=== PATIENT | female | born 1995 | race Caucasian/White ===

== ENCOUNTER 2020-06-08 14:15 | Outpatient (REF) | payer OTHER, SELFPAY ==
[2020-06-08 14:39] LABS: MANUAL DIFF FLAG NO
[2020-06-08 14:41] LABS: Basophils Percent Auto 0.6 % (0-2); Eosinophils Absolute Auto 0.1 X10*3/uL (0.0-0.4); Eosinophils Percent Auto 0.8 % (0-4); Hematocrit 41.7 % (37-47); Hemoglobin 12.7 g/dl (12.0-16.0); Imm Gran Abs Auto 0.01 X10*3/uL (0.00-0.03); Imm Gran Pct Auto 0.1 % (0.0-0.4); Lymphocytes Absolute Auto 1.8 X10*3/uL (1.2-4.9); Lymphocytes Percent Auto 24.4 % (20-40); Mean Corpuscular HGB Conc 30.5 g/dl (31.0-35.0); Mean Corpuscular Hemoglobin 23.8 pg (27.0-33.0); Mean Corpuscular Volume 78.2 fL (80-98); Mean Platelet Volume 10.1 fL (9.4-12.3); Monocytes Absolute Auto 0.5 X10*3/uL (0.1-1.2); Monocytes Percent Auto 6.2 % (2-11); Neutrophils Absolute Auto 4.9 X10*3/uL (2.0-8.3); Neutrophils Percent Auto 67.9 % (45-73); Platelet Count 414 X10*3/uL (160-400); Red Blood Count 5.33 X10*6/uL (4.20-5.50); Red Cell Distribution Width 13.7 % (11.0-16.0); White Blood Count 7.2 X10*3/uL (4.8-10.8)
[2020-06-08 15:03] LABS: Alanine Aminotransferase 18 U/L (0-31); Albumin Level 4.4 g/dL (3.5-5.0); Alkaline Phosphatase 89 U/L (39-117); Aspartate Amino Transferase 17 U/L (5-31); Bilirubin Direct 0.2 mg/dL (0.0-0.5); Bilirubin Total 0.4 mg/dL (0.0-1.0); Total Protein 7.1 g/dL (6.5-8.0)
[2020-06-08 15:25] LABS: Vitamin D 25-OH Total 6.1 ng/mL (>30)
== END 2020-06-08 14:16 | disposition home or self-care (01) ==
LOC: HO.LAB 14:15
PROVIDERS: PCP Internal Medicine; Visit Provider Psychiatry & Neurology Neurology
DX: G35 Multiple sclerosis (principal)
CPT/HCPCS: 36415; 80076; 82306; 85025

== ENCOUNTER 2020-12-02 14:54 | Outpatient (REF) | payer MEDICAID, SELFPAY ==
[2020-12-02 17:14] LABS: Hematocrit 41.8 % (37-47); Hemoglobin 12.5 g/dl (12.0-16.0); Mean Corpuscular HGB Conc 29.9 g/dl (31.0-35.0); Mean Corpuscular Hemoglobin 22.7 pg (27.0-33.0); Mean Platelet Volume 10.7 fL (9.4-12.3); Platelet Count 396 X10*3/uL (160-400); Red Cell Distribution Width 15.2 % (11.0-16.0)
[2020-12-02 17:20] LABS: C Reactive Protein 0.61 mg/dL (< or = 0.50)
[2020-12-05 22:26] LABS: Transglutaminase Ab IgG 1 U/mL; Transglutaminase IgA 1 U/mL
== END 2020-12-02 14:55 | disposition home or self-care (01) ==
LOC: HO.LAB 14:54
PROVIDERS: PCP Internal Medicine; Visit Provider Nurse Practitioner Family
DX: R10.11 Right upper quadrant pain (principal); K58.9 Irritable bowel syndrome, unspecified; R14.0 Abdominal distension (gaseous); K59.04 Chronic idiopathic constipation; K92.1 Melena
CPT/HCPCS: 36415; 83516; 85027; 86140; 99202

== ENCOUNTER 2020-12-21 10:01 | Outpatient (REF) | payer MEDICAID, SELFPAY ==
--- NOTE | ~2020-12-21 | XR_ITS ---
EXAMINATION: XR LUMBOSACRAL SPINE CLINICAL INFORMATION: Low back pain COMPARISON: Fluoroscopic spot views lumbar puncture 01/31/2018 TECHNIQUE: Three views of the lumbosacral spine. FINDINGS: There is normal lumbar segmentation with 5 nonrib-bearing lumbar vertebrae of normal height and normal lumbar lordosis. There is no lumbar vertebral compression, spondylolisthesis, disc narrowing. Incidental small superior endplate Schmorl's node present at L1. The SI joints and visualized sacrum are unremarkable. XR/XR lumbar spine 2-3V IMPRESSION: Unremarkable examination.
== END 2020-12-21 10:02 | disposition home or self-care (01) ==
LOC: HO.XRAY 10:01
PROVIDERS: PCP Internal Medicine; Visit Provider Internal Medicine
DX: M54.5 Low back pain (principal)
CPT/HCPCS: 72100

== ENCOUNTER → 2021-02-10 15:03 | Outpatient (BNVA) | payer MEDICAID, SELFPAY | PROVIDERS: PCP Internal Medicine; Visit Provider Nurse Practitioner Family ==

== ENCOUNTER 2021-03-12 10:24 | Emergency (ER) | payer MEDICAID, SELFPAY ==
[2021-03-12 10:28] VITALS: BP 132/78; PULSE 87; RESP 17; TEMP 36.4; O2SAT 97
[2021-03-12 11:19] VITALS: BP 132/78; PULSE 88; RESP 18; TEMP 36.4; O2SAT 97; BMI 38.0
[2021-03-12 12:22] LABS: Appearance Urine CLOUDY; Color Urine ORANGE; Leukocyte Esterase Urine 2+ (NEG); Nitrite Urine POS (NEG); UACC Culture Trigger YES; Urine Blood 2+ (NEG)
[2021-03-12 12:24] LABS: UPreg QC Valid YES; Urine Pregnancy NEGATIVE (NEGATIVE)
[2021-03-12 12:40] LABS: Bacteria Urine 2+ /LPF; RBC Urine 50-75 /HPF (0); Squamous Epithelial Cell Urine 2+ /LPF
--- NOTE | 2021-03-12 12:51 | ED.FEMALEGU ---
HPI - Female Genitourinary General Chief complaint: Urogenital-Female Stated complaint: BLOOD IN URINE QUEST UTI Time Seen by Provider: 03/12/21 12:03 Source: patient Mode of arrival: ambulatory Limitations: no limitations History of Present Illness HPI Narrative: 25-year-old female here with complaints of dysuria and hematuria describes pink urine for 3 days. History of recurrent UTIs and feels similar. No abdominal pain, back pain, fevers, chills, nausea, vomiting. Patient denies any vaginal discharge. She has had chlamydia before but does not feel like she is concerned about this today. Offered testing and patient accepted. Does not want to be treated for STDs. Related Data Home Medications Medication Instructions Recorded Confirmed albuterol sulfate 90 mcg/actuation 2 puff INHALATION Q6H PRN 12/02/20 aerosol inhaler (ProAir HFA) baclofen 10 mg tablet 10 mg PO DAILY 12/02/20 dimethyl fumarate 120 mg 120 mg PO BID 12/02/20 capsule,delayed release (Tecfidera) ibuprofen 800 mg tablet 800 mg PO Q8H 12/02/20 Previous Rx's Medication Instructions Recorded docusate sodium 100 mg capsule 100 mg PO DAILY #30 cap 02/10/21 methylcellulose (laxative) 500 mg 500 mg PO DAILY #30 tab 02/10/21 tablet (Citrucel) sennosides 8.6 mg tablet (Natural 8.6 mg PO BEDTIME #30 tab 02/10/21 Senna Laxative) nitrofurantoin 100 mg PO Q12H 5 Days #10 cap 03/12/21 monohydrate/macrocrystals 100 mg capsule (Macrobid) phenazopyridine 200 mg tablet 200 mg PO TID PRN #10 tab 03/12/21 (Pyridium) Allergies Allergy/AdvReac Type Severity Reaction Status Date / Time morphine [MORPHINE] Allergy Severe HYPOVENTILATION, Verified 02/10/21 15:05 excellerated heart rate and sob cromolyn [From INTAL] Allergy Intermediate HYPERACTIVI Verified 02/10/21 15:05 TY amoxicillin [AMOXICILLIN] Allergy Unknown HIVES, Verified 02/10/21 15:05 hives and welts Review of Systems Review of Systems: Yes all other systems are reviewed and are negative Constitutional: Constitutional: Reports no additional constitutional complaints, Denies body ache(s), Denies chills, Denies fever(s), Denies headache(s) and Denies weakness Eyes: Eyes: Reports no additional eye complaints and Denies change in vision ENT: Reports system reviewed and no additional complaints, except as documented, Denies dizziness, Denies headache(s), Denies nasal congestion, Denies nasal discharge and Denies neck pain Cardiovascular: Cardiovascular: Reports no additional cardiovascular complaints, Denies chest pain, Denies leg edema and Denies dyspnea Respiratory: Respiratory: Reports no additional respiratory complaints, Denies cough and Denies dyspnea Gastrointestinal: Gastrointestinal: Reports no additional gastrointestinal complaints, Denies abdominal pain, Denies diarrhea, Denies nausea and Denies vomiting Genitourinary: Genitourinary: Reports no additional female genitourinary complaints, Reports hematuria, Reports dysuria and Denies urinary incontinence Musculoskeletal: Musculoskeletal: Reports no additional musculoskeletal complaints, Denies back pain, Denies arthralgias, Denies joint swelling, Denies neck pain, Denies numbness and Denies tingling Integumentary/Breasts: Skin/Breast: Reports system reviewed and no additional complaints, except as docu and Denies rash Neurologic: Reports system reviewed and no additional complaints, except as documented, Denies Abnormal speech present, Denies dizziness, Denies headache(s), Denies numbness, Denies tingling and Denies weakness PMFSH Past Medical History Attestation statement: The following information was validated with the patient. Source: old records reviewed and nursing notes reviewed Social History Social History Alcohol intake: never Patient Tobacco Use Status: Never used Tobacco Use of substances other than those prescribed or required for medical reasons: No Advance Directives: Yes Advance Directives Information Provided: Yes Advance Directives on File: No Physical Exam Vital Signs: Vital Signs: Last Vital Signs Temp 97.6 F 03/12/21 11:19 Pulse 88 03/12/21 11:19 Resp 18 03/12/21 11:19 BP 132/78 03/12/21 11:19 Pulse Ox 97 03/12/21 11:19 Body Mass Index 38.0 Const: General: cooperative, healthy appearing, comfortable and no acute distress Orientation/consciousness: patient oriented x3 Limitations: no limitations HENMT: Head: Yes normal to inspection Ears: hearing grossly normal bilaterally General nose exam: Normal external nose present Face and sinus: Yes normal facial exam Mouth: Normal oral and palatal mucosa present Throat: Yes posterior oropharynx normal Eyes: General: appearance normal, both eyes and all related structures Pupils: Equal, round and reactive pupils present Neck: Neck: Yes normal visual inspection Chest: Chest palpation & inspection: normal inspection of the chest Resp: Effort & Inspection: normal respiratory effort Auscultation: clear to auscultation bilaterally Cardio: Rate: regular rate Rhythm: regular rhythm Peripheral pulses: Peripheral pulses 2+ throughout GI: Inspection: Yes normal to inspection Palpation (GI): Soft to palpation and nontender Auscultation: normal bowel sounds : General: Yes no CVA tenderness Back/Spine/Pelvis: Back: no CVA tenderness Thoracic/Lumbar Spine: thoracic and lumbar spine normal to inspection Skin: General skin exam: no rashes or lesions noted Neuro: General: patient oriented x3, no focal motor deficits and normal sensation to monofilament Cranial nerves: Yes Equal, round and reactive pupils present Cognition (Neuro): normal cognition Speech: No Abnormal speech present Gait exam (Neuro): Normal gait present Motor exam (neuro): 5/5 motor strength present throughout Extrem: General: Yes normal to inspection, Yes no pedal edema and Yes no calf tenderness Course Course Course Narrative: [age] year female here with UTI symptoms. UA is consistent with UTI. No evidence of pyelonephritis with no flank pain, vomiting. Patient is nontoxic appearing. Will treat with course of antibiotics. History of of STI. Not concern for exposure at this time however accepted testing. Did decline treatment. Where she will need to return if she is positive. Reviewed worrisome signs and symptoms of when to return to the emergency department. Comfortable discharge home. MDM - Female Genitourinary Medical Records Attestation: I reviewed the patient's medical records. Lab Data Attestation: I reviewed the patient's lab results. Labs: Lab Results 03/12/21 03/12/21 Range/Units 12:14 12:15 Urine Color ORANGE Urine Appearance CLOUDY Urine pH 5.0 (5.0-8.0) Ur Specific [place] 1.020 (1.005-1.025) Urine Protein SEE NOTE (NEG-TRACE) MG/DL Urine Glucose (UA) SEE NOTE (NEG) MG/DL Urine Ketones SEE NOTE (NEG) MG/DL Urine Blood 2+ H (NEG) Urine Nitrite POS H (NEG) Ur Leukocyte Esterase 2+ H (NEG) Urine RBC 50-75 H (0) /HPF Urine WBC 10-14 H (0-4) /HPF Ur Squamous Epith Cells 2+ /LPF Urine Bacteria 2+ /LPF Urine Test NEGATIVE (NEGATIVE) Discharge Plan Discharge Clinical Impression: Urinary tract infection Patient Disposition: Home, Self-Care Instructions: Urinary Tract Infection in Women (ED) Additional Instructions: Increase fluids, rest Motrin or Tylenol if able as needed for pain or fever We did test you for STD. We will call you if these are positive Prescriptions: New nitrofurantoin monohyd/m-cryst [Macrobid] 100 mg capsule 100 mg PO Q12H 5 Days Qty: 10 RF: 0 phenazopyridine [Pyridium] 200 mg tablet 200 mg PO TID PRN (Reason: pain) Qty: 10 RF: 0 No Action dimethyl fumarate [Tecfidera] 120 mg capsule,delayed release(DR/EC) 120 mg PO BID RF: 0 baclofen 10 mg tablet 10 mg PO DAILY RF: 0 ibuprofen 800 mg tablet 800 mg PO Q8H RF: 0 albuterol sulfate [ProAir HFA] 90 mcg/actuation HFA aerosol inhaler 2 puff inhalation Q6H PRNRF: 0 docusate sodium 100 mg capsule 100 mg PO DAILY Qty: 30 RF: 3 Citrucel 500 mg tablet 500 mg PO DAILY Qty: 30 RF: 3 sennosides [Natural Senna Laxative] 8.6 mg tablet 8.6 mg PO BEDTIME Qty: 30 RF: 3 Referrals: Hilda Joyce MD [Primary Care Provider] - 2 days Interventions: ED Discharge Assessment Last Done: 03/12/21 13:06 Discharge Date/Time: 03/12/21 13:06
[2021-03-13 09:41] LABS: CT PCR NOT DETECTED (Not Detect.); NG PCR NOT DETECTED (Not Detect.)
== END 2021-03-12 13:06 | disposition home or self-care (01) ==
PROVIDERS: Nurse Practitioner Family; Physician Assistant Medical; Emergency Provider Emergency Medicine; PCP Internal Medicine
DX: N39.0 Urinary tract infection, site not specified (principal)
CPT/HCPCS: 81001; 81025; 87086; 87088; 87186; 87491; 87591; 99283; 99284

== ENCOUNTER 2021-05-17 12:52 | Outpatient (REF) | payer MEDICAID, SELFPAY ==
[2021-05-17 14:44] LABS: Alanine Aminotransferase 15 U/L (0-31); Albumin Level 3.9 g/dL (3.5-5.0); Alkaline Phosphatase 63 U/L (39-117); Aspartate Amino Transferase 15 U/L (5-31); Bilirubin Direct < 0.2 mg/dL (0.0-0.5); Bilirubin Total 0.2 mg/dL (0.0-1.0); Total Protein 6.8 g/dL (6.5-8.0)
== END 2021-05-17 12:53 | disposition home or self-care (01) ==
LOC: HO.LAB 12:52
PROVIDERS: Visit Provider Psychiatry & Neurology Neurology
DX: G35 Multiple sclerosis (principal)
CPT/HCPCS: 36415; 80076

== ENCOUNTER 2021-05-31 14:42 | Outpatient (REF) | payer MEDICAID, SELFPAY ==
[2021-05-31 16:48] LABS: Folate 11.6 ng/mL (> or = 4.0); Vitamin B12 184 pg/mL (200-900)
[2021-06-05 14:11] LABS: Vitamin D 25-OH, D2 <4 ng/mL; Vitamin D 25-OH, D3 5 ng/mL; Vitamin D 25-OH, Total 5 ng/mL (30-100)
== END 2021-05-31 14:43 | disposition home or self-care (01) ==
LOC: HO.LAB 14:42
PROVIDERS: PCP Internal Medicine; Referring Provider Internal Medicine; Visit Provider Nurse Practitioner Family
DX: R19.7 Diarrhea, unspecified (principal); E55.9 Vitamin D deficiency, unspecified
CPT/HCPCS: 36415; 82306; 82607; 82746; 84443; 99212

== ENCOUNTER → 2021-08-28 13:29 | Outpatient (BNVA) | payer MEDICAID, SELFPAY | PROVIDERS: PCP Internal Medicine; Referring Provider Internal Medicine; Visit Provider Nurse Practitioner Family | DX: K59.01 Slow transit constipation (principal); K21.9 Gastro-esophageal reflux disease without esophagitis; K58.2 Mixed irritable bowel syndrome; R14.0 Abdominal distension (gaseous) | CPT/HCPCS: 83013; 99212 ==

== ENCOUNTER 2021-08-28 18:03 | Outpatient (REF) | payer MEDICAID, SELFPAY ==
[2021-08-29 14:39] LABS: H Pylori Breath Test Negative (Negative)
== END 2021-08-28 18:04 | disposition home or self-care (01) ==
LOC: HO.LNP 18:03
PROVIDERS: Visit Provider Nurse Practitioner Family
DX: R10.9 Unspecified abdominal pain (principal); K58.9 Irritable bowel syndrome, unspecified; K21.9 Gastro-esophageal reflux disease without esophagitis; K59.01 Slow transit constipation; R14.0 Abdominal distension (gaseous); Z11.0 Encounter for screening for intestinal infectious diseases; Z88.6 Allergy status to analgesic agent; Z88.1 Allergy status to other antibiotic agents; Z88.0 Allergy status to penicillin; Z88.8 Allergy status to other drugs, medicaments and biological substances
CPT/HCPCS: 83013

== ENCOUNTER 2021-10-04 12:01 | Outpatient (REF) | payer MEDICAID, SELFPAY ==
[2021-10-04 12:13] LABS: MANUAL DIFF FLAG NO
[2021-10-04 13:16] LABS: Basophils Absolute Auto 0.1 X10*3/uL (0.0-0.2); Basophils Percent Auto 0.8 % (0-2); Eosinophils Absolute Auto 0.2 X10*3/uL (0.0-0.4); Eosinophils Percent Auto 2.6 % (0-4); Hematocrit 40.3 % (37.0-47.0); Hemoglobin 12.2 g/dl (12.0-16.0); Imm Gran Abs Auto 0.02 X10*3/uL (0.00-0.03); Imm Gran Pct Auto 0.3 % (0.0-0.4); Lymphocytes Absolute Auto 1.6 X10*3/uL (1.2-4.9); Lymphocytes Percent Auto 25.2 % (20-40); Mean Corpuscular HGB Conc 30.3 g/dl (31.0-35.0); Mean Corpuscular Hemoglobin 22.9 pg (27.0-33.0); Mean Corpuscular Volume 75.6 fL (80.0-98.0); Mean Platelet Volume 10.8 fL (9.4-12.3); Monocytes Absolute Auto 0.5 X10*3/uL (0.1-1.2); Neutrophils Absolute Auto 4.1 x10*3/uL (2.0-8.3); Neutrophils Percent Auto 63.1 % (45-73); Platelet Count 466 X10*3/uL (160-400); Red Blood Count 5.33 X10*6/uL (4.20-5.50); Red Cell Distribution Width 14.5 % (11.0-16.0); White Blood Count 6.5 X10*3/uL (4.8-10.8)
== END 2021-10-04 12:02 | disposition home or self-care (01) ==
LOC: HO.LAB 12:01
PROVIDERS: PCP Internal Medicine; Visit Provider Psychiatry & Neurology Neurology
DX: G35 Multiple sclerosis (principal)
CPT/HCPCS: 36415; 85025

== ENCOUNTER → 2022-03-14 11:33 | Outpatient (BNVA) | payer MEDICAID, SELFPAY | PROVIDERS: PCP Internal Medicine; Visit Provider Nurse Practitioner Family | DX: K59.01 Slow transit constipation (principal); K58.1 Irritable bowel syndrome with constipation; R14.0 Abdominal distension (gaseous); K21.9 Gastro-esophageal reflux disease without esophagitis; R79.89 Other specified abnormal findings of blood chemistry; E66.01 Morbid (severe) obesity due to excess calories; Z68.41 Body mass index [BMI] 40.0-44.9, adult | CPT/HCPCS: 99212 ==

== ENCOUNTER 2022-10-03 11:48 | Outpatient (REF) | payer MEDICAID, SELFPAY ==
[2022-10-03 12:05] LABS: MANUAL DIFF FLAG NO
[2022-10-03 13:28] LABS: Basophils Percent Auto 0.7 % (0-2); Eosinophils Absolute Auto 0.1 X10*3/uL (0.0-0.4); Eosinophils Percent Auto 1.9 % (0-4); Hematocrit 42.8 % (37.0-47.0); Imm Gran Abs Auto 0.02 X10*3/uL (0.00-0.03); Imm Gran Pct Auto 0.3 % (0.0-0.4); Lymphocytes Absolute Auto 1.8 X10*3/uL (1.2-4.9); Lymphocytes Percent Auto 30.7 % (20-40); Mean Corpuscular HGB Conc 30.4 g/dl (31.0-35.0); Mean Corpuscular Hemoglobin 23.3 pg (27.0-33.0); Mean Corpuscular Volume 76.7 fL (80.0-98.0); Mean Platelet Volume 10.6 fL (9.4-12.3); Monocytes Absolute Auto 0.4 X10*3/uL (0.1-1.2); Monocytes Percent Auto 5.9 % (2-11); Neutrophils Absolute Auto 3.6 x10*3/uL (2.0-8.3); Neutrophils Percent Auto 60.5 % (45-73); Platelet Count 398 X10*3/uL (160-400); Red Blood Count 5.58 X10*6/uL (4.20-5.50); Red Cell Distribution Width 14.5 % (11.0-16.0); White Blood Count 5.9 X10*3/uL (4.8-10.8)
[2022-10-03 14:04] LABS: Alanine Aminotransferase 19 U/L (0-31); Alkaline Phosphatase 84 U/L (39-117); Aspartate Amino Transferase 25 U/L (5-31); Bilirubin Direct 0.1 mg/dL (0.0-0.5); Bilirubin Total 0.5 mg/dL (0.0-1.0); Total Protein 6.9 g/dL (6.5-8.0)
== END 2022-10-03 11:49 | disposition home or self-care (01) ==
LOC: HO.LAB 11:48
PROVIDERS: PCP Internal Medicine; Visit Provider Psychiatry & Neurology Neurology
DX: G35 Multiple sclerosis (principal)
CPT/HCPCS: 36415; 80076; 85025

== ENCOUNTER 2023-04-03 11:03 | Outpatient (REF) | payer OTHER, SELFPAY ==
[2023-04-03 12:07] LABS: Hematocrit 43.2 % (37.0-47.0); Hemoglobin 13.1 g/dl (12.0-16.0); Mean Corpuscular HGB Conc 30.3 g/dl (31.0-35.0); Mean Corpuscular Hemoglobin 23.6 pg (27.0-33.0); Mean Corpuscular Volume 77.8 fL (80.0-98.0); Mean Platelet Volume 10.6 fL (9.4-12.3); Platelet Count 396 X10*3/uL (160-400); Red Blood Count 5.55 X10*6/uL (4.20-5.50); Red Cell Distribution Width 14.8 % (11.0-16.0); White Blood Count 5.1 X10*3/uL (4.8-10.8)
[2023-04-03 12:32] LABS: Alanine Aminotransferase 13 U/L (0-31); Alkaline Phosphatase 76 U/L (39-117); Aspartate Amino Transferase 19 U/L (5-31); Bilirubin Direct 0.1 mg/dL (0.0-0.5); Bilirubin Total 0.3 mg/dL (0.0-1.0); Total Protein 7.2 g/dL (6.5-8.0)
== END 2023-04-03 11:04 | disposition home or self-care (01) ==
LOC: HO.LAB 11:03
PROVIDERS: PCP Internal Medicine; Visit Provider Psychiatry & Neurology Neurology
DX: Z13.89 Encounter for screening for other disorder (principal)
CPT/HCPCS: 36415; 80076; 85027

== ENCOUNTER 2023-06-07 17:40 | Outpatient (REF) | payer OTHER, SELFPAY | END 2023-06-07 17:41 | disposition home or self-care (01) | LOC: HO.HHCLNP 17:40 | PROVIDERS: Visit Provider Emergency Medicine | DX: N60.01 Solitary cyst of right breast (principal) | CPT/HCPCS: 87070; 87205 ==

== ENCOUNTER 2023-07-11 14:59 | Outpatient (AMB) | payer OTHER, SELFPAY ==
--- NOTE | 2023-07-11 15:09 | A.OFFVIS_ITS ---
Intake Vital Signs 3 07/11/23 15:11 Height 5 ft 6 in Weight 209 lb 14.081 oz BMI 33.9 BP 140/72 H Blood Pressure Location Lt brachial Position Sitting Pulse 75 Intake Visit Reasons: Cyst~ RT nipple Intake Note: Patient is seen in office for evaluation and treatment of a cyst of the right nipple. Pt c/o: pierced her nipple aprox 8 months ago, was infected on and off since, every couple months the area will re-open and will drain then scab and repeat, has not had antibiotics, right axilla gets swollen, wound was open 3 days ago currently has a scab, when open discharge is white/yellow and bleeding Broom Stitcher Required: No Accompanied by: Self / Same As Patient Allergies morphine [MORPHINE] Allergy (Severe, Verified 07/11/23 15:11) HYPOVENTILATION, excellerated heart rate and sob cromolyn [From INTAL] Allergy (Intermediate, Verified 07/11/23 15:11) HYPERACTIVITY amoxicillin [AMOXICILLIN] Allergy (Unknown, Verified 07/11/23 15:11) HIVES, hives and welts HPI HPI Comments 2 History of Present Illness0 Details 27-year-old female patient presenting wi th complaints of recurring nipple infection. She reports having the bilateral nipples pierced approximately 8 months ago. She subsequently developed an infection only in the right side with recurring scabbing followed by healing followed by increased pain, swelling and discharge. She has had multiple episodes of infection but currently reports the wound is scabbed over and without any discharge. She denies any symptoms on the left side. She is requesting excision of the persistent cyst of the right nipple. She denies any current fever or chills. [facility] Surgical History Hx of tonsillectomy Family History Mother Anemia Sister Heart murmur Father Diabetes HTN (hypertension) Maternal Grandmother Diabetes Social History Alcohol intake: never Patient Tobacco Use Status: Never used Tobacco Review of Systems Const All systems reviewed & are unremarkable except as noted in HPI and below Denies chills, Denies fever(s), Denies headache(s), Denies poor appetite and Denies weakness ENT Denies headache(s) Card Denies chest pain, Denies irregular heart rhythm, Denies palpitations and Denies dyspnea Resp Denies cough, Denies excessive phlegm production and Denies dyspnea GI Denies abdominal pain, Denies bloating, Denies change in bowel habits, Denies constipation, Denies heartburn, Denies diarrhea, Denies nausea and Denies vomiting Denies urinary frequency Musc Denies back pain, Denies muscle weakness and Denies numbness Skin/Breast Denies changing lesions and Denies unusual bruising Neuro Denies headache(s), Denies numbness, Denies paresthesias and Denies weakness Psych Denies anxiety and Denies depression Endo Denies palpitations Kike/Lymph Denies lymphadenopathy Physical Exam Const General: cooperative and no acute distress Nutritional Appearance: well nourished Orientation/consciousness: patient oriented x3 Limitations: no limitations HEENT Head: Yes normocephalic and Yes atraumatic Ears: hearing grossly normal bilaterally Chest Other: Right breast with a healed nipple piercing. There is a callus located along the medial surface with an underlying palpable cyst below the central portion of the nipple. No abscess is noted at this time. Chest/axillae images: 2 1. Site of callus right nipple, 5 mm diameter Resp Effort & Inspection: normal respiratory effort, no audible wheezes, no cough and no respiratory distress Cardio Jugular venous distension: no JVD GI Inspection: Yes normal to inspection Skin Other: Warm, dry, no rash Neuro General: patient oriented x3 Extrem General: Yes no clubbing, cyanosis or edema Assessment & Plan Assessment & Plan (1) Breast cyst: Code(s): N60.09 - Solitary cyst of unspecified breast Qualifiers: Laterality: right Qualified Code(s): N60.01 - Solitary cyst of right breast Plan 27-year-old female status post nipple piercing now with a persistent draining cyst of the right nipple piercing with a palpable cystic lesion below the nipple. The infection is currently quiescent although she has had multiple recurrences of infection. I recommended excision of the piercing tract and the underlying cyst as a short-stay surgery. After discussion of the procedure, risks, and alternatives, she consents to an excision of the right breast cyst. This will be scheduled as a short-stay surgery. Coding Level of Care Code New Pt Level 4 (20579) Diagnoses Cyst of right breast N60.01 Laterality: right
[2023-07-11 15:11] VITALS: BP 140/72; PULSE 75; BMI 33.9
== END 2023-07-11 15:21 | disposition home or self-care (01) ==
PROVIDERS: PCP Internal Medicine; Visit Provider Surgery
DX: N60.01 Solitary cyst of right breast (principal)
CPT/HCPCS: 99204

== ENCOUNTER → 2023-07-11 14:59 | Outpatient (BNVA) | payer OTHER, SELFPAY | PROVIDERS: PCP Internal Medicine; Visit Provider Surgery | DX: N60.01 Solitary cyst of right breast (principal) | CPT/HCPCS: 99202 ==

== ENCOUNTER 2023-07-31 07:17 | Day surgery (SDC) | payer OTHER, SELFPAY ==
[2023-07-29 08:32] VITALS: BMI 33.7
--- NOTE | 2023-07-29 13:38 | P.CONAN_ITS ---
Documented by User: Radha Zhang NP 07/29/23 13:38 HPI - Anesthesia Eval Consult details Narrative: 28yo F for Right Excision Nipple Cyst PMFSH Active Problems Active Problems: All Active Problems (Updated 07/11/23 @ 15:35 by Mervin Nunez MD) Breast cyst (Acute) Past Medical History Medical History (Updated 07/31/23 @ 08:26 by Oly Reid RN) Multiple sclerosis IBS (irritable bowel syndrome) GERD (gastroesophageal reflux disease) Family History Family History Mother Anemia Sister Heart murmur Father Diabetes HTN (hypertension) Maternal Grandmother Diabetes Surgical History Surgical History Hx of tonsillectomy Social History Social History Alcohol intake: never Patient Tobacco Use Status: Never used Tobacco Use of substances other than those prescribed or required for medical reasons: Yes Substance Use Type Other:: gummies Are you DNR?: No Advance Directives: No Advance Directives Information Provided: Yes Meds Allergies Allergy/AdvReac Type Severity Reaction Status Date / Time morphine [MORPHINE] Allergy Severe HYPOVENTILATION, Verified 07/11/23 15:11 excellerated heart rate and sob cromolyn [From INTAL] Allergy Intermediate HYPERACTIVI Verified 07/11/23 15:11 TY amoxicillin [AMOXICILLIN] Allergy Unknown HIVES, Verified 07/11/23 15:11 hives and welts Home Medications Medication Instructions Recorded Confirmed Last Taken Type albuterol sulfate 90 mcg/actuation 2 puff inhalation Q6H PRN 12/02/20 Unknown History aerosol inhaler (ProAir HFA) baclofen 10 mg tablet 10 mg PO DAILY 12/02/20 Unknown History dimethyl fumarate 120 mg 120 mg PO BID 12/02/20 Unknown History capsule,delayed release (Tecfidera) ibuprofen 800 mg tablet 800 mg PO Q8H 12/02/20 Unknown History norgestimate 0.25 mg-ethinyl 1 tab PO DAILY 05/31/21 Unknown History estradiol 35 mcg tablet (Sprintec (28)) Exam Height,Weight and Vital Signs: Height 5 ft 6 in Weight 94.801 kg Assessment and Plan Assessment Anesthesia Assessment: Chart Reviewed Documented by User: Leatha Simon MD 07/31/23 08:28 [facility] Past Medical History Medical History (Updated 07/31/23 @ 08:26 by Oly Reid RN) Multiple sclerosis IBS (irritable bowel syndrome) GERD (gastroesophageal reflux disease) Family History Family History Mother Anemia Sister Heart murmur Father Diabetes HTN (hypertension) Maternal Grandmother Diabetes Family history of problems with anesthesia: No Surgical History Surgical History Hx of tonsillectomy History of Problems with Anesthesia: No Social History Social History Alcohol intake: never Patient Tobacco Use Status: Never used Tobacco Use of substances other than those prescribed or required for medical reasons: Yes Substance Use Type Other:: gummies Are you DNR?: No Advance Directives: No Advance Directives Information Provided: Yes Meds Allergies Allergy/AdvReac Type Severity Reaction Status Date / Time morphine [MORPHINE] Allergy Severe HYPOVENTILATION, Verified 07/11/23 15:11 excellerated heart rate and sob cromolyn [From INTAL] Allergy Intermediate HYPERACTIVI Verified 07/11/23 15:11 TY amoxicillin [AMOXICILLIN] Allergy Unknown HIVES, Verified 07/11/23 15:11 hives and welts Home Medications Medication Instructions Recorded Confirmed Last Taken Type albuterol sulfate 90 mcg/actuation 2 puff inhalation Q6H PRN 12/02/20 Unknown H istory aerosol inhaler (ProAir HFA) baclofen 10 mg tablet 10 mg PO DAILY 12/02/20 Unknown History dimethyl fumarate 120 mg 120 mg PO BID 12/02/20 Unknown History capsule,delayed release (Tecfidera) ibuprofen 800 mg tablet 800 mg PO Q8H 08/06/21 Unknown History norgestimate 0.25 mg-ethinyl 1 tab PO DAILY 05/31/21 Unknown History estradiol 35 mcg tablet (Sprintec (28)) Exam Airway Mallampati Class: II TM Dist: >3cm Neck ROM: Full Heart: rrr Lungs: cta Assessment and Plan Assessment Anesthesia Assessment: Anesthesia Plan Discussed Final Anesthetic Review Family History of Problems with Anesthesia: No History of Problems with Anesthesia: No NPO: Yes ASA Class: II Final Preanesthetic Review: No Changes in Pt Med Stat, Meds/Allgs Chart Reviewed and Consent Obtained/Reviewed Patient Risk: Low Procedure Risk: Low Anesthetic Plan Anesthetic Plan: GA Disposition: Standard PACU
[2023-07-31 07:38] VITALS: BMI 36.0
[2023-07-31 07:49] VITALS: BMI 36.0
[2023-07-31 07:51] VITALS: BP 110/71; PULSE 76; RESP 18; TEMP 36.4; O2SAT 99
[2023-07-31 07:51] LABS: UPreg QC Valid YES; Urine Pregnancy NEGATIVE (NEGATIVE)
[2023-07-31] MEDS: vancomycin HCL 1,500 MG in 0.9 % Sodium Chloride 500 ML 333.33 MG IV (08:16)
[2023-07-31] MEDS: Lactated Ringers 1,000 ML 100 ML IVCONT (08:17)
--- NOTE | 2023-07-31 08:32 | MHC.SHP ---
Pre-Procedural Eval Section A - 24 Hr Update-Section A only Date of Service: 07/31/23 The patient is an INPATIENT: No Changes since office visit: Yes Patient answered all questions; No Cold of Flu in the past 2 weeks, No New Medical Problems and No Changes in Medication The patient has been examined within 24 hours of the surgical procedure. The History & Physical has been completed within 30 days and I have reviewed it.: Yes Section B - Complete if H&P > 30 days Chief Complaint: Solitary cyst of right breast Allergies: Allergies Allergy/AdvReac Type Severity Reaction Status Date / Time morphine [MORPHINE] Allergy Severe HYPOVENTILATION, Verified 07/11/23 15:11 excellerated heart rate and sob cromolyn [From INTAL] Allergy Intermediate HYPERACTIVI Verified 07/11/23 15:11 TY amoxicillin [AMOXICILLIN] Allergy Unknown HIVES, Verified 07/11/23 15:11 hives and welts Plan Diagnosis/Plan: Unchanged I have reviewed the history and physical and performed a pertinent physical examination on my patient. No changes have occurred unless specified. Time Spent With Patient Time: Total time managing care of this patient today ____ minutes.
--- NOTE | 2023-07-31 08:35 | W.PM.OPN ---
Operative Note Operative Note Date of Service: 07/31/23 Narrative: Preoperative diagnosis: Right breast cyst and abscess following nipple piercing Postoperative diagnosis: Same Procedure: Right breast lumpectomy Surgeon: Mervin Nunez MD Geosciences Faculty Member: Shalini Alcaraz PA-C, ESTRELLA Sanders Anesthesia: General LMA Indications for procedure: 28-year-old female patient status post bilateral nipple piercing with persistent draining infection involving the right nipple piercing. Patient has a palpable cystic lesion below the nipple which intermittently becomes infected. Operative findings: Small purulent collection in the medial right nipple Specimen: Right nipple cyst Estimated blood loss: Less than 2 mL Complications: None Procedure details: Patient was brought to the OR and placed in a supine position. After administering general anesthesia the patient's right breast was prepped with ChloraPrep and draped in a sterile fashion. A surgical time-out was called the consent confirmed. Patient received preoperative antibiotics and Venodyne boots were in place. Local anesthesia was infiltrated around the nipple. A 1. Lacrimal probe was then inserted into the medial opening of the nipple piercing. This was then cannulated into the lateral opening. A small purulence collection was drained during this cannulation. An elliptical incision oriented transversely was then created around the medial piercing. This was carried out through subcutaneous tissue. Sharp dissection was then used to follow the track below the nipple from medial to lateral. A counter incision was made in elliptical fashion on the outer opening of the piercing. This was again carried through into the subcutaneous tissue to connect the medial and lateral incision. The specimen was then removed and sent to pathology for further examination. Hemostasis was assured using electrocautery and light pressure. Wounds were then irrigated with saline solution and suctioned dry. Nipple tissue was then reapproximated using interrupted 4-0 Polysorb sutures in the subcuticular fashion. This was then covered with surgical glue. Wounds were then dressed with 4 x 4 gauze and Tegaderm. The patient tolerated the procedure well. Sponge, instrument, and needle counts reported as correct. The patient was transferred to PACU in stable condition.
[2023-07-31 09:58] VITALS: BP 106/53; PULSE 83; RESP 18; TEMP 36.9; O2SAT 97
[2023-07-31 10:03] VITALS: BP 114/61; PULSE 87; RESP 18; O2SAT 97
[2023-07-31 10:08] VITALS: BP 110/63; PULSE 67; RESP 18; O2SAT 97
[2023-07-31 10:13] VITALS: BP 103/62; PULSE 60; RESP 18; O2SAT 98
[2023-07-31 10:28] VITALS: BP 106/58; PULSE 63; RESP 18; TEMP 36.8; O2SAT 98
== END 2023-07-31 11:13 | disposition home or self-care (01) ==
PROVIDERS: Nurse Practitioner; PCP Internal Medicine; Visit Provider Surgery
PROC: (CPT 19120; principal; 2023-07-31 09:00)
DX: N60.01 Solitary cyst of right breast (principal); N61.1 Abscess of the breast and nipple
CPT/HCPCS: 19120; 81025; 88304; 88305; J1885; J2405; J2704; J3010; J3371

== ENCOUNTER → 2023-07-31 07:17 | Outpatient (BNV) | payer OTHER, SELFPAY | PROVIDERS: PCP Internal Medicine; Visit Provider Surgery | DX: N60.01 Solitary cyst of right breast (principal) | CPT/HCPCS: 19120 ==

== ENCOUNTER 2023-08-27 14:56 | Outpatient (AMB) | payer OTHER, SELFPAY ==
--- NOTE | 2023-08-27 14:57 | MHC.OFFVIS ---
Vital Signs 08/27/23 15:03 Height 5 ft 6 in Weight 115 lb 8 oz BMI 18.6 BP 120/79 Blood Pressure Location Lt brachial Position Sitting Pulse 137 H Intake Visit Reasons: S/P excision Right nipple cyst Intake Note: Patient is seen in office for post op assessment post excision of right nipple cyst. Pt c/o: denies any concerns healing as expected Last Waxer Required: No Accompanied by: Self / Same As Patient Allergies morphine [MORPHINE] Allergy (Severe, Verified 08/27/23 15:02) HYPOVENTILATION, excellerated heart rate and sob cromolyn [From INTAL] Allergy (Intermediate, Verified 08/27/23 15:02) HYPERACTIVITY amoxicillin [AMOXICILLIN] Allergy (Unknown, Verified 08/27/23 15:02) HIVES, hives and welts Medication List - Last Reconciled 08/27/23 by Mervin Nunez MD albuterol sulfate 90 mcg/actuation (ProAir HFA) 2 puffs inhalation Q6H PRN baclofen 10 mg PO DAILY cholecalciferol (vitamin D3) 50 mcg PO DAILY cyanocobalamin (vitamin B-12) 500 mcg PO DAILY dimethyl fumarate (Tecfidera) 120 mg PO BID docusate sodium 100 mg PO DAILY famotidine (Pepcid) 20 mg PO BEDTIME ibuprofen 800 mg PO Q8H methylcellulose (laxative) (Citrucel) 500 mg PO DAILY norgestimate-ethinyl estradiol 0.25-35 mg-mcg (Sprintec (28)) 1 tab PO DAILY oxycodone 5 mg PO Q6H PRN pantoprazole 40 mg PO DAILY sennosides (Natural Senna Laxative) 8.6 mg PO BEDTIME HPI Comments Details: 28-year-old female patient status post excision of right nipple cyst from a previous nipple piercing performed on 07/31/2023. She tolerated the procedure well and reports that the wounds healed up very nicely. She denies any ongoing breast symptoms, pain or discharge. [facility] Medical History (Updated 07/31/23 @ 08:26 by Oly Reid RN) Multiple sclerosis IBS (irritable bowel syndrome) GERD (gastroesophageal reflux disease) Surgical History Hx of tonsillectomy Family History Mother Anemia Sister Heart murmur Father Diabetes HTN (hypertension) Maternal Grandmother Diabetes Social History Alcohol intake: never Patient Tobacco Use Status: Never used Tobacco Physical Exam Const General: no acute distress Nutritional Appearance: well nourished Chest Other: Exam deferred Resp Effort & Inspection: normal respiratory effort Skin Other: Warm dry, no rash Assessment & Plan Assessment & Plan (1) Breast cyst: Code(s): N60.09 - Solitary cyst of unspecified breast Category: Medical Qualifiers: Laterality: right Qualified Code(s): N60.01 - Solitary cyst of right breast Plan Patient returns 3 weeks following excision of a nipple piercing tract with an underlying cyst. She tolerated the procedure well the wounds healed nicely. She denies any ongoing symptoms. She should follow up as needed. Coding Level of Care Code Global (33943) Diagnoses Cyst of right breast N60.01 Laterality: right
[2023-08-27 15:03] VITALS: BP 120/79; PULSE 137; BMI 18.6
== END 2023-08-27 15:04 | disposition home or self-care (01) ==
PROVIDERS: PCP Internal Medicine; Visit Provider Surgery
DX: N60.01 Solitary cyst of right breast (principal)
CPT/HCPCS: 99024

== ENCOUNTER → 2023-08-27 14:56 | Outpatient (BNVA) | payer OTHER, SELFPAY | PROVIDERS: PCP Internal Medicine; Visit Provider Surgery | DX: N60.01 Solitary cyst of right breast (principal) | CPT/HCPCS: 99212 ==

== ENCOUNTER 2023-12-27 16:39 | Outpatient (REF) | payer OTHER, SELFPAY ==
[2024-01-01 12:34] LABS: HPV mRNA E6/E7 Not Detected (Not Detected)
== END 2023-12-27 16:40 | disposition home or self-care (01) ==
LOC: HO.HHCLNP 16:39
PROVIDERS: Visit Provider Internal Medicine
DX: Z12.4 Encounter for screening for malignant neoplasm of cervix (principal); Z11.51 Encounter for screening for human papillomavirus (HPV)
CPT/HCPCS: 36415; 87624; 88175

== ENCOUNTER 2024-12-13 08:22 | Inpatient (IN) | payer OTHER, SELFPAY ==
[2024-12-13] VITALS (14 sets, daily range): BP systolic 97–124; BP diastolic 56–82; PULSE 99–137; RESP 14–32; TEMP 36.2–37; O2SAT 90–100
--- NOTE | 2024-12-13 | ECG_ITS ---
Test Reason : sob Blood Pressure : */* mmHG Vent. Rate : 132 BPM Atrial Rate : 132 BPM P-R Int : 128 ms QRS Dur : 76 ms QT Int : 290 ms P-R-T Axes : 35 52 9 degrees QTcB Int : 429 ms Sinus tachycardia Cannot rule out Anterior infarct , age undetermined Abnormal ECG No previous ECGs available Referred By: Generic ED Physician Electronically Signed By: Ángel Walker
--- NOTE | ~2024-12-13 | CT_ITS ---
CLINICAL HISTORY: SOB, concern for PE CT angiography chest with contrast. 3D Postprocessing. Comparison: None provided Findings: Heart is normal in size. There is no pericardial effusion. The thoracic aorta is normal caliber. Evaluation of the segmental and subsegmental pulmonary arteries is limited due to contrast bolus timing. No large main pulmonary embolus is identified. The thyroid gland appears normal. Numerous enlarged bilateral axillary lymph nodes present measuring up to 2.8 x 1.7 cm in the left axilla (axial image 59 of series 10). Mildly enlarged subcarinal lymph node measures 1.1 cm in short axis. There are small bilateral pleural effusions with adjacent consolidation. Mild ground-glass opacities are also seen in bilateral lower lobes. The bones are intact. Please refer to CT abdomen and pelvis of same day for abdominal findings. IMPRESSION: 1. Evaluation of the segmental and subsegmental pulmonary arteries is limited due to contrast bolus timing. No large main pulmonary embolus is identified. 2. Small bilateral pleural effusions with adjacent consolidation and ground-glass opacities in bilateral lower lobes suggestive of pneumonia. 3. Numerous enlarged bilateral axillary lymph nodes measuring up to 2.8 x 1.7 cm in the left axilla. This document has been electronically signed by: Andre Winston on 12/13/2024 12:29:03
--- NOTE | ~2024-12-13 | CT_ITS ---
CLINICAL HISTORY: elevated LFTs, nausea, abd pain CT abdomen and pelvis with contrast Comparison: None provided Findings: Unremarkable gallbladder and solid organs. No urolithiasis. Mild edema is seen adjacent to the 2nd and 3rd portions of the duodenum. Mild retroperitoneal edema is also seen. There is no evidence of bowel obstruction. The appendix appears normal. Mild pelvic ascites is seen. Trace ascites is also seen in the right paracolic gutter. There is no pneumoperitoneum. Mildly enlarged bilateral external iliac, bilateral internal iliac, and right inguinal lymph nodes are present. For example, an enlarged right inguinal lymph node measures 1.8 x 1.6 cm (axial image 96 of series 16). The urinary bladder is partially distended. Subcutaneous edema is seen in the abdominopelvic wall. No acute osseous abnormality is identified. IMPRESSION: 1. Mild edema adjacent to the 2nd and 3rd portions of the duodenum, which may be secondary to duodenitis. Recommend correlation with lipase levels to exclude the possibility of groove pancreatitis. 2. Mild retroperitoneal edema and ascites. 3. Mildly enlarged bilateral external iliac, bilateral internal iliac, and right inguinal lymph nodes. This document has been electronically signed by: Andre Winston on 12/13/2024 12:37:12
[2024-12-13] MEDS: levalbuterol HCL 2.5 MG, Ipratropium Bromide 0.5 MG INHALE ×4 (08:54→19:12)
--- NOTE | 2024-12-13 08:57 | ED_ITS ---
HPI - General Adult General Chief complaint: Dyspnea Stated complaint: diff breathing Time Seen by Provider: 12/13/24 08:57 Source: patient and other (patient's boyfriend) Mode of arrival: ambulatory Limitations: no limitations History of Present Illness ED Provider: Dilma Chirinos PA-C HPI narrative: 29-year-old assigned female at with a past medical history of asthma and multiple sclerosis presenting with worsening cough and shortness of breath that started 3 weeks ago. She says she sometimes coughs up some saliva and mucus but denies any blood in her sputum. She complains of chest tightness and pressure saying it gets worse with her coughing fits. She has a rescue inhaler that did not help. She reports she has been taking 1000 mg of Tylenol cold and sinus twice daily for 4 days but stopped taking it last week. She does endorse some dizziness, fatigue, and nausea especially after coughing fits but denies lightheadedness, fever, chills, palpitations, abdominal pain, vomiting, and diarrhea. Onset (ago): week(s) (3) Location: chest Radiation: non-radiation Treatments prior to arrival: other (Tylenol) Related Data Home Medications ?Medication ?Instructions ?Recorded ?Confirmed albuterol sulfate 90 mcg/actuation 2 puff inhalation Q 6H PRN 12/02/20 08/27/23 aerosol inhaler (ProAir HFA) baclofen 10 mg tablet 10 mg PO DAILY 12/02/2007/30 dimethyl fumarate 120 mg 120 mg PO BID 12/02/2008/26 capsule,delayed release (Tecfidera) ibuprofen 800 mg tablet 800 mg PO Q8H 12/02/2008/26 norgestimate 0.25 mg-ethinyl 1 tab PO DAILY 05/31/21 0 08/27/23 estradiol 0.035 mg tablet (Sprintec (28)) Previous Rx's ?Medication ?Instructions ?Recorded docusate sodium 100 mg capsule 100 mg PO DAILY #30 cap s 02/10/21 methylcellulose (laxative) 500 mg 500 mg PO DAILY #90 tabs 05/31/21 tablet (Citrucel) sennosides 8.6 mg tablet (Natural 8.6 mg PO BEDTIME co nstipation #30 08/28/21 Senna Laxative) tabs cholecalciferol (vitamin D3) 50 50 mcg PO DAILY #90 ca ps 03/14/22 mcg (2,000 unit) capsule cyanocobalamin (vitamin B-12) 500 500 mcg PO DAILY #90 tabs 03/14/22 mcg tablet famotidine 20 mg tablet (Pepcid) 20 mg PO BEDTIME #90 tabs 03/14/22 pantoprazole 40 mg tablet,delayed 40 mg PO DAILY #90 t abs 03/14/22 release oxycodone 5 mg tablet 5 mg PO Q6H PRN pain (scale score 07/31/23 7-10) #15 tabs Allergies Allergy/AdvReac Type Severity Reaction Status Date / Time morphine (MORPHINE) Allergy Severe HYPOVENTILATION, Verified 12/13/24 08:27 excellerated heart rate and sob cromolyn (From INTAL) Allergy Intermediate HYPERACTIVI Verified 12/13/24 08:27 TY amoxicillin (AMOXICILLIN) Allergy Unknown HIVES, Verified 12/13/24 08:27 hives and welts Review of Systems 2 Constitutional: Constitutional: Reports as per HPI, Denies chills, Reports fatigue, Denies fever(s) and Denies night sweats Eyes: Eyes: Reports no additional eye complaints and Denies eye pain ENT: Reports dizziness Cardiovascular: Cardiovascular: Reports as per HPI, Reports chest pain (pressure), Denies lightheadedness, Denies Loss of Consciousness and Reports dyspnea Respiratory: Respiratory: Reports as per HPI, Reports cough and Reports dyspnea Gastrointestinal: Gastrointestinal: Reports no additional gastrointestinal complaints, Denies abdominal pain, Denies melena, Denies hematochezia and Reports constipation (resolved 2 days ago) Genitourinary: Genitourinary: Denies hematuria, Denies urinary frequency, Denies dysuria, Denies urinary incontinence, Denies urinary hesitancy and Denies urinary urgency Musculoskeletal: Musculoskeletal: Reports no additional musculoskeletal complaints, Denies numbness and Denies tingling Neurologic: Reports dizziness, Denies numbness and Denies tingling Psychiatric: Psychiatric: Reports no additional psychiatric complaints Endocrine: Endocrine: Reports no additional endocrine complaints and Reports fatigue Hematologic/Lymphatic: Hematologic/Lymphatic: Reports no additional hematologic/lymphatic complaints Allergic/Immunologic: Allergic/Immunologic: Reports no additional allergic/immunologic complaints PMFSH Past Medical History Attestation statement: The following information was validated with the patient. (patient's boyfriend validated all information) Source: old records reviewed, nursing notes reviewed and other (patient's boyfriend provided additional history and confirmed the history provided by the patient) Medical History Multiple sclerosis IBS (irritable bowel syndrome) GERD (gastroesophageal reflux disease) Surgical History Hx of tonsillectomy Family History Family History Mother Anemia Sister Heart murmur Father Diabetes HTN (hypertension) Maternal Grandmother Diabetes Social History Social History Alcohol intake: never Patient Tobacco Use Status: Never used Tobacco Smoked in Last 30 Days: No Use of substances other than those prescribed or required for medical reasons: No Advance Directives: No Advance Directives Information Provided: No Patient : No Physical Exam ED Vital Signs: Vital Signs - 24 hr 12/13/24 08:23 12/13/24 08:56 12/13/24 08:56 Temperature 98.6 F Pulse Rate 136 H 137 H 131 H Respiratory Rate 24 H 26 H 14 Blood Pressure 124/69 118/82 Pulse Oximetry 100 99 Oxygen Delivery Method Room Air Room Air 12/13/24 09:31 12/13/24 12:11 12/13/24 12:38 Temperature 98.5 F Pulse Rate 136 H 125 H 119 H Respiratory Rate 32 H 24 H 24 H Blood Pressure 103/60 112/73 Pulse Oximetry 99 90 L Oxygen Delivery Method Room Air Room Air BMI result Body Mass Index 30.0 Const General: cooperative, no acute distress, alert and awake Nutritional Appearance: well nourished Orientation/consciousness: patient oriented x3 HENMT Head: Yes normal to inspection and Yes atraumatic Ears: hearing grossly normal bilaterally and external ears normal General nose exam: Normal external nose present, no nasal discharge noted and no epistaxis Face and sinus: Yes normal facial exam, No abrasion and No laceration Mouth: Normal oral and palatal mucosa present, no drooling and no muffled voice Eyes General: appearance normal, both eyes and all related structures Periorbital: periorbital findings normal Eyelids: Yes eyelids normal Conjunctivae: conjunctivae normal Pupils: Equal, round and reactive pupils present EOM: EOMs intact bilaterally Neck Neck: Yes normal visual inspection and Yes full ROM Resp Effort & Inspection: Actively coughing (Coughing between sentences) Quality: actively coughing and labored Auscultation: diminished lung sounds (secondary to hypoventilation due to pain) diffuse Cardio Rate: tachycardic Rhythm: regular rhythm Neuro General: patient oriented x3, moves all extremities and CN's II-XI intact bilaterally Cranial nerves: Yes Equal, round and reactive pupils present Cognition (Neuro): normal cognition Extrem General: Yes normal to inspection, Yes full ROM and Yes capillary refill normal Psych Appearance: grossly normal Mental Status: mental status grossly normal Affect: normal affect Attitude: cooperative Thought process: Normal thought process present Thought content: Normal thought content present Insight: Good insight present (Psych) Medications Administered Generic Name Dose Route Start Last Admin Trade Name Freq PRN Reason Stop Dose Admin Enoxaparin Sodium 40 mg 12/13/24 13:00 12/13/24 14:57 Enoxaparin Sodium 40 Mg/0.4 Ml Syringe SUBCUT 40 mg Q24H LINDA Administration Lactated Ringer's 1,000 mls @ 100 mls/hr 12/13/24 13:00 12/13/24 13:58 Lr IVCONT 100 mls/hr .Q10H LINDA Administration Azithromycin 500 mg/ Sodium 250 mls @ 125 mls/hr 12/13/24 14:00 12/13/24 14:57 Chloride IV 12/13/24 15:59 125 mls/hr ONCE ONE Administration Discontinued Medications Generic Name Dose Route Start Last Admin Trade Name Freq PRN Reason Stop Dose Admin Ceftriaxone Sodium 1 gm 12/13/24 10:04 12/13/24 11:32 Ceftriaxone Sodium 1 Gm Vial IVPUSH 12/13/24 10:05 1 gm ONCE ONE Administration Levalbuterol HCl 2.5 mg/ 0 mg 12/13/24 08:44 12/13/24 08:54 Ipratropium Mccamey 0.5 mg INHALE 12/13/24 08:45 1 dose ONCE ONE Administration Levalbuterol HCl 2.5 mg/ 0 mg 12/13/24 12:34 12/13/24 12:37 Ipratropium Mccamey 0.5 mg INHALE 12/13/24 12:35 1 dose ONCE ONE Administration Magnesium Sulfate 2 gm in 50 mls @ 25 mls/hr 12/13/24 09:14 12/13/24 09:30 Magnesium Sulfate/H2o IV 12/13/24 11:13 25 mls/hr ONCE ONE Administration Sodium Chloride 1,000 mls @ 999 mls/hr 12/13/24 10:15 12/13/24 13:00 Ns IV 12/13/24 11:15 Infused .Q1H1M LINDA Infusion Iohexol 100 ml 12/13/24 10:33 12/13/24 10:33 Iohexol 350 Mg/Ml 100 Ml Infus..Btl IV 12/13/24 10:34 85 ml ONCE ONE Administration Methylprednisolone Sodium Succinate 60 mg 12/13/24 09:14 12/13/24 09:30 Methylprednisolone Sod Succ 125 Mg/2 Ml Vial IVPUSH 12/13/24 09:15 60 mg ONCE ONE Administration Medical Decision Making Medical Decision Making MDM Narrative: Patient is a 29 year old assigned female at with a history of asthma and MS presenting to the emergency department today with a cough and shortness of breath. Patient's physical exam was as noted in the physical exam portion of this note. Patient was tachycardic with diminished lung sounds throughout and mild labored breathing. Patient's blood work showed elevated LFTs of AST 309 + ALT 171, initial lactic of 2.3, and a WBC count of 15.6. Patient's EKG showed sinus tachycardia. Patient's CT PE study showed no PE but did show small bilateral pleural effusions with adjacent consolidation and ground-glass opacities in bilateral lower lobes suggesting pneumonia. Given patient's elevated LFTs, CT abd/pelvis was obtained which showed mild edema to the 2nd and 3rd portions of the duodenum which the radiologist speculates could be secondary to duodenitis however, the patient's lipase is unremarkable. Also showed mild retroperitoneal edema and ascites and mildly enlarged bilateral external iliac + bilateral internal iliac + right inguinal lymph nodes. I was suspicious that the patient was septic at 1004 but NOT in septic shock. Patient was given IV ceftriaxone and 1 liter of IV fluids. Patient got multiple doses of levalbuterol while in the department. Patient received IV solu-medrol and magnesium which she stated helped her breathing some. Given the patient's bilateral pneumonia + continued tachycardia, concern for sepsis, and continued feeling of shortness of breath - I spoke with the hospitalist team who agreed to admission. I explained my physical exam findings as well as all test results to the patient and the patient's boyfriend. I answered all questions asked by the patient and the patient's boyfriend. Patient and the patient's boyfriend verbalized agreement and understanding with this treatment plan and admission. Differential Diagnosis Differential Diagnoses: The differential diagnosis associated with the presentation includes Pneumonia Asthma exacerbation Sepsis Elevated LFTs Lymphandenopathy Lymphoma Admission/Observation Consideration of admission/observation: Escalation of care including admission/observation considered Patient admitted as noted in the MDM Rationale portion of this note. Consult Healthcare Provider Management of the patient was discussed with: Hospitalist (Agreed to admission as noted in the MDM Rationale portion of this note. ) Lab Data [facility] Lab Attestation statement: I reviewed the patient's lab results. My interpretation of these results are in the MDM Rationale portion of this note. 12/13/24 09:06 12/13/24 09:06 Labs: Lab Results 12/13/24 12/13/24 12/13/24 Range/Units 09:06 09:28 09:31 WBC 15.6 H (4.8-10.8) X10*3/uL RBC 5.72 H (4.20-5.50) X10*6/uL Hgb 13.9 (12.0-16.0) g/dl Hct 42.0 (37.0-47.0) % MCV 73.4 L (80.0-98.0) fL MCH 24.3 L (27.0-33.0) pg MCHC 33.1 (31.0-35.0) g/dl RDW 18.1 H (11.0-16.0) % Plt Count 587 H D (160-400) X10*3/uL MPV 10.7 (9.4-12.3) fL Immature Gran % (Auto) Cancelled Neut % (Auto) Cancelled Lymph % (Auto) Cancelled [place] % (Auto) Cancelled Eos % (Auto) Cancelled Baso % (Auto) Cancelled Lymph # (Auto) Cancelled [place] # (Auto) Cancelled Eos # (Auto) Cancelled Baso # (Auto) Cancelled Abs Immat Gran (auto) Cancelled Absolute Neuts (auto) Cancelled Absolute Nucleated RBC 0.000 (0.0-0.012) X10*3/uL Nucleated RBC % (auto) 0.0 (0.0-0.2) /100WBC Neutrophils % (Manual) 70 (45-73) % Band Neutrophils % 2 L (3-5) % Lymphocytes % (Manual) 19 L (20-40) % Atypical Lymphs % (Man) 1 (0-6) % Monocytes % (Manual) 8 (2-11) % Abs Neuts (Manual) 11.2 H (2.0-8.3) X10*3/uL Lymphocytes # (Manual) 3.0 (1.2-4.9) X10*3/uL Atyp Lymphs # (Manual) 0.2 x10*3/uL Monocytes # (Manual) 1.2 (0.1-1.2) X10*3/uL Toxic Vacuolation PRESENT Platelet Estimate INCREASED (NORMAL) Large Platelets PRESENT Plt Morphology Comment NOTED RBC Morphology NOTED Microcytosis 1+ (5-14) /OIF Target Cells 1+ (5-14) /OIF Acanthocytes (Spur) 1+ (0-2) /OIF PT 14.5 H (10.9-12.4) SEC INR 1.3 H (0.9-1.1) VBG pH 7.42 (7.32-7.43) VBG pCO2 36 mmHg VBG pO2 33 mmHg VBG HCO3 23 (22-26) mmol/L VBG O2 Saturation 48.0 % VBG Base Excess -0.2 mmol/L Sodium 135 (135-145) mmol/L Potassium 4.4 (3.3-5.1) mmol/L Chloride 106 (96-108) mmol/L Carbon Dioxide 21 L (22-29) mmol/L Anion Gap 12 (12-20) BUN 10 (9-16) mg/dL Creatinine 0.60 (0.5-1.4) mg/dL Estim Creat Clear Calc 149.9 Estimated GFR > 60 Random Glucose 87 (60-115) mg/dL Lactic Acid (0.5-2.0) mmol/L Calcium 7.8 L (8.4-10.2) mg/dL Magnesium 1.8 (1.6-2.6) mg/dL Total Bilirubin 0.7 (0.0-1.0) mg/dL AST 309 H (5-31) U/L ALT 171 H (0-31) U/L Alkaline Phosphatase 76 (39-117) U/L B-Natriuretic Peptide 18 (<100) pg/mL Total Protein 7.3 (6.5-8.0) g/dL Albumin 2.8 L (3.5-5.0) g/dL Lipase 7 L (8-78) U/L Beta HCG, Quant < 2 mIU/mL Acetaminophen (<30) mcg/mL Influenza Type A (PCR) NEGATIVE (Negative) Influenza Type B (PCR) NEGATIVE (Negative) RSV RNA Qual (PCR) NEGATIVE (Negative) SARS-CoV-2 RNA (RT-PCR) NEGATIVE (Negative) 12/13/24 Range/Units 10:52 WBC (4.8-10.8) X10*3/uL RBC (4.20-5.50) X10*6/uL Hgb (12.0-16.0) g/dl Hct (37.0-47.0) % MCV (80.0-98.0) fL MCH (27.0-33.0) pg MCHC (31.0-35.0) g/dl RDW (11.0-16.0) % Plt Count (160-400) X10*3/uL MPV (9.4-12.3) fL Immature Gran % (Auto) Neut % (Auto) Lymph % (Auto) [place] % (Auto) Eos % (Auto) Baso % (Auto) Lymph # (Auto) [place] # (Auto) Eos # (Auto) Baso # (Auto) Abs Immat Gran (auto) Absolute Neuts (auto) Absolute Nucleated RBC (0.0-0.012) X10*3/uL Nucleated RBC % (auto) (0.0-0.2) /100WBC Neutrophils % (Manual) (45-73) % Band Neutrophils % (3-5) % Lymphocytes % (Manual) (20-40) % Atypical Lymphs % (Man) (0-6) % Monocytes % (Manual) (2-11) % Abs Neuts (Manual) (2.0-8.3) X10*3/uL Lymphocytes # (Manual) (1.2-4.9) X10*3/uL Atyp Lymphs # (Manual) x10*3/uL Monocytes # (Manual) (0.1-1.2) X10*3/uL Toxic Vacuolation Platelet Estimate (NORMAL) Large Platelets Plt Morphology Comment RBC Morphology Microcytosis /OIF Target Cells /OIF Acanthocytes (Spur) /OIF PT (10.9-12.4) SEC INR (0.9-1.1) VBG pH (7.32-7.43) VBG pCO2 mmHg VBG pO2 mmHg VBG HCO3 (22-26) mmol/L VBG O2 Saturation % VBG Base Excess mmol/L Sodium (135-145) mmol/L Potassium (3.3-5.1) mmol/L Chloride (96-108) mmol/L Carbon Dioxide (22-29) mmol/L Anion Gap (12-20) BUN (9-16) mg/dL Creatinine (0.5-1.4) mg/dL Estim Creat Clear Calc Estimated GFR Random Glucose (60-115) mg/dL Lactic Acid 2.3 H* (0.5-2.0) mmol/L Calcium (8.4-10.2) mg/dL Magnesium (1.6-2.6) mg/dL Total Bilirubin (0.0-1.0) mg/dL AST (5-31) U/L ALT (0-31) U/L Alkaline Phosphatase (39-117) U/L B-Natriuretic Peptide (<100) pg/mL Total Protein (6.5-8.0) g/dL Albumin (3.5-5.0) g/dL Lipase (8-78) U/L Beta HCG, Quant mIU/mL Acetaminophen < 3 (<30) mcg/mL Influenza Type A (PCR) (Negative) Influenza Type B (PCR) (Negative) RSV RNA Qual (PCR) (Negative) SARS-CoV-2 RNA (RT-PCR) (Negative) Independent Interpretation I performed an independent interpretation of an: EKG and CT Scan Interpretation: My interpretation is in agreement with the radiologist's impression of these imaging studies. L Report Number: [id number]: Total DLP = 0.00 mGy-cm CLINICAL HISTORY: elevated LFTs, nausea, abd pain CT abdomen and pelvis with contrast Comparison: None provided Findings: Unremarkable gallbladder and solid organs. No urolithiasis. Mild edema is seen adjacent to the 2nd and 3rd portions of the duodenum. Mild retroperitoneal edema is also seen. There is no evidence of bowel obstruction. The appendix appears normal. Mild pelvic ascites is seen. Trace ascites is also seen in the right paracolic gutter. There is no pneumoperitoneum. Mildly enlarged bilateral external iliac, bilateral internal iliac, and right inguinal lymph nodes are present. For example, an enlarged right inguinal lymph node measures 1.8 x 1.6 cm (axial image 96 of series 16). The urinary bladder is partially distended. Subcutaneous edema is seen in the abdominopelvic wall. No acute osseous abnormality is identified. IMPRESSION: 1. Mild edema adjacent to the 2nd and 3rd portions of the duodenum, which may be secondary to duodenitis. Recommend correlation with lipase levels to exclude the possibility of groove pancreatitis. 2. Mild retroperitoneal edema and ascites. 3. Mildly enlarged bilateral external iliac, bilateral internal iliac, and right inguinal lymph nodes. This document has been electronically signed by: Andre Winston on 12/13/2024 12:37:12 Dictated By: Andre Winston MD Signed By: Electronically signed by Andre Winston MD 12/13/24 1238 Report Number: [id number]: Total DLP = 780.00 mGy-cm CLINICAL HISTORY: SOB, concern for PE CT angiography chest with contrast. 3D Postprocessing. Comparison: None provided Findings: Heart is normal in size. There is no pericardial effusion. The thoracic aorta is normal caliber. Evaluation of the segmental and subsegmental pulmonary arteries is limited due to contrast bolus timing. No large main pulmonary embolus is identified. The thyroid gland appears normal. Numerous enlarged bilateral axillary lymph nodes present measuring up to 2.8 x 1.7 cm in the left axilla (axial image 59 of series 10). Mildly enlarged subcarinal lymph node measures 1.1 cm in short axis. There are small bilateral pleural effusions with adjacent consolidation. Mild ground-glass opacities are also seen in bilateral lower lobes. The bones are intact. Please refer to CT abdomen and pelvis of same day for abdominal findings. IMPRESSION: 1. Evaluation of the segmental and subsegmental pulmonary arteries is limited due to contrast bolus timing. No large main pulmonary embolus is identified. 2. Small bilateral pleural effusions with adjacent consolidation and ground- glass opacities in bilateral lower lobes suggestive of pneumonia. 3. Numerous enlarged bilateral axillary lymph nodes measuring up to 2.8 x 1.7 cm in the left axilla. This document has been electronically signed by: Andre Winston on 12/13/2024 12:29:03 Dictated By: Andre Winston MD Signed By: Electronically signed by Andre Winston MD 12/13/24 1230 I independently interpreted this EKG and am in agreement with the below findings: Vent. Rate: 132 BPM Atrial Rate: 132 BPM P-R Int: 128 ms QRS Dur: 76 ms QT Int: 290 ms P-R-T Axes: 35 52 9 degrees QTcB Int: 429 ms Sinus tachycardia Electronically Signed By: Ángel Walker Dictated By: Ángel Walker MD Signed By: Electronically signed by Ángel Walker MD 12/13/24 1321 Radiology Impression Discussion of test interpretation with radiology: I have reviewed the radiologist's reading. Independent Historian Clinical information obtained from an independent historian. History obtained from or confirmed by: Other (patient's boyfriend provided additional history and confirmed the history provided by the patient.) Critical Care Time Critical Care Time Critical Care Time: Yes Total Critical Care Time: 58 Attestation: I spent 58 minutes of Critical Care Time with this patient. This does not include time spent on separately reported billable procedures. Discharge Plan Discharge Clinical Impression: Pneumonia, Sepsis Patient Disposition: Admitted As Inpatient
[2024-12-13 09:14] LABS: Hematocrit 42.0 % (37.0-47.0); Hemoglobin 13.9 g/dl (12.0-16.0); Mean Corpuscular HGB Conc 33.1 g/dl (31.0-35.0); Mean Corpuscular Hemoglobin 24.3 pg (27.0-33.0); Mean Corpuscular Volume 73.4 fL (80.0-98.0); NRBC Abs Auto 0.000 X10*3/uL (0.0-0.012); NRBC Pct Auto 0.0 /100WBC (0.0-0.2); Red Blood Count 5.72 X10*6/uL (4.20-5.50)
--- OUTSIDE RECORDS SUMMARY | 2024-12-13 09:19 | XMS_ITS | Clinical Summary ---
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 Shake gently. Before first use, prime pump. After use, clean tip and replace cap. 16 g 12 3 Active levonorgestrel-et hinyl estradiol (Aviane) 0.1-20 MG-MCG tabletIndications :BCP ( control pills) initiation Take 1 tablet by mouth Once per day. 28 tablet 12 4 12/27/19 25 Active ibuprofen 800 MG tablet TAKE ONE TABLET BY MOUTH THREE TIMES A DAY WITH FOOD 30 tablet 5 Active Active Problems Problem Noted Date Diagnosed Date Encounter for screening for cervical cancer 11/29 Assessment & Plan (12/27/2023 11:31 AM EDT): Pelvic exam and PAP done, patient will be contacted with results BCP ( control pills) initiation 12/27/2023 Assessment & Plan (12/27/2023 11:30 AM EDT): Patient senior counsel about side effect of control pills Encounters Date Type Department Care Team Description 11/13/2024 Refill [facility] [address] [place] [address] Hilda Joyce MD 11/10/2024 Telephone [facility] [address] [place] [address] Hilda Joyce MD OCT RECALL from Last 3 Months Social History Tobacco Use Types Packs/Day Years Used Date Smoking Tobacco: Never Smokeless Tobacco: Never Tobacco Cessation:Counseling Given: Not Answered Comments No Sex and Gender Information Value Date Recorded Sex Assigned at Female 02/26/2022 10:34 AM EDT Legal Sex Female 10:34 AM EDT Gender Identity Female 02/26/2022 10:34 AM EDT Sexual Orientation Straight 02/26/2022 10 :34 AM EDT Last Filed Vital Signs Vital Sign Reading Time Taken Comments Blood Pressure 115/74 12/27/2023 10:23 AM EDT Pulse 73 12/27/2023 10:23 AM EDT Temperature 36.6 C (97.9 F) 06/07/2023 3:20 PM EST Respiratory Rate 12 12/27/2023 10:2 3 AM EDT Oxygen Saturation 98% 12/27/2023 10: 23 AM EDT Inhaled Oxygen Concentration - - Weight 90.6 kg (199 lb 12.8 oz) 024 10:23 AM EDT Height 167.6 cm (5' 6 ) 12/27/2023 10:2 3 AM EDT Body Mass Index 32.25 12/27/2023 10:23 AM EDT Plan of Treatment Health Maintenance Due Date Last Done Comments Depression Screening 1994 HIV Screening 1994 SDOH Screening 1994 Disability Screening 1994 Alcohol/Substance Use Screening 2006 Family Planning (PISQ) 2009 HPV Vaccines (1 - 3-dose series) 2009 Hepatitis C Screening 2012 DTaP/Tdap/Td Vaccines (1 - Tdap) 2013 Hepatitis B Vaccines (1 of 3 - 19+ 3-dose series) 2013 COVID-19 Vaccine (4 - 2023-2 5 season) 2023 04/04/2021, 10/11/2020, 09/20/2020 Tobacco Screening 12/26/2024 12/27/2023 Influenza Vaccine (#1) 2024 , 02/06/2019, 02/12/2018 Cervical Cancer Screening 12/26/2026 Pap Smear 12/26/2026 12/27/2023, 12/20/2020 HPV/Cotest 12/26/2028 12/27/2023, 04/04/2018 Zoster Vaccines (1 of 2) 2044 RSV Patients and Patients Aged 60 years or older (1 - 1-dose 75+ series) 2069 HIB Vaccines Aged Out No longer eligi ble based on patient's age to complete this topic Hepatitis A Vaccines Aged Out No long er eligible based on patient's age to complete this topic IPV Vaccines Aged Out No longer eligi ble based on patient's age to complete this topic Meningococcal B Vaccine Aged Out No l onger eligible based on patient's age to complete this topic Meningococcal Vaccine Aged Out No maldonado kari eligible based on patient's age to complete this topic Pneumococcal Vaccine: Pediatrics (0 to 5 Years) and At-Risk Patients (6 to 49) Years Aged Out No longer eligible b ased on patient's age to complete this topic RSV under 20 months Aged Out No longe r eligible based on patient's age to complete this topic Rotavirus Vaccines Aged Out No longer eligible based on patient's age to complete this topic Procedures Procedure Name Priority Date/Time Associated Diagnosis Comments THINPREP IMAGING PAP AND HPV MRNA E6/E7 Routine 12/27/2023 12:00 AM EDT from Last 3 Months or Most Recently Relevant to Health Maintenance Results * ThinPrep Imaging Pap and HPV mRNA E6/E7 (12/27/2023 12:00 AM EDT) HPV nRNA E6/E7 Not Detected Not Detected [facility] Comment:Methodology: Transcr iption-Mediated AmplificationThis assay detects E6/E7 viral messenger RNA (mRNA) from 14high-risk HPV types (16,18,31,33,35,39,45,51,52,56,58,59,66,68).Cervical sources are required for HPV testing.If a vaginal source from a patient who has had atotal hysterectomy with removal of cervix wassubmitted, please contact the testing laboratoryfor alternative testing options.For additional information, please refer [email or web address] Mix/faq/[email or web address](This link if provided for information/educational purposes only.)THIS TEST WAS PERFORMED AT:[employer] [address] [id number] MCKEON MD SOURCE: SEE NOTE [facility] Comment:None given Report Status: [facility] Clinical Information: SEE NOTE [facility] Comment:None given LMP: SEE NOTE [facility] Comment:NONE GIVEN Prev. PAP: SEE NOTE [facility] Comment:NONE GIVEN Prev. BX: SEE NOTE [facility] Comment:NONE GIVEN Statement Of Adequacy: SEE NOTE [facility] Comment:Satisfactory for tonja luation.Endocervical/transformation zone componentpresent. General Categorization: [facility] Interpretation/Result: SEE NOTE [facility] Comment:Cytology Results: Ne gative for intraepitheliallesion or malignancy. Cytology Comment SEE NOTE [facility] Comment:This Pap test has be en evaluated with computerassisted technology. Route Sales Delivery Driver: SEE NOTE [facility] Comment:DELVIS, CT(ASCP)CT scre ening location: [address] [address] Review Route Sales Delivery Driver: [facility] Pathologist [facility] PAP Infection [facility] See Note SEE NOTE [facility] Comment:EXPLANATORY NOTE:The Pap is a screening test for cervical cancer. It isnot a diagnostic test and is subject to false negativeand false positive results. It is most reliable when asatisfactory sample, regularly obtained, is submittedwith relevant clinical findings and history, and whenthe Pap result is evaluated along with historic andcurrent clinical information. 12/27/2023 12/27/2023 Narrative [facility] - 01/02/2024 3:01 PM EDT SEE SCANNED RESULTS IN EMR Hilda Lock MD LAB PATHOLOGY ORDERAB LES Final Result [facility] [address] [place] [address] [phone] from Last 3 Months or Most Recently Relevant to Health Maintenance Insurance [facility] Care Teams Raw Stock Machine Loader Relationship Specialty Start Date End Date Hilda Joyce MD [address] [place] [id number] PCP - General Family Medicine 02/12/18
[2024-12-13 09:21] LABS: WBC ABN SCTR FOR CBC 1
[2024-12-13 09:22] LABS: Platelet Count 587 X10*3/uL (160-400)
[2024-12-13 09:29] LABS: Alanine Aminotransferase 171 U/L (0-31); Albumin Level 2.8 g/dL (3.5-5.0); Alkaline Phosphatase 76 U/L (39-117); Anion Gap 12 (12-20); Aspartate Amino Transferase 309 U/L (5-31); Blood Urea Nitrogen 10 mg/dL (9-16); Calcium 7.8 mg/dL (8.4-10.2); Carbon Dioxide 21 mmol/L (22-29); Chloride 106 mmol/L (96-108); Creatinine Clr Calc Pharmacy 149.9; Estimated Glomerular Filt Rate > 60; Magnesium 1.8 mg/dL (1.6-2.6); Potassium 4.4 mmol/L (3.3-5.1); Sodium 135 mmol/L (135-145); Total Protein 7.3 g/dL (6.5-8.0)
[2024-12-13] MEDS: Magnesium Sulfate/H2O 2 GM/50 ML PIGGYBACK IV (09:30)
--- NOTE | 2024-12-13 09:32 | PC.NURSE ---
labs obtained/sent to lab by [facility]. pt medicated per provider order. pending CT to be completed at this time. pt remains on RA. sob/wob noted. pt remains in upright position to promote patent airway. plan of care ongoing. call estrada placed within reach.
[2024-12-13 09:35] LABS: Venous Blood Gas Refer to POC result
[2024-12-13 09:35] LABS: VBG HCO3 23 mmol/L (22-26); VBG O2 % Saturation 48.0 %
[2024-12-13 09:41] LABS: Atypical Lymphs Percent Manual 1 % (0-6); Band Neutrophils Percent 2 % (3-5); Lymphocytes Percent Manual 19 % (20-40); Monocytes Percent Manual 8 % (2-11); Neutrophils Percent Manual 70 % (45-73)
[2024-12-13 09:44] LABS: Microcytosis 1+ (5-14) /OIF; RBC Morphology NOTED
[2024-12-13 09:46] LABS: Acanthocytes 1+ (0-2) /OIF; Large Platelet PRESENT; Target Cells 1+ (5-14) /OIF; Toxic Vacuolation PRESENT
[2024-12-13 09:48] LABS: Atypical Lymph Absolute Manual 0.2 x10*3/uL; Lymphocytes Absolute Manual 3.0 X10*3/uL (1.2-4.9); Monocytes Absolute Manual 1.2 X10*3/uL (0.1-1.2); Neutrophils Absolute Manual 11.2 X10*3/uL (2.0-8.3); Resp Syncy Virus RNA Qual PCR NEGATIVE (Negative); SARS COV2 PCR INHOUSE NEGATIVE (Negative); White Blood Count 15.6 X10*3/uL (4.8-10.8)
[2024-12-13 09:58] LABS: INTERNATIONAL NORM RATIO 1.3 (0.9-1.1); Prothrombin Time 14.5 SEC (10.9-12.4)
[2024-12-13] MEDS: iohexoL 350 MG/ML 100 ML INFUS..BTL IV (10:33)
[2024-12-13 11:19] LABS: Acetaminophen LAB < 3 mcg/mL (<30)
--- NOTE | 2024-12-13 11:45 | PC.NURSE ---
Assumed care of pt, informed by extension service specialist in charge pt lactate 2.3, sepsis worksheet started.
[2024-12-13 12:48] LABS: B Type Natriuretic Peptide 18 pg/mL (<100)
[2024-12-13 12:56] LABS: Reflex Lactate? Lactic Acid Added
[2024-12-13 12:59] LABS: Lipase 7 U/L (8-78)
--- NOTE | 2024-12-13 13:19 | PM.IMHP ---
History of Present Illness Date of Service: 12/13/24 Chief Complaint: Shortness of breath 29/F with moderate persistent asthma, GERD, IBS, B12 deficiency who presents to the ED with nearly 2 weeks of shortness of breath that she attributes to asthma, associated with cough without sputum production, no fever, she has been using rescue inhalers rather frequently but seems to have gotten worse. No sick exposure, no. She has no history of prior hospitalization. Work up with CTA of chest show Evaluation of the segmental and subsegmental pulmonary arteries is limited due to contrast bolus timing. No large main pulmonary embolus is identified. 2. Small bilateral pleural effusions with adjacent consolidation and ground-glass opacities in bilateral lower lobes suggestive of pneumonia. 3. Numerous enlarged bilateral axillary lymph nodes measuring up to 2.8 x 1.7 cm in the left axilla. ED treatment: bronchodilators with xopenex, iv steroid and Ceftriaxone, IV magnesium Review of Systems Review of Systems: shortness of breath, dry cough, no chest pain Yes all other systems are reviewed and are negative [facility] Medical History (Updated 12/13/24 @ 13:21 by Barry Reed MD) Multiple sclerosis IBS (irritable bowel syndrome) GERD (gastroesophageal reflux disease) Family History Mother Anemia Sister Heart murmur Father Diabetes HTN (hypertension) Maternal Grandmother Diabetes Surgical History Hx of tonsillectomy Social History Alcohol intake: never Patient Tobacco Use Status: Never used Tobacco Smoked in Last 30 Days: No Use of substances other than those prescribed or required for medical reasons: No Advance Directives: No Advance Directives Information Provided: No Patient : No Meds Allergies Allergy/AdvReac Type Severity Reaction Status Date / Time morphine (MORPHINE) Allergy Severe HYPOVENTILATION, Verified 12/13/24 08:27 excellerated heart rate and sob cromolyn (From INTAL) Allergy Intermediate HYPERACTIVI Verified 12/13/24 08:27 TY amoxicillin (AMOXICILLIN) Allergy Unknown HIVES, Verified 12/13/24 08:27 hives and welts Active Medications: Current Medications Acetaminophen (Acetaminophen 325 Mg Tablet) 650 mg PO Q6H PRN PRN Reason: Pain, Mild 1-3,fever,headache Al Hydroxide/Mg Hydroxide (Magnesium Hydrox/Alum Hydrox 30 Ml Oral.Susp) 30 ml PO Q4H PRN PRN Reason: Heartburn Calcium Carbonate (Calcium Carbonate 750 Mg Tab.Chew) 750 mg PO Q4H PRN PRN Reason: Heartburn Enoxaparin Sodium (Enoxaparin Sodium 40 Mg/0.4 Ml Syringe) 40 mg SUBCUT Q24H [facility] Lactated Ringer's (Lr) 1,000 mls @ 100 mls/hr IVCONT .Q10H [facility] Magnesium Hydroxide (Milk Of Magnesia 30 Ml Oral.Susp) 30 ml PO DAILY PRN PRN Reason: Constipation Melatonin (Melatonin 3 Mg Tablet) 6 mg PO BEDTIME PRN PRN Reason: Insomnia Ondansetron HCl (Ondansetron Hcl 4 Mg/2 Ml Vial) 4 mg IVPUSH Q8H PRN PRN Reason: Nausea and Vomiting Sodium Chloride (0.9 % Sodium Chloride Flush 3 Ml Syringe) 3 ml IVFLUSH QSHIFT [facility] Home Medications ?Medication ?Instructions ?Recorded ?Confirmed ?Last Taken ?Type albuterol sulfate 90 mcg/actuation 2 puff inhalation Q6H PRN 12/02/20 08/27/23 Unknown History aerosol inhaler (ProAir HFA) baclofen 10 mg tablet 10 mg PO DAILY 12/02/20 08/27/23 Unknown History dimethyl fumarate 120 mg 120 mg PO BID 12/02/20 08/27/23 Unknown History capsule,delayed release (Tecfidera) ibuprofen 800 mg tablet 800 mg PO Q8H 12/02/20 08/27/23 Unknown History norgestimate 0.25 mg-ethinyl 1 tab PO DAILY 05/31/21 08/27/23 Unknown History estradiol 0.035 mg tablet (Sprintec (28)) Physical Exam Vital Signs and Narrative: Vital Signs: Last Vital Signs Temp 98.5 F 12/13/24 12:11 Pulse 119 H 12/13/24 12:38 Resp 24 H 12/13/24 12:38 BP 112/73 12/13/24 12:11 Pulse Ox 90 L 12/13/24 12:11 O2 Del Method Room Air 12/13/24 12:11 BMI result Body Mass Index 30.0 Const: Other: Constitutional: Alert, in no distress, Mental Status: Oriented to person, place and time. Eyes: Pupils are equal, round and reactive to light. Ear, Nose and Throat: Oropharynx clear, mucous membranes moist. Ears and nose without eformities. Trachea midline. Respiratory: Diminished/air entry louise,. No wheezing, rales or rhonchi. No accessory muscle use Cardiovascular: S1 S2 regular. No murmurs, rubs or gallops. tachycardia Gastrointestinal: Abdomen soft, non-tender, non-distended. Normal bowel sounds.? Neurologic: Cranial nerves II-XII grossly intact. No focal neurological deficits. Moves all extremities spontaneously.? Skin: No rashes or lesions.? Musculoskeletal: No cyanosis or clubbing. Psychiatric: Normal mood and affect? Results Labs 12/13/24 09:06 12/13/24 09:06 Labs: Laboratory Results - last 24 hr 12/13/24 12/13/24 12/13/24 09:06 09:28 09:31 MCV 73.4 L MCH 24.3 L MCHC 33.1 RDW 18.1 H Plt Count 587 H D MPV 10.7 Immature Gran % (Auto) Cancelled Neut % (Auto) Cancelled Lymph % (Auto) Cancelled Grand % (Auto) Cancelled Eos % (Auto) Cancelled Baso % (Auto) Cancelled Lymph # (Auto) Cancelled Grand # (Auto) Cancelled Eos # (Auto) Cancelled Baso # (Auto) Cancelled Abs Immat Gran (auto) Cancelled Absolute Neuts (auto) Cancelled Absolute Nucleated RBC 0.000 Nucleated RBC % (auto) 0.0 Neutrophils % (Manual) 70 Band Neutrophils % 2 L Lymphocytes % (Manual) 19 L Atypical Lymphs % (Man) 1 Monocytes % (Manual) 8 Abs Neuts (Manual) 11.2 H Lymphocytes # (Manual) 3.0 Atyp Lymphs # (Manual) 0.2 Monocytes # (Manual) 1.2 Toxic Vacuolation PRESENT Platelet Estimate INCREASED Large Platelets PRESENT Plt Morphology Comment NOTED RBC Morphology NOTED Microcytosis 1+ (5-14) Target Cells 1+ (5-14) Acanthocytes (Spur) 1+ (0-2) PT 14.5 H INR 1.3 H VBG pH 7.42 VBG pCO2 36 VBG pO2 33 VBG HCO3 23 VBG O2 Saturation 48.0 VBG Base Excess -0.2 Anion Gap 12 Estim Creat Clear Calc 149.9 Estimated GFR > 60 Random Glucose 87 Lactic Acid Calcium 7.8 L Magnesium 1.8 Total Bilirubin 0.7 AST 309 H ALT 171 H Alkaline Phosphatase 76 B-Natriuretic Peptide 18 Total Protein 7.3 Albumin 2.8 L Lipase 7 L Beta HCG, Quant < 2 Acetaminophen Influenza Type A (PCR) NEGATIVE Influenza Type B (PCR) NEGATIVE RSV RNA Qual (PCR) NEGATIVE SARS-CoV-2 RNA (RT-PCR) NEGATIVE 12/13/24 10:52 MCV MCH MCHC RDW Plt Count MPV Immature Gran % (Auto) Neut % (Auto) Lymph % (Auto) Grand % (Auto) Eos % (Auto) Baso % (Auto) Lymph # (Auto) Grand # (Auto) Eos # (Auto) Baso # (Auto) Abs Immat Gran (auto) Absolute Neuts (auto) Absolute Nucleated RBC Nucleated RBC % (auto) Neutrophils % (Manual) Band Neutrophils % Lymphocytes % (Manual) Atypical Lymphs % (Man) Monocytes % (Manual) Abs Neuts (Manual) Lymphocytes # (Manual) Atyp Lymphs # (Manual) Monocytes # (Manual) Toxic Vacuolation Platelet Estimate Large Platelets Plt Morphology Comment RBC Morphology Microcytosis Target Cells Acanthocytes (Spur) PT INR VBG pH VBG pCO2 VBG pO2 VBG HCO3 VBG O2 Saturation VBG Base Excess Anion Gap Estim Creat Clear Calc Estimated GFR Random Glucose Lactic Acid 2.3 H* Calcium Magnesium Total Bilirubin AST ALT Alkaline Phosphatase B-Natriuretic Peptide Total Protein Albumin Lipase Beta HCG, Quant Acetaminophen < 3 Influenza Type A (PCR) Influenza Type B (PCR) RSV RNA Qual (PCR) SARS-CoV-2 RNA (RT-PCR) Assessment and Plan (1) Pneumonia: Status: Acute (2) Moderate persistent asthma with exacerbation: Status: Acute Plan 29 year old female with moderate persistent asthma here with 2 weeeks of progressive sob that has not responded rescue inhalers and now appear to have pneumonia causing exacerbation of asthma and complicated by tachcyardia. Bilateral pneumonia/pneumonitis Moderate persistent asthma with acute exacerbation due to above -Treat Pneumonia with Ceftriaxone and Azithromycin -IV corticosteroid, Bronchodilators (Zopenex) for asthma exacerbatio -Pulmonology consult if not improving. Tachcyardia, likely multifactor cause: astham exacerbation, albuterol use at home. -IV fluid and use Xopenex rather than albuterol Acute lactic acidosis, not due to sepsis, rather due to albuterol GERD PPI DVT prophylaxis: Lovenox Full code Quality Stroke Does the patient have a stroke diagnosis?: No VTE Prior VTE?: No VTE Risk Level:: Medical - moderate - high VTE Device Contraindication: Treatment Not Indicated VTE Drug Contraindication: N/A - Med Ordered
[2024-12-13 13:46] LABS: ~Lactic Acid-LAB USE ONLY 3.2 mmol/L (0.5-2.0)
[2024-12-13] MEDS: Lactated Ringers 1,000 ML 100 ML IVCONT ×2 (13:58→23:41)
--- NOTE | 2024-12-13 14:42 | PC.NURSE ---
Report received from Lo RN; pt's RR 28, HR 130 94% RA; LS dim, coarse throughout; pt reports tightness with deep inspiration, but improved with Xopenex neb; pt afebrile at this time; repeat lactic acid 3.2; Dr Reed contacted regarding vs and labs; states no further orders necessary at this time; pt has LR infusing per orders; family at bedside
--- NOTE | 2024-12-13 14:47 | PC.NURSE ---
Pt placed on 2 liters NC at this time for work of breathing; pt reports feeling less SOB
[2024-12-13 15:22] LABS: Reflex Lactate? 2 Y
--- NOTE | 2024-12-13 16:10 | PHA.MEDREC ---
Pharmacy Consult ? Medication Reconciliation Pharmacy has completed the medication reconciliation.Med rec complete, spoke to patient and compared with pharmacy claim history
--- NOTE | 2024-12-13 18:12 | PC.NURSE ---
Pt slihtly SOB after ambulating to/from BR; recovered quickly at rest with 2 ltr NC O2 on; RR decreased from 30 to 20 and pt able to speak full sentences; pt tolerating PO intake; no complaints at this time
--- NOTE | 2024-12-13 21:50 | PC.NURSE ---
solu medrol 60mg IVP given now. appearing as discontinued in JUN, confirmed with hospitalist Raghavendra Aquino
[2024-12-14 03:42] VITALS: PULSE 91; RESP 18; TEMP 36.6; O2SAT 98
[2024-12-14 07:47] VITALS: BP 138/68; PULSE 89; RESP 14; TEMP 36.7; O2SAT 97
[2024-12-14 07:56] LABS: Alanine Aminotransferase 139 U/L (0-31); Albumin Level 2.5 g/dL (3.5-5.0); Alkaline Phosphatase 65 U/L (39-117); Anion Gap 13 (12-20); Aspartate Amino Transferase 217 U/L (5-31); Blood Urea Nitrogen 11 mg/dL (9-16); Calcium 7.7 mg/dL (8.4-10.2); Carbon Dioxide 20 mmol/L (22-29); Chloride 110 mmol/L (96-108); Creatinine Clr Calc Pharmacy 173.1; Estimated Glomerular Filt Rate > 60; Potassium 4.6 mmol/L (3.3-5.1); Sodium 138 mmol/L (135-145); Total Protein 6.5 g/dL (6.5-8.0)
[2024-12-14] MEDS: levalbuterol HCL 2.5 MG, Ipratropium Bromide 0.5 MG INHALE (08:00)
[2024-12-14 08:02] VITALS: PULSE 99; RESP 18; O2SAT 99
[2024-12-14] MEDS: Lactated Ringers 1,000 ML 100 ML IVCONT (10:17)
--- NOTE | 2024-12-14 12:05 | MHC.CM.PN ---
Addendum entered by Michelle Deng 12/14/24 12:07: Patient is discharged today. Original Note: DX PNA Asthma She lives by herself. She is independent with all functional mobility. DP home self care. Patient has arranged for transportation home.
--- NOTE | 2024-12-14 13:35 | P.DS_ITS ---
DS: Providers Provider Date of Service: 12/14/24 Date of admission: 12/13/24 12:56 Date of discharge: 12/14/24 Primary care physician: Hilda Lock MD DS: Diagnosis Discharge Diagnosis (1) Pneumonia: Status: Acute (2) Moderate persistent asthma with exacerbation: Status: Acute DS: Summary Hospital Course Hospital Course: from H&P: 29/F with moderate persistent asthma, GERD, IBS, B12 deficiency who presents to the ED with nearly 2 weeks of shortness of breath that she attributes to asthma, associated with cough without sputum production, no fever, she has been using rescue inhalers rather frequently but seems to have gotten worse. No sick exposure, no. She has no history of prior hospitalization. Work up with CTA of chest show Evaluation of the segmental and subsegmental pulmonary arteries is limited due to contrast bolus timing. No large main pulmonary embolus is identified. 2. Small bilateral pleural effusions with adjacent consolidation and ground-glass opacities in bilateral lower lobes suggestive of pneumonia. 3. Numerous enlarged bilateral axillary lymph nodes measuring up to 2.8 x 1.7 cm in the left axilla. ED treatment: bronchodilators with xopenex, iv steroid and Ceftriaxone, IV magnesium Bilateral pneumonia Moderate persistent asthma with acute exacerbation due to above was treated with ceftriaxone and azithromycin inpt with good response IV solumedrol in pt discharged on prednisone and PO abx for 3 days to complete the course. Tachcyardia, likely multifactor cause: astham exacerbation, albuterol use at home. -IV fluid and use Xopenex rather than albuterol resolved ta the time of discharge Acute lactic acidosis, not due to sepsis, rather due to albuterol, resolved at the time of discharge Time Attestation Discharge Coordination Time (in mins): 37 mins Quality: Safe Use of Opioids Does Pt have an Active Cancer Diagnosis on the Problem List?: No Quality: Stroke Does the patient have a stroke diagnosis?: No Physical Exam Vital Signs: Vital Signs: Last Vital Signs Temp 98.0 F 12/14/24 07:47 Pulse 99 12/14/24 08:02 Resp 18 12/14/24 08:02 BP 138/68 12/14/24 07:47 Pulse Ox 97 12/14/24 07:47 O2 Del Method Room Air 12/14/24 07:47 O2 Flow Rate 2 12/13/24 18:00 BMI result Body Mass Index 30.0 DS: Data Data Completed and Pending Labs on day of discharge: Laboratory Results - last 24 hr 12/13/24 12/14/24 12/14/24 13:20 06:24 06:25 Hold Purple Top SEE NOTE Sodium 138 Potassium 4.6 Chloride 110 H Carbon Dioxide 20 L Anion Gap 13 BUN 11 Creatinine 0.52 Estim Creat Clear Calc 173.1 Estimated GFR > 60 Random Glucose 111 Lactic Acid F/U @ 2Hr 3.2 H* Calcium 7.7 L Total Bilirubin 0.3 AST 217 H ALT 139 H Alkaline Phosphatase 65 Total Protein 6.5 Albumin 2.5 L Preliminary micro results at discharge 12/13/24 10:53 Blood Culture - Preliminary Blood - Venous No growth after 24 hours. 12/13/24 10:52 Blood Culture - Preliminary Blood - Venous No growth after 24 hours. Discharge Plan Discharge Anticipated Discharge Date/Time: 12/14/24 13:18 Patient Disposition: Home, Self-Care Discharge Diagnosis: PNA, asthma exacerbation Referrals: Hilda Joyce MD [Primary Care Provider, Internal Medicine] - 1 Week Discharge Medications: New prednisone 20 mg tablet 40 mg PO DAILY Qty: 6 0RF Rx Instructions: take 40 mg for 3 more days and then stop. cefuroxime axetil 500 mg tablet 500 mg PO BID 3 Days Qty: 6 0RF Rx Instructions: take 1 tab twice a day for 3 more days azithromycin 250 mg tablet 250 mg PO DAILY 3 Days Qty: 3 0RF Continued albuterol sulfate 90 mcg/actuation Hfa Aerosol Inhaler 2 puff INHALATION Q4H PRN (Reason: Respiratory Distress) docusate sodium 100 mg capsule 100 mg PO DAILY PRN (Reason: Constipation) ibuprofen 800 mg tablet 800 mg PO TID PRN (Reason: Pain (Scale Score 4-6)) Discharge Orders: Discharge Order (Routine); Ordered 12/14/24 Ordered By: Maritza Desai Activity on Discharge: As tolerated Stand Alone Forms: Patient Portal Discharge page Print Language: [place] Care Plan Goals: see below Health Concerns: asthma Plan of Treatment: admitted with asthma exacerbation and PNA, Treated with Abx and steroids with good response. discharged on Abx and prednisone to complete the course. Assessment: At the time of discharge, pt is on RA, ambulating without any difficulty and nowheezinf on exam. discharged on home Inh, Abx and prednisone. Patient Instructions: Asthma (GEN), Pneumonia (DC)
== END 2024-12-14 13:56 | disposition home or self-care (01) | DRG 139 ==
LOC: HO.ED 12:50 → HO.EDOVER 13:09 → HO.S3 22:20
PROVIDERS: Physician Assistant Medical; Admitting Provider Internal Medicine; Emergency Provider Emergency Medicine; PCP Internal Medicine; Visit Provider Hospitalist
DX: J18.9 Pneumonia, unspecified organism (principal); E87.21 Acute metabolic acidosis; J45.41 Moderate persistent asthma with (acute) exacerbation; R00.0 Tachycardia, unspecified; G35 Multiple sclerosis; J91.8 Pleural effusion in other conditions classified elsewhere; Z20.822 Contact with and (suspected) exposure to COVID-19; Z79.899 Other long term (current) drug therapy
CPT/HCPCS: 36415; 71275; 74177; 80053; 80143; 82803; 83605; 83690; 83735; 83880; 84702; 85007; 85027; 85610; 87040; 87637; 93005; 94640; 99285; J0456; J0696; J1650; J2919; J3475; J7120; Q9967

== ENCOUNTER → 2024-12-13 08:45 | Outpatient (BNV) | payer OTHER, SELFPAY | PROVIDERS: Admitting Provider Internal Medicine; Emergency Provider Emergency Medicine; PCP Internal Medicine; Visit Provider Internal Medicine Cardiovascular Disease | DX: R00.0 Tachycardia, unspecified (principal) | CPT/HCPCS: 93010 ==

== ENCOUNTER → 2024-12-13 09:01 | Outpatient (BNV) | payer OTHER, SELFPAY | PROVIDERS: PCP Internal Medicine; Visit Provider Radiology Vascular & Interventional Radiology | DX: R74.01 Elevation of levels of liver transaminase levels (principal); R11.0 Nausea; R10.9 Unspecified abdominal pain; J90 Pleural effusion, not elsewhere classified; R59.0 Localized enlarged lymph nodes; R91.8 Other nonspecific abnormal finding of lung field | CPT/HCPCS: 71275; 74177 ==

== ENCOUNTER → 2024-12-13 12:56 | Outpatient (BNV) | payer OTHER, SELFPAY | PROVIDERS: Admitting Provider Internal Medicine; Emergency Provider Emergency Medicine; PCP Internal Medicine; Visit Provider Hospitalist | DX: J18.9 Pneumonia, unspecified organism (principal); J45.41 Moderate persistent asthma with (acute) exacerbation | CPT/HCPCS: 99239 ==

== ENCOUNTER 2024-12-23 12:28 | Inpatient (IN) | payer OTHER, SELFPAY ==
--- NOTE | ~2024-12-23 | US_ITS ---
EXAMINATION: US ABDOMEN LIMITED HISTORY: liver enzyme elevation; adenopathy TECHNIQUE: Real-time grayscale ultrasound imaging of the liver was performed and images were reviewed. COMPARISON: There are no prior studies available for comparison. FINDINGS: Liver: The right lobe of the liver measures 16.1 cm in size. The left lobe of the liver measures 9.7 cm in size. The liver demonstrates increased echotexture, consistent with steatosis. No focal mass or intrahepatic biliary ductal dilatation is identified. There is normal hepatopedal flow in the portal vein. Gallbladder and biliary tree: There are shadowing calculi in the gallbladder. There is no wall thickening or pericholecystic fluid. There is no sonographic Urrutia sign. The common bile duct is normal in caliber measuring 3 mm. The spleen measures 7.1 cm in length. Incidental note is made of a small right pleural effusion. US/US abdomen limited IMPRESSION: 1. Hepatomegaly and hepatic steatosis. 2. Cholelithiasis. Electronically signed by: Lalo Dasilva MD 12/25/2024 12:37 PM EDT
--- NOTE | ~2024-12-23 | XR_ITS ---
EXAMINATION: XR CHEST 2 VIEWS HISTORY: preop, pleural effusions COMPARISON: Comparison is made with the prior examination dated 12/23/2024. FINDINGS: PA and lateral views of the chest are submitted. There are small bilateral pleural effusions. Patchy airspace opacities of both lung bases may represent atelectasis or pneumonia. There is no pneumothorax or pulmonary vascular congestion. The heart is normal in size. The bones are intact. XR/XR chest 2V IMPRESSION: Small bilateral pleural effusions without change. Patchy airspace opacities of both lung bases may represent atelectasis or pneumonia. Electronically signed by: Lalo Dasilva MD 12/25/2024 07:36 AM EDT
--- NOTE | ~2024-12-23 | CT_ITS ---
CLINICAL HISTORY: Tachycardia; Pleurisy, Abnormal CXR CT angiography chest with contrast. 3D Postprocessing. Comparison: CT/SR - CT ANGIO CHEST PE PROTOCOL - 12/13/24 10:21 EDT Findings: The heart is normal size. RV/LV ratio is normal. Unremarkable thoracic aorta and great vessels. No aneurysm. No pulmonary artery filling defects. The visualized thyroid and mediastinum are unremarkable. Stable-appearing bilateral axillary lymphadenopathy. Bilateral pleural effusions, right larger than left, however slight decrease in the size of the left pleural effusion. Stable appearance of bibasilar compressive atelectasis versus pneumonia. The upper abdomen is unremarkable. The bones are intact. IMPRESSION: No pulmonary embolus. Stable right pleural effusion and slightly decreased left pleural effusion Stable bibasilar compressive atelectasis versus pneumonia Stable-appearing bilateral axillary lymphadenopathy This document has been electronically signed by: Tolu Magallon MD on 12/23/2024 22:00:10
--- NOTE | ~2024-12-23 | XR_ITS ---
EXAMINATION: XR CHEST CLINICAL INFORMATION: cough COMPARISON: Correlated to CT chest dated December 13, 2024. TECHNIQUE: 2 views of the chest were obtained. FINDINGS: Opacities in both lower hemithoraces is, right greater than left. Mild prominence of the interstitial markings in the perihilar region. Cardiomediastinal silhouette size is normal. No pneumothorax. S-shaped curvature of the thoracic spine. Mild multilevel thoracic spondylosis. XR/XR chest 2V IMPRESSION: Mild interstitial edema and bilateral moderate volume pleural effusions. Superimposed pneumonitis versus autoimmune disorders such as lupus among other etiologies. Electronically signed by: Devyn Quiroz MD 12/23/2024 02:28 PM EDT
[2024-12-23 13:13] VITALS: BP 123/71; PULSE 113; RESP 20; TEMP 36.9; O2SAT 95; BMI 29.4
--- NOTE | 2024-12-23 13:14 | ED_ITS ---
HPI - General Adult General Chief complaint: Dyspnea Stated complaint: Diff Breathing Etc Time Seen by Provider: 12/23/24 20:15 Source: patient Mode of arrival: ambulatory Limitations: no limitations History of Present Illness ED Provider: Peter FLETCHER HPI narrative: The patient is a 29-year-old female presenting to the ED for evaluation of worsening shortness of breath, with associated dizziness, tachycardia, and persistent cough productive of frothy sputum. The patient was seen here on 12/13 for shortness of breath, diagnosed with pneumonia and admitted for 1 day. Patient was discharged home on 12/14 with oral antibiotics which she completed. The patient reports despite completing treatment she has been experiencing persistent symptoms as described above. Patient reports today she had dizziness with blurred vision while taking a shower with the associated racing heart sensation and shortness of breath. Patient contacted her PCP who referred to the ED for re-evaluation. The patient denies associated fever/chills, vomiting, diarrhea, abdominal pain, back pain, with dysuria, hematuria, urinary symptoms, headache, focal neurological deficit, or recent sick contacts or trauma. Related Data Home Medications ?Medication ?Instructions ?Recorded ?Confirmed ibuprofen 800 mg tablet 800 mg PO TID PRN Pain (Scal e 12/02/20 12/13/24 Score 4-6) albuterol sulfate 90 mcg/actuation 2 puff inhalation Q 4H PRN 12/13/24 12/13/24 aerosol inhaler Respiratory Distress docusate sodium 100 mg capsule 100 mg PO DAILY PRN Con stipation 12/13/24 12/13/24 Previous Rx's ?Medication ?Instructions ?Recorded azithromycin 250 mg tablet 250 mg PO DAILY 3 days #3 t abs 12/14/24 cefuroxime axetil 500 mg tablet 500 mg PO BID 3 days # 6 tabs 12/14/24 prednisone 20 mg tablet 40 mg (2 x 20 mg) PO DAILY # 6 tabs 12/14/24 Allergies Allergy/AdvReac Type Severity Reaction Status Date / Time morphine (MORPHINE) Allergy Severe HYPOVENTILATION, Verified 12/23/24 13:14 excellerated heart rate and sob cromolyn (From INTAL) Allergy Intermediate HYPERACTIVI Verified 12/23/24 13:14 TY amoxicillin (AMOXICILLIN) Allergy Unknown HIVES, Verified 12/23/24 13:14 hives and welts Review of Systems 2 Review of Systems: Yes all other systems are reviewed and are negative [facility] Past Medical History Medical History Multiple sclerosis IBS (irritable bowel syndrome) GERD (gastroesophageal reflux disease) Surgical History Hx of tonsillectomy Family History Family History Mother Anemia Sister Heart murmur Father Diabetes HTN (hypertension) Maternal Grandmother Diabetes Social History Social History Household Members: None Housing: Apartment Do you presently have visiting nurse or other home services: No Alcohol intake: never Patient Tobacco Use Status: Never used Tobacco Advance Directives: No Advance Directives Information Provided: Yes Do you have a plan to hurt others: No Plan service: No Physical Exam ED Vital Signs: Vital Signs - 24 hr 12/23/24 13:13 12/23/24 17:03 12/23/24 20:06 Temperature 98.4 F 98.1 F 98.4 F Pulse Rate 113 H 106 H 106 H Respiratory Rate 20 18 12 Blood Pressure 123/71 126/71 130/69 Pulse Oximetry 95 99 100 Oxygen Delivery Method Room Air Room Air Room Air BMI result Body Mass Index 29.4 CONSTITUTIONAL: The patient appears non-toxic, well nourished and in no acute distress. Vital signs as documented. HEAD: Atraumatic, normocephalic. EYES: EOMs grossly intact, pupils equal, conjunctiva clear, no exudate. ENT: Nares patent, no discharge. Airway patent, no audible stridor, visible mucosa is pink and moist without noted lesions. NECK: Trachea is midline, no obvious masses or gross abnormalities. CHEST: Symmetric movement, normal appearance. LUNGS: LS present, with bibasilar crackles, Non-labored work of breathing while at rest in the exam stretcher. CARDIAC: Rapid but otherwise Regular Rhythm, S1/S2 appreciated, no murmurs, rubs or gallops. ABDOMEN: Abdomen soft and non-tender x4 quadrants, no palpable masses or organomegaly. : Deferred. EXTREMITIES: Normal tone, moves all extremities spontaneously without reported pain. No obvious acute injury or deformity noted. NEURO: Alert and oriented x3, CN II-XII appear grossly intact. Cerebellar Functioning grossly intact. No obvious sensory or motor deficits. Speech clear and appropriate. PSYCH: normal affect, appropriate eye contact, fluid speech, with appropriate response to questioning. No reported suicidality or homicidality. SKIN: Warm, dry, color appropriate, normal turgor. No rashes noted. Course Course Course Narrative: This is an RME: Additional HPI, ROS, PE not included below will be deferred to primary provider. RME assessment and note performed by: Lynn Kang PA-C This is a [id number] who presents to the ER with concerns for facial swelling, dizziness, and productive cough. Reports that she was seen here on 12/13 and was diagnosed with pneumonia. Reporting shortness of breath and pounding heart rate. Pt was admitted on 12/13 for pneumonia. Crackles lower lobes bilaterally. Completed courses of abx. Plan: repeat labs, EKG, cxr, further er eval needed Medications Administered Discontinued Medications Generic Name Dose Route Start Last Admin Trade Name Freq PRN Reason Stop Dose Admin Iohexol 65 ml 12/23/24 21:30 12/23/24 21:30 Iohexol 350 Mg/Ml 100 Ml Infus..Btl IV 12/23/24 21:31 65 ml ONCE ONE Administration Medical Decision Making Medical Decision Making MDM Narrative: 8:49 PM 12/23/2024 (Consuelo FLETCHER): The patient is a 29-year-old female presenting to the ED for evaluation of persistent shortness of breath, cough productive of [place] sputum, tachycardia sensation, and an episode this morning of dizziness with blurred vision prompting PCP contacted referred the patient to the ED for evaluation. Patient was seen here on 12/13 for shortness of breath with tachycardia, per chart review of the patient's CTA at that time was positive for small bilateral pleural effusions with adjacent consolidation and ground-glass opacities of the bilateral lower lobes suggestive of pneumonia, the imaging was negative for PE however note does advised the CTA was suboptimal/limited due to bolus timing. Also of note the patient's CTA showed numerous bilateral enlarged axillary lymph nodes, CT of the abdomen and pelvis showed mild retroperitoneal edema and ascites, as well as mildly enlarged bilateral external iliac, bilateral internal iliac, and right inguinal lymph nodes. The patient was admitted and treated with IV antibiotics, discharged on 12/14 with oral antibiotics which she completed. The patient in the ED today is noted to be tachycardic, with bibasilar crackles, no hypoxia, hypotension, or fever. The patient's laboratory evaluation shows no leukocytosis or anemia, there is however evidence of thrombocytosis of unknown etiology with platelet count 813,000 compared to 587,000 on 12/13. The remainder of the patient's laboratory evaluation is reassuring, no electrolyte insufficiency, or KRISHAN. The patient's LFTs are abnormal with AST 290 ALT 146, similar to previous visit. Troponin is negative. EKG is tachycardic but otherwise nonischemic. The patient's chest x-ray shows mild interstitial edema and bilateral moderate volume pleural effusions, superimposed pneumonitis versus autoimmune disorder such as lupus are possible. Due to the patient's persistent symptoms despite completion of antibiotics, suboptimal CTA timing on initial visit, persistent tachycardia, pleurisy, and abnormal chest x-ray and lung sounds, we will obtain repeat CTA to re-evaluate symptoms. The pathology behind the patient's thrombocytosis and diffuse lymphadenopathy is not entirely clear, we will reassess lymphadenopathy with repeat imaging and consider readmission for Hematology consultation. 10:17 PM 12/23/2024 (Consuelo FLETCHER): Patient's CTA shows no pulmonary embolism, shows stable right pleural effusion with slightly decreased left pleural effusion, with a redemonstration of bibasilar compressive atelectasis versus pneumonia. The patient's lymphadenopathy is stable appearing, no obvious changes. Upon further discussion with the patient the patient also advises she has experienced a significant weight loss over the past 3-4 months, was previously 230 lb and is currently weighing approximately 180-185 lb. Patient denies intentional weight loss, denies night sweats. Given the patient's persistent lymphadenopathy, persistent tachycardia, unexplained unintentional weight loss, and persistence of symptoms, in the setting of thrombocytosis of unknown etiology, we will plan to admit for monitoring and Hematology consultation. Admission/Observation Consideration of admission/observation: Escalation of care including admission/observation considered Lab Data MDM Lab Attestation statement: I reviewed the patient's lab results. 12/23/24 13:26 12/23/24 13:26 Labs: Lab Results 12/23/24 Range/Units 13:26 WBC 9.2 (4.8-10.8) X10*3/uL RBC 5.14 (4.20-5.50) X10*6/uL Hgb 12.7 (12.0-16.0) g/dl Hct 38.6 (37.0-47.0) % MCV 75.1 L (80.0-98.0) fL MCH 24.7 L (27.0-33.0) pg MCHC 32.9 (31.0-35.0) g/dl RDW 18.6 H (11.0-16.0) % Plt Count 813 H D (160-400) X10*3/uL MPV 10.5 (9.4-12.3) fL Immature Gran % (Auto) 0.9 H (0.0-0.4) % Neut % (Auto) 68.5 (45-73) % Lymph % (Auto) 21.1 (20-40) % [place] % (Auto) 7.1 (2-11) % Eos % (Auto) 1.5 (0-4) % Baso % (Auto) 0.9 (0-2) % Lymph # (Auto) 1.9 (1.2-4.9) X10*3/uL [place] # (Auto) 0.7 (0.1-1.2) X10*3/uL Eos # (Auto) 0.1 (0.0-0.4) X10*3/uL Baso # (Auto) 0.1 (0.0-0.2) X10*3/uL Abs Immat Gran (auto) 0.08 H (0.00-0.03) X10*3/uL Absolute Neuts (auto) 6.3 (2.0-8.3) x10*3/uL Absolute Nucleated RBC 0.000 (0.0-0.012) X10*3/uL Nucleated RBC % (auto) 0.0 (0.0-0.2) /100WBC Sodium 137 (135-145) mmol/L Potassium 3.7 (3.3-5.1) mmol/L Chloride 111 H (96-108) mmol/L Carbon Dioxide 20 L (22-29) mmol/L Anion Gap 10 L (12-20) BUN 7 L (9-16) mg/dL Creatinine 0.47 L (0.5-1.4) mg/dL Estim Creat Clear Calc 189.6 Estimated GFR > 60 Random Glucose 93 (60-115) mg/dL Calcium 8.0 L (8.4-10.2) mg/dL Magnesium 1.8 (1.6-2.6) mg/dL Total Bilirubin 0.4 (0.0-1.0) mg/dL Direct Bilirubin 0.1 (0.0-0.5) mg/dL AST 298 H (5-31) U/L ALT 146 H (0-31) U/L Alkaline Phosphatase 65 (39-117) U/L Troponin I High Sens 13.1 (<3.5-17.0) ng/L Total Protein 6.6 (6.5-8.0) g/dL Albumin 2.7 L (3.5-5.0) g/dL Beta HCG, Quant < 2 mIU/mL Independent Interpretation I performed an independent interpretation of an: EKG (EKG shows sinus tachycardia with a rate of 116, no evidence of acute ischemia, no ST elevation, no ectopy. QTC 478, compared to previous on 12/13/2024 there are no acute morphology changes.) Radiology Impression Discussion of test interpretation with radiology: I have reviewed the radiologist's reading. Radiologist Impression: XR CHEST CLINICAL INFORMATION: cough COMPARISON: Correlated to CT chest dated December 13, 2024. TECHNIQUE: 2 views of the chest were obtained. FINDINGS: Opacities in both lower hemithoraces is, right greater than left. Mild prominence of the interstitial markings in the perihilar region. Cardiomediastinal silhouette size is normal. No pneumothorax. S-shaped curvature of the thoracic spine. Mild multilevel thoracic spondylosis. XR/XR chest 2V IMPRESSION: Mild interstitial edema and bilateral moderate volume pleural effusions. Superimposed pneumonitis versus autoimmune disorders such as lupus among other etiologies. Electronically signed by: Devyn Quiroz MD 12/23/2024 02:[address] angiography chest with contrast. 3D Postprocessing. Comparison: CT/SR - CT ANGIO CHEST PE PROTOCOL - 12/13/24 10:21 EDT Findings: The heart is normal size. RV/LV ratio is normal. Unremarkable thoracic aorta and great vessels. No aneurysm. No pulmonary artery filling defects. The visualized thyroid and mediastinum are unremarkable. Stable-appearing bilateral axillary lymphadenopathy. Bilateral pleural effusions, right larger than left, however slight decrease in the size of the left pleural effusion. Stable appearance of bibasilar compressive atelectasis versus pneumonia. The upper abdomen is unremarkable. The bones are intact. IMPRESSION: No pulmonary embolus. Stable right pleural effusion and slightly decreased left pleural effusion Stable bibasilar compressive atelectasis versus pneumonia Stable-appearing bilateral axillary lymphadenopathy This document has been electronically signed by: Tolu Magallon MD on 12/23/2024 22:00:10 Discharge Plan Discharge Clinical Impression: Thrombocytosis, Tachycardia, Lymphadenopathy, Recent unintentional weight loss over several months, Pleural effusion Patient Disposition: Admitted As Inpatient Print Language: Burkinan
--- NOTE | 2024-12-23 13:17 | ECG_ITS ---
Test Reason : dyspnea/tachy Blood Pressure : */* mmHG Vent. Rate : 116 BPM Atrial Rate : 116 BPM P-R Int : 124 ms QRS Dur : 74 ms QT Int : 344 ms P-R-T Axes : 24 36 25 degrees QTcB Int : 478 ms Sinus tachycardia Low voltage QRS Borderline ECG When compared with ECG of 13-Dec-2024 08:45, No significant change was found Referred By: Lynn Kang Electronically Signed By: NING SHAHID
[2024-12-23 13:32] LABS: Hematocrit 38.6 % (37.0-47.0); Hemoglobin 12.7 g/dl (12.0-16.0); Imm Gran Abs Auto 0.08 X10*3/uL (0.00-0.03); Imm Gran Pct Auto 0.9 % (0.0-0.4); Lymphocytes Absolute Auto 1.9 X10*3/uL (1.2-4.9); MANUAL DIFF FLAG NO; Mean Corpuscular HGB Conc 32.9 g/dl (31.0-35.0); Mean Corpuscular Hemoglobin 24.7 pg (27.0-33.0); Mean Corpuscular Volume 75.1 fL (80.0-98.0); NRBC Abs Auto 0.000 X10*3/uL (0.0-0.012); NRBC Pct Auto 0.0 /100WBC (0.0-0.2); Platelet Count 813 X10*3/uL (160-400); Red Blood Count 5.14 X10*6/uL (4.20-5.50); White Blood Count 9.2 X10*3/uL (4.8-10.8)
[2024-12-23 13:56] LABS: Troponin-I High Sensitivity 13.1 ng/L (<3.5-17.0)
[2024-12-23 14:07] LABS: Alanine Aminotransferase 146 U/L (0-31); Albumin Level 2.7 g/dL (3.5-5.0); Alkaline Phosphatase 65 U/L (39-117); Anion Gap 10 (12-20); Aspartate Amino Transferase 298 U/L (5-31); Blood Urea Nitrogen 7 mg/dL (9-16); Calcium 8.0 mg/dL (8.4-10.2); Carbon Dioxide 20 mmol/L (22-29); Chloride 111 mmol/L (96-108); Creatinine Clr Calc Pharmacy 189.6; Estimated Glomerular Filt Rate > 60; Magnesium 1.8 mg/dL (1.6-2.6); Potassium 3.7 mmol/L (3.3-5.1); Sodium 137 mmol/L (135-145); Total Protein 6.6 g/dL (6.5-8.0)
[2024-12-23 17:03] VITALS: BP 126/71; PULSE 106; RESP 18; TEMP 36.7; O2SAT 99
[2024-12-23 20:06] VITALS: BP 130/69; PULSE 106; RESP 12; TEMP 36.9; O2SAT 100
[2024-12-23] MEDS: iohexoL 350 MG/ML 100 ML INFUS..BTL 65 ML IV (21:30)
[2024-12-23 22:43] VITALS: BP 135/78; PULSE 104; RESP 16; TEMP 37; O2SAT 98
--- NOTE | 2024-12-23 22:46 | P.HPHOSP_ITS ---
History of Present Illness Date of Service: 12/23/24 Chief Complaint: Shortness of breath 29-year-old female with a past medical history of asthma presented to the hospital with a chief complaint of shortness of breath. Patient mentioned that she has been having shortness of breath for about couple of weeks. Presented to the ER on 12/13 with shortness of breath and was given oral antibiotics. Despite being on antibiotics patient has been having increased shortness of breath. Reports occasional dizziness. Denies any chest pain or palpitations. Denies any fevers and chills. Denies any GI or symptoms. Denies any sick contacts. Denies any leg pain. Review of all other systems is negative except mentioned above ER course: Per ER team, patient initially presented to the hospital on 12/13 with shortness of breath; noted to be tachycardic; CT chest was done which showed no evidence of PE but noted to have lymphadenopathy and small pleural effusions. Repeat CT scans today showed no evidence of PE but noted to have stable pleural effusions as well as lymphadenopathy. On labs noted to elevated platelet count from 500-800 today. And patient noted to be tachycardic. No significant wheezing noted. [facility] Medical History Multiple sclerosis IBS (irritable bowel syndrome) GERD (gastroesophageal reflux disease) Family History Mother Anemia Sister Heart murmur Father Diabetes HTN (hypertension) Maternal Grandmother Diabetes Surgical History Hx of tonsillectomy Social History Household Members: None Housing: Apartment Do you presently have visiting nurse or other home services: No Alcohol intake: never Patient Tobacco Use Status: Never used Tobacco Advance Directives: No Advance Directives Information Provided: Yes Do you have a plan to hurt others: No Plan Nutrition Risks: No Nutritional Risk service: No Meds Allergies Allergy/AdvReac Type Severity Reaction Status Date / Time morphine (MORPHINE) Allergy Severe HYPOVENTILATION, Verified 12/23/24 13:14 excellerated heart rate and sob cromolyn (From INTAL) Allergy Intermediate HYPERACTIVI Verified 12/23/24 13:14 TY amoxicillin (AMOXICILLIN) Allergy Unknown HIVES, Verified 12/23/24 13:14 hives and welts Home Medications ?Medication ?Instructions ?Recorded ?Confirmed ?Last Taken ?Type ibuprofen 800 mg tablet 800 mg PO TID PRN Pain (Scal e 12/02/20 12/13/24 Unknown History Score 4-6) albuterol sulfate 90 mcg/actuation 2 puff inhalation Q 4H PRN 12/13/24 12/13/24 Unknown History aerosol inhaler Respiratory Distress docusate sodium 100 mg capsule 100 mg PO DAILY PRN Con stipation 12/13/24 12/13/24 Unknown History Physical Exam 2 Vital Signs and Narrative: Vital Signs: Last Vital Signs Temp 98.6 F 12/23/24 22:43 Pulse 104 H 12/23/24 22:43 Resp 16 12/23/24 22:43 BP 135/78 12/23/24 22:43 Pulse Ox 98 12/23/24 22:43 O2 Del Method Room Air 12/23/24 22:43 BMI result Body Mass Index 29.4 Results Labs 12/23/24 13:26 12/23/24 13:26 Labs: Laboratory Results - last 24 hr 12/23/24 13:26 MCV 75.1 L MCH 24.7 L MCHC 32.9 RDW 18.6 H Plt Count 813 H D MPV 10.5 Immature Gran % (Auto) 0.9 H Neut % (Auto) 68.5 Lymph % (Auto) 21.1 [place] % (Auto) 7.1 Eos % (Auto) 1.5 Baso % (Auto) 0.9 Lymph # (Auto) 1.9 [place] # (Auto) 0.7 Eos # (Auto) 0.1 Baso # (Auto) 0.1 Abs Immat Gran (auto) 0.08 H Absolute Neuts (auto) 6.3 Absolute Nucleated RBC 0.000 Nucleated RBC % (auto) 0.0 Anion Gap 10 L Estim Creat Clear Calc 189.6 Estimated GFR > 60 Random Glucose 93 Calcium 8.0 L Magnesium 1.8 Total Bilirubin 0.4 Direct Bilirubin 0.1 AST 298 H ALT 146 H Alkaline Phosphatase 65 Total Protein 6.6 Albumin 2.7 L Beta HCG, Quant < 2 Imaging Radiologist's Impressions: Impressions Chest X-Ray 12/23/24 13:22 IMPRESSION: Mild interstitial edema and bilateral moderate volume pleural effusions. Superimposed pneumonitis versus autoimmune disorders such as lupus among other etiologies. Electronically signed by: Devyn Quiroz MD 12/23/2024 02:28 PM EDT Assessment and Plan (1) Lymphadenopathy: Status: Acute Plan 29-year-old female with a past medical history of asthma presented to the hospital with a chief complaint of shortness of breath. Shortness of breadth: Patient noted to be short of breath and tachycardic. CT chest showed no evidence of PE but noted to have small pleural effusions. Also noted to have lymphadenopathy. Noted to have findings concerning for compressive atelectasis versus pneumonia No significant wheezing on exam Supportive care Echocardiogram Supplemental oxygen p.r.n. Trending pulse oximetry when ready for discharge DuoNebs p.r.n. Will keep the patient on azithromycin , ceftriaxone Will obtain urine Legionella, strep pneumo, mycoplasma Lymphadenopathy: Thrombocytosis: Will consult Hematology for further recommendations Patient's platelets are elevated from 400 to 800s today. Will start the patient on aspirin 81 mg Transaminitis: Will obtain right upper quadrant ultrasound and acute hepatitis panel DVT prophylaxis: Lovenox Code status: Full code Quality Stroke Does the patient have a stroke diagnosis?: No VTE Prior VTE?: No VTE Risk Level:: Medical - moderate - high VTE Device Contraindication: Treatment Not Indicated VTE Drug Contraindication: N/A - Med Ordered
--- NOTE | 2024-12-23 23:07 | MHC.EDTECH ---
pt transferred to hospital bed independently. call estrada within reach
[2024-12-23 23:39] VITALS: BP 129/81; PULSE 103; RESP 18; TEMP 36.8; O2SAT 98
[2024-12-23] MEDS: 0.9 % Sodium Chloride Flush 3 ML SYRINGE IVFLUSH (23:43)
--- NOTE | 2024-12-24 05:00 | PC.NURSE ---
pts mom called for an update; RN asked pt if it was OK to update mom; pt stated she will call mom herself.
[2024-12-24 05:40] LABS: MANUAL DIFF FLAG NO
[2024-12-24 05:50] LABS: Hematocrit 36.5 % (37.0-47.0); Hemoglobin 12.2 g/dl (12.0-16.0); Imm Gran Abs Auto 0.06 X10*3/uL (0.00-0.03); Imm Gran Pct Auto 0.7 % (0.0-0.4); Lymphocytes Absolute Auto 2.6 X10*3/uL (1.2-4.9); Mean Corpuscular HGB Conc 33.4 g/dl (31.0-35.0); Mean Corpuscular Hemoglobin 24.8 pg (27.0-33.0); Mean Corpuscular Volume 74.2 fL (80.0-98.0); NRBC Abs Auto 0.000 X10*3/uL (0.0-0.012); NRBC Pct Auto 0.0 /100WBC (0.0-0.2); Platelet Count 815 X10*3/uL (160-400); Red Blood Count 4.92 X10*6/uL (4.20-5.50); White Blood Count 8.1 X10*3/uL (4.8-10.8)
[2024-12-24 06:10] LABS: Alanine Aminotransferase 128 U/L (0-31); Albumin Level 2.6 g/dL (3.5-5.0); Alkaline Phosphatase 63 U/L (39-117); Anion Gap 10 (12-20); Aspartate Amino Transferase 257 U/L (5-31); Blood Urea Nitrogen 7 mg/dL (9-16); Calcium 8.0 mg/dL (8.4-10.2); Carbon Dioxide 21 mmol/L (22-29); Chloride 112 mmol/L (96-108); Creatinine Clr Calc Pharmacy 185.7; Estimated Glomerular Filt Rate > 60; Potassium 3.4 mmol/L (3.3-5.1); Sodium 140 mmol/L (135-145); Total Protein 6.3 g/dL (6.5-8.0)
--- NOTE | 2024-12-24 07:00 | CA_ITS ---
Transthoracic Echocardiogram Patient (Last, First, Middle): Barry Buitrago, Gender: Female Date of : 1995 Age: 29 Procedure Date: 12/24/2024 Procedure Type: Transthoracic Echocardiogram Location: ER Height: 167.64 cm Weight: 82.56 kg BSA: 1.92 m2 Heart Rate: 104 bpm BP: 116 / 71 mmHg [facility]: [facility] Referring MD: Miky Puga MD Symptoms: pl effusions Study Quality: Adequate ECG Rhythm: Tachycardia Conclusions: - The left ventricular systolic function is normal. The visually estimated ejection fraction is between 65-70%. - No obvious valvular pathology seen on this study. Findings Left Ventricle Normal left ventricular cavity size. There is normal left ventricular wall thickness. The left ventricular systolic function is normal. The visually estimated ejection fraction is between 65-70%. There is no evidence of regional wall motion abnormalities. Diastolic function is normal for age. Right Ventricle Mildly increased right ventricular cavity size. There is normal right ventricular systolic function. Atria Both atria are normal in size. Aortic Valve There is a normal trileaflet aortic valve. There is no aortic valve stenosis. There is no aortic valve regurgitation. Mitral Valve The mitral valve appears normal. There is no mitral valve regurgitation. There is no mitral valve stenosis. Pulmonic Valve The pulmonic valve is likely normal. Tricuspid Valve There is no tricuspid valve regurgitation. Tricuspid regurgitation envelope is inadequate for calculation of right ventricular systolic pressure. Great Vessels The asc aorta and aortic arch are normal in size. Venous The inferior vena cava is normal in size and collapses greater than 50% with inspiration. Pericardium/Pleural There is a trivial pericardial effusion. Prior Study Comparison No prior study available for comparison. Recommendations, Care & Conclusions No obvious valvular pathology seen on this study. Measurements 2D Linear Measurements IVSd: 0.88 0.6-0.9/0.6-1.0 cm LVIDd: 4.54 3.9-5.3/4.2-5.9 cm LVIDd Index: 2.36 2.4-3.2/2.2-3.1 cm/m2 LVIDs: 2.76 2.0-3.6 cm LVPWd: 0.69 0.7-1.1 cm LA Diam: 3.00 2.7-3.8/3.0-4.0 cm LAIDs Index: 1.56 1.5-2.3 cm/m2 LV Mass: 139.44 67-162/88-224 g LV Mass Index: 72.62 43-95/49-115 g/m2 LVOT Diam: 2.00 3.0+(-)1.3 cm 2D Systolic Function EF 4C: 65.00 >55% EF 2C: 78.60 >55% EF BiP: 73.10 >55% Mitral Valve MV Pk E: 0.99 MV PK A: 0.88 MV Decel Time: 190.00 E/A: 1.10 E'Lateral: 13.60 E'Medial: 8.16 E/E' Med: 12.10 E/E' Lat: 7.20 PHT: 56.00 MVA PHT: 3.93 Decel Irion: 5.18 Aortic Valve AoV Pk Darci: 1.72 AoV Mn Darci: 1.25 AoV VTI: 0.32 AoV Pk Grad: 12.00 Aov Mn Grad: 7.00 RANJANA Cont.VTI: 2.63 LVOT LVOT Pk Darci: 1.54 LVOT Mn Darci: 1.03 LVOT VTI: 0.27 LVOT Pk Grad: 9.00 LVOT Mn Grad: 5.00 LVOT Diam: 2.00 LVOT Area: 3.14 Diastolic Function MV Pk E: 0.99 MV Pk A: 0.88 E/A: 1.10 E'Medial: 8.16 E/E' Med: 12.10 E' Laterial: 13.60 E/E' Lat: 7.20 Right Ventricle TAPSE (mm): 29.50 TVS' Darci: 15.40 Tricuspid Valve RA Press: 3.00 Great Vessels Aorta Sinus of Valsalva: 3.30 2.0-3.5 cm Ao Asc: 2.80 2.1-3.4 cm Ao Arch: 2.30 Pulmonary Veins Pulm Vein S/D 1.00 Pulmonary Valve PV Pk Darci: 1.07 Peak PV Grad: 5.00 Updated in Other Vendor System with Status of Final Blaine Maharaj MD electronically signed on 12/25/2024 8:37:30 AM with status of Final
[2024-12-24 08:05] VITALS: BP 116/71; PULSE 103; RESP 14; TEMP 36.7; O2SAT 98
[2024-12-24 08:05] LABS: B Type Natriuretic Peptide 17 pg/mL (<100)
[2024-12-24] MEDS: 0.9 % Sodium Chloride Flush 3 ML SYRINGE IVFLUSH ×3 (08:06→21:55)
[2024-12-24] MEDS: Aspirin Enteric Coated 81 MG TABLET.DR PO (08:06)
[2024-12-24 08:17] LABS: Procalcitonin 0.03 ng/mL
[2024-12-24 08:41] LABS: HBS Num1 0.52 mIU/mL (0-7.99); HBc Num1 0.06 S/CO (0.00-0.79); HBsAGNum1 0.46 S/CO (0.00-0.99); HIV Num 1 0.06 S/CO (0.00-0.99); Hepatitis B Surface Antigen Negative (Negative); ~HepC Num1 0.08 S/CO (0.00-0.79); ~Hepatitis B Surface Antibody NONREACTIVE (Nonreactive); ~Hepatitis C Antibody Nonreactive (Nonreactive)
--- NOTE | 2024-12-24 09:09 | PHA.MEDREC ---
Pharmacy Consult ? Medication Reconciliation Pharmacy has completed the medication reconciliation.Patient finished antibiotics last week
--- NOTE | 2024-12-24 09:57 | P.CONGS_ITS ---
History of Present Illness Consult details Consult date: 12/24/24 Reason for consult: other (Axillary Lymphadenopathy found on CT) Narrative: 29 year old female with a history of asthma, MS, IBS, GERD presenting to the ED, accompanied by mother and partner, with persistent shortness of breath for the past few weeks. Was initially treated for suspected pneumonia on 12/13 after presenting with similar symptoms. Evenetually d/c with oral Abx. She is reporting that the symptoms have been persistent even though she completed the full course of antibiotics. Additionally, she had and episode of racing heart, dizziness, vision changes that made her see her PCP who recommended she be seen in the ED. In the ED She had chest CTA that was negative for PE, stable pleural effusions but showed multiple enlarged lymph nodes bilaterally. CT of the abdomen on 12/13 also showed mild retroperitoneal edema and ascites and mildly enlarged bilateral external iliac + bilateral internal iliac + right inguinal lymph nodes. She denies having pain in the axillary region, but states that she may now be noticing some pain after finding out about the enlarged lymph nodes. she is denying night sweats, fevers, chills. There is an unintentional weight loss over the past 3-4 months, about 50 pounds. She endorses history of asthma, denies any additional history of lung disease. Mother denies family history of lung disease. She does state there is multiple family history of cancer including leukemia, remote history of lymphoma in mother's 3rd cousin. [facility] Past Medical History Medical History Multiple sclerosis IBS (irritable bowel syndrome) GERD (gastroesophageal reflux disease) Family History Family History Mother Anemia Sister Heart murmur Father Diabetes HTN (hypertension) Maternal Grandmother Diabetes Surgical History Surgical History Hx of tonsillectomy Social History Social History Household Members: None Housing: Apartment Do you presently have visiting nurse or other home services: No Alcohol intake: never Patient Tobacco Use Status: Never used Tobacco Advance Directives: No Advance Directives Information Provided: Yes Do you have a plan to hurt others: No Plan Nutrition Risks: No Nutritional Risk service: No Meds Allergies Allergy/AdvReac Type Severity Reaction Status Date / Time morphine (MORPHINE) Allergy Severe HYPOVENTILATION, Verified 12/23/24 13:14 excellerated heart rate and sob cromolyn (From INTAL) Allergy Intermediate HYPERACTIVI Verified 12/23/24 13:14 TY amoxicillin (AMOXICILLIN) Allergy Unknown HIVES, Verified 12/23/24 13:14 hives and welts Active Medications: Current Medications Acetaminophen (Acetaminophen 325 Mg Tablet) 650 mg PO Q6H PRN PRN Reason: Pain, Mild 1-3,fever,headache Albuterol/Ipratropium (Albuterol/Iprat 2.5/0.5mg 3 Ml Ampul.Neb) 3 ml INHALE Q4H PRN PRN Reason: Shortness of Breath/Wheezing Azithromycin (Azithromycin 500 Mg Tablet) 500 mg PO Q24H [facility] Last Admin: 12/24/24 01:33 Dose: 500 mg Benzonatate (Benzonatate 100 Mg Capsule) 100 mg PO TID PRN PRN Reason: Cough Calcium Carbonate (Calcium Carbonate 750 Mg Tab.Chew) 750 mg PO Q4H PRN PRN Reason: Heartburn Ceftriaxone Sodium (Ceftriaxone Sodium 1 Gm Vial) 1 gm IVPUSH Q24H [facility] Last Admin: 12/24/24 01:34 Dose: 1 gm Enoxaparin Sodium (Enoxaparin Sodium 40 Mg/0.4 Ml Syringe) 40 mg SUBCUT Q24H [facility] On Hold: 12/24/24 09:53 Last Admin: 12/23/24 23:43 Dose: 40 mg Magnesium Hydroxide (Milk Of Magnesia 30 Ml Oral.Susp) 30 ml PO DAILY PRN PRN Reason: Constipation Melatonin (Melatonin 3 Mg Tablet) 6 mg PO BEDTIME PRN PRN Reason: Insomnia Polyethylene Glycol (Polyethylene Glycol 3350 17 Gm Powd.Pack) 17 gm PO DAILY PRN PRN Reason: Constipation Sodium Chloride (0.9 % Sodium Chloride Flush 3 Ml Syringe) 3 ml IVFLUSH QSHIFT [facility] Last Admin: 12/24/24 08:06 Dose: 3 ml Home Medications ?Medication ?Instructions ?Recorded ?Confirmed ?Last Taken ?Type albuterol sulfate 90 mcg/actuation 2 puff inhalation Q 4H PRN 12/13/24 12/24/24 Unknown History aerosol inhaler Respiratory Distress ibuprofen 800 mg tablet 800 mg PO TID 12/24/2412/24 Unknown History Physical Exam 2 Vital Signs: Vital Signs: Last Vital Signs Temp 98.1 F 12/24/24 08:05 Pulse 103 H 12/24/24 08:05 Resp 14 12/24/24 08:05 BP 116/71 12/24/24 08:05 Pulse Ox 98 12/24/24 08:05 O2 Del Method Room Air 12/24/24 08:05 BMI result Body Mass Index 29.4 Const: General: comfortable and no acute distress O rientation/consciousness: patient oriented x3 Chest: Breast/axilla inspection: normal inspection of the axillae B reast/axilla palpation: axillary lymphadenopathy (palpable in left, unable to appreciate in the right) Resp: Effort & Inspection: abnormal respiratory effort (increased work of breathing), able to speak in complete sentences and no audible wheezes Neuro: General: patient oriented x3 Results Labs 12/24/24 05:20 12/24/24 05:20 Labs: Abnormal lab results 12/23/24 12/24/24 Range/Units 13:26 05:20 Hct 36.5 L (37.0-47.0) % MCV 75.1 L 74.2 L (80.0-98.0) fL MCH 24.7 L 24.8 L (27.0-33.0) pg RDW 18.6 H 18.0 H (11.0-16.0) % Plt Count 813 H D 815 H (160-400) X10*3/uL Immature Gran % (Auto) 0.9 H 0.7 H (0.0-0.4) % Eos % (Auto) 4.9 H (0-4) % Abs Immat Gran (auto) 0.08 H 0.06 H (0.00-0.03) X10*3/uL Chloride 111 H 112 H (96-108) mmol/L Carbon Dioxide 20 L 21 L (22-29) mmol/L Anion Gap 10 L 10 L (12-20) BUN 7 L 7 L (9-16) mg/dL Creatinine 0.47 L 0.48 L (0.5-1.4) mg/dL Calcium 8.0 L 8.0 L (8.4-10.2) mg/dL AST 298 H 257 H (5-31) U/L ALT 146 H 128 H (0-31) U/L Lactate Dehydrogenase 851 H (122-220) U/L C-Reactive Protein 0.88 H (< or = 0.50) mg/dL Total Protein 6.3 L (6.5-8.0) g/dL Albumin 2.7 L 2.6 L (3.5-5.0) g/dL Short CBC 12/23/24 12/24/24 Range/Units 13:26 05:20 WBC 9.2 8.1 (4.8-10.8) X10*3/uL Hgb 12.7 12.2 (12.0-16.0) g/dl Hct 38.6 36.5 L (37.0-47.0) % Plt Count 813 H D 815 H (160-400) X10*3/uL BMP 12/23/24 12/24/24 13:26 05:20 Sodium 137 140 Potassium 3.7 3.4 Chloride 111 H 112 H Carbon Dioxide 20 L 21 L BUN 7 L 7 L Creatinine 0.47 L 0.48 L Calcium 8.0 L 8.0 L Liver Function 12/23/24 12/24/24 Range/Units 13:26 05:20 Total Bilirubin 0.4 0.3 (0.0-1.0) mg/dL Direct Bilirubin 0.1 (0.0-0.5) mg/dL AST 298 H 257 H (5-31) U/L ALT 146 H 128 H (0-31) U/L Alkaline Phosphatase 65 63 (39-117) U/L Albumin 2.7 L 2.6 L (3.5-5.0) g/dL All other labs normal. Assessment and Plan (1) Lymphadenopathy: Status: Acute Plan 29 year old female with a history of asthma, MS, IBS, GERD presenting to the ED with persistent shortness of breath with some mild phlegm production for about the last month. Initially presented to the ED on 12/13 and was treated for suspected pneumonia. She presented back to the ED after her PCP recommended she be reevaluated for continued SOB after she had an episode of dizziness, blurred vision, racing heart after a shower. She had chest CTA, negative for PE, significant for stable mild pleural effusions, multiple axillary enlarged lymph nodes. Upon reviewing her CT abdomen from 12/13 there was also lymphadenopathy of the bilateral external iliac, bilateral internal iliac, right inguinal lymph nodes. Labs on presentation to ED showing now leukocytosis, but significant thrombocytosis, 815. She states the axillary area may be painful but has only noticed this since she was told that they were enlarge. To note, there has been about 50 pounds of unintentional weight loss in the past 3-4 months. She denies fevers, night sweats. There is a remote history of lymphoma in her mothers third cousin. On exam I was able to appreciate lympadenopathy in the left axilla, but was unable to palpate in the right. We discussed our plan with the patient, we will proceed with excisional biopsy of left axillary lymph node. patient agreeable to this plan. Will add her onto schedule for tomorrow. She understands risks including but not limited to, bleeding, infection, injury to surrounding anatomy. NPO midnight exisional biopsy of left axiallry lymph node tomorrow Procedures Date of Service Date of Service: 12/24/24
--- NOTE | 2024-12-24 11:25 | MHC.CM.PN ---
PT REPORTS SHE LIVES ALONE AND IS INDEPENDENT WITH CARE SHE HAS NO DME AND NO SERVICES COPY OF HCP REQUESTED, SHE REPORTS HER MOTHER AND SISTER ARE HER AGENTS PCP: PHILL DAVIS DCP: HOME VIA SELF TRANSPORT
[2024-12-24 12:00] VITALS: BP 127/67; PULSE 105; RESP 17; TEMP 36.4; O2SAT 95
[2024-12-24 13:06] VITALS: BMI 29.6
--- NOTE | 2024-12-24 13:24 | P.PNIM_ITS ---
Subjective Subjective Date of Service: 12/24/24 Interval History: short of breath 50 lb weight loss over last 3 mo no night sweats Review of Systems Review of Systems: Yes all other systems are reviewed and are negative Physical Exam 2 Vital Signs: Vital Signs: Last Vital Signs Temp 97.6 F 12/24/24 12:00 Pulse 105 H 12/24/24 12:00 Resp 17 12/24/24 12:00 BP 127/67 12/24/24 12:00 Pulse Ox 95 12/24/24 12:00 O2 Del Method Room Air 12/24/24 12:00 BMI result Body Mass Index 29.4 Gen: in no acute distress HEENT: sclera anicteric, moist mucus membranes Neck: supple Lungs: diminished at bases bilaterally Heart: regular rate and rhythm, no murmurs Abd: soft, non-tender, non-distended Ext: no edema, L axillary adenopathy Skin: warm/well-perfused Neuro: alert and oriented x3, no focal findings Psych: appropriate affect Objective Data Active Medications Acetaminophen (Acetaminophen 325 Mg Tablet) 650 mg PO Q6H PRN PRN Reason: Pain, Mild 1-3,fever,headache Albuterol/Ipratropium (Albuterol/Iprat 2.5/0.5mg 3 Ml Ampul.Neb) 3 ml INHALE Q4H PRN PRN Reason: Shortness of Breath/Wheezing Azithromycin (Azithromycin 500 Mg Tablet) 500 mg PO Q24H [facility] Last Admin: 12/24/24 01:33 Dose: 500 mg Documented By: SRAVANI Benzonatate (Benzonatate 100 Mg Capsule) 100 mg PO TID PRN PRN Reason: Cough Calcium Carbonate (Calcium Carbonate 750 Mg Tab.Chew) 750 mg PO Q4H PRN PRN Reason: Heartburn Ceftriaxone Sodium (Ceftriaxone Sodium 1 Gm Vial) 1 gm IVPUSH Q24H [facility] Last Admin: 12/24/24 01:34 Dose: 1 gm Documented By: SRAVANI Enoxaparin Sodium (Enoxaparin Sodium 40 Mg/0.4 Ml Syringe) 40 mg SUBCUT Q24H [facility] On Hold: 12/24/24 09:53 Last Admin: 12/23/24 23:43 Dose: 40 mg Documented By: SRAVANI Magnesium Hydroxide (Milk Of Magnesia 30 Ml Oral.Susp) 30 ml PO DAILY PRN PRN Reason: Constipation Melatonin (Melatonin 3 Mg Tablet) 6 mg PO BEDTIME PRN PRN Reason: Insomnia Polyethylene Glycol (Polyethylene Glycol 3350 17 Gm Powd.Pack) 17 gm PO DAILY PRN PRN Reason: Constipation Sodium Chloride (0.9 % Sodium Chloride Flush 3 Ml Syringe) 3 ml IVFLUSH QSHIFT [facility] Last Admin: 12/24/24 08:06 Dose: 3 ml Documented By: ALLI Labs 12/24/24 05:20 12/24/24 05:20 Labs: Laboratory Results - last 24 hr 12/23/24 12/24/24 12/24/24 13:26 05:20 07:59 MCV 75.1 L 74.2 L MCH 24.7 L 24.8 L MCHC 32.9 33.4 RDW 18.6 H 18.0 H Plt Count 813 H D 815 H MPV 10.5 10.7 Immature Gran % (Auto) 0.9 H 0.7 H Neut % (Auto) 68.5 51.4 Lymph % (Auto) 21.1 32.2 [place] % (Auto) 7.1 10.1 Eos % (Auto) 1.5 4.9 H Baso % (Auto) 0.9 0.7 Lymph # (Auto) 1.9 2.6 [place] # (Auto) 0.7 0.8 Eos # (Auto) 0.1 0.4 Baso # (Auto) 0.1 0.1 Abs Immat Gran (auto) 0.08 H 0.06 H Absolute Neuts (auto) 6.3 4.2 Absolute Nucleated RBC 0.000 0.000 Nucleated RBC % (auto) 0.0 0.0 Hold Purple Top Anion Gap 10 L 10 L Estim Creat Clear Calc 189.6 185.7 Estimated GFR > 60 > 60 Random Glucose 93 86 Calcium 8.0 L 8.0 L Magnesium 1.8 Total Bilirubin 0.4 0.3 Direct Bilirubin 0.1 AST 298 H 257 H ALT 146 H 128 H Alkaline Phosphatase 65 63 Lactate Dehydrogenase 851 H C-Reactive Protein 0.88 H B-Natriuretic Peptide 17 Total Protein 6.6 6.3 L Albumin 2.7 L 2.6 L Procalcitonin 0.03 Beta HCG, Quant < 2 Hep Bs Antigen Negative Hep Bs Antibody NONREACTIVE Hep B Core Total Ab Nonreactive Hepatitis C Ab (EIA) Nonreactive HIV 1&2 Ab/P24 Ag 4thGn Nonreactive 12/24/24 12/24/24 10:55 10:55 MCV MCH MCHC RDW Plt Count MPV Immature Gran % (Auto) Neut % (Auto) Lymph % (Auto) [place] % (Auto) Eos % (Auto) Baso % (Auto) Lymph # (Auto) [place] # (Auto) Eos # (Auto) Baso # (Auto) Abs Immat Gran (auto) Absolute Neuts (auto) Absolute Nucleated RBC Nucleated RBC % (auto) Hold Purple Top SEE NOTE Cancelled Anion Gap Estim Creat Clear Calc Estimated GFR Random Glucose Calcium Magnesium Total Bilirubin Direct Bilirubin AST ALT Alkaline Phosphatase Lactate Dehydrogenase C-Reactive Protein B-Natriuretic Peptide Total Protein Albumin Procalcitonin Beta HCG, Quant Hep Bs Antigen Hep Bs Antibody Hep B Core Total Ab Hepatitis C Ab (EIA) HIV 1&2 Ab/P24 Ag 4thGn Assessment and Plan (1) Pleural effusion: Status: Acute (2) Lymphadenopathy: Status: Acute Plan d2, 29yo F with asthma admitted here 12/13-12/14 for ground-glass pneumonia with small bilateral pleural effusions and asthma exacerbation, discharged on cefuroxime, azithromycin, and prednisone re-admitted for dyspnea, tachycardia, and persistent small pleural effusions noted on CT chest and abdomen/pelvis to have ascites, iliac/inguinal, and axillary lymph nodes biltaeral pleural effusions - suspect related to neoplastic process but will continue ceftriaxone and azithromycin 12/23-, TTE also pending lymphadenopathy thrombocytosis - LDH elevated, will consult Gen Surg for excisional biopsy of axillary node, consult Heme/Onc as well transaminasemia - RUQ US pending but suspect due to neoplastic process asthma without acute exacerbation - prn nebs VTE ppx - enoxaparin dispo - eventual home In my clinical judgment, the patient requires continued inpatient hospitalization for the following reasons: workup of pleural effusions and adenopathy Total time managing care of this patient today: 45 minutes. Quality Stroke Does the patient have a stroke diagnosis?: No VTE Prior VTE?: No VTE Risk Level:: Medical - moderate - high VTE Device Contraindication: Treatment Not Indicated VTE Drug Contraindication: N/A - Med Ordered
--- NOTE | 2024-12-24 15:31 | PM.HEMONCCN ---
Subjective - Subjective Chief complaint: Cough and shortness of breath Patient: new to practice Consult date: 12/24/24 Primary Care Provider: Hilda Lock MD Wirer Utilized?: No - Bulgarian Speaking HPI - Consult Narrative Reason for consult: Lymphadenopathy Narrative: Barry Pruitt is a 29 year old female with past medical history significant or multiple sclerosis and asthma who is currently admitted for probable pneumonia. Patient presented to the ER on 12/13/2024 with shortness of breath and cough. She was treated with azithromycin and cephalexin. However yesterday she presented with puffiness of her eyes, persistent cough and shortness of breath. Evaluation in the ED with CTA chest showed no evidence of PE but noted to have lymphadenopathy and small pleural effusions. Her platelet counts are elevated. Patient was noted to be tachycardic. Patient states that she was diagnosed with multiple sclerosis in 2018 and has been on dimethyl fumarate since then. Family history significant for leukemia in maternal aunt and maternal great grandfather. A distant cousin had lymphoma. Patient has had unintentional weight loss in the last 4 months. No history of smoking. Review of Systems - Constitutional Reports as per HPI, Reports malaise, Reports night sweats - Cardiovascular Reports no additional cardiovascular complaints - Respiratory Reports cough, Reports dyspnea - Gastrointestinal Reports no additional gastrointestinal complaints [facility] Medical History: Medical History (Last Reviewed 12/13/24 @ 14:31 by JUSTINE Briscoe) GERD (gastroesophageal reflux disease) IBS (irritable bowel syndrome) Multiple sclerosis Family History: Family History (Last Reviewed 12/13/24 @ 14:31 by JUSTINE Briscoe) Mother Anemia Sister Heart murmur Father Diabetes HTN (hypertension) Maternal Grandmother Diabetes Surgical History: Surgical History (Last Reviewed 12/13/24 @ 14:31 by JUSTINE Briscoe) Hx of tonsillectomy Social History: Social History (Last Reviewed 12/13/24 @ 14:31 by JUSTINE Briscoe) Living Situation History: Household Members: None Housing: Apartment Do you presently have visiting nurse or other home services: No Alcohol History Details: 1. How often do you have a drink containing alcohol?: a. Never 3. How often do you have six or more drinks on one occasion?: a. Never AUDIT-C Alcohol total score: 0 Currently Displaying Signs/Symptoms of Alcohol Withdrawal: No Tobacco History: Patient Tobacco Use Status: Never used Tobacco Substance Use History: Currently Displaying Signs/Symptoms of Drug Intoxication Withdrawal: No Domestic Abuse History: Have you been hit, kicked, punched, or otherwise hurt by someone within the past year? If so, by whom?: No Do you feel safe in your current relationship?: Yes Is there a partner from a previous relationship who is making you feel unsafe now?: No Are you made to feel afraid or neglected: No Advance Directives: Advance Directives: No Advance Directives Information Provided: Yes Homicidal Assessment: Do you have a plan to hurt others: No Plan Nutrition Assessment: Recently lost weight without trying: Yes How much weight loss: 34pounds or more Eating poorly because of decreased appetite: Yes Nutrition screen score: 7 Nutrition Risks: No Nutritional Risk Patient : No : No Poor oral hygiene: No Occupation Assessmet: service: No Home Medications and Allergies Current Medications: Current Medications Acetaminophen (Acetaminophen 325 Mg Tablet) 650 mg PO Q6H PRN PRN Reason: Pain, Mild 1-3,fever,headache Albuterol/Ipratropium (Albuterol/Iprat 2.5/0.5mg 3 Ml Ampul.Neb) 3 ml INHALE Q4H PRN PRN Reason: Shortness of Breath/Wheezing Azithromycin (Azithromycin 500 Mg Tablet) 500 mg PO Q24H [facility] Last Admin: 12/24/24 01:33 Dose: 500 mg Benzonatate (Benzonatate 100 Mg Capsule) 100 mg PO TID PRN PRN Reason: Cough Calcium Carbonate (Calcium Carbonate 750 Mg Tab.Chew) 750 mg PO Q4H PRN PRN Reason: Heartburn Ceftriaxone Sodium (Ceftriaxone Sodium 1 Gm Vial) 1 gm IVPUSH Q24H [facility] Last Admin: 12/24/24 01:34 Dose: 1 gm Enoxaparin Sodium (Enoxaparin Sodium 40 Mg/0.4 Ml Syringe) 40 mg SUBCUT Q24H [facility] On Hold: 12/24/24 09:53 Last Admin: 12/23/24 23:43 Dose: 40 mg Magnesium Hydroxide (Milk Of Magnesia 30 Ml Oral.Susp) 30 ml PO DAILY PRN PRN Reason: Constipation Melatonin (Melatonin 3 Mg Tablet) 6 mg PO BEDTIME PRN PRN Reason: Insomnia Polyethylene Glycol (Polyethylene Glycol 3350 17 Gm Powd.Pack) 17 gm PO DAILY PRN PRN Reason: Constipation Sodium Chloride (0.9 % Sodium Chloride Flush 3 Ml Syringe) 3 ml IVFLUSH QSHIFT [facility] Last Admin: 12/24/24 08:06 Dose: 3 ml Home Medications ?Medication ?Instructions ?Recorded ?Confirmed ?Type albuterol sulfate 90 mcg/actuation 2 puff inhalation Q4H PRN 12/13/24 12/24/24 History aerosol inhaler Respiratory Distress ibuprofen 800 mg tablet 800 mg PO TID 12/24/24 12/24/24 History Allergies Allergy/AdvReac Type Severity Reaction Status Date / Time morphine (MORPHINE) Allergy Severe HYPOVENTILATION, Verified 12/23/24 13:14 excellerated heart rate and sob cromolyn (From INTAL) Allergy Intermediate HYPERACTIVI Verified 12/23/24 13:14 TY amoxicillin (AMOXICILLIN) Allergy Unknown HIVES, Verified 12/23/24 13:14 hives and welts Physical Exam Vital signs: Vital Signs Temp 97.6 F 12/24/24 12:00 Pulse 105 H 12/24/24 12:00 Resp 17 12/24/24 12:00 BP 127/67 12/24/24 12:00 Pulse Ox 95 12/24/24 12:00 O2 Del Method Room Air 12/24/24 12:00 Intake & Output 12/23/24 12/24/24 12/24/24 18:59 06:59 18:59 Intake Total 420 / 420 Balance 420 / 420 Intake: Intake, Oral Amount 420 / 420 Other: Lunch % Eaten 100% Eating (Feeding) Ability Independent Number of Unmeasured Voids 1 Number of Bowel Movements 0 Urine Bathroom Last Bowel Movement 12/24/24 Weight 82.7 kg 83.2 kg Weight 83.2 kg - Constitutional Present: chronically ill appearing Comments: Appears pale, has a dry cough. - Routine HEENT Exam Head: Present: normal inspection Eye: Present: EOMI, PERRL - Routine Neck Exam Present: supple, lymphadenopathy - Routine Respiratory Exam Present: CTAB. Absent: accessory muscle use, stridor, wheezes - Routine Cardiovascular Exam Cardiovascular: Present: S1, S2, tachycardia - Routine Abdominal Exam Present: soft - Routine Extremities Exam Present: pulses intact. Absent: pedal edema - Routine Skin Exam Present: intact - Routine Neurological Exam Present: alert, oriented X3 Hem/Onc Consult Result - Labs CBC & Chem 7: 12/24/24 05:20 12/24/24 05:20 Labs: Short CBC 12/24/24 Range/Units 05:20 WBC 8.1 (4.8-10.8) X10*3/uL Hgb 12.2 (12.0-16.0) g/dl Hct 36.5 L (37.0-47.0) % Plt Count 815 H (160-400) X10*3/uL BMP 12/24/24 05:20 Sodium 140 Potassium 3.4 Chloride 112 H Carbon Dioxide 21 L BUN 7 L Creatinine 0.48 L Calcium 8.0 L Liver Function 12/24/24 Range/Units 05:20 Total Bilirubin 0.3 (0.0-1.0) mg/dL AST 257 H (5-31) U/L ALT 128 H (0-31) U/L Alkaline Phosphatase 63 (39-117) U/L Albumin 2.6 L (3.5-5.0) g/dL Assessment and Plan Patient Active problem list reviewed?: Yes (1) Lymphadenopathy Status: Acute Assessment and plan: 1. This is a 29-year-old woman with past medical history significant for asthma, multiple sclerosis on dimethyl fumarate who is presenting with tachycardia, cough and shortness of breath. CT angiogram was negative for pulmonary embolism, consolidation and ground-glass opacities in bilateral lower lobes suggestive of pneumonia. There was also lymphadenopathy in the axilla and chest. CT abdomen/pelvis with contrast performed 12/13/2024 was read as mild edema to the 2nd and 3rd portions of the duodenum, mild retroperitoneal edema and ascites. Mildly enlarged bilateral external iliac, internal iliac and right inguinal lymph nodes. Chest CT shows stable right pleural effusion, stable bibasilar compressive atelectasis versus pneumonia. Bilateral axillary lymphadenopathy more on the left measuring 2.8 x 1.7 cm. She received a course of oral antibiotics with azithromycin and cephalexin as outpatient. Currently she is on ceftriaxone. She is afebrile but tachycardic and has a dry cough. Her inflammatory markers are elevated including high platelet count. She has microcytosis without anemia or iron-deficiency, she probably has thalassemia trait. Lymphadenopathy could be reactive, she is having excisional biopsy of left axillary lymph node being performed by Dr. Nunez tomorrow. I recommend evaluation for atypical infection since she has been on immuno modulatory agent, dimethyl fumarate for several years. Recommend ID evaluation. I thank you for the consultation. We will follow with you. - Time Spent With Patient Time Spent with Patient (in minutes): 30 Additional Coding: - Additional E/M codes Complex E/M visit Add On: CPT G2211
[2024-12-24 16:00] VITALS: BP 119/66; PULSE 106; RESP 17; TEMP 36.3; O2SAT 97
[2024-12-24 16:24] LABS: Iron 46 mcg/dL (30-160); Percent Iron Saturation 27 % (15-50); Total Iron Binding Capacity 173 mcg/dL (228-428); Unsaturated Iron Binding 127 ug/dL
[2024-12-24 16:26] LABS: Ferritin 173 ng/mL (10-122)
[2024-12-24 19:44] VITALS: BP 125/76; PULSE 110; RESP 20; TEMP 37.2; O2SAT 93
[2024-12-25] VITALS (10 sets, daily range): BP systolic 93–120; BP diastolic 52–78; PULSE 95–106; RESP 16–22; TEMP 36.1–37.2; O2SAT 96–100
[2024-12-25 07:31] LABS: Alanine Aminotransferase 129 U/L (0-31); Albumin Level 2.6 g/dL (3.5-5.0); Alkaline Phosphatase 57 U/L (39-117); Anion Gap 10 (12-20); Aspartate Amino Transferase 230 U/L (5-31); Blood Urea Nitrogen 4 mg/dL (9-16); Calcium 7.9 mg/dL (8.4-10.2); Carbon Dioxide 22 mmol/L (22-29); Chloride 112 mmol/L (96-108); Creatinine Clr Calc Pharmacy 182.4; Estimated Glomerular Filt Rate > 60; Potassium 3.4 mmol/L (3.3-5.1); Sodium 141 mmol/L (135-145); Total Protein 6.3 g/dL (6.5-8.0)
--- NOTE | 2024-12-25 09:01 | HO.ANESPROP2 ---
HPI - Anesthesia Eval Consult details Narrative: 29 yr old female for left axillary lymph node biopsy PMFSH Active Problems Active Problems: All Active Problems (Updated 12/24/24 @ 15:31 by Colleen Resendez MD) Pleural effusion (Acute) Recent unintentional weight loss over several months (Acute) Lymphadenopathy (Acute) Tachycardia (Acute) Thrombocytosis (Acute) Pneumonia (Acute) Breast cyst (Acute) Past Medical History Medical History Multiple sclerosis IBS (irritable bowel syndrome) GERD (gastroesophageal reflux disease) Family History Family History Mother Anemia Sister Heart murmur Father Diabetes HTN (hypertension) Maternal Grandmother Diabetes Family history of problems with anesthesia: No Surgical History Surgical History Hx of tonsillectomy History of Problems with Anesthesia: No Social History Social History Household Members: None Housing: Apartment Do you presently have visiting nurse or other home services: No Alcohol intake: never Patient Tobacco Use Status: Never used Tobacco Currently Displaying Signs/Symptoms of Drug Intoxication Withdrawal: No Have you been hit, kicked, punched, or otherwise hurt by someone within the past year? If so, by whom?: No Do you feel safe in your current relationship?: Yes Is there a partner from a previous relationship who is making you feel unsafe now?: No Are you made to feel afraid or neglected: No Advance Directives: No Advance Directives Information Provided: Yes Do you have a plan to hurt others: No Plan Recently lost weight without trying: Yes How much weight loss: 34pounds or more Eating poorly because of decreased appetite: Yes Nutrition screen score: 7 Nutrition Risks: No Nutritional Risk Patient : No : No Poor oral hygiene: No service: No Meds Allergies Allergy/AdvReac Type Severity Reaction Status Date / Time morphine (MORPHINE) Allergy Severe HYPOVENTILATION, Verified 12/23/24 13:14 excellerated heart rate and sob cromolyn (From INTAL) Allergy Intermediate HYPERACTIVI Verified 12/23/24 13:14 TY amoxicillin (AMOXICILLIN) Allergy Unknown HIVES, Verified 12/23/24 13:14 hives and welts Active Medications: Current Medications Acetaminophen (Acetaminophen 325 Mg Tablet) 650 mg PO Q6H PRN PRN Reason: Pain, Mild 1-3,fever,headache Albuterol/Ipratropium (Albuterol/Iprat 2.5/0.5mg 3 Ml Ampul.Neb) 3 ml INHALE Q4H PRN PRN Reason: Shortness of Breath/Wheezing Benzonatate (Benzonatate 100 Mg Capsule) 100 mg PO TID PRN PRN Reason: Cough Calcium Carbonate (Calcium Carbonate 750 Mg Tab.Chew) 750 mg PO Q4H PRN PRN Reason: Heartburn Enoxaparin Sodium (Enoxaparin Sodium 40 Mg/0.4 Ml Syringe) 40 mg SUBCUT Q24H [facility] On Hold: 12/24/24 09:53 Last Admin: 12/23/24 23:43 Dose: 40 mg Levofloxacin (Levaquin) 750 mg in 150 mls @ 100 mls/hr IV Q24H [facility] Magnesium Hydroxide (Milk Of Magnesia 30 Ml Oral.Susp) 30 ml PO DAILY PRN PRN Reason: Constipation Melatonin (Melatonin 3 Mg Tablet) 6 mg PO BEDTIME PRN PRN Reason: Insomnia Polyethylene Glycol (Polyethylene Glycol 3350 17 Gm Powd.Pack) 17 gm PO DAILY PRN PRN Reason: Constipation Sodium Chloride (0.9 % Sodium Chloride Flush 3 Ml Syringe) 3 ml IVFLUSH QSHIFT [facility] Last Admin: 12/24/24 21:55 Dose: 3 ml Home Medications ?Medication ?Instructions ?Recorded ?Confirmed ?Last Taken ?Type albuterol sulfate 90 mcg/actuation 2 puff inhalation Q4H PRN 12/13/24 12/24/24 Unknown History aerosol inhaler Respiratory Distress ibuprofen 800 mg tablet 800 mg PO TID 12/24/24 12/24/24 Unknown History Exam Height,Weight and Vital Signs: Height 5 ft 6 in Weight 83.2 kg Last Vital Signs Temp 98.1 F 12/25/24 07:43 Pulse 101 H 12/25/24 07:43 Resp 20 12/25/24 07:43 BP 110/63 12/25/24 07:43 Pulse Ox 96 12/25/24 07:43 O2 Del Method Room Air 12/25/24 07:43 Pertinent Lab Results Pertinent Lab Results: Laboratory Tests 12/23/24 12/24/24 12/24/24 13:26 05:20 07:59 WBC 9.2 8.1 RBC 5.14 4.92 Hgb 12.7 12.2 Hct 38.6 36.5 L MCV 75.1 L 74.2 L MCH 24.7 L 24.8 L MCHC 32.9 33.4 RDW 18.6 H 18.0 H Plt Count 813 H D 815 H MPV 10.5 10.7 Immature Gran % (Auto) 0.9 H 0.7 H Neut % (Auto) 68.5 51.4 Lymph % (Auto) 21.1 32.2 Zavala % (Auto) 7.1 10.1 Eos % (Auto) 1.5 4.9 H Baso % (Auto) 0.9 0.7 Lymph # (Auto) 1.9 2.6 Zavala # (Auto) 0.7 0.8 Eos # (Auto) 0.1 0.4 Baso # (Auto) 0.1 0.1 Abs Immat Gran (auto) 0.08 H 0.06 H Absolute Neuts (auto) 6.3 4.2 Absolute Nucleated RBC 0.000 0.000 Nucleated RBC % (auto) 0.0 0.0 Smear Path Review Cancelled Hold Purple Top Sodium 137 140 Potassium 3.7 3.4 Chloride 111 H 112 H Carbon Dioxide 20 L 21 L Anion Gap 10 L 10 L BUN 7 L 7 L Creatinine 0.47 L 0.48 L Estim Creat Clear Calc 189.6 185.7 Estimated GFR > 60 > 60 Random Glucose 93 86 Calcium 8.0 L 8.0 L Magnesium 1.8 Iron 46 TIBC 173 L % Saturation 27 Unsat Iron Binding 127 Ferritin 173 H Total Bilirubin 0.4 0.3 Direct Bilirubin 0.1 AST 298 H 257 H ALT 146 H 128 H Alkaline Phosphatase 65 63 Lactate Dehydrogenase 851 H Troponin I High Sens 13.1 C-Reactive Protein 0.88 H B-Natriuretic Peptide 17 Total Protein 6.6 6.3 L Albumin 2.7 L 2.6 L Procalcitonin 0.03 Beta HCG, Quant < 2 Hep Bs Antigen Negative Hep Bs Antibody NONREACTIVE Hep B Core Total Ab Nonreactive Hepatitis C Ab (EIA) Nonreactive HIV 1&2 Ab/P24 Ag 4thGn Nonreactive 12/24/24 12/24/24 12/25/24 10:55 10:55 06:48 WBC RBC Hgb Hct MCV MCH MCHC RDW Plt Count MPV Immature Gran % (Auto) Neut % (Auto) Lymph % (Auto) Zavala % (Auto) Eos % (Auto) Baso % (Auto) Lymph # (Auto) Zavala # (Auto) Eos # (Auto) Baso # (Auto) Abs Immat Gran (auto) Absolute Neuts (auto) Absolute Nucleated RBC Nucleated RBC % (auto) Smear Path Review Hold Purple Top SEE NOTE Cancelled Sodium 141 Potassium 3.4 Chloride 112 H Carbon Dioxide 22 Anion Gap 10 L BUN 4 L Creatinine 0.49 L Estim Creat Clear Calc 182.4 Estimated GFR > 60 Random Glucose 80 Calcium 7.9 L Magnesium Iron TIBC % Saturation Unsat Iron Binding Ferritin Total Bilirubin 0.3 Direct Bilirubin AST 230 H ALT 129 H Alkaline Phosphatase 57 Lactate Dehydrogenase Troponin I High Sens C-Reactive Protein B-Natriuretic Peptide Total Protein 6.3 L Albumin 2.6 L Procalcitonin Beta HCG, Quant Hep Bs Antigen Hep Bs Antibody Hep B Core Total Ab Hepatitis C Ab (EIA) HIV 1&2 Ab/P24 Ag 4thGn Narrative Narrative: Echo 12/24/24 Conclusions: - The left ventricular systolic function is normal. The visually estimated ejection fraction is between 65-70%. - No obvious valvular pathology seen on this study. Chest CTA 12/23/24 IMPRESSION: No pulmonary embolus. Stable right pleural effusion and slightly decreased left pleural effusion Stable bibasilar compressive atelectasis versus pneumonia Stable-appearing bilateral axillary lymphadenopathy Chest xray 12/25/24 IMPRESSION: Small bilateral pleural effusions without change. Patchy airspace opacities of both lung bases may represent atelectasis or pneumonia. Airway Mallampati Class: IV TM Dist: >3cm Neck ROM: Full Loose/Missing/Broken Teeth: No Heart: regular rhythm, tachycardic Lungs: decreased at bases b/l Assessment and Plan Final Anesthetic Review Family History of Problems with Anesthesia: No History of Problems with Anesthesia: No
[2024-12-25] MEDS: 0.9 % Sodium Chloride Flush 3 ML SYRINGE IVFLUSH ×2 (09:27→15:42)
--- NOTE | 2024-12-25 09:42 | PM.PNGS ---
Subjective Subjective Date of Service: 12/25/24 <Reed Parry PA-C - Last Filed: 12/25/24 09:45> 12/25/24 <Mervin Nunez MD - Last Filed: 12/25/24 11:20> Interval history: No acute changes overnight. Denies fevers or chills, night sweats. She notes some improvement in her shortness of breath <Reed Parry PA-C - Last Filed: 12/25/24 09:45> Physical Exam Vital Signs: Vital Signs: Last Vital Signs Temp 98.1 F 12/25/24 07:43 Pulse 101 H 12/25/24 07:43 Resp 20 12/25/24 07:43 BP 110/63 12/25/24 07:43 Pulse Ox 96 12/25/24 07:43 O2 Del Method Room Air 12/25/24 07:43 BMI result Body Mass Index 29.6 <Reed Parry PA-C - Last Filed: 12/25/24 09:45> Const: General: comfortable and no acute distress <Reed Parry PA-C - Last Filed: 12/25/24 09:45> Orientation/consciousness: patient oriented x3 <Reed Parry PA-C - Last Filed: 12/25/24 09:45> Resp: Other: Improvement in shortness of breath, no increased work of breathing <Reed Parry PA-C - Last Filed: 12/25/24 09:45> Effort & Inspection: normal respiratory effort and able to speak in complete sentences <Reed Parry PA-C - Last Filed: 12/25/24 09:45> Neuro: General: patient oriented x3 <SINTIA Maciel Last Filed: 12/25/24 09:45> Objective Data Active Medications Acetaminophen (Acetaminophen 325 Mg Tablet) 650 mg PO Q6H PRN PRN Reason: Pain, Mild 1-3,fever,headache Albuterol/Ipratropium (Albuterol/Iprat 2.5/0.5mg 3 Ml Ampul.Neb) 3 ml INHALE Q4H PRN PRN Reason: Shortness of Breath/Wheezing Benzonatate (Benzonatate 100 Mg Capsule) 100 mg PO TID PRN PRN Reason: Cough Calcium Carbonate (Calcium Carbonate 750 Mg Tab.Chew) 750 mg PO Q4H PRN PRN Reason: Heartburn Enoxaparin Sodium (Enoxaparin Sodium 40 Mg/0.4 Ml Syringe) 40 mg SUBCUT Q24H [facility] On Hold: 12/24/24 09:53 Last Admin: 12/23/24 23:43 Dose: 40 mg Documented By: SRAVANI Levofloxacin (Levaquin) 750 mg in 150 mls @ 100 mls/hr IV Q24H [facility] Last Admin: 12/25/24 09:28 Dose: 100 mls/hr Documented By: NABILA Magnesium Hydroxide (Milk Of Magnesia 30 Ml Oral.Susp) 30 ml PO DAILY PRN PRN Reason: Constipation Melatonin (Melatonin 3 Mg Tablet) 6 mg PO BEDTIME PRN PRN Reason: Insomnia Polyethylene Glycol (Polyethylene Glycol 3350 17 Gm Powd.Pack) 17 gm PO DAILY PRN PRN Reason: Constipation Sodium Chloride (0.9 % Sodium Chloride Flush 3 Ml Syringe) 3 ml IVFLUSH QSHIFT [facility] Last Admin: 12/25/24 09:27 Dose: 3 ml Documented By: NABILA <Reed Parry PA-C - Last Filed: 12/25/24 09:45> Labs CBC & Chem 7: 12/24/24 05:20 12/25/24 06:48 <Reed Parry PA-C - Last Filed: 12/25/24 09:45> Labs: Laboratory Results - last 24 hr 12/24/24 12/24/24 12/24/24 05:20 10:55 10:55 Smear Path Review Cancelled SEE NOTE Hold Purple Top SEE NOTE Cancelled Anion Gap Estim Creat Clear Calc Estimated GFR Random Glucose Calcium Iron 46 TIBC 173 L % Saturation 27 Unsat Iron Binding 127 Ferritin 173 H Total Bilirubin AST ALT Alkaline Phosphatase Total Protein Albumin 12/25/24 06:48 Smear Path Review Hold Purple Top Anion Gap 10 L Estim Creat Clear Calc 182.4 Estimated GFR > 60 Random Glucose 80 Calcium 7.9 L Iron TIBC % Saturation Unsat Iron Binding Ferritin Total Bilirubin 0.3 AST 230 H ALT 129 H Alkaline Phosphatase 57 Total Protein 6.3 L Albumin 2.6 L <Reed Parry PA-C - Last Filed: 12/25/24 09:45> Procedures Date of Service Date of Service: 12/25/24 <Reed Parry PA-C - Last Filed: 12/25/24 09:45> 12/25/24 <Mervin Nunez MD - Last Filed: 12/25/24 11:20> Progress Note: A&P Assessment and plan (1) Lymphadenopathy: Status: Acute <Reed Parry PA-C - Last Filed: 12/25/24 09:45> (2) Tachycardia: Status: Acute <Reed Parry PA-C - Last Filed: 12/25/24 09:45> Assessment and Plan: 29-year-old female indurated for management of shortness of breath, lymphadenopathy. She does remain tachycardic this morning. She has had some improvement in her work of breathing. Appears less short of breath today. We are to proceed with left axillary lymph node excision this afternoon. Patient understanding and agreeable to this procedure in the associated risks including but not limited to bleeding, infection, injury to surrounding anatomy. She has been NPO since midnight <Reed Parry PA-C - Last Filed: 12/25/24 09:45> 29-year-old female indurated for management of shortness of breath, lymphadenopathy. She does remain tachycardic this morning. She has had some improvement in her work of breathing. Appears less short of breath today. We are to proceed with left axillary lymph node excision this afternoon. Patient understanding and agreeable to this procedure in the associated risks including but not limited to bleeding, infection, injury to surrounding anatomy. She has been NPO since midnight Agree with the above assessment and plan. I reviewed the procedure, risks, and alternatives in detail with the patient regarding the left axillary lymph node biopsy. She consents to the procedure. <Mervin Nunez MD - Last Filed: 12/25/24 11:20> Time Spent With Patient Time: Total time managing care of this patient today ____ minutes. <Reed Parry PA-C - Last Filed: 12/25/24 09:45> Quality Stroke Does the patient have a stroke diagnosis?: No <SINTIA Maciel Last Filed: 12/25/24 09:45> VTE Prior VTE?: No <SINTIA Maciel Last Filed: 12/25/24 09:45> VTE Risk Level:: Medical - moderate - high <Reed Parry PA-C - Last Filed: 12/25/24 09:45> VTE Device Contraindication: Treatment Not Indicated <Reed Parry PA-C - Last Filed: 12/25/24 09:45> VTE Drug Contraindication: N/A - Med Ordered <Reed Parry PA-C - Last Filed: 12/25/24 09:45>
--- NOTE | 2024-12-25 12:42 | PC.NURSE ---
IV antibotic ran longer due to pump issues, IV finished infusing with no issues
[2024-12-25 13:33] LABS: MRSA Nasal PCR NEGATIVE (Negative); SA Nasal PCR NEGATIVE (Negative)
[2024-12-25] MEDS: Lactated Ringers 1,000 ML 100 ML IVCONT (13:35)
--- NOTE | 2024-12-25 14:00 | PM.HEMONCPN ---
Medical Summary - Medical Summary Date of Service: 12/25/24 Chief complaint: Cough Primary Care Provider: Hilda Lock MD Cosmetic Surgeon Utilized?: No - Emirati Speaking Interval History Interval history: Barry Pruitt is a 29 year old female with past medical history significant or multiple sclerosis and asthma who is currently admitted for probable pneumonia. Patient presented to the ER on 12/13/2024 with shortness of breath and cough. She was treated with azithromycin and cephalexin. However yesterday she presented with puffiness of her eyes, persistent cough and shortness of breath. Evaluation in the ED with CTA chest showed no evidence of PE but noted to have lymphadenopathy and small pleural effusions. Her platelet counts are elevated. Patient was noted to be tachycardic. Patient states that she was diagnosed with multiple sclerosis in 2018 and has been on dimethyl fumarate since then. Family history significant for leukemia in maternal aunt and maternal great grandfather. A distant cousin had lymphoma. Patient has had unintentional weight loss in the last 4 months. No history of smoking. She is feeling better today. She is going for left axillary lymph node biopsy. Review of Systems - Constitutional Reports as per [facility] Medical History: Medical History (Last Reviewed 12/13/24 @ 14:31 by JUSTINE Briscoe) GERD (gastroesophageal reflux disease) IBS (irritable bowel syndrome) Multiple sclerosis Family History: Family History (Last Reviewed 12/13/24 @ 14:31 by JUSTINE Briscoe) Mother Anemia Sister Heart murmur Father Diabetes HTN (hypertension) Maternal Grandmother Diabetes Surgical History: Surgical History (Last Reviewed 12/13/24 @ 14:31 by JUSTINE Briscoe) Hx of tonsillectomy Social History: Social History (Last Reviewed 12/13/24 @ 14:31 by JUSTINE Briscoe) Living Situation History: Household Members: None Housing: Apartment Do you presently have visiting nurse or other home services: No Alcohol History Details: 1. How often do you have a drink containing alcohol?: a. Never 3. How often do you have six or more drinks on one occasion?: a. Never AUDIT-C Alcohol total score: 0 Currently Displaying Signs/Symptoms of Alcohol Withdrawal: No Tobacco History: Patient Tobacco Use Status: Never used Tobacco Substance Use History: Use of substances other than those prescribed or required for medical reasons: No Currently Displaying Signs/Symptoms of Drug Intoxication Withdrawal: No Domestic Abuse History: Have you been hit, kicked, punched, or otherwise hurt by someone within the past year? If so, by whom?: No Do you feel safe in your current relationship?: Yes Is there a partner from a previous relationship who is making you feel unsafe now?: No Are you made to feel afraid or neglected: No Advance Directives: Advance Directives: No Advance Directives Information Provided: Yes Homicidal Assessment: Do you have a plan to hurt others: No Plan Nutrition Assessment: Recently lost weight without trying: Yes How much weight loss: 34pounds or more Eating poorly because of decreased appetite: Yes Nutrition screen score: 7 Nutrition Risks: No Nutritional Risk Patient : No : No Poor oral hygiene: No Occupation Assessmet: service: No Home Medications and Allergies Current Medications: Current Medications Acetaminophen (Acetaminophen 325 Mg Tablet) 650 mg PO Q6H PRN PRN Reason: Pain, Mild 1-3,fever,headache Albuterol/Ipratropium (Albuterol/Iprat 2.5/0.5mg 3 Ml Ampul.Neb) 3 ml INHALE Q4H PRN PRN Reason: Shortness of Breath/Wheezing Benzonatate (Benzonatate 100 Mg Capsule) 100 mg PO TID PRN PRN Reason: Cough Calcium Carbonate (Calcium Carbonate 750 Mg Tab.Chew) 750 mg PO Q4H PRN PRN Reason: Heartburn Enoxaparin Sodium (Enoxaparin Sodium 40 Mg/0.4 Ml Syringe) 40 mg SUBCUT Q24H [facility] On Hold: 12/24/24 09:53 Last Admin: 12/23/24 23:43 Dose: 40 mg Levofloxacin (Levaquin) 750 mg in 150 mls @ 100 mls/hr IV Q24H [facility] Last Infusion: 12/25/24 12:42 Dose: Infused Lactated Ringer's (Lr) 1,000 mls @ 100 mls/hr IVCONT .Q10H [facility] Last Admin: 12/25/24 13:35 Dose: 100 mls/hr Magnesium Hydroxide (Milk Of Magnesia 30 Ml Oral.Susp) 30 ml PO DAILY PRN PRN Reason: Constipation Melatonin (Melatonin 3 Mg Tablet) 6 mg PO BEDTIME PRN PRN Reason: Insomnia Polyethylene Glycol (Polyethylene Glycol 3350 17 Gm Powd.Pack) 17 gm PO DAILY PRN PRN Reason: Constipation Sodium Chloride (0.9 % Sodium Chloride Flush 3 Ml Syringe) 3 ml IVFLUSH QSHIFT [facility] Last Admin: 12/25/24 09:27 Dose: 3 ml Home Medications ?Medication ?Instructions ?Recorded ?Confirmed ?Type albuterol sulfate 90 mcg/actuation 2 puff inhalation Q4H PRN 12/13/24 12/24/24 History aerosol inhaler Respiratory Distress ibuprofen 800 mg tablet 800 mg PO TID 12/24/24 12/24/24 History Allergies Allergy/AdvReac Type Severity Reaction Status Date / Time morphine (MORPHINE) Allergy Severe HYPOVENTILATION, Verified 12/23/24 13:14 excellerated heart rate and sob cromolyn (From INTAL) Allergy Intermediate HYPERACTIVI Verified 12/23/24 13:14 TY amoxicillin (AMOXICILLIN) Allergy Unknown HIVES, Verified 12/23/24 13:14 hives and welts Exam Vital signs: Vital Signs Temp 99 F 12/25/24 13:33 Pulse 102 H 12/25/24 13:33 Resp 16 12/25/24 13:33 BP 114/78 12/25/24 13:33 Pulse Ox 98 12/25/24 13:33 O2 Del Method Room Air 12/25/24 13:33 Intake & Output 12/24/24 12/25/24 12/25/24 18:59 06:59 18:59 Intake Total 420 / 920 500 / 920 150 / 150 Balance 420 / 920 500 / 920 150 / 150 Intake: Intake, Oral Amount 420 / 920 500 / 920 Intake, IV Amount 150 / 150 levoFLOXacin/D5W 750 mg In 150 150 / 150 ml @ 100 mls/hr IV Q24H [facility] Rx# :[id number] Other: Lunch % Eaten 100% Eating (Feeding) Ability Independent Number of Unmeasured Voids 1 2 Number of Bowel Movements 0 Urine Bathroom Last Bowel Movement 12/24/24 12/24/24 12/24/24 Weight 83.2 kg Weight 83.2 kg BMI result Body Mass Index 29.6 - Constitutional Present: chronically ill appearing - Routine HEENT Exam Head: Present: normal inspection - Routine Respiratory Exam Present: CTAB. Absent: accessory muscle use, stridor, wheezes - Routine Cardiovascular Exam Cardiovascular: Present: S1, S2, tachycardia - Routine Abdominal Exam Present: soft - Routine Extremities Exam Present: pulses intact. Absent: pedal edema - Routine Skin Exam Present: intact - Routine Neurological Exam Present: alert, oriented X3 Data - Labs CBC & Chem 7: 12/24/24 05:20 12/25/24 06:48 Labs: Laboratory Last Values WBC 8.1 X10*3/uL (4.8-10.8) 12/24/24 05:20 RBC 4.92 X10*6/uL (4.20-5.50) 12/24/24 05:20 Hgb 12.2 g/dl (12.0-16.0) 12/24/24 05:20 Hct 36.5 % (37.0-47.0) L 12/24/24 05:20 MCV 74.2 fL (80.0-98.0) L 12/24/24 05:20 MCH 24.8 pg (27.0-33.0) L 12/24/24 05:20 MCHC 33.4 g/dl (31.0-35.0) 12/24/24 05:20 RDW 18.0 % (11.0-16.0) H 12/24/24 05:20 Plt Count 815 X10*3/uL (160-400) H 12/24/24 05:20 MPV 10.7 fL (9.4-12.3) 12/24/24 05:20 Immature Gran % (Auto) 0.7 % (0.0-0.4) H 12/24/24 05:20 Neut % (Auto) 51.4 % (45-73) 12/24/24 05:20 Lymph % (Auto) 32.2 % (20-40) 12/24/24 05:20 [place] % (Auto) 10.1 % (2-11) 12/24/24 05:20 Eos % (Auto) 4.9 % (0-4) H 12/24/24 05:20 Baso % (Auto) 0.7 % (0-2) 12/24/24 05:20 Lymph # (Auto) 2.6 X10*3/uL (1.2-4.9) 12/24/24 05:20 [place] # (Auto) 0.8 X10*3/uL (0.1-1.2) 12/24/24 05:20 Eos # (Auto) 0.4 X10*3/uL (0.0-0.4) 12/24/24 05:20 Baso # (Auto) 0.1 X10*3/uL (0.0-0.2) 12/24/24 05:20 Abs Immat Gran (auto) 0.06 X10*3/uL (0.00-0.03) H 12/24/24 05:20 Absolute Neuts (auto) 4.2 x10*3/uL (2.0-8.3) 12/24/24 05:20 Absolute Nucleated RBC 0.000 X10*3/uL (0.0-0.012) 12/24/24 05:20 Nucleated RBC % (auto) 0.0 /100WBC (0.0-0.2) 12/24/24 05:20 Smear Path Review SEE NOTE 12/24/24 10:55 Hold Purple Top Cancelled 12/24/24 10:55 Hold Purple Top SEE NOTE 12/24/24 10:55 Sodium 141 mmol/L (135-145) 12/25/24 06:48 Potassium 3.4 mmol/L (3.3-5.1) 12/25/24 06:48 Chloride 112 mmol/L (96-108) H 12/25/24 06:48 Carbon Dioxide 22 mmol/L (22-29) 12/25/24 06:48 Anion Gap 10 (12-20) L 12/25/24 06:48 BUN 4 mg/dL (9-16) L 12/25/24 06:48 Creatinine 0.49 mg/dL (0.5-1.4) L 12/25/24 06:48 Estim Creat Clear Calc 182.4 12/25/24 06:48 Estimated GFR > 60 12/25/24 06:48 Random Glucose 80 mg/dL (60-115) 12/25/24 06:48 Calcium 7.9 mg/dL (8.4-10.2) L 12/25/24 06:48 Magnesium 1.8 mg/dL (1.6-2.6) 12/23/24 13:26 Iron 46 mcg/dL (30-160) 12/24/24 05:20 TIBC 173 mcg/dL (228-428) L 12/24/24 05:20 % Saturation 27 % (15-50) 12/24/24 05:20 Unsat Iron Binding 127 ug/dL 12/24/24 05:20 Ferritin 173 ng/mL (10-122) H 12/24/24 05:20 Total Bilirubin 0.3 mg/dL (0.0-1.0) 12/25/24 06:48 Direct Bilirubin 0.1 mg/dL (0.0-0.5) 12/23/24 13:26 AST 230 U/L (5-31) H 12/25/24 06:48 ALT 129 U/L (0-31) H 12/25/24 06:48 Alkaline Phosphatase 57 U/L (39-117) 12/25/24 06:48 Lactate Dehydrogenase 851 U/L (122-220) H 12/24/24 05:20 Troponin I High Sens 13.1 ng/L (<3.5-17.0) 12/23/24 13:26 C-Reactive Protein 0.88 mg/dL (< or = 0.50) H 12/24/24 05:20 B-Natriuretic Peptide 17 pg/mL (<100) 12/24/24 05:20 Total Protein 6.3 g/dL (6.5-8.0) L 12/25/24 06:48 Albumin 2.6 g/dL (3.5-5.0) L 12/25/24 06:48 Procalcitonin 0.03 ng/mL 12/24/24 05:20 Beta HCG, Quant < 2 mIU/mL 12/23/24 13:26 Nasal Screen MRSA (PCR) NEGATIVE (Negative) 12/25/24 10:40 Nasal S. aureus Screen NEGATIVE (Negative) 12/25/24 10:40 Nasal MRSA/S.aureus Interp SEE NOTE 12/25/24 10:40 Hep Bs Antigen Negative (Negative) 12/24/24 07:59 Hep Bs Antibody NONREACTIVE (Nonreactive) 12/24/24 07:59 Hep B Core Total Ab Nonreactive (Nonreactive) 12/24/24 07:59 Hepatitis C Ab (EIA) Nonreactive (Nonreactive) 12/24/24 07:59 HIV 1&2 Ab/P24 Ag 4thGn Nonreactive (Nonreactive) 12/24/24 07:59 - Imaging Radiologist's impression: ITS Impressions Chest X-Ray 12/23/24 13:22 IMPRESSION: Mild interstitial edema and bilateral moderate volume pleural effusions. Superimposed pneumonitis versus autoimmune disorders such as lupus among other etiologies. Electronically signed by: Devyn Quiroz MD 12/23/2024 02:28 PM EDT RP Chest X-Ray 12/25/24 07:25 IMPRESSION: Small bilateral pleural effusions without change. Patchy airspace opacities of both lung bases may represent atelectasis or pneumonia. Electronically signed by: Lalo Dasilva MD 12/25/2024 07:36 AM EDT RP Abdomen Ultrasound 12/25/24 11:56 IMPRESSION: 1. Hepatomegaly and hepatic steatosis. 2. Cholelithiasis. Electronically signed by: Lalo Dasilva MD 12/25/2024 12:37 PM EDT RP Assessment and Plan Patient Active problem list reviewed?: Yes (1) Lymphadenopathy Status: Acute Assessment and plan: 1. This is a 29-year-old woman with past medical history significant for asthma, multiple sclerosis on dimethyl fumarate who is presenting with tachycardia, cough and shortness of breath. CT angiogram was negative for pulmonary embolism, consolidation and ground-glass opacities in bilateral lower lobes suggestive of pneumonia. There was also lymphadenopathy in the axilla and chest. CT abdomen/pelvis with contrast performed 12/13/2024 was read as mild edema to the 2nd and 3rd portions of the duodenum, mild retroperitoneal edema and ascites. Mildly enlarged bilateral external iliac, internal iliac and right inguinal lymph nodes. Chest CT shows stable right pleural effusion, stable bibasilar compressive atelectasis versus pneumonia. Bilateral axillary lymphadenopathy more on the left measuring 2.8 x 1.7 cm. She received a course of oral antibiotics with azithromycin and cephalexin as outpatient. Currently she is on ceftriaxone. She is afebrile but tachycardic and has a dry cough. Her inflammatory markers are elevated including high platelet count. She has microcytosis without anemia or iron-deficiency, she probably has thalassemia trait. Lymphadenopathy could be reactive, she is having excisional biopsy of left axillary lymph node being performed by Dr. Nunez tomorrow. Pulmonary atypical infection is a consideration since she has been on immuno modulatory agent, dimethyl fumarate for several years. She is feeling better with IV antibiotics. She is scheduled to undergo left axillary excision biopsy. I will be happy to see her upon discharge. - Time Spent With Patient Time Spent with Patient (in minutes): 10
--- NOTE | 2024-12-25 14:28 | PM.DS ---
DS: Providers Provider Date of Service: 12/25/24 Date of admission: 12/23/24 22:42 Date of discharge: 12/25/24 Primary care physician: Hilda Lock MD Consults: 12/23/24 22:38 Consult to Hematology / Oncology Routine Consulting Provider: [facility] Reason for consultation: thrombocytosis;lymphadenopathy 12/24/24 07:35 Consult to General Surgery Routine Consulting Provider: [facility] Reason for consultation: generalized adenopathy; L axila largest- biopsy? 12/25/24 08:03 Consult to Infectious Diseases Routine Consulting Provider: [facility] Reason for consultation: MS on dimethylfumarate; /atypical infection? pleural effusions DS: Diagnosis Discharge Diagnosis (1) Tachycardia: Status: Acute (2) Recent unintentional weight loss over several months: Status: Acute (3) Thrombocytosis: Status: Acute (4) Pleural effusion: Status: Acute (5) Pneumonia: Status: Acute DS: Summary Hospital Course Hospital Course: from H+P by Christie Puga 12/23/24: 29-year-old female with a past medical history of asthma presented to the hospital with a chief complaint of shortness of breath. Patient mentioned that she has been having shortness of breath for about couple of weeks. Presented to the ER on 12/13 with shortness of breath and was given oral antibiotics. Despite being on antibiotics patient has been having increased shortness of breath. Reports occasional dizziness. Denies any chest pain or palpitations. Denies any fevers and chills. Denies any GI or symptoms. Denies any sick contacts. Denies any leg pain. Review of all other systems is negative except mentioned above ER course: Per ER team, patient initially presented to the hospital on 12/13 with shortness of breath; noted to be tachycardic; CT chest was done which showed no evidence of PE but noted to have lymphadenopathy and small pleural effusions. Repeat CT scans today showed no evidence of PE but noted to have stable pleural effusions as well as lymphadenopathy. On labs noted to elevated platelet count from 500-800 today. And patient noted to be tachycardic. No significant wheezing noted. 29yo F with asthma admitted here 12/13-12/14 for ground-glass pneumonia with small bilateral pleural effusions and asthma exacerbation, discharged on cefuroxime, azithromycin, and prednisone; re-admitted for dyspnea, tachycardia, and persistent small pleural effusions; noted on CT chest and and prior abdomen/pelvis to have ascites, iliac/inguinal, and axillary lymph nodes. Admitted to the hospitalist service with Infectous Disease, General Surgery, and Hematology-Oncology consultations. Initially treated with ceftriaxone and azithromycin, then changed to levofloxacin to cover atypical organisms, as she has a history of immunosuppression with dimethylfumarate for multiple sclerosis, though not for over a year. Noted to have thrombocytosis and elevated LDH concerning for lymphoma but could also be due to infection. Excisional biopsy of left axillary lymph node done 12/25/24. The patient was discharged on 9 days of levofloxacin and will follow up with Hematology-Oncology for biopsy results. Time Attestation Discharge Coordination Time (in mins): 35 Quality: Safe Use of Opioids Does Pt have an Active Cancer Diagnosis on the Problem List?: No Quality: Stroke Does the patient have a stroke diagnosis?: No Physical Exam Vital Signs: Vital Signs: Last Vital Signs Temp 99 F 12/25/24 13:33 Pulse 102 H 12/25/24 13:33 Resp 16 12/25/24 13:33 BP 114/78 12/25/24 13:33 Pulse Ox 98 12/25/24 13:33 O2 Del Method Room Air 12/25/24 13:33 BMI result Body Mass Index 29.6 Gen: in no acute distress HEENT: sclera anicteric, moist mucus membranes Neck: supple Lungs: clear to auscultation bilaterally Heart: regular rate and rhythm, no murmurs Abd: soft, non-tender, non-distended Ext: no edema Skin: warm/well-perfused Neuro: alert and oriented x3, no focal findings Psych: appropriate affect DS: Data Data Completed and Pending Completed studies during hospitalization [Text1]: ITS Impressions CTA chest 12/23/24 No pulmonary embolus. Stable right pleural effusion and slightly decreased left pleural effusion Stable bibasilar compressive atelectasis versus pneumonia Stable-appearing bilateral axillary lymphadenopathy Chest X-Ray 12/23/24 13:22 IMPRESSION: Mild interstitial edema and bilateral moderate volume pleural effusions. Superimposed pneumonitis versus autoimmune disorders such as lupus among other etiologies. Electronically signed by: Devyn Quiroz MD 12/23/2024 02:28 PM EDT Chest X-Ray 12/25/24 07:25 IMPRESSION: Small bilateral pleural effusions without change. Patchy airspace opacities of both lung bases may represent atelectasis or pneumonia. Electronically signed by: Lalo Dasilva MD 12/25/2024 07:36 AM EDT RP Abdomen Ultrasound 12/25/24 11:56 IMPRESSION: 1. Hepatomegaly and hepatic steatosis. 2. Cholelithiasis. Electronically signed by: Lalo Dasilva MD 12/25/2024 12:37 PM EDT RP Laboratory Tests 12/23/24 12/24/24 12/24/24 13:26 05:20 07:59 WBC 9.2 8.1 RBC 5.14 4.92 Hgb 12.7 12.2 Hct 38.6 36.5 L MCV 75.1 L 74.2 L MCH 24.7 L 24.8 L MCHC 32.9 33.4 RDW 18.6 H 18.0 H Plt Count 813 H D 815 H MPV 10.5 10.7 Immature Gran % (Auto) 0.9 H 0.7 H Neut % (Auto) 68.5 51.4 Lymph % (Auto) 21.1 32.2 [place] % (Auto) 7.1 10.1 Eos % (Auto) 1.5 4.9 H Baso % (Auto) 0.9 0.7 Lymph # (Auto) 1.9 2.6 [place] # (Auto) 0.7 0.8 Eos # (Auto) 0.1 0.4 Baso # (Auto) 0.1 0.1 Abs Immat Gran (auto) 0.08 H 0.06 H Absolute Neuts (auto) 6.3 4.2 Absolute Nucleated RBC 0.000 0.000 Nucleated RBC % (auto) 0.0 0.0 Smear Path Review Cancelled Hold Purple Top Sodium 137 140 Potassium 3.7 3.4 Chloride 111 H 112 H Carbon Dioxide 20 L 21 L Anion Gap 10 L 10 L BUN 7 L 7 L Creatinine 0.47 L 0.48 L Estim Creat Clear Calc 189.6 185.7 Estimated GFR > 60 > 60 Random Glucose 93 86 Calcium 8.0 L 8.0 L Magnesium 1.8 Iron 46 TIBC 173 L % Saturation 27 Unsat Iron Binding 127 Ferritin 173 H Total Bilirubin 0.4 0.3 Direct Bilirubin 0.1 AST 298 H 257 H ALT 146 H 128 H Alkaline Phosphatase 65 63 Lactate Dehydrogenase 851 H Troponin I High Sens 13.1 C-Reactive Protein 0.88 H B-Natriuretic Peptide 17 Total Protein 6.6 6.3 L Albumin 2.7 L 2.6 L Procalcitonin 0.03 Beta HCG, Quant < 2 Nasal Screen MRSA (PCR) Nasal S. aureus Screen Nasal MRSA/S.aureus Interp Hep Bs Antigen Negative Hep Bs Antibody NONREACTIVE Hep B Core Total Ab Nonreactive Hepatitis C Ab (EIA) Nonreactive HIV 1&2 Ab/P24 Ag 4thGn Nonreactive 12/24/24 12/24/24 12/25/24 10:55 10:55 06:48 WBC RBC Hgb Hct MCV MCH MCHC RDW Plt Count MPV Immature Gran % (Auto) Neut % (Auto) Lymph % (Auto) [place] % (Auto) Eos % (Auto) Baso % (Auto) Lymph # (Auto) [place] # (Auto) Eos # (Auto) Baso # (Auto) Abs Immat Gran (auto) Absolute Neuts (auto) Absolute Nucleated RBC Nucleated RBC % (auto) Smear Path Review SEE NOTE Hold Purple Top SEE NOTE Cancelled Sodium 141 Potassium 3.4 Chloride 112 H Carbon Dioxide 22 Anion Gap 10 L BUN 4 L Creatinine 0.49 L Estim Creat Clear Calc 182.4 Estimated GFR > 60 Random Glucose 80 Calcium 7.9 L Magnesium Iron TIBC % Saturation Unsat Iron Binding Ferritin Total Bilirubin 0.3 Direct Bilirubin AST 230 H ALT 129 H Alkaline Phosphatase 57 Lactate Dehydrogenase Troponin I High Sens C-Reactive Protein B-Natriuretic Peptide Total Protein 6.3 L Albumin 2.6 L Procalcitonin Beta HCG, Quant Nasal Screen MRSA (PCR) Nasal S. aureus Screen Nasal MRSA/S.aureus Interp Hep Bs Antigen Hep Bs Antibody Hep B Core Total Ab Hepatitis C Ab (EIA) HIV 1&2 Ab/P24 Ag 4thGn 12/25/24 10:40 WBC RBC Hgb Hct MCV MCH MCHC RDW Plt Count MPV Immature Gran % (Auto) Neut % (Auto) Lymph % (Auto) [place] % (Auto) Eos % (Auto) Baso % (Auto) Lymph # (Auto) [place] # (Auto) Eos # (Auto) Baso # (Auto) Abs Immat Gran (auto) Absolute Neuts (auto) Absolute Nucleated RBC Nucleated RBC % (auto) Smear Path Review Hold Purple Top Sodium Potassium Chloride Carbon Dioxide Anion Gap BUN Creatinine Estim Creat Clear Calc Estimated GFR Random Glucose Calcium Magnesium Iron TIBC % Saturation Unsat Iron Binding Ferritin Total Bilirubin Direct Bilirubin AST ALT Alkaline Phosphatase Lactate Dehydrogenase Troponin I High Sens C-Reactive Protein B-Natriuretic Peptide Total Protein Albumin Procalcitonin Beta HCG, Quant Nasal Screen MRSA (PCR) NEGATIVE Nasal S. aureus Screen NEGATIVE Nasal MRSA/S.aureus Interp SEE NOTE Hep Bs Antigen Hep Bs Antibody Hep B Core Total Ab Hepatitis C Ab (EIA) HIV 1&2 Ab/P24 Ag 4thGn Discharge Plan Discharge Anticipated Discharge Date/Time: 12/25/24 14:24 Patient Disposition: Home, Self-Care Discharge Diagnosis: pleural effusion lymphadenopathy Referrals: Hilda Joyce MD [Primary Care Provider, Internal Medicine] - 1 Week Colleen Resendez MD [Physician, Hematology & Oncology] - 2 Weeks Discharge Medications: New levofloxacin 750 mg tablet 750 mg PO DAILY Qty: 9 0RF Continued albuterol sulfate 90 mcg/actuation Hfa Aerosol Inhaler 2 puff INHALATION Q4H PRN (Reason: Respiratory Distress) ibuprofen 800 mg tablet 800 mg PO TID Discharge Orders: Discharge Order (Routine); Ordered 12/25/24 Ordered By: Nehemiah Robles Diet: Advance to usual diet Activity on Discharge: As tolerated Stand Alone Forms: Patient Portal Discharge page, Work/School Release Print Language: Russian Care Plan Goals: diagnosis of cause of adenopathy and pleural effusion Health Concerns: pleural effusion lymphadenopathy Plan of Treatment: take levofloxacin 750 mg once daily x 9 days follow up [address] Dr Colleen Resendez from [facility] [place] within 1-2 weeks for biopsy results Please follow up with your primary care doctor within 1 week. Return to the hospital if you experience recurrent or worsening symptoms. Assessment: See Discharge Summary.
--- NOTE | 2024-12-25 14:51 | P.OP_ITS ---
Operative Note Operative Note Date of Service: 12/25/24 Narrative: Preoperative diagnosis: Lymphadenopathy Postoperative diagnosis: Same Procedure: Left axillary lymph node biopsy Surgeon: Mervin Nunez MD Microbiological Lab Technician: Reed Parry PA-C, ESTRELLA Self Anesthesia: Mac plus local Indications for procedure: 29-year-old female patient presenting to the emergency department with complaints of shortness of breath noted workup to multiple enlarged lymph nodes on both sides of the diaphragm presenting today for left axillary lymph node biopsy Operative findings: Multiple enlarged lymph nodes left axilla Specimen: Left axillary lymph node Estimated blood loss: 5 mL Complications: None Procedure details: Patient was brought to the OR and placed in a supine position. After administering sedation the patient's left axilla was prepped with ChloraPrep and draped in a sterile fashion. A surgical time-out was called the consent confirmed. Local anesthesia consisting of 1% lidocaine with epinephrine and 0.5% Sensorcaine was infiltrated in the left axilla over the palpable node. Curvilinear incision was then made with a scalpel and carried out through subcutaneous tissue and through clavipectoral fascia. Palpable lymph node was identified and grasped with an Allis clamp. Electrocautery was then used to dissect the lymph node from the surrounding axillary tissue. The node was excised and sent to pathology for further examination. Wounds were checked for hemostasis. Wounds were then irrigated with saline solution and suctioned dry. Clavipectoral fascia was then reapproximated using interrupted 3-0 Polysorb sutures. Dermis was reapproximated using interrupted 3-0 Polysorb sutures. Skin was then closed using a running subcuticular 4-0 Polysorb suture. Steri-Strips, 4 x 4 gauze and Tegaderm were then applied. Patient tolerated the procedure well. Sponge, instrument, and needle counts reported as correct. The patient was transferred to PACU in stable condition.
--- NOTE | 2024-12-25 15:09 | P.CNID_ITS ---
History of Present Illness Data of Consult Service Date: 12/25/24 Requesting physician: Nehemiah Robles Primary Care Provider: Hilda Lock MD HPI Reason for consult: shortness of breath and cough She has shortness of breath last week. She has lymphadenopathy and pleural effusions Review of Systems 2 Review of Systems: Yes all other systems are reviewed and are negative PMFSH Past Medical History Medical History Multiple sclerosis IBS (irritable bowel syndrome) GERD (gastroesophageal reflux disease) Family History Family History Mother Anemia Sister Heart murmur Father Diabetes HTN (hypertension) Maternal Grandmother Diabetes Family history: reviewed and not pertinent Surgical History Surgical History Hx of tonsillectomy Social History Social History Household Members: None Housing: Apartment Do you presently have visiting nurse or other home services: No Alcohol intake: never Comment: patient independent Patient Tobacco Use Status: Never used Tobacco Use of substances other than those prescribed or required for medical reasons: No Currently Displaying Signs/Symptoms of Drug Intoxication Withdrawal: No Have you been hit, kicked, punched, or otherwise hurt by someone within the past year? If so, by whom?: No Do you feel safe in your current relationship?: Yes Is there a partner from a previous relationship who is making you feel unsafe now?: No Are you made to feel afraid or neglected: No Advance Directives: No Advance Directives Information Provided: Yes Do you have a plan to hurt others: No Plan Recently lost weight without trying: Yes How much weight loss: 34pounds or more Eating poorly because of decreased appetite: Yes Nutrition screen score: 7 Nutrition Risks: No Nutritional Risk Patient : No : No Poor oral hygiene: No service: No Meds Allergies Allergy/AdvReac Type Severity Reaction Status Date / Time morphine (MORPHINE) Allergy Severe HYPOVENTILATION, Verified 12/23/24 13:14 excellerated heart rate and sob cromolyn (From INTAL) Allergy Intermediate HYPERACTIVI Verified 12/23/24 13:14 TY amoxicillin (AMOXICILLIN) Allergy Unknown HIVES, Verified 12/23/24 13:14 hives and welts Active Medications: Current Medications Acetaminophen (Acetaminophen 325 Mg Tablet) 650 mg PO Q6H PRN PRN Reason: Pain, Mild 1-3,fever,headache Albuterol/Ipratropium (Albuterol/Iprat 2.5/0.5mg 3 Ml Ampul.Neb) 3 ml INHALE Q4H PRN PRN Reason: Shortness of Breath/Wheezing Benzonatate (Benzonatate 100 Mg Capsule) 100 mg PO TID PRN PRN Reason: Cough Calcium Carbonate (Calcium Carbonate 750 Mg Tab.Chew) 750 mg PO Q4H PRN PRN Reason: Heartburn Enoxaparin Sodium (Enoxaparin Sodium 40 Mg/0.4 Ml Syringe) 40 mg SUBCUT Q24H [facility] On Hold: 12/24/24 09:53 Last Admin: 12/23/24 23:43 Dose: 40 mg Levofloxacin (Levaquin) 750 mg in 150 mls @ 100 mls/hr IV Q24H [facility] Last Infusion: 12/25/24 12:42 Dose: Infused Lactated Ringer's (Lr) 1,000 mls @ 100 mls/hr IVCONT .Q10H [facility] Last Admin: 12/25/24 13:35 Dose: 100 mls/hr Magnesium Hydroxide (Milk Of Magnesia 30 Ml Oral.Susp) 30 ml PO DAILY PRN PRN Reason: Constipation Melatonin (Melatonin 3 Mg Tablet) 6 mg PO BEDTIME PRN PRN Reason: Insomnia Polyethylene Glycol (Polyethylene Glycol 3350 17 Gm Powd.Pack) 17 gm PO DAILY PRN PRN Reason: Constipation Sodium Chloride (0.9 % Sodium Chloride Flush 3 Ml Syringe) 3 ml IVFLUSH QSHIFT [facility] Last Admin: 12/25/24 09:27 Dose: 3 ml Home Medications ?Medication ?Instructions ?Recorded ?Confirmed ?Last Taken ?Type albuterol sulfate 90 mcg/actuation 2 puff inhalation Q 4H PRN 12/13/24 12/24/24 Unknown History aerosol inhaler Respiratory Distress ibuprofen 800 mg tablet 800 mg PO TID 12/24/2412/24 Unknown History Physical Exam 2 Vital Signs: Vital Signs: Last Vital Signs Temp 99 F 12/25/24 13:33 Pulse 102 H 12/25/24 13:33 Resp 16 12/25/24 13:33 BP 114/78 12/25/24 13:33 Pulse Ox 98 12/25/24 13:33 O2 Del Method Room Air 12/25/24 13:33 BMI result Body Mass Index 29.6 Const: General: cooperative HEENT: Head: Yes normal to inspection Face and sinus: Yes normal facial exam Mouth: Normal oral and palatal mucosa present Teeth and gingiva: d entition normal Eyes: General: appearance normal, both eyes and all related structures P upils: Equal, round and reactive pupils present Resp: Effort & Inspection: normal respiratory effort Cardio: Rate: regular rate Rhythm: regular rhythm GI: Palpation (GI): Soft to palpation and nontender : General: Yes no CVA tenderness Back/Spine/Pelvis: Back: no CVA tenderness Skin: General skin exam: no rashes or lesions noted Neuro: General: moves all extremities Cranial nerves: Yes Equal, round and reactive pupils present Extrem: General: Yes normal to inspection Psych: Appearance: grossly normal Results Labs 12/24/24 05:20 12/25/24 06:48 Labs: BMP 12/25/24 06:48 Sodium 141 Potassium 3.4 Chloride 112 H Carbon Dioxide 22 BUN 4 L Creatinine 0.49 L Calcium 7.9 L Liver Function 12/25/24 Range/Units 06:48 Total Bilirubin 0.3 (0.0-1.0) mg/dL AST 230 H (5-31) U/L ALT 129 H (0-31) U/L Alkaline Phosphatase 57 (39-117) U/L Albumin 2.6 L (3.5-5.0) g/dL Assessment and Plan (1) Tachycardia: Status: Acute (2) Pneumonia: Qualifiers: Laterality: bilateral Lung location: unspecified part of lung P neumonia type: due to unspecified organism Qualified Code(s): J18.9 - Pneumonia, unspecified organism Status: Acute Plan Possible sarcoid or lymphoma. Less likely atypical lung infection Levaquin for 10 days Follow up biopsy evaluate above. HIV test done
--- NOTE | 2024-12-25 15:44 | PC.NURSE ---
Patient arrived from her procedure wound dressing dry and intact.
[2024-12-27 23:53] LABS: Strep Pneumo Ag urine Not Detected (Not Detected)
[2024-12-29 18:34] LABS: Mycoplasma Pneumoniae - IgG 1.66 (<=0.90); Mycoplasma Pneumoniae - IgM 87 U/mL (<770)
== END 2024-12-25 17:33 | disposition home or self-care (01) | DRG 952 ==
LOC: HO.ED 22:39 → HO.EDOVER 22:52 → HO.IMC 12-24 11:22
PROVIDERS: Internal Medicine; Physician Assistant Medical; Surgery; Admitting Provider Hospitalist; Emergency Provider Student in an Organized Health Care Education/Training Program; PCP Internal Medicine; Visit Provider Family Medicine
PROC: 07B60ZX Excision of Left Axillary Lymphatic, Open Approach, Diagnostic (ICD-10-PCS; CPT 38525; principal; 2024-12-25 14:30)
DX: J18.9 Pneumonia, unspecified organism (principal); J91.8 Pleural effusion in other conditions classified elsewhere; J45.901 Unspecified asthma with (acute) exacerbation; D56.3 Thalassemia minor; R59.1 Generalized enlarged lymph nodes; G35 Multiple sclerosis; Z79.82 Long term (current) use of aspirin; Z79.899 Other long term (current) drug therapy
CPT/HCPCS: 38525; 36415; 71046; 71275; 76705; 80048; 80053; 80076; 82728; 83540; 83615; 83735; 83880; 84145; 84484; 84702; 85025; 86140; 86704; 86706; 86738; 86803; 87340; 87389; 87449; 87640; 87641; 87899; 88305; 88342; 93005; 93306; 99222; 99285; J0696; J1650; J1956; J2003; J2004; J2704; J2795; J3010; J7120; Q9957; Q9967

== ENCOUNTER → 2024-12-23 13:17 | Outpatient (BNV) | payer OTHER, SELFPAY | PROVIDERS: Emergency Provider Student in an Organized Health Care Education/Training Program; PCP Internal Medicine; Visit Provider Internal Medicine | DX: R00.0 Tachycardia, unspecified (principal) | CPT/HCPCS: 93010 ==

== ENCOUNTER → 2024-12-23 13:18 | Outpatient (BNV) | payer OTHER, SELFPAY | PROVIDERS: PCP Internal Medicine; Visit Provider Radiology Diagnostic Radiology | DX: J90 Pleural effusion, not elsewhere classified (principal) | CPT/HCPCS: 71046; 71275 ==

== ENCOUNTER 2024-12-23 22:42 | Outpatient (BNV) | payer OTHER, SELFPAY | END 2024-12-25 07:00 | PROVIDERS: Admitting Provider Hospitalist; Emergency Provider Student in an Organized Health Care Education/Training Program; PCP Internal Medicine; Visit Provider Radiology Diagnostic Radiology | DX: R16.0 Hepatomegaly, not elsewhere classified (principal); J90 Pleural effusion, not elsewhere classified | CPT/HCPCS: 71046; 76705 ==

== ENCOUNTER 2024-12-23 22:42 | Outpatient (BNV) | payer OTHER, SELFPAY | END 2024-12-24 07:00 | PROVIDERS: Admitting Provider Hospitalist; Emergency Provider Student in an Organized Health Care Education/Training Program; PCP Internal Medicine; Visit Provider Internal Medicine | DX: J90 Pleural effusion, not elsewhere classified (principal) | CPT/HCPCS: 93306 ==

== ENCOUNTER → 2024-12-23 22:42 | Outpatient (BNV) | payer OTHER, SELFPAY | PROVIDERS: Admitting Provider Hospitalist; Emergency Provider Student in an Organized Health Care Education/Training Program; PCP Internal Medicine; Visit Provider Family Medicine | DX: J90 Pleural effusion, not elsewhere classified (principal); R59.1 Generalized enlarged lymph nodes | CPT/HCPCS: 99223; 99232; 99239 ==

== ENCOUNTER → 2024-12-23 22:42 | Outpatient (BNV) | payer OTHER, SELFPAY | PROVIDERS: Admitting Provider Hospitalist; Emergency Provider Student in an Organized Health Care Education/Training Program; PCP Internal Medicine; Visit Provider Internal Medicine | DX: R59.1 Generalized enlarged lymph nodes (principal); Z87.09 Personal history of other diseases of the respiratory system | CPT/HCPCS: 99222 ==

== ENCOUNTER → 2024-12-23 22:42 | Outpatient (BNV) | payer OTHER, SELFPAY | PROVIDERS: Admitting Provider Hospitalist; Emergency Provider Student in an Organized Health Care Education/Training Program; PCP Internal Medicine | DX: R59.1 Generalized enlarged lymph nodes (principal); R00.0 Tachycardia, unspecified | CPT/HCPCS: 38525 ==

== ENCOUNTER → 2024-12-23 22:42 | Outpatient (BNV) | payer OTHER, SELFPAY | PROVIDERS: Admitting Provider Hospitalist; Emergency Provider Student in an Organized Health Care Education/Training Program; PCP Internal Medicine; Visit Provider Internal Medicine | DX: J18.9 Pneumonia, unspecified organism (principal); R00.0 Tachycardia, unspecified | CPT/HCPCS: 99222 ==

== ENCOUNTER 2024-12-29 04:33 | Inpatient (IN) | payer OTHER, SELFPAY ==
[2024-12-29] VITALS (12 sets, daily range): BP systolic 78–124; BP diastolic 49–80; PULSE 128–140; RESP 18–56; TEMP 37.2–39.2; O2SAT 94–100; BMI 29.0; BMI 29.5
--- NOTE | ~2024-12-29 | US_ITS ---
History: Left pleural fluid. Procedure performed: 1. Ultrasound guided thoracentesis Physician: Amee Manjarrez MD Anesthesia: Local anesthesia with 9 mL lidocaine Specimen: 400 mL yellow fluid Drain: 5 [place] Yueh catheter Estimated blood loss: Minimal Complications: None Procedure in detail: Informed and written consent was obtained and placed in the patient's chart. Ultrasound was performed bilaterally showing small effusions, but slightly greater on the left than the right. An appropriate site for access was marked on the skin. This area was prepped and draped. Under ultrasound, 1% lidocaine was injected subcutaneously and extended to the left pleural surface. A small incision was made in the skin with a #11 blade. Through the incision and under ultrasound guidance with permanent recordings and direct visualization of needle entry into the pleural cavity, the left pleural cavity was accessed with a 5 [place] Yueh catheter. This was connected to suction yielding 400 mL of yellow fluid, which was sent to the laboratory for analysis. The catheter was removed and a sterile dressing was applied. The patient tolerated the procedure well. Summary: Successful ultrasound-guided left-sided thoracentesis as described above. Electronically signed by: Venkat Manjarrez MD 12/31/2024 02:25 PM EDT
--- NOTE | ~2024-12-29 | XR_ITS ---
CLINICAL HISTORY: dyspnea 2 view chest x-ray Comparison: CR/SR - XR CHEST 2V - 12/25/24 07:26 EDT Findings: Lungs are underexpanded with faint bibasilar densities. Cardiac and mediastinal contours are normal. Zguhv-vp-ymrgrgvl right effusion. No acute fracture. IMPRESSION: Bibasilar densities with aqsky-fv-lusedfxo right effusion, similar to prior. This document has been electronically signed by: Linwood Kebede MD on 12/29/2024 06:28:52
--- NOTE | ~2024-12-29 | CT_ITS ---
EXAMINATION: CT ANGIOGRAM CHEST CLINICAL INFORMATION: Shortness of breath. Effusion. COMPARISON: December 23, 2024. TECHNIQUE: Multiple axial images were obtained through the chest after the administration of 65 mL of Omnipaque 350 intravenous contrast. Extensive vascular post-processing including two-dimensional and three-dimensional reformatted images were created and reviewed on an independent workstation. SmartPrep technique. This CT examination was performed using dose optimization techniques as appropriate, variously including the following: *Automated exposure control *Adjustment of mA and/or kV according to patient size (this includes techniques or standardized protocols for targeted exams where dose is matched to indication/reason for exam; i.e. extremities or head) *Use of iterative reconstruction technique DLP: 134 mGy centimeter. FINDINGS: There is normal enhancement pattern of the main pulmonary artery or its main branches and its main subsegmental pulmonary branches without intraluminal filling defects. The main pulmonary artery diameter is 33 m. No thoracic aortic dissection or aneurysm. The ascending thoracic aorta diameter is 24 mm. There is a moderate volume pericardial effusion. Bilateral pleural effusions, moderate to large volume. Pulmonary patchy groundglass involving mostly the lower lung lobes. No pneumothorax. No gross bronchiectasis. No honeycombing. The respiratory airways patent. No hemopericardium. No pneumomediastinum. There is a right upper pulmonary vein draining directly into the left atrium. No acute fracture or listhesis in the axial skeleton. No acute rib fracture. CT/CT angio chest PE protocol IMPRESSION: Bilateral pleural effusions, moderate to large volume and moderate volume pericardial effusion. Cardiac tamponade cannot be excluded. No main pulmonary artery emboli. Prominent main pulmonary artery. Pulmonary hypertension should be considered in the correct clinical settings. Right top pulmonary vein. Fleischner guidelines were followed. Electronically signed by: Devyn Quiroz MD 12/30/2024 11:41 AM EDT
--- NOTE | ~2024-12-29 | CT_ITS ---
CLINICAL HISTORY: Pericardial effusion with tamponade PROCEDURES: 1. Limited preprocedure CT of the chest. Permanent images saved in PACS. 2. CT-guided drainage of pericardial effusion 3. Limited post procedure CT of the chest. Permanent images saved in PACS. CLINICIANS: Miguel Anderson NP Preprocedural imaging reviewed with Ulices Gaston M.D. MEDICATIONS: -Lidocaine 1% 5 mL SQ -Antibiotics: None -For additional details, please see nursing flowsheet. COMPLICATIONS: None ESTIMATED BLOOD LOSS: < 5 ml CONTRAST: None SPECIMENS: Sent. MODERATE SEDATION TIME: 0 min. PROCEDURE NOTE: The procedure, risks, benefits, and alternatives were carefully explained to the patient's proxy and written informed consent was obtained. The patient was placed supine on the CT table. A timeout was performed. A limited CT of the chest was performed to localize the fluid collection and choose appropriate needle entry and trajectory. The patient was prepped and draped in usual sterile fashion. The skin and subcutaneous tissues on the upper chest were anesthetized with lidocaine. Under CT guidance, a 4 F Yueh was advanced to the fluid collection. Yellow fluid was immediately aspirated. A 0.035 J wire was inserted through the the Yueh catheter and coiled in the fluid collection. The Yueh catheter was then removed over the wire. Over the wire, an 6 fr all-purpose drainage catheter was advanced and coiled into the fluid collection under CT guidance. The wire was then removed. A total of 50 ml of yellow fluid was removed and 20 ml were sent for culture. The catheter was secured to the skin with a 3-0 Nylon suture. The catheter was maintained to JENNIFER bulb drainage. A limited postprocedure CT was then obtained. The patient was stable after the procedure and was transferred to the intensive care unit. CT/CT Drain Pericardiocentesis Impression: CT guided placement of pericardial drainage catheter. This procedure was performed by Miguel Anderson NP and supervised by Ulices Gaston MD. Electronically signed by: Ulices Gaston MD 01/05/2025 04:52 PM EDT
--- NOTE | ~2024-12-29 | US_ITS ---
EXAMINATION: US TRIPLEX LOWER EXTREMITY, BILATERAL CLINICAL INFORMATION: Short of breath, tachycardia COMPARISON: None available. TECHNIQUE: Color-flow triplex imaging with spectral analysis and compression Doppler were performed on the bilateral lower extremities. FINDINGS: Respiratory variation, normal compression and augmented flow are noted throughout the bilateral lower extremities. The visualized common femoral vein, superficial femoral vein, profunda femoral vein, popliteal vein and midcalf peroneal and posterior tibial venous segments show no evidence of deep venous thrombosis bilaterally. There is no Smith's cyst. US/US venous duplex LE BI IMPRESSION: No evidence of deep venous thrombosis involving the bilateral lower extremities. Electronically signed by: Jose Bermeo MD 12/29/2024 11:35 AM EDT
--- NOTE | 2024-12-29 04:43 | ECG_ITS ---
Test Reason : sob Blood Pressure : */* mmHG Vent. Rate : 125 BPM Atrial Rate : 125 BPM P-R Int : 124 ms QRS Dur : 74 ms QT Int : 314 ms P-R-T Axes : 37 36 18 degrees QTcB Int : 453 ms Sinus tachycardia Otherwise normal ECG When compared with ECG of 23-Dec-2024 13:22, T wave inversion no longer evident in Anterior leads Referred By: Generic ED Physician Electronically Signed By: Ángel Walker
--- OUTSIDE RECORDS SUMMARY | 2024-12-29 05:03 | XMS_ITS | Clinical Summary ---
Author Organization [employer] Address [address] [facility] [address] [place] [address] Care Team Providers Care Centralized Traffic Control Operator Name Role Phone Hilda Joyce MD Primary Care Provide r Allergies Active Allergy Reactions Criticality Noted Date Comments Amoxicillin Hives 02/12/2018 Morphine Anaphylaxis High 02/12/2018 Medications fluticasone (Flonase Allergy Relief) 50 MCG/ACT nasal sprayIndication s:Acute non-recurrent sinusitis, unspecified location Administer 1 spray into each nostril in the morning. Shake gently. Before first use, prime pump. After use, clean tip and replace cap. 16 g 12 05/07/19 23 Active levonorgestrel- ethinyl estradiol (Aviane) 0.1-20 MG-MCG tabletIndicatio ns:BCP ( control pills) initiation Take 1 tablet by mouth Once per day. 28 tablet 12 12/27/19 24 Active ibuprofen 800 MG tablet TAKE ONE TABLET BY MOUTH THREE TIMES A DAY WITH FOOD 30 tablet 11/14/19 25 Active albuterol (Ventolin HFA) 108 (90 Base) MCG/ACT inhalerIndicati ons:Mild persistent asthma without complication INHALE 2 PUFFS BY MOUTH EVERY 4 TO 6 HOURS NEEDED 18 g 3 12/22/19 25 Active albuterol (Ventolin HFA) 108 (90 Base) MCG/ACT inhalerIndicati ons:Mild persistent asthma without complication Inhale 2 puffs by mouth every 4 to 6 hours as needed 18 g 3 05/03/19 23 025 Discontinued(R eorder (will not trigger notification to Pharmacy)) Active Problems Problem Noted Date Diagnosed Date Encounter for screening for cervical cancer 11/29 Assessment & Plan (12/27/2023 11:31 AM EDT): Pelvic exam and PAP done, patient will be contacted with results BCP ( control pills) initiation 12/27/2023 Assessment & Plan (12/27/2023 11:30 AM EDT): Patient direct selling counselor about side effect of control pills Encounters Date Type Department Care Team Description 12/23/2024 Orders Only GENERIC EXTERNAL DATA DEPARTMENT Provider, Generic External Data 12/23/2024 Telephone [facility] MEDICINE [address] [place], [place] [phone] Hilda Joyce MD ER Follow-up 12/21/2024 Refill [facility] MED & PEDS [address] [place], [place] [phone] Hilda Joyce MD Mild persistent asthma without complication 12/15/2024 Patient Outreach [facility] [address] [place] [phone] Hilda Joyce MD Transition Of Care (Tcm) (HDF unscheduled LVM ) 12/13/2024 Orders Only [facility] External Provider, [facility] 11/13/2024 Refill [facility] [address] [place] [address] Hilda Joyce MD 11/10/2024 Telephone [facility] [address] [place], [place] [phone] Hilda Joyce MD OCT RECALL from Last [...] 12/27/2023 10:23 AM EDT Plan of Treatment Upcoming Encounters Date Type Department Care Team (Late st Contact Info) Description 01/11/2025 2:45 PM EDT Office Visit [facility] [address] [place], [place] [phone] Hilda Myers MD [address] [place], [place] [phone] Health Maintenance Due Date Last Done Comments Depression Screening 1994 HIV Screening 1994 SDOH Screening 1994 Disability Screening 1994 Alcohol/Substance Use Screening 2006 Family Planning (PISQ) 2009 HPV Vaccines (1 - 3-dose series) 2009 Hepatitis C Screening 2012 DTaP/Tdap/Td Vaccines (1 - Tdap) 2013 Hepatitis B Vaccines (1 of 3 - 19+ 3-dose series) 2013 Pneumococcal Vaccine: Pediatrics (0 to 5 Years) and At-Risk Patients (6 to 49) Years (1 of 2 - PCV) 2013 Tobacco Screening 12/26/2024 12/27/2023 Influenza Vaccine (#1) 2024 , 02/05/2020, 02/06/2019, Additional history exists Cervical Cancer Screening 12/26/2026 Pap Smear 12/26/2026 12/27/2023, 12/20/2020 HPV/Cotest 12/26/2028 12/27/2023, 04/04/2018 Zoster Vaccines (1 of 2) 2044 RSV Patients and Patients Aged 60 years or older (1 - 1-dose 75+ series) 2069 COVID-19 Vaccine Completed 02/18/2024, 10/2020, 10/11/2020, Additional history exists HIB Vaccines Aged Out No longer eligi [...] Procedure Name Priority Date/Time Associated Diagnosis Comments US ABDOMEN LIMITED Routine 12/25/2024 11 :56 AM EDT XR CHEST 2 VIEWS Routine 12/25/2024 7:25 AM EDT CTA CHEST PE PROTOCAL Routine 12/23/2024 10:00 PM EDT HCG, TOTAL, QN Routine 12/23/2024 1:26 PM EDT MAGNESIUM Routine 12/23/2024 1:26 PM EDT BASIC METABOLIC PANEL Routine 12/23/2024 1:26 PM EDT HEPATIC FUNCTION PANEL Routine 1:26 PM EDT HIGH SENSITIVITY TROPONIN I Routine 12/23/2024 1:26 PM EDT CBC WITH AUTO DIFFERENTIAL Routine 12/23/2024 1:26 PM EDT XR CHEST 2 VIEWS Routine 12/23/2024 1:[address] ABDOMEN PELVIS W CONTRAST Routine 12/13/2024 12:37 PM EDT CTA CHEST PE PROTOCAL Routine 12/13/2024 12:29 PM EDT LACTIC ACID Routine 12/13/2024 10:52 AM EDT ACETAMINOPHEN LEVEL Routine 12/13/2024 1 0:52 AM EDT VENOUS BLOOD GAS Routine 12/13/2024 9:31 AM EDT PROTHROMBIN TIME-INR Routine 12/13/2024 9:28 AM EDT HCG, TOTAL, QN Routine 12/13/2024 9:28 AM EDT LIPASE Routine 12/13/2024 9:06 AM EDT B TYPE NATRIURETIC PEPTIDE (BNP) Routine 12/13/2024 9:06 AM EDT MAGNESIUM Routine 12/13/2024 9:06 AM EDT COMPREHENSIVE METABOLIC PANEL Routine 12/13/2024 9:06 AM EDT COMPLETE BLOOD COUNT MAN DIF Routine 12/13/2024 9:06 AM EDT CBC WITH AUTO DIFFERENTIAL Routine 12/13/2024 9:06 AM EDT SARS COV2/INFLUENZA A/B AND RSV RNA QL NAAT Routine 12/13/2024 9:06 AM EDT THINPREP IMAGING PAP AND HPV MRNA E6/E7 Routine 12/27/2023 12:00 AM EDT from Last 3 Months or Most Recently Relevant to Health Maintenance Results * US Abdomen Limited (12/25/2024 11:56 AM EDT) Anatomical Region Laterality Modality Abdomen Ultrasound 12/25/2024 11:5 6 AM EDT Narrative 12/25/2024 12:40 PM EDT [address] [address] Ultrasound Report Signed Patient: Barry Buitrago MR#: [id number] : 1995 Acct:[id number] Age/Sex: 29 / F ADM Date: 12/23/24 Loc: [facility] [address]: Nehemiah Robles MD Ordering Physician: Nehemiah Robles MD Date of Service: 12/25/24 Procedure(s): US abdomen limited Accession Number(s): [id number] cc: Hilda Joyce MD; Nehemiah Robles MD EXAMINATION: US ABDOMEN LIMITED HISTORY: liver enzyme elevation; adenopathy TECHNIQUE: Real-time grayscale ultrasound imaging of the liver was performed and images were reviewed. COMPARISON: There are no prior studies available for comparison. FINDINGS: Liver: The right lobe of the liver measures 16.1 cm in size. The left lobe of the liver measures 9.7 cm in size. The liver demonstrates increased echotexture, consistent with steatosis. No focal mass or intrahepatic biliary ductal dilatation is identified. There is normal hepatopedal flow in the portal vein. Gallbladder and biliary tree: There are shadowing calculi in the gallbladder. There is no wall thickening or pericholecystic fluid. There is no sonographic Urrutia sign. The common bile duct is normal in caliber measuring 3 mm. The spleen measures 7.1 cm in length. Incidental note is made of a small right pleural effusion. US/US abdomen limited IMPRESSION: 1. Hepatomegaly and hepatic steatosis. 2. Cholelithiasis. Electronically signed by: Lalo Dasilva MD 12/25/2024 12:37 PM EDT Dictated By: Lalo Dasilva MD Signed By: <Electronically signed by Lalo Dasilva MD in OV> 12/25/24 1237 DD/ 1156 TD/TT: 12/25/24 1202 Overedger: Procedure Note Donotuseinterpreter, Image - 12/25/2024 [facility] [address] [place] [address] Ultrasound Report Signed Patient: Barry BuitragoMR#: [id number] : 1995Acct:[id number] Age/Sex: 29 / FADM Date: 12/23/24 Loc: [facility] 479-[address]: Nehemiah Robles MD Ordering Physician: Nehemiah Robles MD Date of Service: 12/25/24 Procedure(s): US abdomen limited Accession Number(s): [id number] cc: Hilda Joyce MD; Nehemiah Robles MD EXAMINATION: US ABDOMEN LIMITED HISTORY: liver enzyme elevation; adenopathy TECHNIQUE: Real-time grayscale ultrasound imaging of the liver was performed and images were reviewed. COMPARISON: There are no prior studies available for comparison. FINDINGS: Liver: The right lobe of the liver measures 16.1 cm in size. The left lobe of the liver measures 9.7 cm in size. The liver demonstrates increased echotexture, consistent with steatosis. No focal mass or intrahepatic biliary ductal dilatation is identified. There is normal hepatopedal flow in the portal vein. Gallbladder and biliary tree: There are shadowing calculi in the gallbladder. There is no wall thickening or pericholecystic fluid. There is no sonographic Urrutia sign. The common bile duct is normal in caliber measuring 3 mm. The spleen measures 7.1 cm in length. Incidental note is made of a small right pleural effusion. US/US abdomen limited IMPRESSION: 1. Hepatomegaly and hepatic steatosis. 2. Cholelithiasis. Electronically signed by: Lalo Dasilva MD 12/25/2024 12:37 PM EDT Dictated By: Lalo Dasilva MD Signed By: <Electronically signed by Lalo Dasilva MD in OV> 12/25/24 1237 DD/ 1156 TD/TT: 12/25/24 1202 Overedger: [facility] External Provider IMG US PROCEDURES Edited Result - Final * XR Chest 2 Views (12/25/2024 7:25 AM EDT) Only the most recent of2 resultswithin the time period is included. Anatomical Region Laterality Modality Chest Radiographic Mattie ging 12/25/2024 7:25 AM EDT Narrative 12/25/2024 7:39 AM EDT [address] [address] XRay Report Signed Patient: Barry Buitrago MR#: [id number] : 1995 Acct:[id number] Age/Sex: 29 / F ADM Date: 12/23/24 Loc: [facility] [id number] Attending Dr: Nehemiah Robles MD Ordering Physician: Radha Zhang NP Date of Service: 12/25/24 Procedure(s): XR chest 2V Accession Number(s): [id number] cc: Hilda Joyce MD; Radha Zhang NP EXAMINATION: XR CHEST 2 VIEWS HISTORY: preop, pleural effusions COMPARISON: Comparison is made with the prior examination dated 12/23/2024. FINDINGS: PA and lateral views of the chest are submitted. There are small bilateral pleural effusions. Patchy airspace opacities of both lung bases may represent atelectasis or pneumonia. There is no pneumothorax or pulmonary vascular congestion. The heart is normal in size. The bones are intact. XR/XR chest 2V IMPRESSION: Small bilateral pleural effusions without change. Patchy airspace opacities of both lung bases may represent atelectasis or pneumonia. Electronically signed by: Lalo Dasilva MD 12/25/2024 07:36 AM EDT Dictated By: Lalo Dasilva MD Signed By: <Electronically signed by Lalo Dasilva MD in OV> 12/25/24 0736 DD/ TD/TT: 12/25/24 0730 Overedger: Procedure Note Donotuseinterpreter, Image - 12/25/[address] [address] XRay Report Signed Patient: Barry BuitragoMR#: [id number] : 1995Acct:[id number] Age/Sex: 29 / FADM Date: 12/23/24 Loc: [facility] 479-[address]: Nehemiah Robles MD Ordering Physician: Radha Zhang NP Date of Service: 12/25/24 Procedure(s): XR chest 2V Accession Number(s): [id number] cc: Hilda Joyce MD; Radha Zhang NP EXAMINATION: XR CHEST 2 VIEWS HISTORY: preop, pleural effusions COMPARISON: Comparison is made with the prior examination dated 12/23/2024. FINDINGS: PA and lateral views of the chest are submitted. There are small bilateral pleural effusions. Patchy airspace opacities of both lung bases may represent atelectasis or pneumonia. There is no pneumothorax or pulmonary vascular congestion. The heart is normal in size. The bones are intact. XR/XR chest 2V IMPRESSION: Small bilateral pleural effusions without change. Patchy airspace opacities of both lung bases may represent atelectasis or pneumonia. Electronically signed by: Lalo Dasilva MD 12/25/2024 07:36 AM EDT Dictated By: Lalo Dasilva MD Signed By: <Electronically signed by Lalo Dasilva MD in OV> 12/25/24 0736 DD/ 4 TD/TT: 12/25/24729 Overedger: [facility] External Provider IM XR PROCEDURES Edited Result - Final * CTA Chest PE Protocal (12/23/2024 10:00 PM EDT) Only the most recent of2 resultswithin the time period is included. Anatomical Region Laterality Modality Body, Chest Computed Tomogra phy 12/23/2024 10:0 0 PM EDT Narrative 12/23/2024 10:02 PM EDT [place] [address] [address] Scan Report Signed Patient: Barry Buitrago MR#: [id number] : 1995 Acct:[id number] Age/Sex: 29 / F ADM Date: 12/23/24 Loc: HO.ED Attending Dr: Ordering Physician: Peter Mccarty PA-C Date of Service: 12/23/24 Procedure(s): CT angio chest PE protocol Accession Number(s): [id number] cc: Hilda Joyce MD; Peter Mccarty PA-C Report Number: [id number]: Total DLP = 235.00 mGy-cm CLINICAL HISTORY: Tachycardia; Pleurisy, Abnormal CXR CT angiography chest with contrast. 3D Postprocessing. Comparison: CT/SR - CT ANGIO CHEST PE PROTOCOL - 12/13/24 10:21 EDT Findings: The heart is normal size. RV/LV ratio is normal. Unremarkable thoracic aorta and great vessels. No aneurysm. No pulmonary artery filling defects. The visualized thyroid and mediastinum are unremarkable. Stable-appearing bilateral axillary lymphadenopathy. Bilateral pleural effusions, right larger than left, however slight decrease in the size of the left pleural effusion. Stable appearance of bibasilar compressive atelectasis versus pneumonia. The upper abdomen is unremarkable. The bones are intact. IMPRESSION: No pulmonary embolus. Stable right pleural effusion and slightly decreased left pleural effusion Stable bibasilar compressive atelectasis versus pneumonia Stable-appearing bilateral axillary lymphadenopathy This document has been electronically signed by: Tolu Magallon MD on 12/23/2024 22:00:10 Dictated By: Tolu Magallon MD Signed By: <Electronically signed by Tolu Magallon MD in OV> 12/23/242199 DD/ 99 TD/TT: 12/23/242199 Overedger: Procedure Note Donotuseinterpreter, Image - 12/23/[address] [address] [address] Scan Report Signed Patient: Barry Buitrago#: [id number] : 1995Acct:[id number] Age/Sex: 29 / FADM Date: 12/23/24 Loc: .ED Attending Dr: Ordering Physician: Peter Mccarty PA-C Date of Service: 12/23/24 Procedure(s): CT angio chest PE protocol Accession Number(s): [id number] cc: Hilda Joyce MD; Peter Mccarty PA-C Report Number: [id number]: Total DLP = 235.00 mGy-cm CLINICAL HISTORY: Tachycardia; Pleurisy, Abnormal CXR CT angiography chest with contrast. 3D Postprocessing. Comparison: CT/SR - CT ANGIO CHEST PE PROTOCOL - 12/13/24 10:21 EDT Findings: The heart is normal size. RV/LV ratio is normal. Unremarkable thoracic aorta and great vessels. No aneurysm. No pulmonary artery filling defects. The visualized thyroid and mediastinum are unremarkable. Stable-appearing bilateral axillary lymphadenopathy. Bilateral pleural effusions, right larger than left, however slight decrease in the size of the left pleural effusion. Stable appearance of bibasilar compressive atelectasis versus pneumonia. The upper abdomen is unremarkable. The bones are intact. IMPRESSION: No pulmonary embolus. Stable right pleural effusion and slightly decreased left pleural effusion Stable bibasilar compressive atelectasis versus pneumonia Stable-appearing bilateral axillary lymphadenopathy This document has been electronically signed by: Tolu Magallon MD on 12/23/2024 22:00:10 Dictated By: Tolu Magallon MD Signed By: <Electronically signed by Tolu Magallon MD in OV> 12/23/242199 DD/ 99 TD/TT: 12/23/242199 Overedger: [facility] External Provider IMG CT PROCEDURES Edited Result - Final * High Sensitivity Troponin I (12/23/2024 1:26 PM EDT) TROPONIN I HIGH SENSITIVITY 13.1 <3.5 - 17.0 ng/L [facility] Comment:The Gonzalez high sens itivity Troponin-I results should beused in conjunction with other diagnostic information suchas ECG, clinical observations and information, and patientsymptoms to aid in the diagnosis of AK. 12/23/2024 1:26 PM EDT 12/23/2024 1:30 PM EDT Generic External Data Provider LAB BLOOD ORDERAB LES Final Result [facility] [address] [place] [phone] * (ABNORMAL) CBC auto differential (12/23/2024 1:26 PM EDT) White Blood Count 9.2 4.8 - 10.8 X10*3/uL [facility] Red Blood Count 5.14 4.20 - 5.50 X10*6/uL [facility] Hemoglobin 12.7 12.0 - 16.0 g/dl [facility] Hematocrit 38.6 37.0 - 47.0 % [facility] Mean Corpuscular Volume 75.1(L) 80.0 - 98.0 fL [facility] Mean Corpuscular Hemoglobin 24.7(L) 27.0 - 33.0 pg [facility] Mean Corpuscular HGB Conc 32.9 31.0 - 35.0 g/dl [facility] Red Cell Distribution Width 18.6(H) 11.0 - 16.0 % [facility] Platelet Count 813(H) 160 - 400 X10*3/uL [facility] Mean Platelet Volume 10.5 9.4 - 12.3 fL [facility] Neutrophils Percent Auto 68.5 45 - 73 % [facility] Imm Gran Pct Auto 0.9(H) 0.0 - 0.4 % [facility] Lymphocytes Percent Auto 21.1 20 - 40 % [facility] Monocytes Percent Auto 7.1 2 - 11 % [facility] Eosinophils Percent Auto 1.5 0 - 4 % [facility] Basophils Percent Auto 0.9 0 - 2 % [facility] NRBC Pct Auto 0.0 0.0 - 0.2 /100WBC [facility] Neutrophils Absolute Auto 6.3 2.0 - 8.3 x10*3/uL [facility] Imm Gran Abs Auto 0.08(H) 0.00 - 0.03 X10*3/uL [facility] Lymphocytes Absolute Auto 1.9 1.2 - 4.9 X10*3/uL [facility] Monocytes Absolute Auto 0.7 0.1 - 1.2 X10*3/uL [facility] Eosinophils Absolute Auto 0.1 0.0 - 0.4 X10*3/uL [facility] Basophils Absolute Auto 0.1 0.0 - 0.2 X10*3/uL [facility] NRBC Abs Auto 0.000 0.0 - 0.012 X10*3/uL [facility] 12/23/2024 1:26 PM EDT 12/23/2024 1:30 PM EDT Generic External Data Provider LAB BLOOD ORDERAB LES Final Result Performing Organization Address [facility] Co de Phone Number [facility] [address] [place] [phone] * hCG, Total, Quantitative (12/23/2024 1:26 PM EDT) Only the most recent of2 resultswithin the time period is included. HCG Quantitative <2 mIU/mL [facility] Comment:Weeks post LMP Appro ximate hCG(Last Menstrual Period) Range (mIU/ml)3 - 4 weeks 9 - 1304 - 5 weeks 75 - 2,6005 - 6 weeks 850 - 20,8006 - 7 weeks 4000 - 100,2007 - 12 weeks 11,500 - 289,83533 - 16 weeks 18,300 - 137,92865 - 29 weeks (2nd trimester) 1,400 - 53,38661 - 41 weeks (3rd trimester) 940 - 60,000The Gonzalez B- hCG assay is used for the early detection ofpregnancy; it cannot be used to diagnose any conditionunrelated to . If a B-hCG level is not supportedby the clinical evidence, results should be confirmed by analternative method (qualitative urine hCG, for example). 12/23/2024 1:26 PM EDT 12/23/2024 1:30 PM EDT Generic External Data Provider LAB BLOOD ORDERAB LES Final Result Performing Organization Address [facility]/ZIP Co de Phone Number [facility] [address] [place] [address] [phone] * Magnesium (12/23/2024 1:26 PM EDT) Only the most recent of2 resultswithin the time period is included. Pathologist [facility] Magnesium 1.8 1.6 - 2.6 mg/dL [facility] 12/23/2024 1:26 PM EDT 12/23/2024 1:30 PM EDT Generic External Data Provider LAB BLOOD ORDERAB LES Final Result Performing Organization Address City/[facility]/ZIP Co de Phone Number [facility] [address] [place] [phone] * (ABNORMAL) Hepatic Function Panel (12/23/2024 1:26 PM EDT) [facility] Bilirubin, Total 0.4 0.0 - 1.0 mg/dL [facility] Bilirubin, Direct 0.1 0.0 - 0.5 mg/dL [facility] Aspartate Amino Transferase 298(H) 5 - 31 U/L [facility] Alanine Aminotransferase 146(H) 0 - 31 U/L [facility] Total Protein 6.6 6.5 - 8.0 g/dL [facility] Albumin Level 2.7(L) 3.5 - 5.0 g/dL [facility] Alkaline Phosphatase 65 39 - 117 U/L [facility] 12/23/2024 1:26 PM EDT 12/23/2024 1:30 PM EDT Generic External Data Provider LAB BLOOD ORDERAB LES Final Result Performing Organization Address [facility]/ZIP Co de Phone Number [facility] [address] [place] [phone] * (ABNORMAL) Basic Metabolic Panel (12/23/2024 1:26 PM EDT) [facility] Sodium 137 135 - 145 mmol/L [facility] Potassium 3.7 3.3 - 5.1 mmol/L [facility] Chloride 111(H) 96 - 108 mmol/L [facility] Carbon Dioxide 20(L) 22 - 29 mmol/L [facility] Anion Gap 10(L) 12 - 20 [facility] Urea Nitrogen (BUN) 7(L) 9 - 16 mg/dL [facility] Creatinine, Serum 0.47(L) 0.5 - 1.4 mg/dL [facility] Creatinine Clr Calc Pharmacy 189.6 [facility] Comment:Provided height and weight: 167.64 cm,82.7 kg.eGFR (calculated from the MDRD study equation) and eCrCl(calculated from the Cockcroft-Gault equation) are based ondifferent parameters and may not yield comparable results.If eCrCl result is absurd, please check patient'sheight/weight. Estimated Glomerular Filt Rate >60 [facility] Comment:Chronic Kidney Disea se: Estimated GFR < 60 mL/min/1.55c6Cyejqh Kidney Disease: Estimated GFR < 15 mL/min/1.73m2 Glucose 93 60 - 115 mg/dL [facility] Calcium 8.0(L) 8.4 - 10.2 mg/dL [facility] 12/23/2024 1:26 PM EDT 12/23/2024 1:30 PM EDT us Generic External Data Provider LAB BLOOD ORDERAB LES Final Result [facility] [address] [place] [phone] * CT Abdomen Pelvis w/ Contrast (12/13/2024 12:37 PM EDT) Anatomical Region Laterality Modality Body, Pelvis, Abdomen Computed T omography 12/13/2024 12:3 7 PM EDT Narrative 12/13/2024 12:39 PM EDT [address] [address] [address] Scan Report Signed Patient: Barry Buitrago MR#: [id number] : 1995 Acct:[id number] Age/Sex: 29 / F ADM Date: 12/13/24 Loc: HO.ED Attending Dr: Ordering Physician: Dilma Chirinos Date of Service: 12/13/24 Procedure(s): CT abdomen pelvis w IV con Accession Number(s): [id number] cc: Hilda Joyce MD; Dilma Chirinos Report Number: [id number]: Total DLP = 0.00 mGy-cm CLINICAL HISTORY: elevated LFTs, nausea, abd pain CT abdomen and pelvis with contrast Comparison: None provided Findings: Unremarkable gallbladder and solid organs. No urolithiasis. Mild edema is seen adjacent to the 2nd and 3rd portions of the duodenum. Mild retroperitoneal edema is also seen. There is no evidence of bowel obstruction. The appendix appears normal. Mild pelvic ascites is seen. Trace ascites is also seen in the right paracolic gutter. There is no pneumoperitoneum. Mildly enlarged bilateral external iliac, bilateral internal iliac, and right inguinal lymph nodes are present. For example, an enlarged right inguinal lymph node measures 1.8 x 1.6 cm (axial image 96 of series 16). The urinary bladder is partially distended. Subcutaneous edema is seen in the abdominopelvic wall. No acute osseous abnormality is identified. IMPRESSION: 1. Mild edema adjacent to the 2nd and 3rd portions of the duodenum, which may be secondary to duodenitis. Recommend correlation with lipase levels to exclude the possibility of groove pancreatitis. 2. Mild retroperitoneal edema and ascites. 3. Mildly enlarged bilateral external iliac, bilateral internal iliac, and right inguinal lymph nodes. This document has been electronically signed by: Andre Winston on 12/13/2024 12:37:12 Dictated By: Andre Winston MD Signed By: <Electronically signed by Andre Winston MD in OV> 12/13/24 1238 DD/ 1237 TD/TT: 12/13/24 1237 Overedger: Procedure Note Donotuseinterpreter, Image - 12/13/[address] [place] [address] [address] Scan Report Signed Patient: Barry Buitrago#: [id number] : 1995Acct:[id number] Age/Sex: 29 / FADM Date: 12/13/24 Loc: HO.ED Attending Dr: Ordering Physician: Dilma Chirinos Date of Service: 12/13/24 Procedure(s): CT abdomen pelvis w IV con Accession Number(s): [id number] cc: Hilda Joyce MD; Dilma Chirinos Report Number: [id number]: Total DLP = 0.00 mGy-cm CLINICAL HISTORY: elevated LFTs, nausea, abd pain CT abdomen and pelvis with contrast Comparison: None provided Findings: Unremarkable gallbladder and solid organs. No urolithiasis. Mild edema is seen adjacent to the 2nd and 3rd portions of the duodenum. Mild retroperitoneal edema is also seen. There is no evidence of bowel obstruction. The appendix appears normal. Mild pelvic ascites is seen. Trace ascites is also seen in the right paracolic gutter. There is no pneumoperitoneum. Mildly enlarged bilateral external iliac, bilateral internal iliac, and right inguinal lymph nodes are present. For example, an enlarged right inguinal lymph node measures 1.8 x 1.6 cm (axial image 96 of series 16). The urinary bladder is partially distended. Subcutaneous edema is seen in the abdominopelvic wall. No acute osseous abnormality is identified. IMPRESSION: 1. Mild edema adjacent to the 2nd and 3rd portions of the duodenum, which may be secondary to duodenitis. Recommend correlation with lipase levels to exclude the possibility of groove pancreatitis. 2. Mild retroperitoneal edema and ascites. 3. Mildly enlarged bilateral external iliac, bilateral internal iliac, and right inguinal lymph nodes. This document has been electronically signed by: Ander Winston on 12/13/2024 12:37:12 Dictated By: Andre Winston MD Signed By: <Electronically signed by Andre Winston MD in OV> 12/13/24 1238 DD/ 1237 TD/TT: 12/13/24 1237 Overedger: [facility] External Provider IMG CT PROCEDURES Edited Result - Final * (ABNORMAL) Lactic Acid (12/13/2024 10:52 AM EDT) Lactic Acid 2.3(HH) 0.5 - 2.0 mmol/L [facility] Comment:Critical value for L ACTIC: Results called to and read michell: CLEMENTE Person calling: MARIETTA Date: 12/13/24 Time: 1127 12/13/2024 10:5 2 AM EDT 12/13/2024 10:56 AM EDT Generic External Data Provider LAB BLOOD ORDERAB LES Final Result Performing Organization Address [facility] Co de Phone Number [facility] [address] [place] [phone] * Acetaminophen level (12/13/2024 10:52 AM EDT) Pathologist [facility] Acetaminophen LAB <3 <30 mcg/mL [facility] 12/13/2024 10:5 2 AM EDT 12/13/2024 10:56 AM EDT Generic External Data Provider LAB BLOOD ORDERAB LES Final Result Performing Organization Address [facility] de Phone Number [facility] [address] [place] [address] [phone] * VENOUS BLOOD GAS (12/13/2024 9:31 AM EDT) VBG pH 7.42 7.32 - 7.43 [facility] Comment:METER #: [id number] additional_comment: Cb dallasalt VBG PCO2 36 mmHg [facility] Comment:METER #: [id number] additional_comment: Cb rogalt VBG PO2 33 mmHg [facility] Comment:METER #: [id number] additional_comment: Cb dallasalt VBG Base Excess -0.2 mmol/L [facility] Comment:METER #: [id number] additional_comment: Cb dallasalt VBG HCO3 23 22 - 26 mmol/L [facility] Comment:METER #: [id number] additional_comment: Cb dallasalt O2 Sat, Jeison 48.0 % [facility] Comment:METER #: [id number] additional_comment: Cb rogalt 12/13/2024 9:31 AM EDT 12/13/2024 9:35 AM EDT Generic External Data Provider LAB BLOOD ORDERAB LES Final Result Performing Organization Address [facility] Co de Phone Number [facility] [address] [place] [phone] * (ABNORMAL) Prothrombin Time-INR (12/13/2024 9:28 AM EDT) Prothrombin Time 14.5(H) 10.9 - 12.4 SEC [facility] INTERNATIONAL NORM RATIO 1.3(H) 0.9 - 1.1 [facility] Comment:INTERNATIONAL NORMAL IZED RATIO (INR) REFERENCE RANGES Reference RangeFor patients not on anticoagulant therapy: 0.9 - 1.1INR ranges for oral anticoagulanttherapy:For prevention and treatment of venous thrombosis and pulmonary embolism: 2.0 - 3.0For acute myocardial infarction with aspirin therapy: 2.0 - 3.0For acute myocardial infarction without aspirin therapy: 3.0 - 4.0For patients with mechanical prosthetic heart valves: 2.5 - 3.5 12/13/2024 9:28 AM EDT 12/13/2024 9:30 AM EDT Generic External Data Provider LAB BLOOD ORDERAB LES Final Result Performing Organization Address City/[facility] Co de Phone Number [facility] [address] [place] [phone] * (ABNORMAL) Complete Blood Count Manual Diff (12/13/2024 9:06 AM EDT) White Blood Count 15.6(H) 4.8 - 10.8 X10*3/uL [facility] Red Blood Count 5.72(H) 4.20 - 5.50 X10*6/uL [facility] Hemoglobin 13.9 12.0 - 16.0 g/dl [facility] Hematocrit 42.0 37.0 - 47.0 % [facility] Mean Corpuscular Volume 73.4(L) 80.0 - 98.0 fL [facility] Mean Corpuscular Hemoglobin 24.3(L) 27.0 - 33.0 pg [facility] Mean Corpuscular HGB Conc 33.1 31.0 - 35.0 g/dl [facility] Red Cell Distribution Width 18.1(H) 11.0 - 16.0 % [facility] Platelet Count 587(H) 160 - 400 X10*3/uL [facility] Comment:Test was verified by repeat analysis. Mean Platelet Volume 10.7 9.4 - 12.3 fL [facility] NRBC Pct Auto 0.0 0.0 - 0.2 /100WBC [facility] NRBC Abs Auto 0.000 0.0 - 0.012 X10*3/uL [facility] Neutrophils % Manual 70 45 - 73 % [facility] Band Neutrophils Percent 2(L) 3 - 5 % [facility] Lymphocytes Percent Manual 19(L) 20 - 40 % [facility] Atypical Lymphs Percent Manual 1 0 - 6 % [facility] Monocytes Percent Manual 8 2 - 11 % [facility] NEUTROPHILS ABSOLUTE MANUAL 11.2(H) 2.0 - 8.3 X10*3/uL [facility] LYMPHOCYTES ABSOLUTE MANUAL 3.0 1.2 - 4.9 X10*3/uL [facility] Atypical Lymph Absolute Manual 0.2 x10*3/uL [facility] MONOCYTES ABSOLUTE MANUAL 1.2 0.1 - 1.2 X10*3/uL [facility] Platelet Estimate INCREASED NORMAL [facility] Large Platelet [facility] Platelet Morphology Comment NOTED [facility] RBC Morphology NOTED [facility] Microcytosis 1+ (5-14) /OIF [facility] Target Cells 1+ (5-14) /OIF [facility] Toxic Vacuolation PRESENT [facility] Acanthocytes 1+ (0-2) /OIF [facility] 12/13/2024 9:06 AM EDT 12/13/2024 9:10 AM EDT Generic External Data Provider LAB BLOOD ORDERAB LES Final Result Performing Organization Address [facility]/ZIP Co de Phone Number [facility] [address] [place] [phone] * SARS-CoV-2 RNA, Influenza A/B, and RSV RNA, Ql NAAT (12/13/2024 9:06 AM EDT) Influenza A PCR NEGATIVE Negative [facility] Influenza B PCR NEGATIVE Negative [facility] Resp Syncy Virus RNA Qual PCR NEGATIVE Negative [facility] SARS COV2 PCR NEGATIVE Negative [facility] Comment:All test results mus t be correlated with clinical findings.Negative results do not preclude SARS-CoV2, influenza Avirus, influenza B virus and/or RSV infectionand should not be used as the sole basis for treatment orother patient management decisions. Negative results must becombined with clinical observations, patient history, andepidemiological information.This test has not been evaluated for monitoring treatment ofinfection.This test has been authorized by the FDA under an EmergencyUse Authorization (EUA) for use by authorized laboratories.Testing performed on the DeRev GeneXpert utilizingreal-time RT-PCR.All SARS CoV2 and positive influenza A/B results arereported to [facility]. 12/13/2024 9:06 AM EDT 12/13/2024 9:10 AM EDT us Generic External Data Provider LAB MICROBIOLOGY - GENERAL ORDERABLES Final Result Performing Organization Address [facility]/ZIP Co de Phone Number [facility] [address] [place] [phone] * B Type Natriuretic Peptide (BNP) (12/13/2024 9:06 AM EDT) B Type Natriuretic Peptide 18 <100 pg/mL [facility] 12/13/2024 9:06 AM EDT 12/13/2024 12:23 PM EDT us Generic External Data Provider LAB BLOOD ORDERAB LES Final Result Performing Organization Address [facility]/ZIP Co de Phone Number [facility] [address] [place] [phone] * (ABNORMAL) Lipase (12/13/2024 9:06 AM EDT) Lipase 7(L) 8 - 78 U/L [facility] 12/13/2024 9:06 AM EDT 12/13/2024 9:10 AM EDT Generic External Data Provider LAB BLOOD ORDERAB LES Final Result Performing Organization Address [facility] de Phone Number [facility] [address] [place] [phone] * (ABNORMAL) Comprehensive Metabolic Panel (12/13/2024 9:06 AM EDT) Sodium 135 135 - 145 mmol/L [facility] Potassium 4.4 3.3 - 5.1 mmol/L [facility] Comment:Slight Hemolysis.Int erpret result with caution. Chloride 106 96 - 108 mmol/L [facility] Carbon Dioxide 21(L) 22 - 29 mmol/L [facility] Anion Gap 12 12 - 20 [facility] Urea Nitrogen (BUN) 10 9 - 16 mg/dL [facility] Creatinine, Serum 0.60 0.5 - 1.4 mg/dL [facility] Creatinine Clr Calc Pharmacy 149.9 [facility] Comment:Provided height and weight: 167.64 cm,84.3 kg.eGFR (calculated from the MDRD study equation) and eCrCl(calculated from the Cockcroft-Gault equation) are based ondifferent parameters and may not yield comparable results.If eCrCl result is absurd, please check patient'sheight/weight. Estimated Glomerular Filt Rate >60 [facility] Comment:Chronic Kidney Disea se: Estimated GFR < 60 mL/min/1.06t4Clguji Kidney Disease: Estimated GFR < 15 mL/min/1.73m2 Glucose 87 60 - 115 mg/dL [facility] Calcium 7.8(L) 8.4 - 10.2 mg/dL [facility] Bilirubin, Total 0.7 0.0 - 1.0 mg/dL [facility] Aspartate Amino Transferase 309(H) 5 - 31 U/L [facility] Comment:Slight Hemolysis.Int erpret result with caution. Alanine Aminotransferase 171(H) 0 - 31 U/L [facility] Total Protein 7.3 6.5 - 8.0 g/dL [facility] Albumin Level 2.8(L) 3.5 - 5.0 g/dL [facility] Alkaline Phosphatase 76 39 - 117 U/L [facility] 12/13/2024 9:06 AM EDT 12/13/2024 9:10 AM EDT us Generic External Data Provider LAB BLOOD ORDERAB LES Final Result [facility] [address] [place] [phone] * ThinPrep Imaging Pap and HPV mRNA E6/E7 (12/27/2023 12:00 AM EDT) HPV nRNA E6/E7 Not Detected Not Detected [facility] Comment:Methodology: Transcr iption-Mediated AmplificationThis assay detects E6/E7 viral messenger RNA (mRNA) from 14high-risk HPV types (16,18,31,33,35,39,45,51,52,56,58,59,66,68).Cervical sources are required for HPV testing.If a vaginal source from a patient who has had atotal hysterectomy with removal of cervix wassubmitted, please contact the testing laboratoryfor alternative testing options.For additional information, please refer [email or web address]/OPJ222b7(This link if provided for information/educational purposes only.)THIS TEST WAS PERFORMED AT:[facility] [address] [phone] MCKEON MD SOURCE: SEE NOTE [facility] Comment:None given Report Status: [facility] Clinical Information: SEE NOTE [facility] Comment:None given LMP: SEE NOTE [facility] Comment:NONE GIVEN Prev. PAP: SEE NOTE [facility] Comment:NONE GIVEN Prev. BX: SEE NOTE [facility] Comment:NONE GIVEN Statement Of Adequacy: SEE NOTE [facility] Comment:Satisfactory for tonja luation.Endocervical/transformation zone componentpresent. General Categorization: [facility] Interpretation/Result: SEE NOTE [facility] Comment:Cytology Results: Ne gative for intraepitheliallesion or malignancy. Cytology Comment SEE NOTE [facility] Comment:This Pap test has be en evaluated with computerassisted technology. [employer]: SEE NOTE [facility] Comment:DELVIS, CT(ASCP)CT scre ening location: [address] [address] Review [employer]: [facility] Pathologist [facility] PAP Infection [facility] See Note SEE NOTE [facility] Comment:EXPLANATORY NOTE:The Pap is a screening test for cervical cancer. It isnot a diagnostic test and is subject to false negativeand false positive results. It is most reliable when asatisfactory sample, regularly obtained, is submittedwith relevant clinical findings and history, and whenthe Pap result is evaluated along with historic andcurrent clinical information. 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
[2024-12-29 05:24] LABS: Venous Blood Gas Refer to POC result
[2024-12-29 05:28] LABS: Hematocrit 36.8 % (37.0-47.0); Hemoglobin 12.6 g/dl (12.0-16.0); Mean Corpuscular HGB Conc 34.2 g/dl (31.0-35.0); Mean Corpuscular Hemoglobin 24.8 pg (27.0-33.0); Mean Corpuscular Volume 72.4 fL (80.0-98.0); NRBC Abs Auto 0.000 X10*3/uL (0.0-0.012); NRBC Pct Auto 0.0 /100WBC (0.0-0.2); Platelet Count 734 X10*3/uL (160-400); Red Blood Count 5.08 X10*6/uL (4.20-5.50); WBC ABN SCTR FOR CBC 1; White Blood Count 14.9 X10*3/uL (4.8-10.8)
[2024-12-29 05:30] LABS: VBG HCO3 21 mmol/L (22-26); VBG O2 % Saturation 75.0 %
[2024-12-29 05:45] LABS: Band Neutrophils Percent 1 % (3-5); Lymphocytes Absolute Manual 3.1 X10*3/uL (1.2-4.9); Lymphocytes Percent Manual 21 % (20-40); Monocytes Absolute Manual 0.6 X10*3/uL (0.1-1.2); Monocytes Percent Manual 4 % (2-11); Neutrophils Absolute Manual 11.2 X10*3/uL (2.0-8.3); Neutrophils Percent Manual 74 % (45-73); Troponin-I High Sensitivity 25.9 ng/L (<3.5-17.0)
[2024-12-29 05:46] LABS: Alanine Aminotransferase 130 U/L (0-31); Albumin Level 2.7 g/dL (3.5-5.0); Alkaline Phosphatase 80 U/L (39-117); Anion Gap 13 (12-20); Aspartate Amino Transferase 256 U/L (5-31); Blood Urea Nitrogen 9 mg/dL (9-16); Calcium 7.9 mg/dL (8.4-10.2); Carbon Dioxide 18 mmol/L (22-29); Chloride 109 mmol/L (96-108); Creatinine Clr Calc Pharmacy 167.2; Estimated Glomerular Filt Rate > 60; Lipase 8 U/L (8-78); Magnesium 1.6 mg/dL (1.6-2.6); Potassium 4.1 mmol/L (3.3-5.1); RBC Morphology NOTED; Sodium 136 mmol/L (135-145); Total Protein 6.8 g/dL (6.5-8.0)
[2024-12-29 05:47] LABS: Acanthocytes 1+ (0-2) /OIF; Burr Cells 1+ (0-2) /OIF; Large Platelet PRESENT; Microcytosis 1+ (5-14) /OIF; Spherocytes 1+ (0-2) /OIF; Target Cells 1+ (5-14) /OIF; Toxic Vacuolation PRESENT
[2024-12-29 06:32] LABS: COVID-19 Test Negative (Negative); IDNOW Serial# 55D5AD1C; IDNOW Serial# 58CA691E; Influenza B2 Negative (Negative)
--- NOTE | 2024-12-29 07:02 | ED_ITS ---
HPI - SOB/Dyspnea General Chief Complaint: Dyspnea Stated Complaint: Asthma Time Seen by Provider: 12/29/24 04:48 Source: patient Mode of arrival: ambulatory Limitations: no limitations History of Present Illness ED Provider: Dr. Corrie Shrestha HPI Narrative: 29-year-old female with a history of multiple sclerosis presenting with continued shortness of breath, chest discomfort, heart racing ongoing for the last several days. She was recently discharged from this hospital on the 25 of December with pneumonia. She was started on Levaquin and has been taking her antibiotics as prescribed. Reports no change in her symptoms, she still has a dry cough which is unchanged as well as chest pain and shortness of breath. Has not measured a temperature at home but feels warm. Admits to some nausea but no vomiting. Describes a poor appetite. She had an extensive workup for lymphadenopathy and even had a lymph node biopsy. She has not received the results yet. Related Data Home Medications ?Medication ?Instructions ?Recorded ?Confirmed albuterol sulfate 90 mcg/actuation 2 puff inhalation Q 4H PRN 12/13/24 12/24/24 aerosol inhaler Respiratory Distress ibuprofen 800 mg tablet 800 mg PO TID 12/24/2412/24 Previous Rx's ?Medication ?Instructions ?Recorded levofloxacin 750 mg tablet 750 mg PO DAILY #9 tabs Allergies Allergy/AdvReac Type Severity Reaction Status Date / Time morphine (MORPHINE) Allergy Severe HYPOVENTILATION, Verified 12/29/24 04:42 excellerated heart rate and sob cromolyn (From INTAL) Allergy Intermediate HYPERACTIVI Verified 12/29/24 04:42 TY amoxicillin (AMOXICILLIN) Allergy Unknown HIVES, Verified 12/29/24 04:42 hives and welts Review of Systems 2 Review of Systems: as per HPI, full review of systems performed and negative but for the above mentioned pertinent positives and negatives. [facility] Past Medical History Medical History Multiple sclerosis IBS (irritable bowel syndrome) GERD (gastroesophageal reflux disease) Surgical History Hx of tonsillectomy Family History Family History Mother Anemia Sister Heart murmur Father Diabetes HTN (hypertension) Maternal Grandmother Diabetes Social History Social History Household Members: None Housing: Apartment Do you presently have visiting nurse or other home services: No Alcohol intake: never Comment: patient independent Patient Tobacco Use Status: Never used Tobacco Smoked in Last 30 Days: No Use of substances other than those prescribed or required for medical reasons: No Advance Directives: No Advance Directives Information Provided: Yes service: No Physical Exam 2 Exam: Exam: GENERAL: Ill-appearing, moderate respiratory distress. SKIN: Normal skin color for ethnicity, warm, dry, no rashes noted. HEENT:? Normocephalic, atraumatic, no stridor, EOMI. NECK: Soft, supple, full ROM, midline structures nontender, no step-offs, no deformities, no lymphadenopathy. CHEST: Heart regular tachycardia, symmetric chest rise and fall, no murmur. PULMONARY: Tachypnea, poor air movement bilaterally, moderate respiratory distress, occasional bronchospastic cough, no wheezes. ABDOMINAL: Soft, nontender, quiet bowel sounds in all quadrants. : Deferred. MUSCULOSKELETAL: Normal tone, full range of motion, no deformities, no peripheral edema. NEURO: Alert and oriented to person, CN II through XII intact, no focal neurologic deficits.? PSYCHIATRIC: Anxious affect, appropriate demeanor. Vital Signs: Vital Signs: Last Vital Signs Temp 99.5 F 12/29/24 05:53 Pulse 130 H 12/29/24 06:30 Resp 25 H 12/29/24 06:30 BP 111/66 12/29/24 06:30 Pulse Ox 96 12/29/24 06:30 O2 Del Method Room Air 12/29/24 06:30 BMI result Body Mass Index 29.0 Medications Administered Discontinued Medications Generic Name Dose Route Start Last Admin Trade Name Freq PRN Reason Stop Dose Admin Lorazepam 1 mg 12/29/24 04:54 12/29/24 05:16 Lorazepam 1 Mg Tablet PO 12/29/24 04:55 1 mg ONCE ONE Administration Medical Decision Making Medical Decision Making [facility] Narrative: Patient presents today with chief complaint of shortness of breath. Differential diagnosis includes, but is not limited to, upper respiratory infection, pneumonia, COPD exacerbation, asthma exacerbation, CHF, pneumothorax, pleural effusion, pulmonary embolism, ACS. Broad-based work-up will be initiated to evaluate for etiology of patient's symptoms. Patient had a recent admission for similar symptoms and was diagnosed with a pneumonia. She was originally started on Keflex and doxycycline but was transitioned to Levaquin 4 days ago. Admits that her symptoms really have not changed in the last 4 days. She continues to have dyspnea and heart racing. Feels warm but has not measured a temperature at home. Cough is dry. She had a negative CTA for PE during her last admission. Very low suspicion for pulmonary embolism at this time. She is rather tachycardic, on the edge of a fever with a temperature of 99.5?. Potential for pericarditis versus a new viral process versus failure of outpatient treatment. She was seen by infectious disease during her admission and it was thought that her symptoms were more likely related to sarcoidosis versus lymphoma. She does have a tight bronchospastic cough so I am going to give her a breathing treatment to see if that helps with her cough it is however, given her persistent symptoms, apparent failure of outpatient treatment, I will admit her to the hospitalist for further care and evaluation. Differential Diagnosis Differential Diagnoses: The differential diagnosis associated with the presentation includes (As above) Admission/Observation Consideration of admission/observation: Escalation of care including admission/observation considered Consult Healthcare Provider Management of the patient was discussed with: Hospitalist Lab Data MDM Lab Attestation statement: I reviewed the patient's lab results. 12/29/24 05:22 12/29/24 05:22 Labs: Lab Results 12/29/24 12/29/24 12/29/24 Range/Units 05:22 05:25 05:52 WBC 14.9 H (4.8-10.8) X10*3/uL RBC 5.08 (4.20-5.50) X10*6/uL Hgb 12.6 (12.0-16.0) g/dl Hct 36.8 L (37.0-47.0) % MCV 72.4 L (80.0-98.0) fL MCH 24.8 L (27.0-33.0) pg MCHC 34.2 (31.0-35.0) g/dl RDW 17.4 H (11.0-16.0) % Plt Count 734 H (160-400) X10*3/uL MPV 10.5 (9.4-12.3) fL Immature Gran % (Auto) Cancelled Neut % (Auto) Cancelled Lymph % (Auto) Cancelled [place] % (Auto) Cancelled Eos % (Auto) Cancelled Baso % (Auto) Cancelled Lymph # (Auto) Cancelled [place] # (Auto) Cancelled Eos # (Auto) Cancelled Baso # (Auto) Cancelled Abs Immat Gran (auto) Cancelled Absolute Neuts (auto) Cancelled Absolute Nucleated RBC 0.000 (0.0-0.012) X10*3/uL Nucleated RBC % (auto) 0.0 (0.0-0.2) /100WBC Neutrophils % (Manual) 74 H (45-73) % Band Neutrophils % 1 L (3-5) % Lymphocytes % (Manual) 21 (20-40) % Monocytes % (Manual) 4 (2-11) % Abs Neuts (Manual) 11.2 H (2.0-8.3) X10*3/uL Lymphocytes # (Manual) 3.1 (1.2-4.9) X10*3/uL Monocytes # (Manual) 0.6 (0.1-1.2) X10*3/uL Toxic Vacuolation PRESENT Platelet Estimate INCREASED (NORMAL) Large Platelets PRESENT Plt Morphology Comment NOTED RBC Morphology NOTED Microcytosis 1+ (5-14) /OIF Spherocytes 1+ (0-2) /OIF Target Cells 1+ (5-14) /OIF Alston Cells 1+ (0-2) /OIF Acanthocytes (Spur) 1+ (0-2) /OIF VBG pH 7.54 H (7.32-7.43) VBG pCO2 24 mmHg VBG pO2 43 mmHg VBG HCO3 21 L (22-26) mmol/L VBG O2 Saturation 75.0 % VBG Base Excess 0.9 mmol/L Sodium 136 (135-145) mmol/L Potassium 4.1 D (3.3-5.1) mmol/L Chloride 109 H (96-108) mmol/L Carbon Dioxide 18 L (22-29) mmol/L Anion Gap 13 (12-20) BUN 9 (9-16) mg/dL Creatinine 0.53 (0.5-1.4) mg/dL Estim Creat Clear Calc 167.2 Estimated GFR > 60 Random Glucose 90 (60-115) mg/dL Calcium 7.9 L (8.4-10.2) mg/dL Magnesium 1.6 (1.6-2.6) mg/dL Total Bilirubin 0.8 (0.0-1.0) mg/dL AST 256 H (5-31) U/L ALT 130 H (0-31) U/L Alkaline Phosphatase 80 (39-117) U/L Troponin I High Sens 25.9 H D (<3.5-17.0) ng/L C-Reactive Protein 5.02 H (< or = 0.50) mg/dL Total Protein 6.8 (6.5-8.0) g/dL Albumin 2.7 L (3.5-5.0) g/dL Lipase 8 (8-78) U/L TSH 2.39 (0.32-4.0) uIU/mL COVID-19 (JACOB) Negative (Negative) COVID-19 Clin Com See Note Influenza Type A (WINSTON) Negative (Negative) Influenza Type B (WINSTON) Negative (Negative) Influenza A & B Note See Note Independent Interpretation I performed an independent interpretation of an: EKG Interpretation: My independent interpretation of the ECG reveals normal sinus tachycardia with rate of 125, normal axis, normal intervals, no ST elevations or depressions to suggest ischemic changes, relatively unchanged from previous on 12/23/2024. Radiology Impression Discussion of test interpretation with radiology: I have reviewed the radiologist's reading. Radiologist Impression: 2 view chest x-ray Comparison: CR/SR - XR CHEST 2V - 12/25/24 07:26 EDT Findings: Lungs are underexpanded with faint bibasilar densities. Cardiac and mediastinal contours are normal. [id number] right effusion. No acute fracture. IMPRESSION: Bibasilar densities with [id number] right effusion, similar to prior Chronic Conditions Patient?s care impacted by: Other (Multiple sclerosis) Critical Care Time Critical Care Time Critical Care Time: Yes Total Critical Care Time: 36 Attestation: CRITICAL CARE TIME: 36 minutes of critical care time was spent in direct patient care at the bedside or in the immediate area with this patient. Critical care was necessary to treat or prevent imminent or life-threatening deterioration of the following conditions tachycardia, tachypnea, acute respiratory failure due to pneumonia, sepsis. This patient is high risk for decompensation and/or . This time was spent assessing and managing the patient, interpreting labs and imaging, coordinating care with other medical providers, gathering history from either the patient, their representatives, EMS or chart review, and discussing management with admitting team. Discharge Plan Discharge Clinical Impression: Pneumonia, Tachycardia, Hypomagnesemia Patient Disposition: Admitted As Inpatient Print Language: Bolivian
[2024-12-29] MEDS: levalbuterol HCL 2.5 MG, Ipratropium Bromide 0.5 MG INHALE (07:35)
[2024-12-29] MEDS: Magnesium Sulfate/H2O 2 GM/50 ML PIGGYBACK IV (07:36)
--- NOTE | 2024-12-29 07:44 | P.HPHOSP_ITS ---
History of Present Illness Date of Service: 12/29/24 Chief Complaint: sob 29F PMH mild intermittent asthma, multiple sclerosis recently on dimethylfumarate, presented with sob and chest pain. Patient has been [place] [facility] [place]13[place] to 12/25/2024 for bilateral lower lobe pneumonia complicated by lymphadenopathy, elevated LDH and LFTs, was treated with levofloxacin and had excisional biopsy of left axillary lymph node on 12/25/2024 with results pending. Patient was feeling better at time of discharge but then day prior to presentation started to feel very short of breath with right-sided chest pain worse with cough and inspiration, also feeling chills without measured fevers, denies night sweats, denies positional pain. Reporting dry cough. In ED noted to be in sinus tachycardia with rate of 130, tachypneic to the 50s, chest x-ray with bibasilar densities and small to moderate right effusion similar to prior. Review of Systems 2 Review of Systems: Yes all other systems are reviewed and are negative [facility] Medical History Multiple sclerosis IBS (irritable bowel syndrome) GERD (gastroesophageal reflux disease) Family History Mother Anemia Sister Heart murmur Father Diabetes HTN (hypertension) Maternal Grandmother Diabetes Surgical History Hx of tonsillectomy Social History Household Members: None Housing: Apartment Do you presently have visiting nurse or other home services: No Alcohol intake: never Comment: patient independent Patient Tobacco Use Status: Never used Tobacco Smoked in Last 30 Days: No Use of substances other than those prescribed or required for medical reasons: No Advance Directives: No Advance Directives Information Provided: Yes service: No Meds Allergies Allergy/AdvReac Type Severity Reaction Status Date / Time morphine (MORPHINE) Allergy Severe HYPOVENTILATION, Verified 12/29/24 04:42 excellerated heart rate and sob cromolyn (From INTAL) Allergy Intermediate HYPERACTIVI Verified 12/29/24 04:42 TY amoxicillin (AMOXICILLIN) Allergy Unknown HIVES, Verified 12/29/24 04:42 hives and welts Active Medications: Current Medications Acetaminophen (Acetaminophen 325 Mg Tablet) 650 mg PO Q6H PRN PRN Reason: Pain, Mild 1-3,fever,headache Calcium Carbonate (Calcium Carbonate 750 Mg Tab.Chew) 750 mg PO Q4H PRN PRN Reason: Heartburn Enoxaparin Sodium (Enoxaparin Sodium 40 Mg/0.4 Ml Syringe) 40 mg SUBCUT Q24H LINDA Levofloxacin (Levaquin) 750 mg in 150 mls @ 100 mls/hr IV ONCE ONE Stop: 12/29/24 08:17 Last Admin: 12/29/24 07:25 Dose: 100 mls/hr Azithromycin 500 mg/ Sodium (Chloride) 250 mls @ 125 mls/hr IV Q24H LINDA Magnesium Hydroxide (Milk Of Magnesia 30 Ml Oral.Susp) 30 ml PO DAILY PRN PRN Reason: Constipation Melatonin (Melatonin 3 Mg Tablet) 6 mg PO BEDTIME PRN PRN Reason: Insomnia Meropenem (Meropenem 1 Gm Vial) 1 gm IVPUSH Q8H LINDA Sodium Chloride (0.9 % Sodium Chloride Flush 3 Ml Syringe) 3 ml IVFLUSH QSHIFT LINDA Home Medications ?Medication ?Instructions ?Recorded ?Confirmed ?Last Taken ?Type albuterol sulfate 90 mcg/actuation 2 puff inhalation Q 4H PRN 12/13/24 12/24/24 Unknown History aerosol inhaler Respiratory Distress ibuprofen 800 mg tablet 800 mg PO TID 12/24/2412/24 Unknown History Physical Exam 2 Vital Signs and Narrative: Vital Signs: Last Vital Signs Temp 99.5 F 12/29/24 05:53 Pulse 136 H 12/29/24 07:39 Resp 56 H 12/29/24 07:39 BP 111/66 12/29/24 06:30 Pulse Ox 96 12/29/24 06:30 O2 Del Method Room Air 12/29/24 06:30 BMI result Body Mass Index 29.0 Alert oriented x3, tachypneic, tender to palpation over right-sided chest, bibasilar crackles, no edema, abdomen soft nontender Results Labs 12/29/24 05:22 12/29/24 05:22 Labs: Laboratory Results - last 24 hr 12/29/24 12/29/24 12/29/24 05:22 05:25 05:52 MCV 72.4 L MCH 24.8 L MCHC 34.2 RDW 17.4 H Plt Count 734 H MPV 10.5 Immature Gran % (Auto) Cancelled Neut % (Auto) Cancelled Lymph % (Auto) Cancelled [place] % (Auto) Cancelled Eos % (Auto) Cancelled Baso % (Auto) Cancelled Lymph # (Auto) Cancelled [place] # (Auto) Cancelled Eos # (Auto) Cancelled Baso # (Auto) Cancelled Abs Immat Gran (auto) Cancelled Absolute Neuts (auto) Cancelled Absolute Nucleated RBC 0.000 Nucleated RBC % (auto) 0.0 Neutrophils % (Manual) 74 H Band Neutrophils % 1 L Lymphocytes % (Manual) 21 Monocytes % (Manual) 4 Abs Neuts (Manual) 11.2 H Lymphocytes # (Manual) 3.1 Monocytes # (Manual) 0.6 Toxic Vacuolation PRESENT Platelet Estimate INCREASED Large Platelets PRESENT Plt Morphology Comment NOTED RBC Morphology NOTED Microcytosis 1+ (5-14) Spherocytes 1+ (0-2) Target Cells 1+ (5-14) [place] Cells 1+ (0-2) Acanthocytes (Spur) 1+ (0-2) VBG pH 7.54 H VBG pCO2 24 VBG pO2 43 VBG HCO3 21 L VBG O2 Saturation 75.0 VBG Base Excess 0.9 Anion Gap 13 Estim Creat Clear Calc 167.2 Estimated GFR > 60 Random Glucose 90 Calcium 7.9 L Magnesium 1.6 Total Bilirubin 0.8 AST 256 H ALT 130 H Alkaline Phosphatase 80 C-Reactive Protein 5.02 H Total Protein 6.8 Albumin 2.7 L Lipase 8 TSH 2.39 COVID-19 (JACOB) Negative COVID-19 Clin Com See Note Influenza Type A (WINSTON) Negative Influenza Type B (WINSTON) Negative Influenza A & B Note See Note Assessment and Plan (1) Tachycardia: Status: Acute Plan 29F PMH mild intermittent asthma, multiple sclerosis recently on dimethylfumarate, presented with sob and chest pain Dyspnea chest pain and tachycardia Sepsis due to pneumonia in immunocompromised patient Will expand coverage to meropenem, azithromycin Follow up cultures, respiratory viral panel check venous doppler lymphadenopathy follow up path results dvt prophylaxis- lovenox full code Quality Stroke Does the patient have a stroke diagnosis?: No VTE Prior VTE?: No VTE Risk Level:: Medical - moderate - high VTE Device Contraindication: Treatment Not Indicated VTE Drug Contraindication: N/A - Med Ordered
--- NOTE | 2024-12-29 09:42 | PHA.MEDREC ---
Addendum entered by Paul Garcia PharmD 12/29/24 09:45: reviewed Original Note: Pharmacy Consult ? Medication Reconciliation Pharmacy has completed the medication reconciliation. Spoke with pt and she confirmed her medications. Pt confirmed she started the Levofloxacin Saturday and took it this morning, before coming in the ED.
[2024-12-29 12:48] LABS: Chlamydia pneumoniae PCR Not Detected (Not Detect.); Coronavirus 229E PCR Not Detected (Not Detect.); Coronavirus HKU1 PCR Not Detected (Not Detect.); Coronavirus NL63 PCR Not Detected (Not Detect.); Coronavirus OC43 PCR Not Detected (Not Detect.); RSV PCR Not Detected (Not Detect.); Rhino/Enterovirus PCR Not Detected (Not Detect.)
[2024-12-29 13:19] LABS: Influenza A H1 PCR Not Detected (Not Detect.); Influenza A H1-2009 PCR Not Detected (Not Detect.); Influenza A H3 PCR Not Detected (Not Detect.); SARS-CoV-2 PCR Not Detected (Not Detect.)
--- NOTE | 2024-12-29 14:10 | MHC.CM.PN ---
PT LIVES ALONE AND IS INDEPENDENT WITH CARE SHE HAS NO DME AND NO SERVICES COPY OF HCP REQUESTED, SHE REPORTS HER MOTHER AND SISTER ARE HER AGENTS PCP: PHILL DAVIS DCP: HOME VIA SELF TRANSPORT
--- NOTE | 2024-12-29 16:09 | PC.NURSE ---
Pt noted to be febrile, and also reports increased nausea and vomiting, MD notified.
[2024-12-29] MEDS: 0.9 % Sodium Chloride Flush 3 ML SYRINGE IVFLUSH (16:26)
[2024-12-29] MEDS: Lactated Ringers 1,000 ML 80 ML IVCONT (18:17)
[2024-12-29] MEDS: Lactated Ringers 1,000 ML 999 ML IV ×2 (19:43→21:07)
--- NOTE | 2024-12-29 19:53 | PC.NURSE ---
Addendum entered by Kaylie Oconnell RN 12/30/24 07:00: pt BS for 95ml, made aware. pt states was able to urinate a little with a BM. but no urge to void at this time Addendum entered by Kaylie Oconnell RN 12/30/24 06:53: SBP 90s HR 1teens fever resolved. made awre new order for labs and EKG. pt states she feels much better. LR @125 continues. 1 episode vomiting prn zofran given. pt resting in chair, tech assisted with bed bath. plan of care continues Addendum entered by Kaylie Oconnell RN 12/30/24 00:39: md made after inital bolus pts bp remains low (see vitals) HR remains 130s. pt mentating A&Ox4 no c/o dizziness or weakness. new order for LR 100ml bolus and albumin. pt unable to urinate for UA, BS for scant 15ml, order to straight cath. scant amount of urine back sent to lab for UA and culture. made aware. bp improved after 2nd bolus and albumin. made aware.new order for 500ml bolus then continue fluids at 125ml/hr and start vanco. see mar. plan of care continues Original Note: upon initial assessment pt tachy 130's, febrile 102 and diaphoretic c/o TAYLOR. made aware and also informed md that pt has no order for tele. no orders for LR bolus, motrin and lactic acid.see MAR. plan of care continues
[2024-12-29] MEDS: Albumin Human 25 % 100 ML 133.33 ML IV ×2 (21:07→21:54)
--- NOTE | 2024-12-29 23:09 | PM.EVENT ---
Event Note Date of Service: 12/29/24 Event Note: 8:41 PM - pt developed marked hypotension 70/54, tachycardia > 130s and fever of 102.6. She has received a total of 2 L bolus of lactated ringer and albumin for sepsis. Lactic acid was recheck and is 1.5. Blood pressure is slowly trending up, last one was 100/53. We will provide additional 500 mL bolus of LR. Temperature is also trending down. Patient persists with significant tachycardia. Her oxygen saturation has remained normal on room air. I evaluated the patient who looks acutely ill but not in distress. She does complain of pleuritic chest pain and palpitations. Denied shortness on breath or cough. She also mentioned that she has been sick to her stomach. I will add therapy with vancomycin. Patient has been receiving azithromycin and meropenem. We will continue to monitor patient's condition. Time Spent With Patient Time: Total time managing care of this patient today ____ minutes.
[2024-12-29] MEDS: Milk of Magnesia 30 ML ORAL.SUSP PO (23:17)
[2024-12-29] MEDS: Lactated Ringers 500 ML 999 ML IV (23:19)
[2024-12-29 23:21] LABS: UPreg QC Valid YES
[2024-12-29 23:23] LABS: Appearance Urine Cloudy; Glucose Urine UA Negative (Negative); PH 5.0 (5.0-9.0); Specific Gravity - Urine >= 1.030 (1.005-1.025); UMIC TRIGGER UACC YES
[2024-12-29 23:28] LABS: UACC Culture Trigger YES
[2024-12-30] VITALS (20 sets, daily range): BP systolic 94–117; BP diastolic 55–75; PULSE 108–131; RESP 17–28; TEMP 36.7–37.8; O2SAT 91–100
--- NOTE | 2024-12-30 | ECG_ITS ---
Test Reason : tachycardia, chest tightness Blood Pressure : */* mmHG Vent. Rate : 117 BPM Atrial Rate : 117 BPM P-R Int : 132 ms QRS Dur : 80 ms QT Int : 336 ms P-R-T Axes : 39 68 20 degrees QTcB Int : 468 ms Sinus tachycardia Low voltage QRS Nonspecific T wave abnormality Abnormal ECG When compared with ECG of 29-Dec-2024 04:50, T wave inversion now evident in Anterior leads Referred By: Shelby Aquino Electronically Signed By: Ángel Walker
[2024-12-30] MEDS: Lactated Ringers 1,000 ML 125 ML IVCONT ×2 (00:06→08:26)
[2024-12-30] MEDS: vancomycin HCL 1,000 MG, vancomycin HCL 750 MG in 0.9 % Sodium Chloride 500 ML 267.5 MG IV (00:08)
[2024-12-30] MEDS: 0.9 % Sodium Chloride Flush 3 ML SYRINGE IVFLUSH ×2 (00:09→19:37)
[2024-12-30 06:42] LABS: Hematocrit 35.1 % (37.0-47.0); Hemoglobin 11.6 g/dl (12.0-16.0); Mean Corpuscular HGB Conc 33.0 g/dl (31.0-35.0); Mean Corpuscular Hemoglobin 24.7 pg (27.0-33.0); Mean Corpuscular Volume 74.7 fL (80.0-98.0); NRBC Abs Auto 0.000 X10*3/uL (0.0-0.012); NRBC Pct Auto 0.0 /100WBC (0.0-0.2); Platelet Count 630 X10*3/uL (160-400); Red Blood Count 4.70 X10*6/uL (4.20-5.50); White Blood Count 21.4 X10*3/uL (4.8-10.8)
--- NOTE | 2024-12-30 07:00 | CA_ITS ---
Transthoracic Echocardiogram Patient (Last, First, Middle): Barry Buitrago, Gender: Female Date of : 1995 Age: 29 Procedure Date: 12/30/2024 Procedure Type: Transthoracic Echocardiogram Location: S3E Height: 167.64 cm Weight: 82.56 kg BSA: 1.92 m2 Heart Rate: bpm BP: 99 / 67 mmHg Expander: TO/RC Referring MD: Bang Martin MD Symptoms: elevated trop Study Quality: Adequate w contrast Conclusions: - Normal left ventricular size, thickness, and systolic function. The visually estimated ejection fraction is between 60-65%. - Moderately increased right ventricular cavity size. There is moderate to severely decreased right ventricular systolic function. Hypokinesis of right ventricular free wall with apical right ventricle hypokinesis-Metz sign suspicious for pulmonary embolism. - Udbrdxhh-co-akzko size pericardial effusion compared to December 21 ECHO. IVC is significantly dilated and plethoric. 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 Can not rule out early tamponade though. - Significantly elevated right atrial pressure. Mild pulmonary hypertension is present. Findings Procedure Information Contrast agent, definity, is being given per protocol without apparent complications. Left Ventricle Normal left ventricular size, thickness, and systolic function. The visually estimated ejection fraction is between 60-65%. Right Ventricle Moderately increased right ventricular cavity size. There is moderate to severely decreased right ventricular systolic function. Hypokinesis of right ventricular free wall with apical right ventricle hypokinesis-Metz sign suspicious for pulmonary embolism. Tricuspid Valve The right ventricular systolic pressure is 42 mmHg. Significantly elevated right atrial pressure. Mild pulmonary hypertension is present. Venous The inferior vena cava is severely dilated and does not collapse with inspiration. Pericardium/Pleural Lmzkbmyw-dl-axnyx size pericardial effusion compared to December 21 ECHO. IVC is significantly dilated and plethoric. 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 Can not rule out early tamponade though. Prior Study Comparison Significant changes compared to prior study dated: 12/24/2024. Moderate-to severe large size pericardial effusion. RV dysfunction. Measurements 2D Linear Measurements IVSd: 0.84 0.6-0.9/0.6-1.0 cm LVIDd: 3.70 3.9-5.3/4.2-5.9 cm LVIDd Index: 1.93 2.4-3.2/2.2-3.1 cm/m2 LVIDs: 2.72 2.0-3.6 cm LVPWd: 1.06 0.7-1.1 cm LA Diam: 2.90 2.7-3.8/3.0-4.0 cm LAIDs Index: 1.51 1.5-2.3 cm/m2 LV Mass: 130.35 67-162/88-224 g LV Mass Index: 67.89 43-95/49-115 g/m2 LVOT Diam: 2.10 3.0+(-)1.3 cm 2D Systolic Function EF 4C: 49.30 >55% EF 2C: 48.90 >55% EF BiP: 48.60 >55% Mitral Valve E'Lateral: 9.68 E'Medial: 7.07 LVOT LVOT Pk Darci: 0.86 LVOT Mn Darci: 0.61 LVOT VTI: 0.11 LVOT Pk Grad: 3.00 LVOT Mn Grad: 2.00 LVOT Diam: 2.10 LVOT Area: 3.46 Diastolic Function E'Medial: 7.07 E' Laterial: 9.68 Tricuspid Valve TR Pk Darci: 2.59 TR Pk Grad: 27.00 RA Press: 15.00 RVSP: 42.00 Updated in Other Vendor System with Status of Final Ángel Walker MD electronically signed on 12/30/2024 4:02:27 PM with status of Final
[2024-12-30 07:01] LABS: Anion Gap 12 (12-20); Blood Urea Nitrogen 15 mg/dL (9-16); Calcium 8.0 mg/dL (8.4-10.2); Carbon Dioxide 22 mmol/L (22-29); Chloride 107 mmol/L (96-108); Creatinine Clr Calc Pharmacy 102.6; Estimated Glomerular Filt Rate > 60; Magnesium 2.1 mg/dL (1.6-2.6); Potassium 4.2 mmol/L (3.3-5.1); Sodium 137 mmol/L (135-145)
[2024-12-30 07:02] LABS: B Type Natriuretic Peptide 600 pg/mL (<100)
[2024-12-30 07:18] LABS: Troponin-I High Sensitivity 648.9 ng/L (<3.5-17.0)
--- NOTE | 2024-12-30 08:56 | PHA.PROG ---
Admission Date/Time: December 29, 2024 07:25 Indication: SEPSIS Weight in k kg Adjusted body weight in K.78 [place] body weight in K.3 Obesity Dosing Indication % IBW: 29.5 Serum Creatinine - Last 168 Hours 12/29/24 12/30/24 05:22 05:49 Creatinine 0.53 0.87 Estimated CrCl and GFR - Last 168 Hours 12/29/24 12/30/24 05:22 05:49 Estim Creat Clear Calc 167.2 102.6 Estimated GFR > 60 > 60 Vancomycin Loading Dose: 1750 Current Vancomycin Dosing Regimen: 1250 Q12 Vancomycin Monitoring using AUC goal of 400 - 600 range with trough as surrogate marker:538 Date and Time for next Vancomycin Level to be drawn: 12/31 @1000 Pharmacist Comments on Vancomycin Plan: Vancomycin dosing will take advantage of [employer] as a clinical decision support tool that uses Bayesian modeling to calculate individual patient's pharmacokinetic parameters and forecast the patient's drug concentration time course with the target goal AUC 24 range of 400 - 600 mg/L/hr.
[2024-12-30 09:51] LABS: Atypical Lymph Absolute Manual 0.2 x10*3/uL; Atypical Lymphs Percent Manual 1 % (0-6); Band Neutrophils Percent 0 % (3-5); Lymphocytes Absolute Manual 2.8 X10*3/uL (1.2-4.9); Lymphocytes Percent Manual 13 % (20-40); Monocytes Absolute Manual 1.7 X10*3/uL (0.1-1.2); Monocytes Percent Manual 8 % (2-11); Neutrophils Absolute Manual 16.7 X10*3/uL (2.0-8.3); Neutrophils Percent Manual 78 % (45-73)
[2024-12-30 09:52] LABS: Creatinine Clr Calc Pharmacy 100.3; Estimated Glomerular Filt Rate > 60
[2024-12-30 09:55] LABS: Burr Cells 3+ (>5) /OIF; RBC Morphology NOTED; Schistocytes 1+ (0-2) /OIF; Toxic Vacuolation PRESENT
[2024-12-30 09:56] LABS: Hypochromasia 1+ (5-14) /OIF; Large Platelet PRESENT
[2024-12-30 10:16] LABS: Troponin-I High Sensitivity 538.7 ng/L (<3.5-17.0)
--- NOTE | 2024-12-30 10:20 | PM.CNCAR ---
History of Present Illness History of Present Illness Date of Service: 12/30/24 Requesting physician: Bang Martin Chief complaint: Sob, fever Narrative: [age] year female presenting with pleuritic chest pain and tachycardia. She has noticed to have sinus tachycardia on her EKG. She recently got sick and was admitted to [facility] with bibasilar infiltrates and effusions. She was thought to have pneumonia and was treated with antibiotics. She said that she subsequently got readmitted with shortness of breath and also was noticed to have lymphadenopathy with biopsies done. She is now presenting with pleuritic chest pain and palpitations and has been noticed to have significant tachycardia. She has known history of multiple sclerosis in the past and was following with neurology. More recently she has not seen any neurologist and is denying any significant neurological issues. She has leukocytosis with a left shift on her CBC. She has BNP of 600 and high sensitivity troponins are 538. She underwent echocardiography which has shown a tfzrotbv-jy-ckbah size pericardial effusion as well as moderate RV dilatation with shcdcmbk-vc-tfqjom RV dysfunction. The apical RV was hypokinetic and overall findings were consistent with Metz sign and concern for pulmonary embolism. She also had plethoric IVC but it was hard to say whether this is related to pericardial effusion or RV dysfunction. She had mild pulmonary hypertension by echocardiography. On 12/21/2024 she had echocardiography showing mild dilation right ventricle, normal RV function and trivial pericardial effusion. [facility] Past Medical History Medical History Multiple sclerosis IBS (irritable bowel syndrome) GERD (gastroesophageal reflux disease) Family History Family History Mother Anemia Sister Heart murmur Father Diabetes HTN (hypertension) Maternal Grandmother Diabetes Surgical History Surgical History Hx of tonsillectomy Social History Social History Household Members: None Housing: Apartment Do you presently have visiting nurse or other home services: No Alcohol intake: never Comment: patient independent Patient Tobacco Use Status: Never used Tobacco service: No Meds Allergies Allergy/AdvReac Type Severity Reaction Status Date / Time morphine (MORPHINE) Allergy Severe HYPOVENTILATION, Verified 12/29/24 04:42 excellerated heart rate and sob cromolyn (From INTAL) Allergy Intermediate HYPERACTIVI Verified 12/29/24 04:42 TY amoxicillin (AMOXICILLIN) Allergy Unknown HIVES, Verified 12/29/24 04:42 hives and welts Active Medications: Current Medications Acetaminophen (Acetaminophen 325 Mg Tablet) 650 mg PO Q6H PRN PRN Reason: Pain, Mild 1-3,fever,headache Last Admin: 12/29/24 16:45 Dose: 650 mg Calcium Carbonate (Calcium Carbonate 750 Mg Tab.Chew) 750 mg PO Q4H PRN PRN Reason: Heartburn Enoxaparin Sodium (Enoxaparin Sodium 40 Mg/0.4 Ml Syringe) 40 mg SUBCUT Q24H [facility] Azithromycin 500 mg/ Sodium (Chloride) 250 mls @ 125 mls/hr IV Q24H [facility] Last Admin: 12/30/24 07:44 Dose: 125 mls/hr Lactated Ringer's (Lr) 1,000 mls @ 125 mls/hr IVCONT .Q8H [facility] Last Admin: 12/30/24 08:26 Dose: 125 mls/hr Vancomycin HCl 1,250 mg/ (Sodium Chloride) 250 mls @ 166.667 mls/hr IV Q12H [facility] Ibuprofen (Ibuprofen 400 Mg Tablet) 400 mg PO Q6H PRN PRN Reason: Fever Last Admin: 12/29/24 19:43 Dose: 400 mg Magnesium Hydroxide (Milk Of Magnesia 30 Ml Oral.Susp) 30 ml PO DAILY PRN PRN Reason: Constipation Last Admin: 12/29/24 23:17 Dose: 30 ml Melatonin (Melatonin 3 Mg Tablet) 6 mg PO BEDTIME PRN PRN Reason: Insomnia Meropenem (Meropenem 1 Gm Vial) 1 gm IVPUSH Q8H [facility] Last Admin: 12/30/24 07:44 Dose: 1 gm Ondansetron HCl (Ondansetron Hcl 4 Mg/2 Ml Vial) 4 mg IVPUSH Q6H PRN PRN Reason: Nausea Last Admin: 12/30/24 05:09 Dose: 4 mg Sodium Chloride (0.9 % Sodium Chloride Flush 3 Ml Syringe) 3 ml IVFLUSH QSHIFT [facility] Last Admin: 12/30/24 07:45 Dose: Not Given Home Medications ?Medication ?Instructions ?Recorded ?Confirmed ?Last Taken ?Type albuterol sulfate 90 mcg/actuation 2 puff inhalation Q4H PRN 12/13/24 12/29/24 Unknown History aerosol inhaler Respiratory Distress ibuprofen 800 mg tablet 800 mg PO TID PRN Pain 12/24/24 12/29/24 Unknown History aspirin 325 mg tablet 325 mg PO Q4H PRN Pain 12/29/24 12/29/24 Unknown History docusate sodium 100 mg capsule 100 mg PO DAILY PRN constiption 12/29/24 12/29/24 Unknown History (Colace) Physical Exam Vital Signs: Vital Signs: Last Vital Signs Temp 99.0 F 12/30/24 07:11 Pulse 117 H 12/30/24 07:11 Resp 28 H 12/30/24 07:11 BP 99/67 12/30/24 07:11 Pulse Ox 97 12/30/24 07:11 O2 Del Method Room Air 12/30/24 07:11 BMI result Body Mass Index 29.5 GENERAL APPEARANCE: in no acute distress, ill-appearing. NECK: no carotid bruit, positive jugular venous distention. SKIN: no suspicious lesions, warm and dry. HEART: no murmurs, regular rate and rhythm. Tachycardic. LUNGS: clear to auscultation bilaterally. ABDOMEN: soft, nontender. EXTREMITIES: no edema. PERIPHERAL PULSES: equal. NEUROLOGIC: No gross deficits, AAO X 3 Objective Labs and Meds 12/30/24 05:49 12/30/24 09:08 Lab results: Laboratory Results - last 24 hr 12/29/24 12/29/24 12/29/24 11:25 19:42 21:17 WBC RBC Hgb Hct MCV MCH MCHC RDW Plt Count MPV Absolute Nucleated RBC Nucleated RBC % (auto) Neutrophils % (Manual) Band Neutrophils % Lymphocytes % (Manual) Atypical Lymphs % (Man) Monocytes % (Manual) Abs Neuts (Manual) Lymphocytes # (Manual) Atyp Lymphs # (Manual) Monocytes # (Manual) Toxic Vacuolation Platelet Estimate Large Platelets Plt Morphology Comment RBC Morphology Hypochromasia Betsy Cells Schistocytes Hold Purple Top SEE NOTE Sodium Potassium Chloride Carbon Dioxide Anion Gap BUN Creatinine Estim Creat Clear Calc Estimated GFR Random Glucose Lactic Acid 2.0 1.5 Calcium Magnesium Troponin I High Sens B-Natriuretic Peptide Urine Color Urine Appearance Urine pH Ur Specific [place] Urine Protein Urine Glucose (UA) Urine Ketones Urine Blood Urine Nitrite Ur Leukocyte Esterase Urine RBC Urine WBC Ur Squamous Epith Cells Urine Bacteria Hyaline Casts Urine Test Respiratory Panel Vickers See Note Adenovirus (Rapid PCR) Not Detected B.pert (TEM-PCR) Not Detected B.parapertussis DNA PCR Not Detected C. pneumoniae DNA (PCR) Not Detected Coronavirus OC43 (PCR) Not Detected Coronavirus HKU1 (PCR) Not Detected Coronavirus 229E (PCR) Not Detected Coronavirus NL63 (PCR) Not Detected Human Metapneumovir PCR Not Detected Influenza A (RT-PCR) Not Detected Influenza A (H1) PCR Not Detected Influ A (H1/09) PCR Not Detected Influenza A (H3) PCR Not Detected Influenza B (RT-PCR) Not Detected M. pneumoniae (PCR) Not Detected Parainfluenza 1 (PCR) Not Detected Parainfluenza 2 (PCR) Not Detected Parainfluenza 3 (PCR) Not Detected Parainfluenza 4 (PCR) Not Detected RSV (PCR) Not Detected Entero/Rhino (PCR) Not Detected SARS-CoV-2 RNA (RT-PCR) Not Detected 12/29/24 12/30/24 12/30/24 23:06 05:49 09:08 WBC 21.4 H RBC 4.70 Hgb 11.6 L Hct 35.1 L MCV 74.7 L MCH 24.7 L MCHC 33.0 RDW 17.0 H Plt Count 630 H MPV 12.1 Absolute Nucleated RBC 0.000 Nucleated RBC % (auto) 0.0 Neutrophils % (Manual) 78 H Band Neutrophils % 0 L Lymphocytes % (Manual) 13 L Atypical Lymphs % (Man) 1 Monocytes % (Manual) 8 Abs Neuts (Manual) 16.7 H Lymphocytes # (Manual) 2.8 Atyp Lymphs # (Manual) 0.2 Monocytes # (Manual) 1.7 H Toxic Vacuolation PRESENT Platelet Estimate INCREASED Large Platelets PRESENT Plt Morphology Comment NOTED RBC Morphology NOTED Hypochromasia 1+ (5-14) [place] Cells 3+ (>5) Schistocytes 1+ (0-2) Hold Purple Top Sodium 137 Potassium 4.2 Chloride 107 Carbon Dioxide 22 Anion Gap 12 BUN 15 Creatinine 0.87 0.89 Estim Creat Clear Calc 102.6 100.3 Estimated GFR > 60 > 60 Random Glucose 91 Lactic Acid Calcium 8.0 L Magnesium 2.1 Troponin I High Sens 648.9 H* D 538.7 H* B-Natriuretic Peptide 600 H Urine Color [place] A Urine Appearance Cloudy Urine pH 5.0 Ur Specific [place] >= 1.030 H Urine Protein 100 (2+) H Urine Glucose (UA) Negative Urine Ketones Trace Urine Blood Negative Urine Nitrite Positive H Ur Leukocyte Esterase Small (1+) H Urine RBC 0-2 Urine WBC 0-5 Ur Squamous Epith Cells >20 Urine Bacteria None Seen Hyaline Casts >20 Urine Test NEGATIVE Respiratory Panel Vickers Adenovirus (Rapid PCR) B.pert (TEM-PCR) B.parapertussis DNA PCR C. pneumoniae DNA (PCR) Coronavirus OC43 (PCR) Coronavirus HKU1 (PCR) Coronavirus 229E (PCR) Coronavirus NL63 (PCR) Human Metapneumovir PCR Influenza A (RT-PCR) Influenza A (H1) PCR Influ A () PCR Influenza A (H3) PCR Influenza B (RT-PCR) M. pneumoniae (PCR) Parainfluenza 1 (PCR) Parainfluenza 2 (PCR) Parainfluenza 3 (PCR) Parainfluenza 4 (PCR) RSV (PCR) Entero/Rhino (PCR) SARS-CoV-2 RNA (RT-PCR) Imaging Radiologist's impression: Impressions Venous Duplex 12/29/24 11:11 IMPRESSION: No evidence of deep venous thrombosis involving the bilateral lower extremities. Electronically signed by: Jose Bermeo MD 12/29/2024 11:35 AM EDT Assessment and Plan (1) Tachycardia: Status: Acute (2) Pericardial effusion: Status: Acute (3) Right ventricular dysfunction: Status: Acute Plan 29-year-old female with a complex medical issues presenting for tachycardia and pleuritic chest pain. She had [id number] pericardial effusion as well as RV dysfunction by echocardiography. RV dysfunction was peculiar for potential pulmonary embolism. We performed CT pulmonary angiogram which showed no PE but did show nnkpfrcf-nc-eerug size pericardial effusion and concern for tamponade was raised. She also has bilateral pleural effusions. She has been in the hospital with shortness of breath and was treated for pneumonia but never recovered. She had a trivial pericardial effusion on December 21 and now has wlxxmmfv-kw-xhhcm size pericardial effusion. She is short of breath and feeling of pressure in her chest when she lays back and has pleuritic chest pain when she lays back. I think she clearly has pericarditis-it is possible that troponin elevation is also related to the same process and she has myopericarditis. Only right ventricular involvement is unclear to me and I am not sure why she has significant RV dysfunction currently. She does not have severe pulmonary hypertension and in a week's time her right ventricular function has worsened significantly. There is no pulmonary embolism by CT pulmonary angiogram. I think she needs pericardiocentesis because I believe most of her dyspnea and tachycardia is related to rapid pericardial effusion collection. We will send the fluid for usual labs and we will also perform cytology and cultures. She had lymph node biopsy done recently and we need to follow up on that. I think she has some sort of viral infection which started as a lung process but definitely affected the pleura and pericardium. Start her on colchicine for pericarditis. Also give her NSAIDs as needed. Pericardiocentesis today. Monitor closely after pericardiocentesis in case she develops any hemodynamic issues. As she starts recovering I will discuss with her about doing a right heart catheterization at [facility]. I also think that a cardiac MRI may help us but I will look into this further and we will discuss with some heart failure folks. Thank you for allowing me to participate in the care of your patient. Please feel free to contact me if you have any questions. Procedures Date of Service Date of Service: 12/30/24
--- NOTE | 2024-12-30 10:51 | MHC.CM.PN ---
Per MD rounds patient not medically cleared for dc. CM will continue to follow.
[2024-12-30] MEDS: iohexoL 350 MG/ML 100 ML INFUS..BTL IV (11:24)
--- NOTE | 2024-12-30 17:49 | P.PNIM_ITS ---
Subjective Subjective Date of Service: 12/30/24 Interval History: dyspnea /pericardial effusion Review of Systems sob ,has pleurtitic discomfort hypotension episode overnight Review of Systems: Yes all other systems are reviewed and are negative Physical Exam 2 Exam: Exam: Appearance: Alert.? Oriented X3. cvs: rrr, [id number] . res: air entry fair ,diminshed at bases. abd: no rebound or guarding,nt, bs present. ext pulses present , no cyanosis. neuro: axo3 , nonfocal. Vital Signs: Vital Signs: Last Vital Signs Temp 98.1 F 12/30/24 15:28 Pulse 126 H 12/30/24 17:22 Resp 20 12/30/24 15:28 BP 110/70 12/30/24 17:22 Pulse Ox 98 12/30/24 17:22 O2 Del Method Room Air 12/30/24 17:22 O2 Flow Rate 2 12/30/24 17:00 BMI result Body Mass Index 29.5 Objective Data Active Medications Acetaminophen (Acetaminophen 325 Mg Tablet) 650 mg PO Q6H PRN PRN Reason: Pain, Mild 1-3,fever,headache Last Admin: 12/30/24 12:50 Dose: 650 mg Documented By: CLAUDETTE Calcium Carbonate (Calcium Carbonate 750 Mg Tab.Chew) 750 mg PO Q4H PRN PRN Reason: Heartburn Colchicine (Colchicine 0.6 Mg Tablet) 0.6 mg PO BID [facility] Last Admin: 12/30/24 11:49 Dose: 0.6 mg Documented By: CLAUDETTE Azithromycin 500 mg/ Sodium (Chloride) 250 mls @ 125 mls/hr IV Q24H [facility] Last Infusion: 12/30/24 10:00 Dose: Infused Documented By: CLAUDETTE Vancomycin HCl 1,250 mg/ (Sodium Chloride) 250 mls @ 166.667 mls/hr IV Q12H [facility] Last Infusion: 12/30/24 13:21 Dose: Infused Documented By: CLAUDETTE Sodium Chloride (Ns) 1,000 mls @ 80 mls/hr IVCONT .[id number] [facility] Last Infusion: 12/30/24 17:39 Dose: 80 mls/hr Documented By: CLAUDETTE Ibuprofen (Ibuprofen 400 Mg Tablet) 400 mg PO Q6H PRN PRN Reason: Fever Last Admin: 12/29/24 19:43 Dose: 400 mg Documented By: DAVID Magnesium Hydroxide (Milk Of Magnesia 30 Ml Oral.Susp) 30 ml PO DAILY PRN PRN Reason: Constipation Last Admin: 12/29/24 23:17 Dose: 30 ml Documented By: DAVID Melatonin (Melatonin 3 Mg Tablet) 6 mg PO BEDTIME PRN PRN Reason: Insomnia Meropenem (Meropenem 1 Gm Vial) 1 gm IVPUSH Q8H [facility] Last Admin: 12/30/24 15:58 Dose: 1 gm Documented By: CLAUDETTE Ondansetron HCl (Ondansetron Hcl 4 Mg/2 Ml Vial) 4 mg IVPUSH Q6H PRN PRN Reason: Nausea Last Admin: 12/30/24 12:50 Dose: 4 mg Documented By: CLAUDETTE Sodium Chloride (0.9 % Sodium Chloride Flush 3 Ml Syringe) 3 ml IVFLUSH QSHIFT [facility] Last Admin: 12/30/24 15:58 Dose: Not Given Documented By: CLAUDETTE Non-Admin Reason: IV Running Labs 12/30/24 05:49 12/30/24 09:08 Labs: Laboratory Results - last 24 hr 12/29/24 12/29/24 12/29/24 19:42 21:17 23:06 MCV MCH MCHC RDW Plt Count MPV Absolute Nucleated RBC Nucleated RBC % (auto) Neutrophils % (Manual) Band Neutrophils % Lymphocytes % (Manual) Atypical Lymphs % (Man) Monocytes % (Manual) Abs Neuts (Manual) Lymphocytes # (Manual) Atyp Lymphs # (Manual) Monocytes # (Manual) Toxic Vacuolation Platelet Estimate Large Platelets Plt Morphology Comment RBC Morphology Hypochromasia [place] Cells Schistocytes ESR Hold Purple Top SEE NOTE Anion Gap Estim Creat Clear Calc Estimated GFR Random Glucose Lactic Acid 2.0 1.5 Calcium Magnesium C-Reactive Protein B-Natriuretic Peptide Urine Color [place] A Urine Appearance Cloudy Urine pH 5.0 Ur Specific [place] >= 1.030 H Urine Protein 100 (2+) H Urine Glucose (UA) Negative Urine Ketones Trace Urine Blood Negative Urine Nitrite Positive H Ur Leukocyte Esterase Small (1+) H Urine RBC 0-2 Urine WBC 0-5 Ur Squamous Epith Cells >20 Urine Bacteria None Seen Hyaline Casts >20 Urine Test NEGATIVE Rheumatoid Factor 12/30/24 12/30/24 12/30/24 05:49 09:08 15:26 MCV 74.7 L MCH 24.7 L MCHC 33.0 RDW 17.0 H Plt Count 630 H MPV 12.1 Absolute Nucleated RBC 0.000 Nucleated RBC % (auto) 0.0 Neutrophils % (Manual) 78 H Band Neutrophils % 0 L Lymphocytes % (Manual) 13 L Atypical Lymphs % (Man) 1 Monocytes % (Manual) 8 Abs Neuts (Manual) 16.7 H Lymphocytes # (Manual) 2.8 Atyp Lymphs # (Manual) 0.2 Monocytes # (Manual) 1.7 H Toxic Vacuolation PRESENT Platelet Estimate INCREASED Large Platelets PRESENT Plt Morphology Comment NOTED RBC Morphology NOTED Hypochromasia 1+ (5-14) [place] Cells 3+ (>5) Schistocytes 1+ (0-2) ESR 20 Hold Purple Top Anion Gap 12 Estim Creat Clear Calc 102.6 100.3 Estimated GFR > 60 > 60 Random Glucose 91 Lactic Acid Calcium 8.0 L Magnesium 2.1 C-Reactive Protein 25.43 H B-Natriuretic Peptide 600 H Urine Color Urine Appearance Urine pH Ur Specific [place] Urine Protein Urine Glucose (UA) Urine Ketones Urine Blood Urine Nitrite Ur Leukocyte Esterase Urine RBC Urine WBC Ur Squamous Epith Cells Urine Bacteria Hyaline Casts Urine Test Rheumatoid Factor 28.3 H Microbiology Microbiology Results: Microbiology 12/29/24 07:24 Blood Culture - Preliminary Blood - Venous No growth after 24 hours. 12/29/24 07:24 Blood Culture - Preliminary Blood - Venous No growth after 24 hours. Assessment and Plan (1) Tachycardia: Status: Acute Plan 29F PMH mild intermittent asthma, multiple sclerosis recently on dimethylfumarate, presented with sob and chest pain Dyspnea chest pain and tachycardia-pericardial effusion? Unclear etiology check venous doppler-negative cta -neg for pulm emboli , echo: EF 60-65%, pericardial effusion [id number], can not rule out early tamponade Patient also had hypotension episode overnight-requiring fluids. Plan: Patient is now status post pericardial drainage Pleural fluid analysis/cultures sent, cytology also sent continue antibiotics for pneumonia, added colchicine, NSAID. Cardiology following. 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 Sepsis due to pneumonia in immunocompromised patient leucocytosis/tachycardia trending up Will expand coverage to meropenem, azithromycin Follow up cultures, respiratory viral panel-negative . hypotension resolved ,[place] normal,follow cultures. lymphadenopathy:follow up path results dvt prophylax: mech devices (scd). ongoing need :Dyspnea chest pain and tachycardia-pericardial effusion? Unclear etiology-pericardial effusion unclear etiology, monitor for symptoms , workup for for pericardial effusion and pending. Quality Stroke Does the patient have a stroke diagnosis?: No VTE Prior VTE?: No VTE Risk Level:: Medical - moderate - high VTE Device Contraindication: Treatment Not Indicated VTE Drug Contraindication: N/A - Med Ordered
[2024-12-30 18:49] LABS: Ferritin 413 ng/mL (10-122)
[2024-12-30 19:49] LABS: WBC Pericardial Fluid 21375 MM*3
[2024-12-30 21:27] LABS: Neutrophils Pericardial Fluid 75 %
[2024-12-30 21:28] LABS: BF Shift QC OK YES; Lymphs Pericardial Fl 22 %; Monocytes Pericard Fl 3 %
[2024-12-31] VITALS (7 sets, daily range): BP systolic 101–147; BP diastolic 59–94; PULSE 120–134; RESP 16–32; TEMP 36.4–38; O2SAT 93–100
[2024-12-31 07:32] LABS: Creatinine Clr Calc Pharmacy 114.5; Estimated Glomerular Filt Rate > 60
[2024-12-31 08:24] LABS: pH Pericardial Fluid 7.29
[2024-12-31 08:25] LABS: Albumin Pericardial Fluid 2.3; LDH Pericardial Fluid 3855; Total Protein Pericardial Flui 4.9
[2024-12-31 08:30] LABS: Anion Gap 12 (12-20); Blood Urea Nitrogen 21 mg/dL (9-16); Calcium 7.7 mg/dL (8.4-10.2); Carbon Dioxide 19 mmol/L (22-29); Chloride 107 mmol/L (96-108); Potassium 4.0 mmol/L (3.3-5.1); Sodium 134 mmol/L (135-145)
[2024-12-31] MEDS: 0.9 % Sodium Chloride Flush 3 ML SYRINGE IVFLUSH ×3 (09:26→20:52)
--- NOTE | 2024-12-31 09:48 | PM.PNCARD ---
Subjective Subjective Date of Service: 12/31/24 Interval history: Seen and examined at bedside. She is saying breathing is somewhat better but not completely back to normal. She continues to be tachycardic. Labs reviewed showing CRP of 25.43. Her ferritin is 413. Rheumatoid factor 28.3 rest of the labs are currently pending. Physical Exam Vital Signs: Last Vital Signs Temp 97.5 F 12/31/24 07:42 Pulse 124 H 12/31/24 07:42 Resp 16 12/31/24 07:42 BP 101/60 12/31/24 07:42 Pulse Ox 96 12/31/24 07:42 O2 Del Method Room Air 12/31/24 07:42 O2 Flow Rate 2 12/30/24 17:00 BMI result Body Mass Index 29.5 GENERAL APPEARANCE: in no acute distress, ill-appearing. NECK: no carotid bruit, positive jugular venous distention. SKIN: no suspicious lesions, warm and dry. HEART: no murmurs, regular rate and rhythm. Tachycardic. LUNGS: clear to auscultation bilaterally. ABDOMEN: soft, nontender. EXTREMITIES: no edema. PERIPHERAL PULSES: equal. NEUROLOGIC: No gross deficits, AAO X 3 Pericardial drain noted with straw-colored fluid. Objective Labs and Meds 12/30/24 05:49 12/31/24 06:20 Lab results: Laboratory Results - last 24 hr 12/30/24 12/30/24 12/30/24 05:49 09:08 15:26 Neutrophils % (Manual) 78 H Band Neutrophils % 0 L Lymphocytes % (Manual) 13 L Atypical Lymphs % (Man) 1 Monocytes % (Manual) 8 Abs Neuts (Manual) 16.7 H Lymphocytes # (Manual) 2.8 Atyp Lymphs # (Manual) 0.2 Monocytes # (Manual) 1.7 H Toxic Vacuolation PRESENT Platelet Estimate INCREASED Large Platelets PRESENT Plt Morphology Comment NOTED RBC Morphology NOTED Hypochromasia 1+ (5-14) [place] Cells 3+ (>5) Schistocytes 1+ (0-2) ESR 20 Hold Purple Top Sodium Potassium Chloride Carbon Dioxide Anion Gap BUN Creatinine 0.89 Estim Creat Clear Calc 100.3 Estimated GFR > 60 Random Glucose Calcium Ferritin Troponin I High Sens 538.7 H* C-Reactive Protein 25.43 H Pericard pH Pericard WBC Pericard RBC Pericard Neutrophils Pericard Lymphocytes Pericard Monocytes Pericard Total Protein Pericardial Albumin Pericardial LDH Rheumatoid Factor 28.3 H 12/30/24 12/30/24 12/31/24 16:30 18:07 06:20 Neutrophils % (Manual) Band Neutrophils % Lymphocytes % (Manual) Atypical Lymphs % (Man) Monocytes % (Manual) Abs Neuts (Manual) Lymphocytes # (Manual) Atyp Lymphs # (Manual) Monocytes # (Manual) Toxic Vacuolation Platelet Estimate Large Platelets Plt Morphology Comment RBC Morphology Hypochromasia [place]etsy Cells Schistocytes ESR Hold Purple Top SEE NOTE Sodium 134 L Potassium 4.0 Chloride 107 Carbon Dioxide 19 L Anion Gap 12 BUN 21 H Creatinine 0.78 Estim Creat Clear Calc 114.5 Estimated GFR > 60 Random Glucose 122 H Calcium 7.7 L Ferritin 413 H Troponin I High Sens C-Reactive Protein Pericard pH 7.29 Pericard WBC 38640 Per[place]ard RBC 875 [place] Neutrophils 75 [place] Lymphocytes 22 [place] Monocytes 3 [place] Total Protein 4.9 Pericardial Albumin 2.3 Pericardial LDH 3855 Rheumatoid Factor Imaging Radiologist's impression: Impressions Chest CTA 12/30/24 10:56 IMPRESSION: Bilateral pleural effusions, moderate to large volume and moderate volume pericardial effusion. Cardiac tamponade cannot be excluded. No main pulmonary artery emboli. Prominent main pulmonary artery. Pulmonary hypertension should be considered in the correct clinical settings. Right top pulmonary vein. Fleischner guidelines were followed. Electronically signed by: Devyn Quiroz MD 12/30/2024 11:41 AM EDT RP Progress Note: A&P Assessment and plan (1) Right ventricular dysfunction: Status: Acute (2) Tachycardia: Status: Acute (3) Pericardial effusion: Status: Acute Plan 29-year-old female presenting for pleuritic chest pain and tachycardia. Echocardiography has shown RV enlargement with dysfunction as well as [id number] pericardial effusion. 12/21/2024 she had echocardiography which showed trivial pericardial effusion. She was short of breath and tachycardic and had some changes on ECHO pointing to her early tamponade and we decided to do pericardiocentesis yesterday. The drain is still in place currently. She is still quite tachycardic but overall she looks much better compared to yesterday. She is still tachypneic because she has bilateral pleural effusions. I think we should do therapeutic tap and also do gram staining and cultures on the effusion fluid to rule out empyema. Her CRP is 25 and her rheumatoid factor is elevated. She has a lot of blood workup sent for rheumatologic workup and we will follow up on that. Tomorrow I will do a limited echocardiogram and we will decide about removing the drain. Right ventricular was moderately dilated and wsyxguqb-[id number] dysfunction was noted. Etiology still unclear. Isolated right ventricular takotsubo has been described but I am not sure that is what is going on with her currently. She had mild pulmonary hypertension by echocardiography and severe. She also does not explain this presentation. She does not have pulmonary embolism. Thank you for allowing me to participate in the care of your patient. Please feel free to contact me if you have any questions. Time Spent With Patient Time: Total time managing care of this patient today ____ minutes. Progress Note: Quality Stroke Does the patient have a stroke diagnosis?: No Procedures Date of Service Date of Service: 12/31/24
[2024-12-31 10:29] LABS: Alanine Aminotransferase 144 U/L (0-31); Albumin Level 2.9 g/dL (3.5-5.0); Alkaline Phosphatase 207 U/L (39-117); Aspartate Amino Transferase 254 U/L (5-31); Total Protein 6.6 g/dL (6.5-8.0)
[2024-12-31 10:46] LABS: Hematocrit 33.5 % (37.0-47.0); Hemoglobin 11.2 g/dl (12.0-16.0); Mean Corpuscular HGB Conc 33.4 g/dl (31.0-35.0); Mean Corpuscular Hemoglobin 24.8 pg (27.0-33.0); Mean Corpuscular Volume 74.1 fL (80.0-98.0); NRBC Abs Auto 0.000 X10*3/uL (0.0-0.012); NRBC Pct Auto 0.0 /100WBC (0.0-0.2); Platelet Count 626 X10*3/uL (160-400); Red Blood Count 4.52 X10*6/uL (4.20-5.50); WBC ABN SCTR FOR CBC 1; White Blood Count 15.3 X10*3/uL (4.8-10.8)
--- NOTE | 2024-12-31 11:36 | HE.PHANOTE ---
re: vanco Trough returned @ 14.4. Keeping the same dose of 1250 mg Q12h with predicted AUC of 507 and trough 15.2. Next trough due 01/01 @1000. Will continue to monitor.
[2024-12-31] MEDS: Lidocaine HCl 1 % MPF 5 ML VIAL SUBCUT (14:40)
[2024-12-31 15:12] LABS: MN% 20.7 %; PMN% 79.3 %
[2024-12-31 15:25] LABS: WBC Pleural Fluid 21.633 X10*3/uL
[2024-12-31 16:13] LABS: BF Shift QC OK YES; Lymphocytes Pleural Fluid 7 %; Man Diluent Bkgrd OK YES; Monocytes Pleural Fluid 13 %; Neutrophils Pleural Fluid 75 %; Other Cells Plerual Fl 5 %
--- NOTE | 2024-12-31 16:50 | HO.PM.IMPN ---
Subjective Subjective Date of Service: 12/31/24 Interval History: Pericardial/pleural effusion Review of Systems Shortness of breath and chest pain meds somewhat improving No fever Review of Systems: Yes all other systems are reviewed and are negative Physical Exam Exam: Exam: Appearance: Alert.? Oriented X3. cvs: rrr, [id number] -has pericardial drain res: air entry fair ,diminshed at bases abd: no rebound or guarding,nt, bs present. ext pulses present , no cyanosis. neuro: axo3 , nonfocal. Vital Signs: Vital Signs: Last Vital Signs Temp 98.9 F 12/31/24 15:38 Pulse 129 H 12/31/24 15:38 Resp 20 12/31/24 15:38 BP 106/70 12/31/24 15:38 Pulse Ox 99 12/31/24 15:38 O2 Del Method Room Air 12/31/24 15:38 O2 Flow Rate 2 12/30/24 17:00 BMI result Body Mass Index 29.5 Objective Data Active Medications Acetaminophen (Acetaminophen 325 Mg Tablet) 650 mg PO Q6H PRN PRN Reason: Pain, Mild 1-3,fever,headache Last Admin: 12/31/24 04:39 Dose: 650 mg Documented By: ASHA Calcium Carbonate (Calcium Carbonate 750 Mg Tab.Chew) 750 mg PO Q4H PRN PRN Reason: Heartburn Colchicine (Colchicine 0.6 Mg Tablet) 0.6 mg PO BID [facility] Last Admin: 12/31/24 09:17 Dose: 0.6 mg Documented By: LORRAINE Azithromycin 500 mg/ Sodium (Chloride) 250 mls @ 125 mls/hr IV Q24H [facility] Last Infusion: 12/31/24 11:44 Dose: Infused Documented By: LORRAINE Vancomycin HCl 1,250 mg/ (Sodium Chloride) 250 mls @ 166.667 mls/hr IV Q12H [facility] Last Infusion: 12/31/24 16:06 Dose: Infused Documented By: LORRAINE Sodium Chloride (Ns) 1,000 mls @ 80 mls/hr IVCONT .[id number] [facility] Last Admin: 12/31/24 09:16 Dose: 80 mls/hr Documented By: LORRAINE Ibuprofen (Ibuprofen 400 Mg Tablet) 400 mg PO Q6H PRN PRN Reason: Fever Last Admin: 12/29/24 19:43 Dose: 400 mg Documented By: DAVID Loperamide HCl (Loperamide Hcl 2 Mg Capsule) 2 mg PO Q4H PRN PRN Reason: Diarrhea Last Admin: 12/31/24 09:17 Dose: 2 mg Documented By: LORRAINE Magnesium Hydroxide (Milk Of Magnesia 30 Ml Oral.Susp) 30 ml PO DAILY PRN PRN Reason: Constipation Last Admin: 12/29/24 23:17 Dose: 30 ml Documented By: DAVID Melatonin (Melatonin 3 Mg Tablet) 6 mg PO BEDTIME PRN PRN Reason: Insomnia Meropenem (Meropenem 1 Gm Vial) 1 gm IVPUSH Q8H [facility] Last Admin: 12/31/24 09:16 Dose: 1 gm Documented By: LORRAINE Omeprazole (Omeprazole 20 Mg Capsule.) 20 mg PO BID@0630,1630 [facility] Last Admin: 12/31/24 04:39 Dose: 20 mg Documented By: ASHA Ondansetron HCl (Ondansetron Hcl 4 Mg/2 Ml Vial) 4 mg IVPUSH Q6H PRN PRN Reason: Nausea Last Admin: 12/31/24 04:39 Dose: 4 mg Documented By: ASHA Pharmacy Consult (Consult Rx Vancomycin Dosing) 1 each MISCELLANE DAILY PRN PRN Reason: Consult order Sodium Chloride (0.9 % Sodium Chloride Flush 3 Ml Syringe) 3 ml IVFLUSH QSHIFT [facility] Last Admin: 12/31/24 09:26 Dose: 3 ml Documented By: LORRAINE Labs 12/31/24 10:10 12/31/24 06:20 Labs: Laboratory Results - last 24 hr 12/30/24 12/30/24 12/31/24 16:30 18:07 06:20 MCV MCH MCHC RDW Plt Count MPV Absolute Nucleated RBC Nucleated RBC % (auto) Hold Purple Top SEE NOTE Anion Gap 12 Estim Creat Clear Calc 114.5 Estimated GFR > 60 Random Glucose 122 H Calcium 7.7 L Ferritin 413 H Total Bilirubin 1.6 H Direct Bilirubin 1.1 H AST 254 H ALT 144 H Alkaline Phosphatase 207 H Total Protein 6.6 Albumin 2.9 L Pericard pH 7.29 Pericard WBC 51596 Per[place]ard RBC 875 [place] Neutrophils 75 [place] Lymphocytes 22 [place] Monocytes 3 [place]icard Total Protein 4.9 Pericardial Albumin 2.3 Pericardial LDH 3855 Pleural WBC Pleural RBC Pleural Neutrophils Pleural Lymphocytes Pleural Monocytes Pleural Other Cells Vancomycin Trough 12/31/24 12/31/24 10:10 14:05 MCV 74.1 L MCH 24.8 L MCHC 33.4 RDW 17.2 H Plt Count 626 H MPV 11.8 Absolute Nucleated RBC 0.000 Nucleated RBC % (auto) 0.0 Hold Purple Top Anion Gap Estim Creat Clear Calc Estimated GFR Random Glucose Calcium Ferritin Total Bilirubin Direct Bilirubin AST ALT Alkaline Phosphatase Total Protein Albumin Pericard pH Pericard WBC Pericard RBC Pericard Neutrophils Pericard Lymphocytes Pericard Monocytes Pericard Total Protein Pericardial Albumin Pericardial LDH Pleural WBC 21.633 Pleural RBC < 0.002 Pleural Neutrophils 75 Pleural Lymphocytes 7 Pleural Monocytes 13 Pleural Other Cells 5 Vancomycin Trough 14.4 Microbiology Microbiology Results: Microbiology 12/29/24 Unknown Urine Culture - Final Urine Catheterized - Beck Catheter No growth. 12/29/24 07:24 Blood Culture - Preliminary Blood - Venous No growth after 48 hours. 12/29/24 07:24 Blood Culture - Preliminary Blood - Venous No growth after 48 hours. 12/30/24 16:30 Gram Stain - Final Pericardial Fluid Routine Culture - Preliminary No growth to date. Anaerobic Culture - Preliminary No growth to date. Assessment and Plan (1) Pleural effusion: Status: Acute Plan 29F PMH mild intermittent asthma, multiple sclerosis recently on dimethylfumarate, presented with sob and chest pain Dyspnea chest pain and tachycardia-pericardial effusion? Unclear etiology check venous doppler-negative cta -neg for pulm emboli , echo: EF 60-65%, pericardial effusion [id number], can not rule out early tamponade Patient also had hypotension episode overnight-requiring fluids. s/p pericardial effusion-drain also s/p thoracentesis [place] 78472(both pericardial and pleural)with neutrophil predominance, LDH 3855 in pericardial effusion, other labs labs from pleural effusion-pending. Plan: Pleural and pericardial effusion cultures are pending continue antibiotics for pneumonia, continue colchicine, NSAID as needed. Cardiology following. Discussed with the rheumatology,hematology - rheumatology labs including rheumatoid factor elevated-other labs:SHERYL, dsDNA, C3, C4, Mcfadden, Sjogrens labs, UA, UPC, lupus anticoagulant, beta 2 glycoprotein, cardiolipin, ANCA, RF, CCP, Ferritin pending d/w rheumatology-currently wait for workup Sepsis due to pneumonia in immunocompromised patient leucocytosis/tachycardia trending up Will expand coverage to meropenem, azithromycin Follow up cultures, respiratory viral panel-negative hypotension resolved ,La normal,follow cultures. added pulm eval-possible exsudative pleural effusion lymphadenopathy:follow up path results dvt prophylax: mech devices (scd). ongoing need :Dyspnea chest pain and tachycardia-pericardial effusion? Unclear etiology-pericardial effusion unclear etiology, monitor for symptoms , workup for for pericardial effusion and pending. Quality Stroke Does the patient have a stroke diagnosis?: No VTE Prior VTE?: No VTE Risk Level:: Medical - moderate - high VTE Device Contraindication: Treatment Not Indicated VTE Drug Contraindication: N/A - Med Ordered
[2024-12-31] MEDS: Albumin Human 25 % 100 ML IV (20:47)
[2025-01-01] VITALS: BP 92/56; PULSE 117; RESP 16; TEMP 36.9; O2SAT 99
[2025-01-01] MEDS: Albumin Human 25 % 100 ML IV (01:55)
[2025-01-01 03:41] VITALS: BP 102/58; PULSE 101; RESP 16; TEMP 36.6
[2025-01-01 04:00] VITALS: BP 102/58; PULSE 101; RESP 16; TEMP 36.6; O2SAT 96
--- NOTE | 2025-01-01 07:00 | CA_ITS ---
Transthoracic Echocardiogram Patient (Last, First, Middle): Barry Buitrago, Gender: Female Date of : 1995 Age: 29 Procedure Date: 01/01/2025 Procedure Type: Transthoracic [place] [facility] [place]: 167.64 cm Weight: 82.56 kg BSA: 1.92 m2 Heart Rate: 102 bpm BP: 102 / 58 mmHg Broomcorn Thresher: Referring MD: Ángel Walker MD Dispersion Mixer: Aman Worthington MD Symptoms: f/u on pericardial effusion Study Quality: Adequate ECG Rhythm: Tachycardia Conclusions: - Small circumferential pericardial effusion without any clear evidence of tamponade, more moderate loculated near the base of the left ventricle Findings Pericardium/Pleural There is a small pericardial effusion. The inferior vena cava is dilated with reduced respiratory variability. there is no clear other evidence of tamponade on this study. pericardial effusion appears more moderate loculated near the base of the left ventricle Prior Study Comparison Changes noted compared to prior study dated: 12/30/2024. pericardial effusion in his smaller in size Measurements 2D Linear Measurements IVSd: 1.27 0.6-0.9/0.6-1.0 cm LVIDd: 4.32 3.9-5.3/4.2-5.9 cm LVIDd Index: 2.25 2.4-3.2/2.2-3.1 cm/m2 LVIDs: 2.84 2.0-3.6 cm LVPWd: 1.20 0.7-1.1 cm LV Mass: 241.72 67-162/88-224 g LV Mass Index: 125.90 43-95/49-115 g/m2 2D Systolic Function EF 4C: 56.80 >55% EF 2C: 61.50 >55% EF BiP: 57.70 >55% Tricuspid Valve TR Pk Darci: 2.32 TR Pk Grad: 22.00 RA Press: 15.00 RVSP: 37.00 Updated in Other Vendor System with Status of Final Aman Worthington MD electronically signed on 01/01/2025 1:24:44 PM with status of Final
[2025-01-01 07:14] LABS: Creatinine Clr Calc Pharmacy 94.9; Estimated Glomerular Filt Rate > 60
[2025-01-01 07:40] VITALS: BP 107/63; PULSE 100; RESP 16; TEMP 36.2; O2SAT 95
[2025-01-01 08:12] LABS: Anion Gap 13 (12-20); Blood Urea Nitrogen 24 mg/dL (9-16); Calcium 7.9 mg/dL (8.4-10.2); Carbon Dioxide 19 mmol/L (22-29); Chloride 108 mmol/L (96-108); Potassium 3.8 mmol/L (3.3-5.1); Sodium 136 mmol/L (135-145)
[2025-01-01] MEDS: 0.9 % Sodium Chloride Flush 3 ML SYRINGE IVFLUSH ×2 (09:02→15:43)
--- NOTE | 2025-01-01 09:14 | HE.PHANOTE ---
RE: VANCO DOSING Trough came back as 23 mg/L (drawn @0827 when it was scheduled for @1000). Renal function has worsen slightly. Dose is reduced to 1000 mg q12h @1600 01/01/25 (pushed back 4 hours). Next trough is scheduled for 01/02/25 @1400.
[2025-01-01 10:31] LABS: Alanine Aminotransferase 112 U/L (0-31); Albumin Level 3.3 g/dL (3.5-5.0); Alkaline Phosphatase 148 U/L (39-117); Aspartate Amino Transferase 170 U/L (5-31); Total Protein 6.4 g/dL (6.5-8.0)
--- NOTE | 2025-01-01 11:14 | PM.CNPUL ---
History of Present Illness History of Present Illness Consult date: 01/01/25 Chief complaint: Sob, fever Narrative: 49-year-old lady with underlying asthma and multiple sclerosis admitted on 12/29/2024 with dyspnea and chest discomfort. Her workup showed bilateral pleural effusions and pericardial effusion. She had thoracentesis that demonstrated exudative fluid with mildly acidic pH, but significantly elevated LDH and white blood cells. Cultures and cytology are pending. Patient does endorse improvement in his symptoms over the last several days. She was treated with empiric antibiotics. Review of Systems Constitutional: Constitutional: Denies daytime sleepiness, Denies excessive sweating, Denies fatigue, Denies fever(s), Denies lethargy, Denies malaise, Denies night sweats, Denies snoring and Denies weight loss Eyes: Eyes: Denies blurry vision and Denies itchy eyes ENT: Denies nasal congestion, Denies post nasal drip, Denies sinus pain, Denies sinus pressure and Denies other ( Thrush) Cardiovascular: Cardiovascular: Denies chest pain, Denies pedal edema, Denies dyspnea, Reports dyspnea on exertion, Denies orthopnea and Denies paroxysmal nocturnal dyspnea Respiratory: Respiratory: Denies cough, Denies hemoptysis, Denies excessive phlegm production, Denies dyspnea, Reports dyspnea on exertion, Denies snoring and Denies wheezing Gastrointestinal: Gastrointestinal: Denies abdominal pain and Denies heartburn Musculoskeletal: Musculoskeletal: Denies myalgias, Denies arthralgias and Denies joint swelling Integumentary/Breasts: Skin/Breast: Denies rash Neurologic: Denies memory loss and Denies seizure-like activity Psychiatric: Psychiatric: Denies abnormal sleep pattern, Denies anxiety and Denies memory loss Endocrine: Endocrine: Denies excessive sweating, Denies fatigue and Denies heat intolerance Hematologic/Lymphatic: Hematologic/Lymphatic: Denies easy bruising Allergic/Immunologic: Allergic/Immunologic: Denies itchy eyes, Denies seasonal rhinorrhea and Denies wheezing PMFSH Past Medical History Medical History Multiple sclerosis IBS (irritable bowel syndrome) GERD (gastroesophageal reflux disease) Family History Family History Mother Anemia Sister Heart murmur Father Diabetes HTN (hypertension) Maternal Grandmother Diabetes Surgical History Surgical History Hx of tonsillectomy Social History Social History Household Members: None Housing: Apartment Do you presently have visiting nurse or other home services: No Alcohol intake: never Comment: Patient independent Patient Tobacco Use Status: Never used Tobacco service: No Meds Allergies Allergy/AdvReac Type Severity Reaction Status Date / Time morphine (MORPHINE) Allergy Severe HYPOVENTILATION, Verified 12/29/24 04:42 excellerated heart rate and sob cromolyn (From INTAL) Allergy Intermediate HYPERACTIVI Verified 12/29/24 04:42 TY amoxicillin (AMOXICILLIN) Allergy Unknown HIVES, Verified 12/29/24 04:42 hives and welts Active Medications: Current Medications Acetaminophen (Acetaminophen 325 Mg Tablet) 650 mg PO Q6H PRN PRN Reason: Pain, Mild 1-3,fever,headache Last Admin: 12/31/24 20:46 Dose: 650 mg Calcium Carbonate (Calcium Carbonate 750 Mg Tab.Chew) 750 mg PO Q4H PRN PRN Reason: Heartburn Colchicine (Colchicine 0.6 Mg Tablet) 0.6 mg PO BID [facility] Last Admin: 01/01/25 09:03 Dose: 0.6 mg Azithromycin 500 mg/ Sodium (Chloride) 250 mls @ 125 mls/hr IV Q24H [facility] Last Admin: 01/01/25 09:02 Dose: 125 mls/hr Vancomycin HCl 1,000 mg/ (Sodium Chloride) 270 mls @ 270 mls/hr IV Q12H [facility] Ibuprofen (Ibuprofen 400 Mg Tablet) 400 mg PO Q6H PRN PRN Reason: Fever Last Admin: 12/31/24 20:46 Dose: 400 mg Loperamide HCl (Loperamide Hcl 2 Mg Capsule) 2 mg PO Q4H PRN PRN Reason: Diarrhea Last Admin: 12/31/24 09:17 Dose: 2 mg Magnesium Hydroxide (Milk Of Magnesia 30 Ml Oral.Susp) 30 ml PO DAILY PRN PRN Reason: Constipation Last Admin: 12/29/24 23:17 Dose: 30 ml Melatonin (Melatonin 3 Mg Tablet) 6 mg PO BEDTIME PRN PRN Reason: Insomnia Meropenem (Meropenem 1 Gm Vial) 1 gm IVPUSH Q8H [facility] Last Admin: 01/01/25 09:02 Dose: 1 gm Omeprazole (Omeprazole 20 Mg Capsule.) 20 mg PO BID@0630,1630 [facility] Last Admin: 01/01/25 05:06 Dose: 20 mg Ondansetron HCl (Ondansetron Hcl 4 Mg/2 Ml Vial) 4 mg IVPUSH Q6H PRN PRN Reason: Nausea Last Admin: 12/31/24 04:39 Dose: 4 mg Pharmacy Consult (Consult Rx Vancomycin Dosing) 1 each MISCELLANE DAILY PRN PRN Reason: Consult order Sodium Chloride (0.9 % Sodium Chloride Flush 3 Ml Syringe) 3 ml IVFLUSH QSHIFT [facility] Last Admin: 01/01/25 09:02 Dose: 3 ml Home Medications ?Medication ?Instructions ?Recorded ?Confirmed ?Last Taken ?Type albuterol sulfate 90 mcg/actuation 2 puff inhalation Q4H PRN 12/13/24 12/29/24 Unknown History aerosol inhaler Respiratory Distress ibuprofen 800 mg tablet 800 mg PO TID PRN Pain 12/24/24 12/29/24 Unknown History aspirin 325 mg tablet 325 mg PO Q4H PRN Pain 12/29/24 12/29/24 Unknown History docusate sodium 100 mg capsule 100 mg PO DAILY PRN constiption 12/29/24 12/29/24 Unknown History (Colace) Physical Exam Vital Signs: Vital Signs: Last Vital Signs Temp 97.1 F 01/01/25 07:40 Pulse 100 01/01/25 07:40 Resp 16 01/01/25 07:40 BP 107/63 01/01/25 07:40 Pulse Ox 95 01/01/25 07:40 O2 Del Method Room Air 01/01/25 07:40 O2 Flow Rate 2 12/30/24 17:00 BMI result Body Mass Index 29.5 Const: General: no acute distress and alert Nutritional Appearance: not obese Orientation/consciousness: Other orientation findings ( oriented) HEENT: Head: Yes atraumatic Eyes: General: appearance normal, both eyes and all related structures Sclerae: sclerae normal EOM: EOMs intact bilaterally Neck: Neck: Yes supple Lymphatic: no lymphadenopathy noted Resp: Effort & Inspection: normal respiratory effort and no use of accessory muscles Auscultation: clear to auscultation bilaterally Cardio: Rate: regular rate Rhythm: regular rhythm Heart sounds: no gallops, no murmurs and no rubs Skin: General skin exam: other ( warm) Extrem: General: No clubbing, No cyanosis and No edema Results Laboratory Findings 12/31/24 10:10 01/01/25 06:50 Abnormal lab findings: Abnormal Labs 12/29/24 12/29/24 12/29/24 05:22 05:25 23:06 WBC 14.9 H Hgb Hct 36.8 L MCV 72.4 L MCH 24.8 L RDW 17.4 H Plt Count 734 H Neutrophils % (Manual) 74 H Band Neutrophils % 1 L Lymphocytes % (Manual) Abs Neuts (Manual) 11.2 H Monocytes # (Manual) VBG pH 7.54 H VBG HCO3 21 L Sodium Chloride 109 H Carbon Dioxide 18 L BUN Random Glucose Calcium 7.9 L Ferritin Total Bilirubin Direct Bilirubin AST 256 H ALT 130 H Alkaline Phosphatase Troponin I High Sens 25.9 H D C-Reactive Protein 5.02 H B-Natriuretic Peptide Total Protein Albumin 2.7 L Urine Color [place] A Ur Specific [place] >= 1.030 H Urine Protein 100 (2+) H Urine Nitrite Positive H Ur Leukocyte Esterase Small (1+) H Random Vancomycin Rheumatoid Factor 12/30/24 12/30/24 12/30/24 05:49 09:08 15:26 WBC 21.4 H Hgb 11.6 L Hct 35.1 L MCV 74.7 L MCH 24.7 L RDW 17.0 H Plt Count 630 H Neutrophils % (Manual) 78 H Band Neutrophils % 0 L Lymphocytes % (Manual) 13 L Abs Neuts (Manual) 16.7 H Monocytes # (Manual) 1.7 H VBG pH VBG HCO3 Sodium Chloride Carbon Dioxide BUN Random Glucose Calcium 8.0 L Ferritin Total Bilirubin Direct Bilirubin AST ALT Alkaline Phosphatase Troponin I High Sens 648.9 H* D 538.7 H* C-Reactive Protein 25.43 H B-Natriuretic Peptide 600 H Total Protein Albumin Urine Color Ur Specific [place] Urine Protein Urine Nitrite Ur Leukocyte Esterase Random Vancomycin Rheumatoid Factor 28.3 H 12/30/24 12/31/24 12/31/24 18:07 06:20 10:10 WBC 15.3 H Hgb 11.2 L Hct 33.5 L MCV 74.1 L MCH 24.8 L RDW 17.2 H Plt Count 626 H Neutrophils % (Manual) Band Neutrophils % Lymphocytes % (Manual) Abs Neuts (Manual) Monocytes # (Manual) VBG pH VBG HCO3 Sodium 134 L Chloride Carbon Dioxide 19 L BUN 21 H Random Glucose 122 H Calcium 7.7 L Ferritin 413 H Total Bilirubin 1.6 H Direct Bilirubin 1.1 H AST 254 H ALT 144 H Alkaline Phosphatase 207 H Troponin I High Sens C-Reactive Protein B-Natriuretic Peptide Total Protein Albumin 2.9 L Urine Color Ur Specific [place] Urine Protein Urine Nitrite Ur Leukocyte Esterase Random Vancomycin Rheumatoid Factor 01/01/25 01/01/25 06:50 08:27 WBC Hgb Hct MCV MCH RDW Plt Count Neutrophils % (Manual) Band Neutrophils % Lymphocytes % (Manual) Abs Neuts (Manual) Monocytes # (Manual) VBG pH VBG HCO3 Sodium Chloride Carbon Dioxide 19 L BUN 24 H Random Glucose Calcium 7.9 L Ferritin Total Bilirubin Direct Bilirubin AST 170 H ALT 112 H Alkaline Phosphatase 148 H Troponin I High Sens C-Reactive Protein B-Natriuretic Peptide Total Protein 6.4 L Albumin 3.3 L Urine Color Ur Specific [place] Urine Protein Urine Nitrite Ur Leukocyte Esterase Random Vancomycin 23.0 H Rheumatoid Factor Microbiology: Microbiology 12/30/24 16:30 Pericardial Fluid Gram Stain - Final 12/30/24 16:30 Pericardial Fluid Routine Culture - Preliminary No growth to date. 12/30/24 16:30 Pericardial Fluid Anaerobic Culture - Preliminary No growth to date. 12/31/24 14:05 Pleura Gram Stain - Final 12/31/24 14:05 Pleura Routine Culture - Preliminary No growth to date. 12/31/24 14:05 Pleura Anaerobic Culture - Preliminary No growth to date. 12/29/24 Unknown Urine Catheterized - Beck Catheter Urine Culture - Final No growth. 12/29/24 07:24 Blood - Venous Blood Culture - Preliminary No growth after 48 hours. 12/29/24 07:24 Blood - Venous Blood Culture - Preliminary No growth after 48 hours. Assessment and Plan (1) Bilateral pleural effusion: Status: Acute Plan Impression: 29-year-old lady with dyspnea and bilateral pleural effusion/pericardial effusion with exudative pleural studies including significantly elevated LDH and white cell count. She also has positive rheumatoid factor and mildly acidic pleural effusions with pH between 7.2 and 7.3 with significantly elevated LDH are typical for rheumatoid associated pleural effusions. Pleural fluid culture and cytology are still pending. Recommendation: Agree with empiric antibiotics. 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 Procedures Date of Service Date of Service: 01/01/25
--- NOTE | 2025-01-01 11:54 | MHC.CM.PN ---
EMR REVIEWED, PER HOSPITALIST ROUNDS ANTIC PT WILL REMAIN INPT THROUGH W/E, PLAN FOR ECCHO AND TO REMOVE DRAIN, CM WILL CONT TO FOLLOW DC NEEDS.
[2025-01-01 12:00] VITALS: BP 107/71; PULSE 108; RESP 18; TEMP 36.3; O2SAT 98
--- NOTE | 2025-01-01 14:26 | P.CNID_ITS ---
History of Present Illness Data of Consult Service Date: 12/31/24 Requesting physician: Bang Martin Primary Care Provider: Hilda Lock MD [facility] Reason for consult: shortness of breath She presents with shortness of breath and cough,discharged on 12/25 with po Levaquin and no better. She has pathology reactive lymphocytic picture. [facility] Past Medical History Medical History Multiple sclerosis IBS (irritable bowel syndrome) GERD (gastroesophageal reflux disease) Family History Family History Mother Anemia Sister Heart murmur Father Diabetes HTN (hypertension) Maternal Grandmother Diabetes Surgical History Surgical History Hx of tonsillectomy Social History Social History Household Members: None Housing: Apartment Do you presently have visiting nurse or other home services: No Alcohol intake: never Comment: Patient independent Patient Tobacco Use Status: Never used Tobacco service: No Meds Allergies Allergy/AdvReac Type Severity Reaction Status Date / Time morphine (MORPHINE) Allergy Severe HYPOVENTILATION, Verified 12/29/24 04:42 excellerated heart rate and sob cromolyn (From INTAL) Allergy Intermediate HYPERACTIVI Verified 12/29/24 04:42 TY amoxicillin (AMOXICILLIN) Allergy Unknown HIVES, Verified 12/29/24 04:42 hives and welts Active Medications: Current Medications Acetaminophen (Acetaminophen 325 Mg Tablet) 650 mg PO Q6H PRN PRN Reason: Pain, Mild 1-3,fever,headache Last Admin: 12/31/24 20:46 Dose: 650 mg Calcium Carbonate (Calcium Carbonate 750 Mg Tab.Chew) 750 mg PO Q4H PRN PRN Reason: Heartburn Colchicine (Colchicine 0.6 Mg Tablet) 0.6 mg PO BID LINDA Last Admin: 01/01/25 09:03 Dose: 0.6 mg Azithromycin 500 mg/ Sodium (Chloride) 250 mls @ 125 mls/hr IV Q24H LINDA Last Infusion: 01/01/25 11:42 Dose: Infused Vancomycin HCl 1,000 mg/ (Sodium Chloride) 270 mls @ 270 mls/hr IV Q12H [facility] Ibuprofen (Ibuprofen 400 Mg Tablet) 400 mg PO Q6H PRN PRN Reason: Fever Last Admin: 12/31/24 20:46 Dose: 400 mg Magnesium Hydroxide (Milk Of Magnesia 30 Ml Oral.Susp) 30 ml PO DAILY PRN PRN Reason: Constipation Last Admin: 12/29/24 23:17 Dose: 30 ml Melatonin (Melatonin 3 Mg Tablet) 6 mg PO BEDTIME PRN PRN Reason: Insomnia Meropenem (Meropenem 1 Gm Vial) 1 gm IVPUSH Q8H [facility] Last Admin: 01/01/25 09:02 Dose: 1 gm Omeprazole (Omeprazole 20 Mg Capsule.Dr) 20 mg PO BID@0630,1630 [facility] Last Admin: 01/01/25 05:06 Dose: 20 mg Ondansetron HCl (Ondansetron Hcl 4 Mg/2 Ml Vial) 4 mg IVPUSH Q6H PRN PRN Reason: Nausea Last Admin: 12/31/24 04:39 Dose: 4 mg Pharmacy Consult (Consult Rx Vancomycin Dosing) 1 each MISCELLANE DAILY PRN PRN Reason: Consult order Sodium Chloride (0.9 % Sodium Chloride Flush 3 Ml Syringe) 3 ml IVFLUSH QSHIFT [facility] Last Admin: 01/01/25 09:02 Dose: 3 ml Home Medications ?Medication ?Instructions ?Recorded ?Confirmed ?Last Taken ?Type albuterol sulfate 90 mcg/actuation 2 puff inhalation Q 4H PRN 12/13/24 12/29/24 Unknown History aerosol inhaler Respiratory Distress ibuprofen 800 mg tablet 800 mg PO TID PRN Pain 12/2412/29/24 Unknown History aspirin 325 mg tablet 325 mg PO Q4H PRN Pain 12/2912/29/24 Unknown History docusate sodium 100 mg capsule 100 mg PO DAILY PRN con stiption 12/29/24 12/29/24 Unknown History (Colace) Physical Exam 2 Vital Signs: Vital Signs: Last Vital Signs Temp 97.4 F 01/01/25 12:00 Pulse 108 H 01/01/25 12:00 Resp 18 01/01/25 12:00 BP 107/71 01/01/25 12:00 Pulse Ox 98 01/01/25 12:00 O2 Del Method Room Air 01/01/25 12:00 O2 Flow Rate 2 12/30/24 17:00 BMI result Body Mass Index 29.5 Const: General: cooperative HEENT: Head: Yes normal to inspection Face and sinus: Yes normal facial exam Mouth: Normal oral and palatal mucosa present Teeth and gingiva: d entition normal Eyes: General: appearance normal, both eyes and all related structures P upils: Equal, round and reactive pupils present Resp: Effort & Inspection: normal respiratory effort and tachypneic Cardio: Rate: regular rate Rhythm: regular rhythm GI: Palpation (GI): Soft to palpation and nontender : General: Yes no CVA tenderness Back/Spine/Pelvis: Back: no CVA tenderness Skin: General skin exam: no rashes or lesions noted Neuro: General: moves all extremities Cranial nerves: Yes Equal, round and reactive pupils present Extrem: General: Yes normal to inspection Psych: Appearance: grossly normal Results Labs 12/31/24 10:10 01/01/25 06:50 Labs: BMP 01/01/25 06:50 Sodium 136 Potassium 3.8 Chloride 108 Carbon Dioxide 19 L BUN 24 H Creatinine 0.94 Calcium 7.9 L Liver Function 01/01/25 Range/Units 06:50 Total Bilirubin 0.9 (0.0-1.0) mg/dL Direct Bilirubin 0.5 (0.0-0.5) mg/dL AST 170 H (5-31) U/L ALT 112 H (0-31) U/L Alkaline Phosphatase 148 H (39-117) U/L Albumin 3.3 L (3.5-5.0) g/dL Microbiology Microbiology Results: Microbiology 12/30/24 16:30 Pericardial Fluid Gram Stain - Final 12/30/24 16:30 Pericardial Fluid Routine Culture - Preliminary No growth to date. 12/30/24 16:30 Pericardial Fluid Anaerobic Culture - Preliminary No growth to date. 12/31/24 14:05 Pleura Gram Stain - Final 12/31/24 14:05 Pleura Routine Culture - Preliminary No growth to date. 12/31/24 14:05 Pleura Anaerobic Culture - Preliminary No growth to date. 12/29/24 Unknown Urine Catheterized - Beck Catheter Urine Culture - Final No growth. 12/29/24 07:24 Blood - Venous Blood Culture - Preliminary No growth after 48 hours. 12/29/24 07:24 Blood - Venous Blood Culture - Preliminary No growth after 48 hours. Assessment and Plan (1) Pneumonia: Qualifiers: Laterality: bilateral Lung location: unspecified part of lung P neumonia type: due to unspecified organism Qualified Code(s): J18.9 - Pneumonia, unspecified organism Status: Acute (2) Pleural effusion: Status: Acute Plan She has no distinct bacterial infection seen. She has tachypnea,possible collagen vascular or lymphocytic Would stop all antibiotics and see Rheumatology and Oncology. Await [facility].
--- NOTE | 2025-01-01 14:30 | PM.EVENT ---
Event Note Date of Service: 01/01/25 Event Note: Make sure no PE. Time Spent With Patient Time: Total time managing care of this patient today ____ minutes.
[2025-01-01 15:34] LABS: Appearance Urine Cloudy; Glucose Urine UA Negative (Negative); PH 6.0 (5.0-9.0); Specific Gravity - Urine >= 1.030 (1.005-1.025); UMIC TRIGGER UA YES
[2025-01-01 16:00] VITALS: BP 111/76; PULSE 117; RESP 18; TEMP 36.8; O2SAT 91
--- NOTE | 2025-01-01 16:54 | PM.DS ---
DS: Providers Provider Date of Service: 01/01/25 Date of admission: 12/29/24 07:25 Date of discharge: 01/01/25 Primary care physician: Hilda Lock MD Consults: 12/30/24 07:22 Consult to Cardiology Routine Consulting Provider: [facility] Reason for consultation: elevated trop/abnormal ekg Has provider been notified: No 12/30/24 15:14 Consult to Infectious Diseases Routine Consulting Provider: [facility] Reason for consultation: ? pneumonia , b/l pleural,pericardial effusion Has provider been notified: No 12/31/24 16:08 Consult to Pulmonology Routine Consulting Provider: [facility] Reason for consultation: pneumonia /excudative fluid Has provider been notified: Yes Attending physician on discharge: Bang Martin Discharging clinician: Bang Martin DS: Diagnosis Discharge Diagnosis (1) Pneumonia: Status: Acute (2) Pleural effusion: Status: Acute DS: Summary Hospital Course Hospital Course: HPI:29F PMH mild intermittent asthma, multiple sclerosis recently on dimethylfumarate, presented with sob and chest pain. Patient has been admitted to [facility] from 12/13/2024 to 12/25/2024 for bilateral lower lobe pneumonia complicated by lymphadenopathy, elevated LDH and LFTs, was treated with levofloxacin and had excisional biopsy of left axillary lymph node on 12/25/2024 with results pending. Patient was feeling better at time of discharge but then day prior to presentation started to feel very short of breath with right-sided chest pain worse with cough and inspiration, also feeling chills without measured fevers, denies night sweats, denies positional pain. Reporting dry cough. In ED noted to be in sinus tachycardia with rate of 130, tachypneic to the 50s, chest x-ray with bibasilar densities and small to moderate right effusion similar to prior. hospital course: 29F PMH mild intermittent asthma, multiple sclerosis recently on dimethylfumarate, presented with sob and chest pain Dyspnea chest pain and tachycardia-pericardial effusion? Unclear etiology: Workup with venous duplex, CTA-negative for emboli, echo showed significant bradycardia effusion with symptoms: Patient was seen by IR and pericardial drain was placed. seen by cardiology echo done : Echocardiography has shown RV enlargement with dysfunction as well as [id number] pericardial effusion. 12/21/2024 she had echocardiography which showed trivial pericardial effusion. She was short of breath and tachycardic and had some changes on ECHO pointing to her early tamponade and we decided to do pericardiocentesis . The drain is still in place currently. She is still quite tachycardic but overall she looks much better compared to yesterday. She is still tachypneic because she has bilateral pleural effusions-s/p therapeutic tap and also do gram staining and cultures on the effusion fluid to rule out empyema. Her CRP is 25 and her rheumatoid factor is elevated. She has a lot of blood workup sent for rheumatologic workup and we will follow up on that, limited echocardiogram done -patient still has Right ventricular was moderately dilated and ifsyjnno-is-kkxpsr dysfunction was noted. Etiology still unclear. 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 She had mild pulmonary hypertension by echocardiography and severe. She also does not explain this presentation. She does not have pulmonary embolism. Patient will be going to [facility] for further cardiac workup. In addition patient also had thoracentesis done: Both pericardial and pleuritic fluid have 20,000 WBC with neutrophil predominance, LDH in the pericardial effusion is 3855 . blood culture neg @48hrs , urine culture neg, pericardial and pleural effusion cultures preliminary negative, AFP cultures pending, also pathology from pleural/pericardial effusion is pending Patient was initially thought to be having sepsis with pneumonia-started on antibiotics, since pleural cultures are preliminary negative , pulmonary recommended to continue 1 more day of antibiotic until culture final negative, ID recommended stop antibiotics, consider Id re eval before dc antibiotics. Patient is currently on vanco/meropenem/azithromycin-vanco trough was slightly elevated today in 23 range, renal function is fine ,vanco dose was adjusted, monitor vanco trough and renal function . in addition: Patient has been admitted to [facility] from 12/13/2024 to 12/25/2024 for bilateral lower lobe pneumonia complicated by lymphadenopathy, elevated LDH and LFTs, was treated with levofloxacin and had excisional biopsy of left axillary lymph node on 12/25/2024 with results -Lymph node with follicular and interfollicular hyperplasia with prominent vessels and focal pigment deposition,ment deposition. Comment: Take together, the findings are most in-keeping with a reactive process. Castleman's disease is considered.d/w hematology/oncology and pathology-Castleman's disease is les s concerned. Consider Rheumatology, haem/Oncology evaluation in [facility]. d/w rheumatology Dr Stephens - labs including rheumatoid factor elevated-other labs:SHERYL, dsDNA, C3, C4, Sjogrens labs, UA, UPC, lupus anticoagulant, beta 2 glycoprotein, cardiolipin, ANCA, RF, CCP, Ferritin pending plan -as above. d/w patient at bedside in detail, she understands and in agreement with above plan, time spent 50 min,all questions answered. Time Attestation Total time managing care of this patient today: 45 mintues. Discharge Coordination Time (in mins): 45 minutes Quality: Safe Use of Opioids Does Pt have an Active Cancer Diagnosis on the Problem List?: No Quality: Stroke Does the patient have a stroke diagnosis?: No Physical Exam Exam: Exam: Appearance: Alert.? Oriented X3. cvs: rrr, [id number] -has pericardial drain(has around 50 cc fluid) res: air entry fair ,diminshed at bases abd: no rebound or guarding,nt, bs present. ext pulses present , no cyanosis. neuro: axo3 , nonfocal. Vital Signs: Vital Signs: Last Vital Signs Temp 98.3 F 01/01/25 16:00 Pulse 117 H 01/01/25 16:00 Resp 18 01/01/25 16:00 BP 111/76 01/01/25 16:00 Pulse Ox 91 L 01/01/25 16:00 O2 Del Method Room Air 01/01/25 16:00 O2 Flow Rate 2 12/30/24 17:00 BMI result Body Mass Index 29.5 DS: Data Data Completed and Pending Pending studies at discharge: Pending at discharge 12/31/24 13:13 Cytology [PTH] Urgent 01/01/25 16:24 Cytology [PTH] Routine Labs on day of discharge: Laboratory Results - last 24 hr 12/30/24 01/01/25 01/01/25 18:07 06:50 08:27 Sodium 136 Potassium 3.8 Chloride 108 Carbon Dioxide 19 L Anion Gap 13 BUN 24 H Creatinine 0.94 Estim Creat Clear Calc 94.9 Estimated GFR > 60 Random Glucose 83 Calcium 7.9 L Total Bilirubin 0.9 Direct Bilirubin 0.5 AST 170 H ALT 112 H Alkaline Phosphatase 148 H Total Protein 6.4 L Albumin 3.3 L Urine Color Urine Appearance Urine pH Ur Specific [place] Urine Protein Urine Glucose (UA) Urine Ketones Urine Blood Urine Nitrite Ur Leukocyte Esterase Urine RBC Urine WBC Ur Squamous Epith Cells Urine Bacteria Hyaline Casts Granular Casts Urine Yeast Random Vancomycin 23.0 H Complement C3 82 L Complement C4 16 01/01/25 15:10 Sodium Potassium Chloride Carbon Dioxide Anion Gap BUN Creatinine Estim Creat Clear Calc Estimated GFR Random Glucose Calcium Total Bilirubin Direct Bilirubin AST ALT Alkaline Phosphatase Total Protein Albumin Urine Color Dark Yellow Urine Appearance Cloudy Urine pH 6.0 Ur Specific [place] >= 1.030 H Urine Protein 100 (2+) H Urine Glucose (UA) Negative Urine Ketones 15 Urine Blood Small (1+) H Urine Nitrite Negative Ur Leukocyte Esterase Trace H Urine RBC 0-2 Urine WBC 0-5 Ur Squamous Epith Cells 11-20 Urine Bacteria None Seen Hyaline Casts 11-20 Granular Casts Present Urine Yeast Present Random Vancomycin Complement C3 Complement C4 Preliminary micro results at discharge 12/30/24 16:30 Routine Culture - Preliminary Pericardial Fluid No growth to date. Anaerobic Culture - Preliminary No growth to date. 12/31/24 14:05 Routine Culture - Preliminary Pleura No growth to date. Anaerobic Culture - Preliminary No growth to date. 12/29/24 07:24 Blood Culture - Preliminary Blood - Venous No growth after 48 hours. 12/29/24 07:24 Blood Culture - Preliminary Blood - Venous No growth after 48 hours. Imaging Chest x-ray: Radiologist's impression: ITS Impressions Venous Duplex 12/29/24 11:11 IMPRESSION: No evidence of deep venous thrombosis involving the bilateral lower extremities. Electronically signed by: Jose Bermeo MD 12/29/2024 11:35 AM EDT Chest CTA 12/30/24 10:56 IMPRESSION: Bilateral pleural effusions, moderate to large volume and moderate volume pericardial effusion. Cardiac tamponade cannot be excluded. No main pulmonary artery emboli. Prominent main pulmonary artery. Pulmonary hypertension should be considered in the correct clinical settings. Right top pulmonary vein. Fleischner guidelines were followed. Electronically signed by: Devyn Quiroz MD 12/30/2024 11:41 AM EDT echo: Conclusions: - Small circumferential pericardial effusion without any clear evidence of tamponade, more moderate loculated near the base of the left ventricle Findings Pericardium/Pleural There is a small pericardial effusion. The inferior vena cava is dilated with reduced respiratory variability. there is no clear other evidence of tamponade on this study. pericardial effusion appears more moderate loculated near the base of the left ventricle Prior Study Comparison Changes noted compared to prior study dated: 12/30/2024. pericardial effusion in his smaller in size Discharge Plan Discharge Anticipated Discharge Date/Time: 01/01/25 16:17 Patient Disposition: Xfer [facility] Discharge Diagnosis: Pericardial/pleural effusion etiology unclear Referrals: Hilda Joyce MD [Primary Care Provider, Internal Medicine] - 1 Week Discharge Medications: New ibuprofen 400 mg Tablet 400 mg PO Q6H PRN (Reason: Fever) Qty: 1 0RF omeprazole 20 mg Capsule,Delayed Release(Dr/Ec) 20 mg PO BID@0630,1630 Qty: 1 0RF colchicine [Colcrys] 0.6 mg Tablet 0.6 mg PO BID Qty: 1 0RF meropenem 1 gram Recon Soln 1 g IVPUSH Q8H Qty: 1 0RF azithromycin 500 mg Recon Soln 500 mg IV Q24H Qty: 1 0RF vancomycin in 0.9 % sodium chl 1 gram/250 mL solution 1 g IV Q12H Continued albuterol sulfate 90 mcg/actuation Hfa Aerosol Inhaler 2 puff INHALATION Q4H PRN (Reason: Respiratory Distress) docusate sodium [Colace] 100 mg Capsule 100 mg PO DAILY PRN (Reason: constiption) Held ibuprofen 800 mg tablet 800 mg PO TID PRN (Reason: Pain) Hold Instructions: Resume on 01/20/25. aspirin 325 mg Tablet 325 mg PO Q4H PRN (Reason: Pain) Hold Instructions: Resume on 01/13/25. Rx Instructions: while awake Discontinued levofloxacin 750 mg tablet 750 mg PO DAILY Qty: 9 0RF Discharge Orders: Discharge Order (Routine); Ordered 01/01/25 Ordered By: Bang Martin Diet: Advance to usual diet Activity on Discharge: As tolerated Stand Alone Forms: Patient Portal Discharge page Print Language: Singaporean Care Plan Goals: 29F PMH mild intermittent asthma, multiple sclerosis recently on dimethylfumarate, presented with sob and chest pain Dyspnea chest pain and tachycardia-pericardial effusion? Unclear etiology: Workup with venous duplex, CTA-negative for emboli, echo showed significant bradycardia effusion with symptoms: Patient was seen by IR and pericardial drain was placed. In addition patient also had thoracentesis done: Both pericardial and pleuritic fluid have 20,000 WBC with neutrophil predominance, LDH in the pericardial effusion is 3855 . blood culture neg @48hrs , urine culture neg, pericardial and pleural effusion cultures preliminary negative, AFP cultures pending, also pathology from pleural/pericardial effusion is pending Patient was initially thought to be having sepsis with pneumonia-started on antibiotics, since pleural cultures are preliminary negative , pulmonary recommended to continue 1 more day of antibiotic until culture final negative, ID recommended stop antibiotics, consider Id reeval before dc antibiotics. Patient is currently on vanco/meropenem/azithromycin-vanco trough was slightly elevated today in 23 range, renal function is fine ,vanco dose was adjusted, monitor vanco trough and renal function . in addition: Patient has been admitted to [facility] from 12/13/2024 to 12/25/2024 for bilateral lower lobe pneumonia complicated by lymphadenopathy, elevated LDH and LFTs, was treated with levofloxacin and had excisional biopsy of left axillary lymph node on 12/25/2024 with results -Lymph node with follicular and interfollicular hyperplasia with prominent vessels and focal pigment deposition,ment deposition. Comment: Take together, the findings are most in-keeping with a reactive process. Castleman's disease is considered. d/w hematology/oncology and pathology-Castleman's disease is les s concerned. Consider Rheumatology, Oncology evaluation in [facility]. Discussed with the rheumatology,hematology - d/w rheumatology Dr Stephens - labs including rheumatoid factor elevated-other labs:SHERYL, dsDNA, C3, C4, Sjogrens labs, UA, UPC, lupus anticoagulant, beta 2 glycoprotein, cardiolipin, ANCA, RF, CCP, Ferritin pending Health Concerns: as above. Plan of Treatment: as above. Assessment: as above. Discharge Date/Time: 01/01/25 18:31
[2025-01-01 17:18] LABS: Antibody to SS-A Antigen <1.0 NEG AI (<1.0 NEG); Antibody to SS-B Antigen <1.0 NEG AI (<1.0 NEG); Proteinase 3 PR3 Antibodies <1.0 AI
--- NOTE | 2025-01-01 19:09 | PM.PNCARD ---
Subjective Subjective Date of Service: 01/01/25 Interval history: Seen examined at bedside. She had thoracentesis of the left side yesterday. She has a pericardial drain in place. She is saying her breathing is better. Continues to be on broad-spectrum antibiotics. We repeated the echocardiogram today. She has small pericardial effusion overall but has moderate pockets posteriorly. Right ventricular function appears to be worse than before and right ventricular appears to be more dilated. Physical Exam Vital Signs: Last Vital Signs Temp 98.3 F 01/01/25 16:00 Pulse 117 H 01/01/25 16:00 Resp 18 01/01/25 16:00 BP 111/76 01/01/25 16:00 Pulse Ox 91 L 01/01/25 16:00 O2 Del Method Room Air 01/01/25 16:00 O2 Flow Rate 2 12/30/24 17:00 BMI result Body Mass Index 29.5 GENERAL APPEARANCE: in no acute distress, ill-appearing. NECK: no carotid bruit, positive jugular venous distention. SKIN: no suspicious lesions, warm and dry. HEART: no murmurs, regular rate and rhythm. Tachycardic. LUNGS: clear to auscultation bilaterally. ABDOMEN: soft, nontender. EXTREMITIES: no edema. PERIPHERAL PULSES: equal. NEUROLOGIC: No gross deficits, AAO X 3 Pericardial drain noted with straw-colored fluid. Objective Labs and Meds 12/31/24 10:10 01/01/25 06:50 Lab results: Laboratory Results - last 24 hr 12/30/24 01/01/25 01/01/25 18:07 06:50 08:27 Sodium 136 Potassium 3.8 Chloride 108 Carbon Dioxide 19 L Anion Gap 13 BUN 24 H Creatinine 0.94 Estim Creat Clear Calc 94.9 Estimated GFR > 60 Random Glucose 83 Calcium 7.9 L Total Bilirubin 0.9 Direct Bilirubin 0.5 AST 170 H ALT 112 H Alkaline Phosphatase 148 H Total Protein 6.4 L Albumin 3.3 L Urine Color Urine Appearance Urine pH Ur Specific [place] Urine Protein Urine Glucose (UA) Urine Ketones Urine Blood Urine Nitrite Ur Leukocyte Esterase Urine RBC Urine WBC Ur Squamous Epith Cells Urine Bacteria Hyaline Casts Granular Casts Urine Yeast Random Vancomycin 23.0 H Proteinase 3 (PR3) Ab <1.0 Myeloperoxidase Ab <1.0 SS-A/Ro Antibody <1.0 NEG SS-B/La Antibody <1.0 NEG Double Strand DNA Ab 1 Anti-Cardiolipin IgG Ab <2.0 Anti-Cardiolipin IgM Ab 2.0 Complement C3 82 L Complement C4 16 01/01/25 15:10 Sodium Potassium Chloride Carbon Dioxide Anion Gap BUN Creatinine Estim Creat Clear Calc Estimated GFR Random Glucose Calcium Total Bilirubin Direct Bilirubin AST ALT Alkaline Phosphatase Total Protein Albumin Urine Color Dark Yellow Urine Appearance Cloudy Urine pH 6.0 Ur Specific [place] >= 1.030 H Urine Protein 100 (2+) H Urine Glucose (UA) Negative Urine Ketones 15 Urine Blood Small (1+) H Urine Nitrite Negative Ur Leukocyte Esterase Trace H Urine RBC 0-2 Urine WBC 0-5 Ur Squamous Epith Cells 11-20 Urine Bacteria None Seen Hyaline Casts 11-20 Granular Casts Present Urine Yeast Present Random Vancomycin Proteinase 3 (PR3) Ab Myeloperoxidase Ab SS-A/Ro Antibody SS-B/La Antibody Double Strand DNA Ab Anti-Cardiolipin IgG Ab Anti-Cardiolipin IgM Ab Complement C3 Complement C4 Progress Note: A&P Assessment and plan (1) Right ventricular dysfunction: Status: Acute (2) Tachycardia: Status: Acute (3) Pericardial effusion: Status: Acute Plan [age] year female presenting with pleuritic chest done and tachycardia. Significant RV dysfunction and [id number] pericardial effusion which has developed since 12/21/2024. She was treated for pericardial effusion with pericardial drain because there was concern for tamponade. She improved significantly with the pericardial drain. She continued to be short of breath due to effusions and had thoracentesis done yesterday. All the fluids are exudative and she has significant neutrophilia noticed. She is on broad-spectrum antibiotics. Right ventricular function continues to be severely reduced. Etiology is unclear to me. She did not have PE by CT pulmonary angiogram done recently although the echo findings are quite concerning for acute cor pulmonale and she has Metz sign usually seen with acute pulmonary embolism. I have discussed the case with cardiac care unit at [facility] and I will transfer her to [facility] for further assessment and care. Thank you for allowing me to participate in the care of your patient. Please feel free to contact me if you have any questions. Time Spent With Patient Time: Total time managing care of this patient today ____ minutes. Progress Note: Quality Stroke Does the patient have a stroke diagnosis?: No Procedures Date of Service Date of Service: 01/01/25
[2025-01-04 17:02] LABS: Albumin Pleural Fluid 1.8
[2025-01-05 15:08] LABS: Anti Nuclear Antibody Pattern Nuclear, Speckled; Anti Nuclear Antibody Screen POSITIVE (NEGATIVE); Anti Nuclear Antibody Titer 1:1280 titer
[2025-01-06 08:03] LABS: Thrombin Clotting Time 18 sec (13-19)
== END 2025-01-01 18:31 | disposition short-term general hospital (02) | DRG 720 ==
LOC: HO.ED 07:29 → HO.EDOVER 07:47 → HO.S3 16:50 → HO.IMC 12-30 11:55
PROVIDERS: Internal Medicine; Radiology Vascular & Interventional Radiology; Admitting Provider Internal Medicine; Emergency Provider Emergency Medicine; PCP Internal Medicine; Visit Provider Internal Medicine
PROC: 0W9B3ZZ Drainage of Left Pleural Cavity, Percutaneous Approach (ICD-10-PCS; principal; 2024-12-31 13:30)
DX: A41.9 Sepsis, unspecified organism (principal); D84.9 Immunodeficiency, unspecified; I31.39 Other pericardial effusion (noninflammatory); J18.9 Pneumonia, unspecified organism; J91.8 Pleural effusion in other conditions classified elsewhere; I95.9 Hypotension, unspecified; J45.20 Mild intermittent asthma, uncomplicated; R59.1 Generalized enlarged lymph nodes; G35 Multiple sclerosis; E83.42 Hypomagnesemia; Z20.822 Contact with and (suspected) exposure to COVID-19; Z79.82 Long term (current) use of aspirin; Z79.899 Other long term (current) drug therapy
CPT/HCPCS: 32555; 33016; 36415; 71046; 71275; 80048; 80053; 80076; 80202; 81001; 81025; 82042; 82565; 82728; 82803; 82945; 83605; 83615; 83690; 83735; 83880; 83986; 84157; 84311; 84443; 84484; 85007; 85027; 85597; 85598; 85613; 85652; 85670; 85730; 86021; 86038; 86039; 86140; 86146; 86147; 86160; 86200; 86225; 86235; 86431; 87040; 87070; 87073; 87086; 87116; 87205; 87206; 87502; 87633; 87635; 88112; 88305; 88312; 89051; 93005; 93308; 93970; 94640; 99285; C1729; J0131; J0456; J1956; J2003; J2185; J2405; J3010; J3374; J3475; J7120; P9047; Q9957; Q9967

== ENCOUNTER → 2024-12-29 04:43 | Outpatient (BNV) | payer OTHER, SELFPAY | PROVIDERS: Admitting Provider Internal Medicine; Emergency Provider Emergency Medicine; PCP Internal Medicine; Visit Provider Internal Medicine Cardiovascular Disease | DX: R00.0 Tachycardia, unspecified (principal) | CPT/HCPCS: 93010 ==

== ENCOUNTER → 2024-12-29 05:11 | Outpatient (BNV) | payer OTHER, SELFPAY | PROVIDERS: Emergency Provider Emergency Medicine; PCP Internal Medicine; Visit Provider Radiology Vascular & Interventional Radiology | DX: R06.02 Shortness of breath (principal); J90 Pleural effusion, not elsewhere classified | CPT/HCPCS: 71046 ==

== ENCOUNTER 2024-12-29 07:25 | Outpatient (BNV) | payer OTHER, SELFPAY | END 2025-01-01 07:00 | PROVIDERS: Admitting Provider Internal Medicine; Emergency Provider Emergency Medicine; PCP Internal Medicine; Visit Provider Internal Medicine Cardiovascular Disease | DX: I31.39 Other pericardial effusion (noninflammatory) (principal) | CPT/HCPCS: 93308 ==

== ENCOUNTER 2024-12-29 07:25 | Outpatient (BNV) | payer OTHER, SELFPAY | END 2024-12-30 10:56 | PROVIDERS: Admitting Provider Internal Medicine; Emergency Provider Emergency Medicine; PCP Internal Medicine; Visit Provider Radiology Diagnostic Radiology | DX: J90 Pleural effusion, not elsewhere classified (principal) | CPT/HCPCS: 71275 ==

== ENCOUNTER 2024-12-29 07:25 | Outpatient (BNV) | payer OTHER, SELFPAY | END 2024-12-30 07:00 | PROVIDERS: Admitting Provider Internal Medicine; Emergency Provider Emergency Medicine; PCP Internal Medicine; Visit Provider Internal Medicine Cardiovascular Disease | DX: I27.20 Pulmonary hypertension, unspecified (principal); I31.39 Other pericardial effusion (noninflammatory); I50.9 Heart failure, unspecified; R00.0 Tachycardia, unspecified | CPT/HCPCS: 93010; 93308 ==

== ENCOUNTER 2024-12-29 07:25 | Outpatient (BNV) | payer OTHER, SELFPAY | END 2024-12-31 13:30 | PROVIDERS: Admitting Provider Internal Medicine; Emergency Provider Emergency Medicine; PCP Internal Medicine; Visit Provider Radiology Vascular & Interventional Radiology | DX: J90 Pleural effusion, not elsewhere classified (principal) | CPT/HCPCS: 32555 ==

== ENCOUNTER → 2024-12-29 07:25 | Outpatient (BNV) | payer OTHER, SELFPAY | PROVIDERS: Admitting Provider Internal Medicine; Emergency Provider Emergency Medicine; PCP Internal Medicine; Visit Provider Internal Medicine Cardiovascular Disease | DX: R00.0 Tachycardia, unspecified (principal); I31.39 Other pericardial effusion (noninflammatory); I51.9 Heart disease, unspecified | CPT/HCPCS: 99223 ==

== ENCOUNTER → 2024-12-29 07:25 | Outpatient (BNV) | payer OTHER, SELFPAY | PROVIDERS: Admitting Provider Internal Medicine; Emergency Provider Emergency Medicine; PCP Internal Medicine; Visit Provider Internal Medicine | DX: R00.0 Tachycardia, unspecified (principal) | CPT/HCPCS: 99223; 99232; 99239; 99499 ==

== ENCOUNTER → 2024-12-29 07:25 | Outpatient (BNV) | payer OTHER, SELFPAY | PROVIDERS: Admitting Provider Internal Medicine; Emergency Provider Emergency Medicine; PCP Internal Medicine; Visit Provider Internal Medicine | DX: J18.9 Pneumonia, unspecified organism (principal); J90 Pleural effusion, not elsewhere classified | CPT/HCPCS: 99222; 99499 ==

== ENCOUNTER → 2024-12-29 07:25 | Outpatient (BNV) | payer OTHER, SELFPAY | PROVIDERS: Admitting Provider Internal Medicine; Emergency Provider Emergency Medicine; PCP Internal Medicine; Visit Provider Internal Medicine Pulmonary Disease | DX: J90 Pleural effusion, not elsewhere classified (principal) | CPT/HCPCS: 99222 ==

== ENCOUNTER 2025-02-26 10:35 | Outpatient (REF) | payer OTHER, SELFPAY | END 2025-02-26 10:36 | disposition home or self-care (01) | LOC: HO.HKASLDS 10:35 | PROVIDERS: PCP Internal Medicine; Visit Provider Student in an Organized Health Care Education/Training Program | DX: M32.12 Pericarditis in systemic lupus erythematosus (principal); Z51.81 Encounter for therapeutic drug level monitoring; Z79.899 Other long term (current) drug therapy; Z79.624 Long term (current) use of inhibitors of nucleotide synthesis | CPT/HCPCS: 36415; 99202 ==

== ENCOUNTER 2025-02-26 10:35 | Outpatient (AMB) | payer OTHER, SELFPAY ==
--- NOTE | 2025-02-26 10:49 | A.OFFVIS_ITS ---
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 Allergies morphine (MORPHINE) Allergy (Severe, Verified 02/26/25 10:55) HYPOVENTILATION, excellerated heart rate and sob cromolyn (From INTAL) Allergy (Intermediate, Verified 02/26/25 10:55) HYPERACTIVITY amoxicillin (AMOXICILLIN) Allergy (Unknown, Verified 02/26/25 10:55) HIVES, hives and welts HPI Comments Details: Patient is a 29-year-old female with mild intermittent asthma and multiple sclerosis here today for evaluation of lupus Patient was admitted to the hospital 12/13/2024 - 12/25/2024 for bilateral lower lobe pneumonia complicated by lymphadenopathy, elevated LDH and LFTs. She was treated with levofloxacin and had an excisional biopsy of left axillary lymph node. She was feeling better at the time of discharge however re-presented for admission 12/29/24 - 01/01/25 with worsening shortness of breath, right-sided chest pain dry cough. She was found to have bilateral pleural effusions and received a therapeutic tap which showed an exudative effusion with out evidence of empyema. Labs significant for positive SHERYL and low complement. She was discharged from [facility] and then re-presented to [facility] with recurrence of her bilateral pleural effusions as well as KRISHAN. 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 and further lab tests included a positive Mcfadden and a positive DESIZING MACHINE OPERATOR antibody She was discharged on 40 mg of prednisolone and colchicine Denies rashes, photosensitivity, alopecia, oral/nasal ulcers, sicca symptoms, lower extremity edema, muscle weakness Also denies history of seizure, CVA, psychosis, history of kidney problems, history of cytopenias, history of VTE including PE or DVTs Does has a history of Raynaud's [facility] Medical History (Updated 02/26/25 @ 12:32 by Nicki Stephens MD) SLE (systemic lupus erythematosus) Multiple sclerosis IBS (irritable bowel syndrome) GERD (gastroesophageal reflux disease) Surgical History Hx of tonsillectomy Family History Mother Anemia Sister Heart murmur Father Diabetes HTN (hypertension) Maternal Grandmother Diabetes Social History Household Members: None Housing: Apartment Do you presently have visiting nurse or other home services: No Alcohol intake: never Comment: Patient independent Patient Tobacco Use Status: Never used Tobacco service: No Review of Systems Narrative Review of Systems Constitutional: Denies fever, chills, weight loss ENT: Denies vision changes, eye pain or eye redness, dental caries, dry mouth GI: Denies nausea, vomiting, diarrhea, abdominal pain, change in BM Pulm: Denies hemoptysis, wheezing Cards: Denies chest pain, palpitations Skin: Denies nail changes, photosensitivity, DIRECTOR OF PROVIDER RELATIONS: Denies headaches, weakness, paresthesias, recurrent falls MSK: as per HPI All other systems reviewed and are unremarkable except noted above Physical Exam Vital Signs: Last Vital Signs Pulse 118 H 02/26/25 10:57 BP 132/90 H 02/26/25 10:57 Pulse Ox 100 02/26/25 10:57 Oxygen Delivery Method Room Air 02/26/25 10:57 BMI result Body Mass Index 28.3 Results Reviewed Results Reviewed: Laboratory Tests 12/30/24 12/31/24 01/01/25 15:26 10:10 06:50 WBC 15.3 H RBC 4.52 Hgb 11.2 L Hct 33.5 L Plt Count 626 H ESR 20 Sodium 136 Potassium 3.8 Chloride 108 Carbon Dioxide 19 L BUN 24 H Creatinine 0.94 AST 170 H ALT 112 H C-Reactive Protein 25.43 H Laboratory Tests 12/31/24 14:05 Pleural pH 7.49 Pleural WBC 21.633 Pleural Total Protein 3.4 Pleural LDH 863 Pleural Glucose 85 Pleur Adenosine Deamin 13 Laboratory Tests 12/30/24 12/30/24 01/09/25 15:26 18:07 Rheumatoid Factor 28.3 H Cycl Citrul Peptide IgG <16 SHERYL Screen POSITIVE A SHERYL Titer 1:1280 H SHERYL Pattern Nuclear, Speckled A SS-A/Ro Antibody <1.0 NEG SS-B/La Antibody <1.0 NEG Mcfadden >8.0 DESIZING MACHINE OPERATOR >8.0 Double Strand DNA Ab 1 Complement C3 82 L Complement C4 16 ECHO 12/2024 Conclusions: - Small circumferential pericardial effusion without any clear evidence of tamponade, more moderate loculated near the base of the left ventricle Findings Pericardium/Pleural There is a small pericardial effusion. The inferior vena cava is dilated with reduced respiratory variability. there is no clear other evidence of tamponade on this study. pericardial effusion appears more moderate loculated near the base of the left ventricle Right Kidney Biopsy 12/2024 Acute tubular necrosis with mild acute tubular injury There is associated mild patchy interstitial nephritis Negative for immune complex mediated disease or paraprotein deposition disease No significant chronic changes Assessment & Plan Assessment & Plan (1) SLE (systemic lupus erythematosus): Comment: Dx 01/2025 +SHERYL, Mcfadden, DESIZING MACHINE OPERATOR, low complement, serositis (lung and heart) Code(s): M32.9 - Systemic lupus erythematosus, unspecified Category: Medical Qualifiers: Systemic lupus erythematosus type: unspecified Systemic lupus er ythematosus organ involvement: pericarditis Qualified Code(s): M32.12 - Pericarditis in systemic lupus erythematosus Plan: #SLE Patient is a 29-year-old female with multiple sclerosis now new diagnosed with lupus based on serositis, positive SHERYL, positive Mcfadden, low complement (C3), positive DESIZING MACHINE OPERATOR. She is currently on 40 mg of prednisone we will taper this and start her on hydroxychloroquine and azathioprine. 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) drug therapy Plan: #Long-term Use of Hydroxychloroquine Discussed with patient the risks and benefits of hydroxychloroquine in managing the rheumatic condition Benefits include: - Reduced pain, reduce mortality, maintenance of remission and reduction of flares Risks include: - GI upset, skin hyperpigmentation, retinal toxicity (especially after more than 5 years of use), myopathy Advised yearly ophthalmology visits (3) Encounter for monitoring azathioprine therapy: Code(s): Z51.81 - Encounter for therapeutic drug level monitoring; Z79.624 - retirement (current) use of inhibitors of nucleotide synthesis Plan: #Long-term use of azathioprine Discussed with patient the benefits and risks of azathioprine for the management of the rheumatic condition Benefits include: - Reduced pain, maintenance of remission and reduction of flares Risks include: - Bone marrow suppression, GI upset, lymphoma, hepatotoxicity, pancreatitis, hypersensitivity syndrome TPMT enzyme: Drug monitoring: CBC every 4 weeks for the 1st 3 months then CBC BMP LFTs every 3 months Avoid concomitant sulfasalazine, allopurinol or febuxostat Plan I spent 60 minutes reviewing the record and labs, taking a history, examining the patient, discussing the treatment plan, contacting pathology about biopsy results, ordering diagnostic work up and documenting in the medical record Orders: Orders Erythrocyte Sedimentation Rate 3 Months . - Systemic lupus erythematosus, unspecified Protein Creatinine Ratio, Ur 3 Months . - Systemic lupus erythematosus, unspecified Complement C3 3 Months M3. - Systemic lupus erythematosus, unspecified Complement C4 3 Months M32.9 - Systemic lupus erythematosus, unspecified Comprehensive Met. Panel 3 Months 2. - Systemic lupus erythematosus, unspecified Prometheus TPMT Enzyme Today M3. - Systemic lupus erythematosus, unspecified Complete Blood Count Auto Diff 3 Months M32. - Systemic lupus erythematosus, unspecified Anti DNA DS Antibody 3 Months M32. - Systemic lupus erythematosus, unspecified UA ClnCatch+Micro w/rflx Cult 3 Months 2. - Systemic lupus erythematosus, unspecified C Reactive Protein 3 Months M32.9 - Systemic lupus erythematosus, unspecified Medications: New azathioprine 150 mg (3 x 50 mg) PO DAILY 270 tabs 1RF 90 days . - Systemic lupus erythematosus, unspecified prednisone Take 4 tablets for 14 days then 3 tablets for 14 days then 2.5 tablets for 14 days then 2 tablets for 14 days then 1 tablet for 30 days 5 mg PO DIRECTED 200 tabs 0RF . - Systemic lupus erythematosus, unspecified hydroxychloroquine (Sovuna) 200 mg PO BID 180 tabs 1RF 90 days . - Systemic lupus erythematosus, unspecified Coding Level of Care Code New Pt Level 5 (60703) Complex EM visit Add On G2211 Diagnoses Systemic lupus erythematosus (SLE) with pericarditis, unspecified SLE type M32.12 Systemic lupus erythematosus type: unspecified Systemic lupus erythematosus organ involvement: pericarditis Encounter for monitoring of hydroxychloroquine therapy Z51.81; Z79.899 Encounter for monitoring azathioprine therapy Z51.81; Z79.624
[2025-02-26 10:57] VITALS: BP 132/90; PULSE 118; O2SAT 100; BMI 28.3
--- OUTSIDE RECORDS SUMMARY | 2025-02-26 12:01 | XMS_ITS | Clinical Summary ---
Author Organization [employer] Address [address] [facility] [address] [place] [address] Care Team Providers Care Concrete Buildings Assembler Name Role Phone Hilda Joyce MD Primary Care Provide r Allergies Active Allergy Reactions Criticality Noted Date Comments Amoxicillin Hives 02/12/2018 Morphine Anaphylaxis High 02/12/2018 Medications albuterol (Ventolin HFA) 108 (90 Base) MCG/ACT inhalerIndicati ons:Mild persistent asthma without complication INHALE 2 PUFFS BY MOUTH EVERY 4 TO 6 HOURS NEEDED 18 g 3 12/22/19 25 Active Aviane 0.1-20 MG-MCG tabletIndicatio ns:BCP ( control pills) initiation TAKE ONE TABLET BY MOUTH EVERY DAY 28 tablet 1 01/29/20 25 Active loperamide (Imodium) 2 MG capsule Take 1 capsule by mouth if needed in the morning, at noon, and at bedtime for diarrhea. 01/21/20 25 Active predniSONE (Deltasone) 20 MG tablet Take 2 tablets by mouth Once per day. 12/15/19 25 025 Active Opsumit 10 MG tablet Take 1 tablet by mouth Once per day. 01/23/20 25 Active sodium bicarbonate 650 MG tablet Take 1 tablet by mouth Once per day. 01/16/20 25 Active tadalafil (Adcirca) 20 mg tablet Take 1 tablet by mouth Once per day. 01/23/20 25 Active torsemide (Demadex) 20 MG tabletIndicatio ns:Autoimmune disease (CMS/HCC) Take 1 tablet (20 mg) by mouth Once per day. 30 tablet 2 02/06/20 25 Active spironolactone (Aldactone) 25 MG tabletIndicatio ns:Autoimmune disease (CMS/HCC) Take 1 tablet (25 mg) by mouth Once per day. 30 tablet 2 02/06/20 25 Active colchicine 0.6 MG tabletIndicatio ns:Autoimmune disease (CMS/HCC) Take 1 tablet (0.6 mg) by mouth 2 times daily. 60 tablet 2 02/06/20 25 Active pantoprazole (Protonix) 20 MG EC tabletIndicatio ns:Current chronic use of systemic steroids Take 1 tablet (20 mg) by mouth before breakfast. Do not crush, chew, or split. 30 tablet 11 02/06/20 25 026 Active fluticasone (Flonase Allergy Relief) 50 MCG/ACT nasal sprayIndication s:Acute non-recurrent sinusitis, unspecified location Administer 1 spray into each nostril in the morning. Shake gently. Before first use, prime pump. After use, clean tip and replace cap. 16 g 12 05/07/19 23 025 Discontinued levonorgestrel- ethinyl estradiol (Aviane) 0.1-20 MG-MCG tabletIndicatio ns:BCP ( control pills) initiation Take 1 tablet by mouth Once per day. 28 tablet 12 12/27/19 24 025 Discontinued ibuprofen 800 MG tablet TAKE ONE TABLET BY MOUTH THREE TIMES A DAY WITH FOOD 30 tablet 11/14/19 25 025 Discontinued(M ed list cleanup (will not trigger notification to Pharmacy)) colchicine 0.6 MG tablet Take 1 tablet by mouth 2 times daily. 01/02/20 025 Discontinued(R eorder (will not trigger notification to Pharmacy)) gabapentin (Neurontin) 100 MG capsule Take 1 capsule by mouth 2 times daily. 01/16/20 25 025 Discontinued spironolactone (Aldactone) 25 MG tablet Take 1 tablet by mouth Once per day. 01/21/20 025 Discontinued(R eorder (will not trigger notification to Pharmacy)) torsemide (Demadex) 20 MG tablet Take 1 tablet by mouth Once per day. 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 Awaiting final confirmation from home care specialist. - Referral placed to rheumatology, preference for Dr. Blair York if available, otherwise any available client service coordinator. Agreed with specialist s plan to wean off prednisone and initiate immunosuppressant therapy. Refills provided for torsemide, spironolactone, and colchicine to cover until rheumatology follow-up. Gabapentin discontinued per patient request; Tylenol to be continued as needed. Follow-up scheduled in March 2025 to medical review coordinator recommendations and ongoing management. Mild intermittent asthma, unspecified whether co mplicated 02/05/2025 Assessment & Plan (02/05/2025 11:53 AM EDT): Asthma currently stable; no recent use of inhaler since hospital discharge. - Advised to avoid asthma triggers. Noted that albuterol may exacerbate tachycardia; recommendation to minimize use. Current chronic use of systemic steroids Assessment & Plan (02/05/2025 11:53 AM EDT): - Ongoing prednisone therapy; plan to taper per rheumatology guidance. - Provided refills for prednisone as needed until specialist follow-up. Pantoprazole refilled for gastric protection due to steroid and colchicine use. Pulmonary hypertension ([facility]) 02/05/2025 Assessment & Plan (02/05/2025 11:54 AM EDT): - Persistent tachycardia and elevated diastolic blood pressure attributed to underlying pulmonary hypertension; specialty medications initiated by cardiology. - Monitor cardiovascular status; continue current management as directed by cardiology and pulmonary specialists. Ecchymosis 02/05/2025 Assessment & Plan (02/05/2025 11:55 AM EDT): - Subcutaneous lumps and ecchymosis at previous heparin injection sites are expected post-anticoagulation; no concerning features on examination. - Reassured regarding expected resolution; monitored for changes. Encounter for screening for cervical cancer 11/29 Assessment & Plan (12/27/2023 11:31 AM EDT): Pelvic exam and PAP done, patient will be contacted with results BCP ( control pills) initiation 12/27/2023 Assessment & Plan (12/27/2023 11:30 AM EDT): Patient summer counselor about side effect of control pills Encounters Date Type Department Care Team Description 02/15/[address] [address] Hilda Joyce MD Referral 02/05/2025 11:00 AM EDT Office Visit [address] [address] Hilda Joyce MD Mild intermittent asthma, unspecified whether complicated (Primary Dx); Autoimmune disease (CMS/HCC); Current chronic use of systemic steroids; Pulmonary hypertension (CMS/HCC) (HCC); Ecchymosis; Encounter for immunization 02/05/2025 Travel 02/04/2025 Travel 02/04/[address] [address] Hilda Joyce MD Chart Prep 01/27/[address] [address] Hilda Joyce MD BCP ( control pills) initiation 01/21/[address] [address] Hilda Joyce MD Referral 01/21/2025 Patient Outreach [address] [address] Hilda Joyce MD Transition Of Care (Tcm) (HDF scheduled) 01/18/2025 Patient Outreach [facility] [address] [place], [place] [phone] Hilda Joyce MD Transition Of Care (Tcm) (HDF unscheduled. ) 01/08/[address] [address] Jazmyne Burns, DafneD 01/08/2025 Telephone [facility] [address] [place] [address] Hilda Joyce MD chart prep 01/06/2025 Orders Only [address] [address] Hilda Joyce MD 12/29/2024 Orders Only GENERIC EXTERNAL DATA DEPARTMENT Provider, Generic External Data 12/23/2024 Orders Only GENERIC EXTERNAL DATA DEPARTMENT Provider, Generic External Data 12/23/2024 Telephone [facility] [address] [place] [address] Hilda Joyce MD ER Follow-up 12/21/2024 Refill [facility] [address] [place], [place] [phone] Hilda Joyce MD Mild persistent asthma without complication 12/15/2024 Patient Outreach [address] [phone] Hilda Joyce MD Transition Of Care (Tcm) (HDF unscheduled LVM ) 12/13/2024 Orders Only [facility] External Provider, [facility] from Last 3 Months Immunizations Immunization Administration Dates Next Due HPV, Quadrivalent 09/14/2011,01/30/2010,07/03/19 08 Influenza Injectable Quadriv alant Preservative Free IIV4 MDCK 02/06/2019 Influenza Whole 02/02/2008 Influenza injectable quadriv alent IIV4 with preservative 02/05/2020,02/12/2018 Influenza, IIV3, injectable 03/19/2013, 3,01/30/2010 Influenza, Injectable, MDCK, preservative free 02/18/2024 Influenza, seasonal, injecta ble, preservative free 02/05/2025 Meningococcal ACWY, unspecified 01/30/2010 Varicella 09/14/2011 Social History Tobacco Use Types Packs/Day Years Used Date Smoking Tobacco: Never Smokeless Tobacco: Never Tobacco Cessation:Counseling Given: Not Answered Depression Answer Date Recorded Patient Health Questionnaire-9 Score 3 02/05/2025 Patient Health Questionnaire-9 Score 3 02/05/2025 Last PHQ-9: Questionnaire Data Not on file 1 Depression Answer Date Recorded Patient Health Questionnaire-2 Score 0 02/05/2025 Comments No Sex and Gender Information Value Date Recorded Sex Assigned at Female 02/26/2022 10:34 AM EDT Legal Sex Female 10:34 AM EDT Gender Identity Female 02/26/2022 10:34 AM EDT Sexual Orientation Straight 02/26/2022 10 :34 AM EDT Last Filed Vital Signs Vital Sign Reading Time Taken Comments Blood Pressure 128/92 02/05/2025 10:47 AM EDT Pulse 128 02/05/2025 10:47 AM EDT Temperature 36.4 C (97.6 F) 02/05/2025 10:47 AM EDT Respiratory Rate 22 02/05/2025 10:47 AM EDT Oxygen Saturation 98% 02/05/2025 10:47 AM EDT Inhaled Oxygen Concentration - - Weight 75.3 kg (166 lb) 02/05/2025 10:47 AM EDT Height 167.6 cm (5' 6 ) 02/05/2025 10:47 AM EDT Body Mass Index 26.79 02/05/2025 10:47 AM EDT Plan of Treatment Upcoming Encounters Date Type Department Care Team (Late st Contact Info) Description 04/19/2025 10:00 AM EST Telemedicine [facility] [address] [place] [address] Hilda Joyce MD [address] [place] [address] Health Maintenance Due Date Last Done Comments HIV Screening 1995 SDOH Screening 1994 Family Planning (PISQ) 2009 Hepatitis C Screening 2012 DTaP/Tdap/Td Vaccines (1 - Tdap) 2013 Hepatitis B Vaccines (1 of 3 - 19+ 3-dose series) 2013 Pneumococcal Vaccine: Pediatrics (0 to 5 Years) and At-Risk Patients (6 to 49) Years (1 of 2 - PCV) 2013 Disability Screening 02/04/2026 02/04/2025 Alcohol/Substance Use Screening 02/05/2026 02/05/2025 Depression Screening 02/05/2026 02/05/2025, 02/06/20 Tobacco Screening 02/05/2026 02/05/2025 Cervical Cancer Screening 12/26/2026 Pap Smear 12/26/2026 12/27/2023, 12/20/2020 HPV/Cotest 12/26/2028 12/27/2023, 04/04/2018 Zoster Vaccines (1 of 2) 2044 RSV Patients and Patients Aged 60 years or older (1 - 1-dose 75+ series) 2069 Meningococcal Vaccine Aged Out 01/30/2010 No maldonado kari eligible based on patient's age to complete this topic HPV Vaccines Completed 09/14/2011, 07/2009, 07/03/2007 COVID-19 Vaccine Completed 02/18/2024, 10/2020, 10/11/2020, Additional history exists Influenza Vaccine Completed 02/05/2025, , 02/05/2020, Additional history exists HIB Vaccines Aged Out [...] Name Priority Date/Time Associated Diagnosis Comments US THORACENTESIS Routine 12/31/2024 1:[address] DRAIN PERICARDIOCENTESIS Routine 12/30/2024 3:05 PM EDT CTA CHEST PE PROTOCAL Routine 12/30/2024 10:56 AM EDT VASC US LOWER EXTREMITY VENOUS DUPLEX BILATERAL Routine 12/29/2024 11:11 AM EDT XR CHEST 2 VIEWS Routine 12/29/2024 6:28 AM EDT COVID-19 ID NOW ([employer]) Routine 025 5:52 AM EDT INFLUENZA A B2 ID NOW ([facility]) Routine 12/29/2024 5:52 AM EDT VENOUS BLOOD GAS Routine 12/29/2024 5:25 AM EDT TSH W/REFLEX TO FT4 Routine 12/29/2024 5 :22 AM EDT LIPASE Routine 12/29/2024 5:22 AM EDT C-REACTIVE PROTEIN Routine 12/29/2024 5: 22 AM EDT MAGNESIUM Routine 12/29/2024 5:22 AM EDT COMPREHENSIVE METABOLIC PANEL Routine 12/29/2024 5:22 AM EDT HIGH SENSITIVITY TROPONIN I Routine 12/29/2024 5:22 AM EDT COMPLETE BLOOD COUNT MAN DIF Routine 12/29/2024 5:22 AM EDT US ABDOMEN LIMITED Routine 12/25/2024 11 :56 [...] PM EDT CBC WITH AUTO DIFFERENTIAL Routine 12/23 1:26 PM EDT XR CHEST 2 VIEWS [...] AM EDT CBC WITH AUTO DIFFERENTIAL Routine 12/13 9:06 AM EDT SARS COV2/INFLUENZA A/B AND RSV RNA QL NAAT Routine 12/13/2024 9:06 AM EDT THINPREP IMAGING PAP AND HPV MRNA E6/E7 Routine 12/27/2023 12:00 AM EDT from Last 3 Months or Most Recently Relevant to Health Maintenance Results * US THORACENTESIS (12/31/2024 1:30 PM EDT) Anatomical Region Laterality Modality Abdomen Ultrasound 12/31/2024 1:30 PM EDT Narrative 01/28/2025 9:12 AM EDT [address] [address] Ultrasound Report Signed Patient: Barry Buitrago MR#: [id number] : 1995 Acct:[id number] Age/Sex: 29 / F ADM Date: 12/29/24 Loc: [facility] 467-[address]: Bang Martin MD Ordering Physician: Bang Martin MD Date of Service: 12/31/24 Procedure(s): US thoracentesis Accession Number(s): [id number] cc: Hilda Joyce MD; Bang Martin MD Reason for Exam: Pleural effusion - has both sides History: Left pleural fluid. Procedure performed: 1. Ultrasound guided thoracentesis Physician: Amee Manjarrez MD Anesthesia: Local anesthesia with 9 mL lidocaine Specimen: 400 mL yellow fluid Drain: 5 Ivorian Yueh catheter Estimated blood loss: Minimal Complications: None Procedure in detail: Informed and written consent was obtained and placed in the patient's chart. Ultrasound was performed bilaterally showing small effusions, but slightly greater on the left than the right. An appropriate site for access was marked on the skin. This area was prepped and draped. Under ultrasound, 1% lidocaine was injected subcutaneously and extended to the left pleural surface. A small incision was made in the skin with a #11 blade. Through the incision and under ultrasound guidance with permanent recordings and direct visualization of needle entry into the pleural cavity, the left pleural cavity was accessed with a 5 Ivorian Yueh catheter. This was connected to suction yielding 400 mL of yellow fluid, which was sent to the laboratory for analysis. The catheter was removed and a sterile dressing was applied. The patient tolerated the procedure well. Summary: Successful ultrasound-guided left-sided thoracentesis as described above. Electronically signed by: Venkat Manjarrez MD 12/31/2024 02:25 PM EDT Dictated By: Venkat Manjarrez MD Signed By: <Electronically signed by Venkat Manjarrez MD in OV> 12/31/24 1425 DD/ 1330 TD/TT: 12/31/24 1439 Roster Clerk: Procedure Note Donotuseinterpreter, Image - 01/28/[address] [address] Ultrasound Report Signed Patient: Enedina Buitrago#: [id number] : 1995Acct:[id number] Age/Sex: 29 / FADM Date: 12/29/24 Loc: [facility] 467-[address]: Bang Martin MD Ordering Physician: Bang Martin MD Date of Service: 12/31/24 Procedure(s): US thoracentesis Accession Number(s): [id number] cc: Hilda Joyce MD; Bang Martin MD Reason for Exam: Pleural effusion - has both sides History: Left pleural fluid. Procedure performed: 1. Ultrasound guided thoracentesis Physician: Amee Manjarrez MD Anesthesia: Local anesthesia with 9 mL lidocaine Specimen: 400 mL yellow fluid Drain: 5 Ivorian Yueh catheter Estimated blood loss: Minimal Complications: None Procedure in detail: Informed and written consent was obtained and placed in the patient's chart. Ultrasound was performed bilaterally showing small effusions, but slightly greater on the left than the right. An appropriate site for access was marked on the skin. This area was prepped and draped. Under ultrasound, 1% lidocaine was injected subcutaneously and extended to the left pleural surface. A small incision was made in the skin with a #11 blade. Through the incision and under ultrasound guidance with permanent recordings and direct visualization of needle entry into the pleural cavity, the left pleural cavity was accessed with a 5 Ivorian Yueh catheter. This was connected to suction yielding 400 mL of yellow fluid, which was sent to the laboratory for analysis. The catheter was removed and a sterile dressing was applied. The patient tolerated the procedure well. Summary: Successful ultrasound-guided left-sided thoracentesis as described above. Electronically signed by: Venkat Manjarrez MD 12/31/2024 02:25 PM EDT Dictated By: Venkat Manjarrez MD Signed By: <Electronically signed by Venkat Manjarrez MD in OV> 12/31/24 1425 DD/ 1330 TD/TT: 12/31/24 1439 Roster Clerk: us [facility] External Provider IMG US PROCEDURES Edited Result - Final * CT Drain Pericardiocentesis (12/30/2024 3:05 PM EDT) Anatomical Region Laterality Modality Body Computed Tomogra phy 12/30/2024 3:05 PM EDT Narrative 01/05/2025 4:55 PM EDT [place] [address] CT Scan Report Signed Patient: Barry Buitrago MR#: [id number] : 1995 Acct:[id number] Age/Sex: 29 / F ADM Date: 12/29/24 Loc: [facility] 467-[address]: Bang Martin MD Ordering Physician: Bang Martin MD Date of Service: 12/30/24 Procedure(s): CT Drain Pericardiocentesis Accession Number(s): [id number] cc: Hilda Joyce MD; Bang Martin MD Report Number: [id number]: Total DLP = 364.00 mGy-cm Reason for Exam: Percardiocebtesis CLINICAL HISTORY: Pericardial effusion with tamponade PROCEDURES: 1. Limited preprocedure CT of the chest. Permanent images saved in PACS. 2. CT-guided drainage of pericardial effusion 3. Limited post procedure CT of the chest. Permanent images saved in PACS. CLINICIANS: Miguel Anderson NP Preprocedural imaging reviewed with Ulices Gaston M.D. MEDICATIONS: -Lidocaine 1% 5 mL SQ -Antibiotics: None -For additional details, please see nursing flowsheet. COMPLICATIONS: None ESTIMATED BLOOD LOSS: < 5 ml CONTRAST: None SPECIMENS: Sent. MODERATE SEDATION TIME: 0 min. PROCEDURE NOTE: The procedure, risks, benefits, and alternatives were carefully explained to the patient's proxy and written informed consent was obtained. The patient was placed supine on the CT table. A timeout was performed. A limited CT of the chest was performed to localize the fluid collection and choose appropriate needle entry and trajectory. The patient was prepped and draped in usual sterile fashion. The skin and subcutaneous tissues on the upper chest were anesthetized with lidocaine. Under CT guidance, a 4 F Yueh was advanced to the fluid collection. Yellow fluid was immediately aspirated. A 0.035 J wire was inserted through the the Yueh catheter and coiled in the fluid collection. The Yueh catheter was then removed over the wire. Over the wire, an 6 fr all-purpose drainage catheter was advanced and coiled into the fluid collection under CT guidance. The wire was then removed. A total of 50 ml of yellow fluid was removed and 20 ml were sent for culture. The catheter was secured to the skin with a 3-0 Nylon suture. The catheter was maintained to JENNIFER bulb drainage. A limited postprocedure CT was then obtained. The patient was stable after the procedure and was transferred to the intensive care unit. CT/CT Drain Pericardiocentesis Impression: CT guided placement of pericardial drainage catheter. This procedure was performed by Miguel Anderson NP and supervised by Ulices Gaston MD. Electronically signed by: Ulices Gaston MD 01/05/2025 04:52 PM EDT Dictated By: Miguel Anderson NP Signed By: <Electronically signed by Miguel Anderson in OV> 01/05/25 1652 <Electronically signed by Ulices Gaston MD in OV> 01/05/25 1655 DD/ 1505 TD/TT: 12/30/24 1714 Roster Clerk: Procedure Note Ren, Vicky - 01/05/[address] [address] [address] Scan Report Signed Patient: Barry BuitragoMR#: [id number] : 1995Acct:[id number] Age/Sex: 29 / FADM Date: 12/29/24 [place]: [facility] [place]: Bang Martin MD Ordering Physician: Bang Martin MD Date of Service: 12/30/24 Procedure(s): CT Drain Pericardiocentesis Accession Number(s): [id number] cc: Hilda Joyce MD; Bang Martin MD Report Number: [id number]: Total DLP = 364.00 mGy-cm Reason for Exam: Percardiocebtesis CLINICAL HISTORY: Pericardial effusion with tamponade PROCEDURES: 1. Limited preprocedure CT of the chest. Permanent images saved in PACS. 2. CT-guided drainage of pericardial effusion 3. Limited post procedure CT of the chest. Permanent images saved in PACS. CLINICIANS: Miguel Anderson NP Preprocedural imaging reviewed with Ulices Gaston M.D. MEDICATIONS: -Lidocaine 1% 5 mL SQ -Antibiotics: None -For additional details, please see nursing flowsheet. COMPLICATIONS: None ESTIMATED BLOOD LOSS: < 5 ml CONTRAST: None SPECIMENS: Sent. MODERATE SEDATION TIME: 0 min. PROCEDURE NOTE: The procedure, risks, benefits, and alternatives were carefully explained to the patient's proxy and written informed consent was obtained. The patient was placed supine on the CT table. A timeout was performed. A limited CT of the chest was performed to localize the fluid collection and choose appropriate needle entry and trajectory. The patient was prepped and draped in usual sterile fashion. The skin and subcutaneous tissues on the upper chest were anesthetized with lidocaine. Under CT guidance, a 4 F Yueh was advanced to the fluid collection. Yellow fluid was immediately aspirated. A 0.035 J wire was inserted through the the Yueh catheter and coiled in the fluid collection. The Yueh catheter was then removed over the wire. Over the wire, an 6 fr all-purpose drainage catheter was advanced and coiled into the fluid collection under CT guidance. The wire was then removed. A total of 50 ml of yellow fluid was removed and 20 ml were sent for culture. The catheter was secured to the skin with a 3-0 Nylon suture. The catheter was maintained to JENNIFER bulb drainage. A limited postprocedure CT was then obtained. The patient was stable after the procedure and was transferred to the intensive care unit. CT/CT Drain Pericardiocentesis Impression: CT guided placement of pericardial drainage catheter. This procedure was performed by Miguel Anderson NP and supervised by Ulices Gaston MD. Electronically signed by: Ulices Gaston MD 01/05/2025 04:52 PM EDT RP Dictated By: Miguel Anderson NP Signed By: <Electronically signed by Miguel Anderson in OV> 01/05/25 1652 <Electronically signed by Ulices Gaston MD in OV> 01/05/25 1655 DD/ 1505 TD/TT: 12/30/24 1714 Roster Clerk: [facility] External Provider IMG CT PROCEDURES Final Result * CTA Chest PE Protocal (12/30/2024 10:56 AM EDT) Only the most recent of3 resultswithin the time period is included. Anatomical Region Laterality Modality Body, Chest Computed Tomogra phy 12/30/2024 10:5 6 AM EDT Narrative 12/30/2024 11:44 AM EDT [place] [address] CT Scan Report Signed Patient: Barry Buitrago MR#: [id number] : 1995 Acct:[id number] Age/Sex: 29 / F ADM Date: 12/29/24 Loc: [facility] 374-[address]: Bang Martin MD Ordering Physician: Bang Martin MD Date of Service: 12/30/24 Procedure(s): CT angio chest PE protocol Accession Number(s): [id number] cc: Hilda Joyce MD; Bang Martin MD Report Number: [id number]: Total DLP = 134.00 mGy-cm Reason for Exam: R/o plum embolism /effusion EXAMINATION: CT ANGIOGRAM CHEST CLINICAL INFORMATION: Shortness of breath. Effusion. COMPARISON: December 23, 2024. TECHNIQUE: Multiple axial images were obtained through the chest after the administration of 65 mL of Omnipaque 350 intravenous contrast. Extensive vascular post-processing including two-dimensional and three-dimensional reformatted images were created and reviewed on an independent workstation. SmartPrep technique. This CT examination was performed using dose optimization techniques as appropriate, variously including the following: *Automated exposure control *Adjustment of mA and/or kV according to patient size (this includes techniques or standardized protocols for targeted exams where dose is matched to indication/reason for exam; i.e. extremities or head) *Use of iterative reconstruction technique DLP: 134 mGy centimeter. FINDINGS: There is normal enhancement pattern of the main pulmonary artery or its main branches and its main subsegmental pulmonary branches without intraluminal filling defects. The main pulmonary artery diameter is 33 m. No thoracic aortic dissection or aneurysm. The ascending thoracic aorta diameter is 24 mm. There is a moderate volume pericardial effusion. Bilateral pleural effusions, moderate to large volume. Pulmonary patchy groundglass involving mostly the lower lung lobes. No pneumothorax. No gross bronchiectasis. No honeycombing. The respiratory airways patent. No hemopericardium. No pneumomediastinum. There is a right upper pulmonary vein draining directly into the left atrium. No acute fracture or listhesis in the axial skeleton. No acute rib fracture. CT/CT angio chest PE protocol IMPRESSION: Bilateral pleural effusions, moderate to large volume and moderate volume pericardial effusion. Cardiac tamponade cannot be excluded. No main pulmonary artery emboli. Prominent main pulmonary artery. Pulmonary hypertension should be considered in the correct clinical settings. Right top pulmonary vein. Fleischner guidelines were followed. Electronically signed by: Devyn Quiroz MD 12/30/2024 11:41 AM EDT Dictated By: Devyn Whitaker MD Signed By: <Electronically signed by Devyn Silver MD in OV> 12/30/24 1141 DD/ 1056 TD/TT: 12/30/24 1125 Roster Clerk: Procedure Note Donotuseinterpreter, Image - 12/30/[address] [address] [address] Scan Report Signed Patient: Barry Buitrago#: [id number] : 1995Acct:[id number] Age/Sex: 29 / FADM Date: 12/29/24 Loc: HO.S3 374-[address]: Bang Martin MD Ordering Physician: Bang Martin MD Date of Service: 12/30/24 Procedure(s): CT angio chest PE protocol Accession Number(s): [id number] cc: Hilda Joyce MD; Bang Martin MD Report Number: [id number]: Total DLP = 134.00 mGy-cm Reason for Exam: R/o plum embolism /effusion EXAMINATION: CT ANGIOGRAM CHEST CLINICAL INFORMATION: Shortness of breath. Effusion. COMPARISON: December 23, 2024. TECHNIQUE: Multiple axial images were obtained through the chest after the administration of 65 mL of Omnipaque 350 intravenous contrast. Extensive vascular post-processing including two-dimensional and three-dimensional reformatted images were created and reviewed on an independent workstation. SmartPrep technique. This CT examination was performed using dose optimization techniques as appropriate, variously including the following: *Automated exposure control *Adjustment of mA and/or kV according to patient size (this includes techniques or standardized protocols for targeted exams where dose is matched to indication/reason for exam; i.e. extremities or head) *Use of iterative reconstruction technique DLP: 134 mGy centimeter. FINDINGS: There is normal enhancement pattern of the main pulmonary artery or its main branches and its main subsegmental pulmonary branches without intraluminal filling defects. The main pulmonary artery diameter is 33 m. No thoracic aortic dissection or aneurysm. The ascending thoracic aorta diameter is 24 mm. There is a moderate volume pericardial effusion. Bilateral pleural effusions, moderate to large volume. Pulmonary patchy groundglass involving mostly the lower lung lobes. No pneumothorax. No gross bronchiectasis. No honeycombing. The respiratory airways patent. No hemopericardium. No pneumomediastinum. There is a right upper pulmonary vein draining directly into the left atrium. No acute fracture or listhesis in the axial skeleton. No acute rib fracture. CT/CT angio chest PE protocol IMPRESSION: Bilateral pleural effusions, moderate to large volume and moderate volume pericardial effusion. Cardiac tamponade cannot be excluded. No main pulmonary artery emboli. Prominent main pulmonary artery. Pulmonary hypertension should be considered in the correct clinical settings. Right top pulmonary vein. Fleischner guidelines were followed. Electronically signed by: Devyn Quiroz MD 12/30/2024 11:41 AM EDT RP Dictated By: Devyn Whitaker MD Signed By: <Electronically signed by Devyn Silver MDin OV> 12/30/24 1141 DD/ 1056 TD/TT: 12/30/24 1125 Roster Clerk: [facility] External Provider IMG CT PROCEDURES Final Result * [facility] US Lower Extremity Venous Duplex Bilateral (12/29/2024 11:11 AM EDT) 12/29/2024 11:1 1 AM EDT Narrative [facility] - 12/29/2024 11:38 AM EDT [place] [address] Ultrasound Report Signed Patient: Barry Buitrago MR#: [id number] : 1995 Acct:[id number] Age/Sex: 29 / F ADM Date: 12/29/24 Loc: [place] [address]: Fransisco Ortega MD Ordering Physician: Fransisco Ortega MD Date of Service: 12/29/24 Procedure(s): US venous duplex LE BI Accession Number(s): [id number] cc: Hilda Joyce MD; Fransisco Ortega MD Reason for Exam: sob, tachy, rule out dvt EXAMINATION: US TRIPLEX LOWER EXTREMITY, BILATERAL CLINICAL INFORMATION: Short of breath, tachycardia COMPARISON: None available. TECHNIQUE: Color-flow triplex imaging with spectral analysis and compression Doppler were performed on the bilateral lower extremities. FINDINGS: Respiratory variation, normal compression and augmented flow are noted throughout the bilateral lower extremities. The visualized common femoral vein, superficial femoral vein, profunda femoral vein, popliteal vein and midcalf peroneal and posterior tibial venous segments show no evidence of deep venous thrombosis bilaterally. There is no Smith's cyst. US/US venous duplex LE BI IMPRESSION: No evidence of deep venous thrombosis involving the bilateral lower extremities. Electronically signed by: Jose Bermeo MD 12/29/2024 11:35 AM EDT RP Dictated By: Jose Bermeo MD Signed By: <Electronically signed by Jose Bermeo MD in OV> 12/29/24 1135 DD/ 1111 TD/TT: 12/29/24 1119 Roster Clerk: Procedure Note Donotuseinterpreter, Image - 12/29/[address] [address] Ultrasound Report Signed Patient: Barry BuitragoMR#: [id number] : 1995Acct:[id number] Age/Sex: 29 / FADM Date: 12/29/24 Loc: [place] [address]: Fransisco Ortega MD Ordering Physician: Fransisco Ortega MD Date of Service: 12/29/24 Procedure(s): US venous duplex LE BI Accession Number(s): [id number] cc: Hilda Joyce MD; Fransisco Ortega MD Reason for Exam: sob, tachy, rule out dvt EXAMINATION: US TRIPLEX LOWER EXTREMITY, BILATERAL CLINICAL INFORMATION: Short of breath, tachycardia COMPARISON: None available. TECHNIQUE: Color-flow triplex imaging with spectral analysis and compression Doppler were performed on the bilateral lower extremities. FINDINGS: Respiratory variation, normal compression and augmented flow are noted throughout the bilateral lower extremities. The visualized common femoral vein, superficial femoral vein, profunda femoral vein, popliteal vein and midcalf peroneal and posterior tibial venous segments show no evidence of deep venous thrombosis bilaterally. There is no Smith's cyst. US/US venous duplex LE BI IMPRESSION: No evidence of deep venous thrombosis involving the bilateral lower extremities. Electronically signed by: Jose Bermeo MD 12/29/2024 11:35 AM EDT RP Dictated By: Jose Bermeo MD Signed By: <Electronically signed by Jose Bermeo MD in OV> 12/29/24 1135 DD/ 1111 TD/TT: 12/29/24 1119 Roster Clerk: us [facility] External Provider CV VASC ULAR PROCEDURES Final Result [facility] [address] [place] [phone] * XR Chest 2 Views (12/29/2024 6:28 AM EDT) Only the most recent of3 resultswithin the time period is included. Anatomical Region Laterality Modality Chest Radiographic Mattie ging 12/29/2024 6:28 AM EDT Narrative 12/29/2024 6:30 AM EDT [address] [address] XRay Report Signed Patient: Barry Buitrago MR#: [id number] : 1995 Acct:[id number] Age/Sex: 29 / F ADM Date: 12/29/24 Loc: HO.ED Attending Dr: Ordering Physician: Corrie Shrestha DO Date of Service: 12/29/24 Procedure(s): XR chest 2V Accession Number(s): [id number] cc: Hilda Joyce MD; Corrie Shrestha DO CLINICAL HISTORY: dyspnea 2 view chest x-ray Comparison: CR/SR - XR CHEST 2V - 12/25/24 07:26 EDT Findings: Lungs are underexpanded with faint bibasilar densities. Cardiac and mediastinal contours are normal. Lziob-nd-wcetplep right effusion. No acute fracture. IMPRESSION: Bibasilar densities with opseu-rr-bondhfsw right effusion, similar to prior. This document has been electronically signed by: Linwood Kebede MD on 12/29/2024 06:28:52 Dictated By: Linwood Kebede MD Signed By: <Electronically signed by Linwood Kebede MD in OV> 12/29/2429 DD/ 7 TD/TT: 12/29/24627 Roster Clerk: Procedure Note Donotuseinterpreter, Image - 12/29/2024 [facility] [address] [place] [address] XRay Report Signed Patient: Enedina Buitrago#: [id number] : 1995Acct:[id number] Age/Sex: 29 / FADM Date: 12/29/24 Loc: HO.ED Attending Dr: Ordering Physician: Corrie Shrestha DO Date of Service: 12/29/24 Procedure(s): XR chest 2V Accession Number(s): [id number] cc: Hilda Joyce MD; Corrie Shrestha DO CLINICAL HISTORY: dyspnea 2 view chest x-ray Comparison: CR/SR - XR CHEST 2V - 12/25/24 07:26 EDT Findings: Lungs are underexpanded with faint bibasilar densities. Cardiac and mediastinal contours are normal. Qhtrg-ih-uxkpnlit right effusion. No acute fracture. IMPRESSION: Bibasilar densities with vtujz-vw-mcqrlpxj right effusion, similar to prior. This document has been electronically signed by: Linwood Kebede MD on 12/29/2024 06:28:52 Dictated By: Linwood Kebede MD Signed By: <Electronically signed by Linwood Kebede MD in OV> 12/29/24628 DD/ 7 TD/TT: 12/29/24627 Roster Clerk: [facility] External Provider IMG XR PROCEDURES Edited Result - Final * Influenza A B2 ID NOW (Simmons) (12/29/2024 5:52 AM EDT) IDNOW SERIAL# [id number] [facility] Influenza A Negative Negative [facility] Influenza B2 Negative Negative [facility] Influenza A B2 Note See Note [facility] Comment:The Simmons ID NOW In fluenza A B2 test is used for thequalitative detection of influenza A and B from patientswith signs and symptoms of respiratory infection.Negative results do not preclude influenza virus infectionand should not be used as the sole basis for diagnosis,treatment or other patient management decisions.There is a risk of false negative results due to thepresence of variants in the viral targets of the assay, lowlevels of virus in the specimen and co- infection withRespiratory Syncytial Virus. 12/29/2024 5:52 AM EDT 12/29/2024 6:15 AM EDT us Generic External Data Provider LAB MICROBIOLOGY - GENERAL ORDERABLES Final Result [facility] [address] [place] [phone] * COVID-19 ID NOW ([employer]) (12/29/2024 5:52 AM EDT) IDNOW SERIAL# [id number] [facility] COVID-19 TEST Negative Negative [facility] COVID-19 NOTE See Note [facility] Comment: Results are for the identification of SARS-CoV2 RNA. TheSARS-CoV2 RNA is generally detectable in respiratory samplesduring the acute phase of infection. Positive results areindicative of the presence of SARS-CoV-2 RNA; clinicalcorrelation with patient history and other diagnosticinformation is necessary to determine patient infectionstatus. Positive results do not rule out bacterial infectionor co- infection with other viruses.Testing facilities within the [facility] and [facility] are required to report all positive results tothe appropriate public health authorities.Negative results should be treated as presumptive and, ifinconsistent with clinical signs and symptoms or necessaryfor patient management, should be tested with differentauthorized or cleared molecular tests. Negative results donot preclude SARS-CoV2 RNA infection and should not be usedas the sole basis for patient management decisions. Negativeresults should be considered in the context of a patient'srecent exposures, history and the presence of clinical signsand symptoms consistent with COVID-19.This test has been authorized by the FDA under an EmergencyUse Authorization (EUA) for use by authorized laboratories.Testing performed on the Simmons ID NOW utilizing NAAT. 12/29/2024 5:52 AM EDT 12/29/2024 6:15 AM EDT Generic External Data Provider LAB MOLECULAR DEQUAN GNOSTICS ORDERABLES Final Result Performing Organization Address [facility] de Phone Number [facility] [address] [place] [phone] * (ABNORMAL) VENOUS BLOOD GAS (12/29/2024 5:25 AM EDT) Only the most recent of2 resultswithin the time period is included. VBG pH 7.54(H) 7.32 - 7.43 [facility] Comment:METER #: [id number] additional_comment: Cb coopeb VBG PCO2 24 mmHg [facility] Comment:METER #: [id number] additional_comment: Cb coopeb VBG PO2 43 mmHg [facility] Comment:METER #: [id number] additional_comment: Cb coopeb VBG Base Excess 0.9 mmol/L [facility] Comment:METER #: [id number] additional_comment: Cb coopeb VBG HCO3 21(L) 22 - 26 mmol/L [facility] Comment:METER #: [id number] additional_comment: Cb coopeb O2 Sat, Jeison 75.0 % [facility] Comment:METER #: [id number] additional_comment: Cb coopeb 12/29/2024 5:25 AM EDT 12/29/2024 5:29 AM EDT us Generic External Data Provider LAB BLOOD ORDERAB LES Final Result Performing Organization Address [facility] Co de Phone Number [facility] [address] [place] [phone] * (ABNORMAL) High Sensitivity Troponin I (12/29/2024 5:22 AM EDT) Only the most recent of2 resultswithin the time period is included. TROPONIN I HIGH SENSITIVITY 25.9(H) <3.5 - 17.0 ng/L [facility] Comment:The Simmons high sens itivity Troponin-I results should beused in conjunction with other diagnostic information suchas ECG, clinical observations and information, and patientsymptoms to aid in the diagnosis of CA. 12/29/2024 5:22 AM EDT 12/29/2024 5:25 AM EDT us Generic External Data Provider LAB BLOOD ORDERAB LES Final Result [facility] [address] [place] [phone] * (ABNORMAL) Complete Blood Count Manual Diff (12/29/2024 5:22 AM EDT) Only the most recent of2 resultswithin the time period is included. White Blood Count 14.9(H) 4.8 - 10.8 X10*3/uL [facility] Red Blood Count 5.08 4.20 - 5.50 X10*6/uL [facility] Hemoglobin 12.6 12.0 - 16.0 g/dl [facility] Hematocrit 36.8(L) 37.0 - 47.0 % [facility] Mean Corpuscular Volume 72.4(L) 80.0 - 98.0 fL [facility] Mean Corpuscular Hemoglobin 24.8(L) 27.0 - 33.0 pg [facility] Mean Corpuscular HGB Conc 34.2 31.0 - 35.0 g/dl [facility] Red Cell Distribution Width 17.4(H) 11.0 - 16.0 % [facility] Platelet Count 734(H) 160 - 400 X10*3/uL [facility] Mean Platelet Volume 10.5 9.4 - 12.3 fL [facility] NRBC Pct Auto 0.0 0.0 - 0.2 /100WBC [facility] NRBC Abs Auto 0.000 0.0 - 0.012 X10*3/uL [facility] Neutrophils % Manual 74(H) 45 - 73 % [facility] Band Neutrophils Percent 1(L) 3 - 5 % [facility] Lymphocytes Percent Manual 21 20 - 40 % [facility] Monocytes Percent Manual 4 2 - 11 % [facility] NEUTROPHILS ABSOLUTE MANUAL 11.2(H) 2.0 - 8.3 X10*3/uL [facility] LYMPHOCYTES ABSOLUTE MANUAL 3.1 1.2 - 4.9 X10*3/uL [facility] MONOCYTES ABSOLUTE MANUAL 0.6 0.1 - 1.2 X10*3/uL [facility] Platelet Estimate INCREASED NORMAL [facility] Large Platelet [facility] Platelet Morphology Comment NOTED [facility] RBC Morphology NOTED [facility] Microcytosis 1+ (5-14) /OIF [facility] SPHEROCYTES 1+ (0-2) /[facility] Target Cells 1+ (5-14) /[facility] Toxic Vacuolation PRESENT [facility] Sherwood Cells 1+ (0-2) /[facility] Acanthocytes 1+ (0-2) /[facility] 12/29/2024 5:22 AM EDT 12/29/2024 5:25 AM EDT us Generic External Data Provider LAB BLOOD ORDERAB LES Final Result Performing Organization Address [facility]/ZIP Co de Phone Number [facility] [address] [place] [phone] * TSH with Reflex to Free T4 (12/29/2024 5:22 AM EDT) TSH reflex Free T4 2.39 0.32 - 4.0 uIU/mL [facility] 12/29/2024 5:22 AM EDT 12/29/2024 5:25 AM EDT us Generic External Data Provider LAB BLOOD ORDERAB LES Final Result Performing Organization Address City/[facility]/ZIP Co de Phone Number [facility] [address] [place] [phone] * (ABNORMAL) C-reactive Protein (12/29/2024 5:22 AM EDT) C Reactive Protein 5.02(H) < or = 0.50 mg/dL [facility] 12/29/2024 5:22 AM EDT 12/29/2024 5:25 AM EDT us Generic External Data Provider LAB BLOOD ORDERAB LES Final Result Performing Organization Address City/[facility]/ZIP Co de Phone Number [facility] [address] [place] [phone] * Magnesium (12/29/2024 5:22 AM EDT) Only the most recent of3 resultswithin the time period is included. Magnesium 1.6 1.6 - 2.6 mg/dL [facility] 12/29/2024 5:22 AM EDT 12/29/2024 5:25 AM EDT Generic External Data Provider LAB BLOOD ORDERAB LES Final Result Performing Organization Address [facility] Co de Phone Number [facility] [address] [place] [phone] * Lipase (12/29/2024 5:22 AM EDT) Only the most recent of2 resultswithin the time period is included. Lipase 8 8 - 78 U/L [facility] 12/29/2024 5:22 AM EDT 12/29/2024 5:25 AM EDT Generic External Data Provider LAB BLOOD ORDERAB LES Final Result Performing Organization Address [facility]/ZIP Co de Phone Number [facility] [address] [place] [phone] * (ABNORMAL) Comprehensive Metabolic Panel (12/29/2024 5:22 AM EDT) Only the most recent of2 resultswithin the time period is included. Sodium 136 135 - 145 mmol/L [facility] Potassium 4.1 3.3 - 5.1 mmol/L [facility] Comment:Slight Hemolysis.Int erpret result with caution. Chloride 109(H) 96 - 108 mmol/L [facility] Carbon Dioxide 18(L) 22 - 29 mmol/L [facility] Anion Gap 13 12 - 20 [facility] Urea Nitrogen (BUN) 9 9 - 16 mg/dL [facility] Creatinine, Serum 0.53 0.5 - 1.4 mg/dL [facility] Creatinine Clr Calc Pharmacy 167.2 [facility] Comment:Provided height and weight: 167.64 cm,81.647 kg.eGFR (calculated from the MDRD study equation) and eCrCl(calculated from the Cockcroft-Gault equation) are based ondifferent parameters and may not yield comparable results.If eCrCl result is absurd, please check patient'sheight/weight. Estimated Glomerular Filt Rate >60 [facility] Comment:Chronic Kidney Disea se: Estimated GFR < 60 mL/min/1.60p1Wwgcat Kidney Disease: Estimated GFR < 15 mL/min/1.73m2 Glucose 90 60 - 115 mg/dL [facility] Calcium 7.9(L) 8.4 - 10.2 mg/dL [facility] Bilirubin, Total 0.8 0.0 - 1.0 mg/dL [facility] Aspartate Amino Transferase 256(H) 5 - 31 U/L [facility] Comment:Slight Hemolysis.Int erpret result with caution. Alanine Aminotransferase 130(H) 0 - 31 U/L [facility] Total Protein 6.8 6.5 - 8.0 g/dL [facility] Albumin Level 2.7(L) 3.5 - 5.0 g/dL [facility] Alkaline Phosphatase 80 39 - 117 U/L [facility] 12/29/2024 5:22 AM EDT 12/29/2024 5:25 AM EDT us Generic External Data Provider LAB BLOOD ORDERAB LES Final Result [facility] [address] [place] [phone] * US Abdomen Limited (12/25/2024 11:56 AM EDT) Anatomical Region Laterality Modality Abdomen Ultrasound 12/25/2024 11:5 6 AM EDT Narrative 12/25/2024 12:40 PM EDT [address] [address] Ultrasound Report Signed Patient: Barry Buitrago MR#: [id number] : 1995 Acct:[id number] Age/Sex: 29 / F ADM Date: 12/23/24 Loc: [facility] 479-[address]: Nehemiah Robles MD Ordering Physician: Nehemiah Robles MD Date of Service: 12/25/24 Procedure(s): US abdomen limited Accession Number(s): [id number] cc: Hilda Joyce MD; Nehemiah Robles MD [...] Lalo Dasilva MD 12/25/2024 12:37 PM EDT RP Dictated By: Lalo Dasilva MD Signed By: <Electronically signed by Lalo Dasilva MD in OV> 12/25/24 1237 DD/ 1156 TD/TT: 12/25/24 1202 Roster Clerk: Procedure Note Donotuseinterpreter, Image - 12/25/[address] [address] Ultrasound Report Signed Patient: Barry BuitragoMR#: [id number] : 1995Acct:[id number] Age/Sex: 29 FADM Date: 12/23/24 Loc: [facility] 479-[address]: Nehemiah Robles MD Ordering Physician: Nehemiah Robles MD Date of Service: 12/25/24 Procedure(s): US abdomen limited Accession Number(s): [id number] cc: Hilda Joyce MD; Nehemiah Robles MD [...] Lalo Dasilva MD 12/25/2024 12:37 PM EDT RP Dictated By: Lalo Dasilva MD Signed By: <Electronically signed by Lalo Dasilva MD in OV> 12/25/24 1237 DD/ 1156 TD/TT: 12/25/24 1202 Roster Clerk: us [facility] External Provider IMG US PROCEDURES Edited Result - Final * (ABNORMAL) CBC auto differential (12/23/2024 1:26 PM EDT) White Blood Count 9.2 4.8 - 10.8 X10*3/uL [facility] Red Blood Count 5.14 4.20 - 5.50 X10*6/uL [facility] Hemoglobin 12.7 12.0 - 16.0 g/dl [facility] Hematocrit 38.6 37.0 - 47.0 % [facility] Mean Corpuscular Volume 75.1(L) 80.0 - 98.0 fL [facility] Mean Corpuscular Hemoglobin 24.7(L) 27.0 - 33.0 pg [facility] Mean Corpuscular HGB Conc 32.9 31.0 - 35.0 g/dl [facility] Red Cell Distribution Width 18.6(H) 11.0 - 16.0 % [facility] Platelet Count 813(H) 160 - 400 X10*3/uL [facility] Mean Platelet Volume 10.5 9.4 - 12.3 fL [facility] Neutrophils Percent Auto 68.5 45 - 73 % [facility] Imm Gran Pct Auto 0.9(H) 0.0 - 0.4 % [facility] Lymphocytes Percent Auto 21.1 20 - 40 % [facility] Monocytes Percent Auto 7.1 2 - 11 % [facility] Eosinophils Percent Auto 1.5 0 - 4 % [facility] Basophils Percent Auto 0.9 0 - 2 % [facility] NRBC Pct Auto 0.0 0.0 - 0.2 /100WBC [facility] Neutrophils Absolute Auto 6.3 2.0 - 8.3 x10*3/uL [facility] Imm Gran Abs Auto 0.08(H) 0.00 - 0.03 X10*3/uL [facility] Lymphocytes Absolute Auto 1.9 1.2 - 4.9 X10*3/uL [facility] Monocytes Absolute Auto 0.7 0.1 - 1.2 X10*3/uL [facility] Eosinophils Absolute Auto 0.1 0.0 - 0.4 X10*3/uL [facility] Basophils Absolute Auto 0.1 0.0 - 0.2 X10*3/uL [facility] NRBC Abs Auto 0.000 0.0 - 0.012 X10*3/uL [facility] 12/23/2024 1:26 PM EDT 12/23/2024 1:30 PM EDT us Generic External Data Provider LAB BLOOD ORDERAB LES Final Result [facility] [address] [place] [phone] * hCG, Total, Quantitative (12/23/2024 1:26 PM EDT) Only the most recent of2 resultswithin the time period is included. HCG Quantitative <2 mIU/mL [facility] Comment:Weeks post LMP Appro ximate hCG(Last Menstrual Period) Range (mIU/ml)3 - 4 weeks 9 - 1304 - 5 weeks 75 - 2,6005 - 6 weeks 850 - 20,8006 - 7 weeks 4000 - 100,2007 - 12 weeks 11,500 - 289,57081 - 16 weeks 18,300 - 137,84524 - 29 weeks (2nd trimester) 1,400 - 53,72563 - 41 weeks (3rd trimester) 940 - 60,000The Simmons B- hCG assay is used for the early detection ofpregnancy; it cannot be used to diagnose any conditionunrelated to . If a B-hCG level is not supportedby the clinical evidence, results should be confirmed by analternative method (qualitative urine hCG, for example). 12/23/2024 1:26 PM EDT 12/23/2024 1:30 PM EDT Generic External Data Provider LAB BLOOD ORDERAB LES Final Result Performing Organization Address [facility] Co de Phone Number [facility] [address] [place] [phone] * (ABNORMAL) Hepatic Function Panel (12/23/2024 1:26 PM EDT) Bilirubin, Total 0.4 0.0 - 1.0 mg/dL [facility] Bilirubin, Direct 0.1 0.0 - 0.5 mg/dL [facility] Aspartate Amino Transferase 298(H) 5 - 31 U/L [facility] Alanine Aminotransferase 146(H) 0 - 31 U/L [facility] Total Protein 6.6 6.5 - 8.0 g/dL [facility] Albumin Level 2.7(L) 3.5 - 5.0 g/dL [facility] Alkaline Phosphatase 65 39 - 117 U/L [facility] 12/23/2024 1:26 PM EDT 12/23/2024 1:30 PM EDT Generic External Data Provider LAB BLOOD ORDERAB LES Final Result Performing Organization Address [facility] de Phone Number [facility] [address] [place] [phone] * (ABNORMAL) Basic Metabolic Panel (12/23/2024 1:26 PM EDT) Sodium 137 135 - 145 mmol/L [facility] Potassium 3.7 3.3 - 5.1 mmol/L [facility] Chloride 111(H) 96 - 108 mmol/L [facility] Carbon Dioxide 20(L) 22 - 29 mmol/L [facility] Anion Gap 10(L) 12 - 20 [facility] Urea Nitrogen (BUN) 7(L) 9 - 16 mg/dL [facility] Creatinine, Serum 0.47(L) 0.5 - 1.4 mg/dL [facility] Creatinine Clr Calc Pharmacy 189.6 [facility] Comment:Provided height and weight: 167.64 cm,82.7 kg.eGFR (calculated from the MDRD study equation) and eCrCl(calculated from the Cockcroft-Gault equation) are based ondifferent parameters and may not yield comparable results.If eCrCl result is absurd, please check patient'sheight/weight. Estimated Glomerular Filt Rate >60 [facility] Comment:Chronic Kidney Disea se: Estimated GFR < 60 mL/min/1.93k7Exbqoc Kidney Disease: Estimated GFR < 15 mL/min/1.73m2 Glucose 93 60 - 115 mg/dL [facility] Calcium 8.0(L) 8.4 - 10.2 mg/dL [facility] 12/23/2024 1:26 PM EDT 12/23/2024 1:30 PM EDT us Generic External Data Provider LAB BLOOD ORDERAB LES Final Result Performing Organization Address City/State/[facility] Co de Phone Number [facility] [address] [place] [phone] * CT Abdomen Pelvis w/ Contrast (12/13/2024 12:37 PM EDT) Anatomical Region Laterality Modality Body, Pelvis, Abdomen Computed T omography 12/13/2024 12:3 7 PM EDT Narrative 12/13/2024 12:39 PM EDT [address] [address] [address] Scan Report Signed Patient: Barry Buitrago MR#: [id number] : 1995 Acct:[id number] Age/Sex: 29 / F ADM Date: 12/13/24 Loc: HO.ED Attending Dr: Ordering Physician: Dilma Chirinos Date of Service: 12/13/24 Procedure(s): CT abdomen pelvis w IV con Accession Number(s): [id number] cc: Hilda Joyce MD; Dilma Chirinos Report Number: [id number]: Total DLP = 0.00 mGy-cm CLINICAL HISTORY: [...] 12/13/24 1238 DD/ 1237 TD/TT: 12/13/24 1237 Roster Clerk: Procedure Note Donotuseinterpreter, Image - 12/13/[address] [address] [address] Scan Report Signed Patient: Barry Buitrago#: [id number] : 1995Acct:[id number] Age/Sex: 29 / FADM Date: 12/13/24 Loc: HO.ED Attending Dr: Ordering Physician: Dilma Chirinos Date of Service: 12/13/24 Procedure(s): CT abdomen pelvis w IV con Accession Number(s): [id number] cc: Hilda Joyce MD; Dilma Chriinos Report Number: [id number]: Total DLP = 0.00 mGy-cm CLINICAL HISTORY: [...] This document has been electronically signed by: nAdre Winston on 12/13/2024 12:37:12 Dictated By: Andre Winston MD Signed By: <Electronically signed by Andre Winston MD in OV> 12/13/24 1238 DD/ 1237 TD/TT: 12/13/24 1237 Roster Clerk: [facility] External Provider IMG CT PROCEDURES Edited Result - Final * (ABNORMAL) Lactic Acid (12/13/2024 10:52 AM EDT) Lactic Acid 2.3(HH) 0.5 - 2.0 mmol/L [facility] Comment:Critical value for L ACTIC: Results called to and read martinay: CLEMENTE Person calling: MARIETTA Date: 12/13/24 Time: 1127 12/13/2024 10:5 2 AM EDT 12/13/2024 10:56 AM EDT us Generic External Data Provider LAB BLOOD ORDERAB LES Final Result Performing Organization Address [facility] Co de Phone Number [facility] [address] [place] [phone] * Acetaminophen level (12/13/2024 10:52 AM EDT) Acetaminophen LAB <3 <30 mcg/mL [facility] 12/13/2024 10:5 2 AM EDT 12/13/2024 10:56 AM EDT Generic External Data Provider LAB BLOOD ORDERAB LES Final Result Performing Organization Address [facility] de Phone Number [facility] [address] [place] [phone] * (ABNORMAL) Prothrombin Time-INR (12/13/2024 9:28 AM EDT) Prothrombin Time 14.5(H) 10.9 - 12.4 SEC [facility] INTERNATIONAL NORM RATIO 1.3(H) 0.9 - 1.1 [facility] Comment:INTERNATIONAL NORMAL IZED RATIO (INR) [...] ORDERAB LES Final Result Performing Organization Address [facility] Co de Phone Number [facility] [address] [place] [phone] * SARS-CoV-2 RNA, Influenza A/B, and RSV RNA, Ql NAAT (12/13/2024 9:06 AM EDT) Influenza A PCR NEGATIVE Negative [facility] Influenza B PCR NEGATIVE Negative [facility] Resp Syncy Virus RNA Qual PCR NEGATIVE Negative [facility] SARS COV2 PCR NEGATIVE Negative [facility] Comment:All test results mus t [...] use by authorized laboratories.Testing performed on the [employer] GeneXpert utilizingreal-time RT-PCR.All SARS CoV2 and positive influenza A/B results arereported to [facility]. 12/13/2024 9:06 AM EDT 12/13/2024 9:10 AM EDT Generic External Data Provider LAB MICROBIOLOGY - GENERAL ORDERABLES Final Result Performing Organization Address [facility] Co de Phone Number [facility] [address] [place] [phone] * B Type Natriuretic Peptide (BNP) (12/13/2024 9:06 AM EDT) Pathologist [facility] B Type Natriuretic Peptide 18 <100 pg/mL [facility] 12/13/2024 9:06 AM EDT 12/13/2024 12:23 PM EDT Generic External Data Provider LAB BLOOD ORDERAB LES Final Result Performing Organization Address [facility] Co de Phone Number [facility] [address] [place] [phone] * ThinPrep Imaging Pap and HPV mRNA E6/E7 (12/27/2023 12:00 AM EDT) HPV nRNA E6/E7 Not Detected Not Detected [facility] Comment:Methodology: Transcr iption-Mediated AmplificationThis assay detects E6/E7 viral messenger RNA (mRNA) from 14high-risk HPV types (16,18,31,33,35,39,45,51,52,56,58,59,66,68).Cervical sources are required for HPV testing.If a vaginal source from a patient who has had atotal hysterectomy with removal of cervix wassubmitted, please contact the testing laboratoryfor alternative testing options.For additional information, please refer [email or web address]/faq/MRB710c0(This link if provided for information/educational purposes only.)THIS TEST WAS PERFORMED AT:[facility] [address] [phone] MCKEON MD SOURCE: SEE NOTE [facility] Comment:None given Report Status: [facility] Clinical Information: SEE NOTE [facility] Comment:None given LMP: SEE NOTE [facility] Comment:NONE GIVEN Prev. PAP: SEE NOTE [facility] Comment:NONE GIVEN Prev. BX: SEE NOTE [facility] Comment:NONE GIVEN Statement Of Adequacy: SEE NOTE [facility] Comment:Satisfactory for tonja luation.Endocervical/transformation zone componentpresent. General Categorization: [facility] Interpretation/Result: SEE NOTE [facility] Comment:Cytology Results: Ne gative for intraepitheliallesion or malignancy. Cytology Comment SEE NOTE [facility] Comment:This Pap test has be en evaluated with computerassisted technology. Apprentice Plant Attendant: SEE NOTE [facility] Comment:DELVIS, CT(ASCP)CT scre ening location: [address] [address] Review Apprentice Plant Attendant: [facility] Pathologist [facility] PAP Infection [facility] See Note SEE NOTE [facility] Comment:EXPLANATORY NOTE:The Pap is a screening test for cervical cancer. It isnot a diagnostic test and is subject to false negativeand false positive results. It is most reliable when asatisfactory sample, regularly obtained, is submittedwith relevant clinical findings and history, and whenthe Pap result is evaluated along with historic andcurrent clinical information. 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
--- OUTSIDE RECORDS SUMMARY | 2025-02-26 12:01 | XMS_ITS | Clinical Summary ---
Author Organization [facility] Address [address] [phone] Phone Care Team Providers Care Nursing Program Coordinator Name Role Phone Mt Adame DO Primary Care Provider [phone] Allergies Active Allergy Reactions Criticality Noted Date Comments Amoxicillin Hives 02/12/2018 Amoxicillin-Pot Clavulanate 02/13/20 25 Morphine Anaphylaxis High 02/12/2018 Medications torsemide (DEMADEX) 20 MG tablet Take 20 mg by mouth in the morning. 5 Active Tadalafil, PAH, 20 MG tablet Take 1 tablet by mouth in the morning. 5 Active spironolactone (ALDACTONE) 25 MG tablet Take 25 mg by mouth in the morning. 5 Active sodium bicarbonate 650 MG tablet Take 1 tablet by mouth in the morning. 5 Active predniSONE (DELTASONE) 20 MG tablet Take 2 tablets by mouth in the morning. 5 02/28/20 25 Active pantoprazole (PROTONIX) 20 MG EC tablet Take 20 mg by mouth 5 02/06/20 26 Active Opsumit 10 MG tablet Take 1 tablet by mouth in the morning. 5 Active loperamide (IMODIUM) 2 MG capsule Take 1 capsule by mouth 3 times daily as needed 5 Active Aviane 0.1-20 MG-MCG per tablet Take 1 tablet by mouth in the morning. 5 Active levoFLOXacin (LEVAQUIN) 750 MG tablet Take 750 mg by mouth 1 (one) time each day 5 Active ibuprofen (ADVIL,MOTRIN) 800 MG tablet Take 800 mg by mouth in the morning and 800 mg at noon and 800 mg in the evening. Take with meals. 5 Active gabapentin (NEURONTIN) 100 MG capsule Take 100 mg by mouth 5 Active Lasix 20 MG tablet See Instructions, 20 mg By Mouth two times daily for 3 days and then 20 mg daily thereafter , please measure weight and if weight gain above 4 pounds increase to 20 mg bid, # 30 tablet, Refills 0, Tot. Refills 0, Maintenance, 01/15/25 3:51:00 PM EDT, Instructions Replace Required Details, Route to Pharmacy Electronically, [facility], Partial fill upon patient request if the prescription is for a schedule II opioid drug., 174, cm, 01/15/25 15:04:00 EDT, Height, 81.8, kg, 01/01/25 18:45:00 EDT, Dry Weight 5 Active ergocalciferol 1.25 MG (52021 UT) capsule 5 Active colchicine 0.6 MG tablet Take 0.6 mg by mouth in the morning and 0.6 mg in the evening. 5 Active cefuroxime (CEFTIN) 500 MG tablet Take 500 mg by mouth in the morning and 500 mg in the evening. 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 01/07/2025 Encounters Date Type Department Care Team Description 02/12/2025 10:45 AM EDT Office Visit [facility] [address] [phone] Rodri Torres MD Acute kidney failure, not otherwise specified (HCC) (Primary Dx) from Last 3 Months Immunizations Immunization Administration Dates Next Due HPV, Quadrivalent 09/14/2011,01/30/2010,07/03/19 08 Influenza (IM) Preservative Free 02/05/2025 Influenza Whole 02/02/2008 Influenza, Injectable, Madin [place] Canine Kidney, Preservative Free 02/18/2024 Influenza, MDCK, PF, Quadrivalent 02/06/2019 Influenza, Quadrivalent, With Preservative 02/04,02/12/2018 Meningococcal, Unspecified 01/30/2010 Varicella 09/14/2011 Family History Medical History Relation Comments Diabetes Paternal Grandmother renal disease Paternal Grandmother Kidney failure Neg Hx Relation Status Comments Paternal Grandmother Social History Tobacco Use Types Packs/Day Years Used Date Smoking Tobacco: Unknown Tobacco Cessation:Counseling Given: Not Answered Alcohol Use Standard Drinks/Week Comments Never 0 (1 standard drink = 0.6 oz pur e alcohol) Comments Unknown Sex and Gender Information Value Date Recorded Sex Assigned at Not on file Legal Sex Female 10:14 AM EDT Gender Identity Not on file Sexual Orientation Not on file Last Filed Vital Signs Vital Sign Reading Time Taken Comments Blood Pressure 120/79 02/12/2025 10:35 AM EDT Pulse - - Temperature - - Respiratory Rate - - Oxygen Saturation - - Inhaled Oxygen Concentration - - Weight 75.9 kg (167 lb 6.4 oz) 02/12/2025 10:35 AM EDT Height - - Body Mass Index - - Plan of Treatment Upcoming Encounters Date Type Department Care Team (Late st Contact Info) Description 02/15/2026 1:15 PM EDT Office Visit [facility] [address] [phone] Rodri Torres MD [address] [phone] Health Maintenance Due Date Last Done Comments Hepatitis B Vaccine (1 of 3 - 19+ 3-dose series) 2013 Pneumococcal Vaccine: Peds ( 0 to 5 Years) and At-Risk Patients (6 to 49 Years) (1 of 2 - PCV) 2013 Influenza Vaccine Completed 02/05/2025, , 02/05/2020, Additional history exists Procedures Procedure Name Priority Date/Time Associated Diagnosis Comments RENAL FUNCTION PANEL (EXTERNAL LAB ENTRY) Routine 01/19/2025 from Last 3 Months Results * Renal Function Panel (External Lab) (01/19/2025) Glucose 161 mg/dL BUN 25 mg/dL eGFR 68 Sodium 135 mEq/L Potassium 3.6 mEq/L Chloride 96 Carbon Dioxide 27 mmol/L Calcium 8.5 mg/dL Phosphorus, Serum 4.7 mg/dL Albumin (Blood) 2.8 g/dL Creatinine 1.12 mg/dL Anion Gap 12 Blood 01/19/2025 [facility] Provider LAB BLOOD ORDERABLES [place] l Result from Last 3 Months Insurance [facility] Medicaid Care Teams Nursing Program Coordinator Relationship Specialty Start Date End Date Mt Adame DO [address] [place] [address] [address] [place], [place] PCP - General Family Medicine 04/29/24
--- OUTSIDE RECORDS SUMMARY | 2025-02-26 12:01 | XMS_ITS | Encounter Summary ---
Author Organization [facility] [employer] Address [address] [place] [address] Care Team Providers Care Supply Chain Planner Name Role Phone Hilda Joyce MD Primary Care Provide r Encounter Details Date Type Department Care Team ([facility] Contact Info) Description 01/06/2025 Orders Only [facility] [address] [place] [phone] Hilda Joyce MD [address] [place] [address] [phone] Social History Tobacco Use Types Packs/Day Years Used Date Smoking Tobacco: Never Smokeless Tobacco: Never Comments No Sex and Gender Information Value Date Recorded Sex Assigned at Female 02/26/2022 10:34 AM EDT Legal Sex Female 10:34 AM EDT Gender Identity Female 02/26/2022 10:34 AM EDT Sexual Orientation Straight 02/26/2022 10 :34 AM EDT documented as of this encounter Plan of Treatment Upcoming Encounters Date Type Department Care Team (Late Contact Info) Description 04/19/2025 10:00 AM EST Telemedicine [facility] [address] [place] [phone] Hilda Joyce MD [address] [place] [address] [phone] documented as of this encounter Visit Diagnoses Not on filedocumented in this encounter Care Teams Supply Chain Planner Relationship Specialty Start Date End Date Hilda Joyce MD [address] [place] [phone] PCP - General Family Medicine 02/12/18 documented as of this encounter
== END 2025-02-26 11:55 | disposition home or self-care (01) ==
LOC: HO.RHES 10:36
PROVIDERS: PCP Internal Medicine; Visit Provider Student in an Organized Health Care Education/Training Program
DX: M32.12 Pericarditis in systemic lupus erythematosus (principal); Z51.81 Encounter for therapeutic drug level monitoring; Z79.899 Other long term (current) drug therapy; Z79.624 Long term (current) use of inhibitors of nucleotide synthesis
CPT/HCPCS: 99205